=== PATIENT | male | born 1955 | race Caucasian/White ===

== ENCOUNTER 2020-09-04 09:49 | Inpatient (IN) | payer OTHER ==
[~2020-09-04] VITALS: Ht 180.3 cm; Wt 127.2 kg
[2020-09-04] MEDS ORDERED: ASPirin 81 mg TAB PO ONE (10:15)
[2020-09-04] MEDS: NITROGLYCERIN 0.4 MG SL TAB SL ONE ×2 (10:22→11:21)
[2020-09-04 10:31] LABS: Basophils # (auto) 0 10 ^3/uL (0-0.2); Basophils % (auto) 0.5 % (0.0-2.0); Eosinophils # (auto) 0.1 10 ^3/uL (0-0.8); Eosinophils % (auto) 1.9 % (0.0-7.0); Hematocrit 46.6 % (41.0-53.0); Hemoglobin 15.8 g/dL (13.5-17.5); Lymphocytes % (auto) 16.6 % (10.0-50.0); Mean Corpuscular Hemoglobin 31.8 pg (28.0-32.0); Mean Corpuscular Hgb Conc. 33.9 g/dL (32.0-36.0); Mean Corpuscular Volume 93.9 fL (80.0-100.0); Monocytes # (auto) 0.4 10 ^3/uL (0-1.3); Monocytes % (auto) 6.5 % (0.0-12.0); Neutrophils # (auto) 4.6 10 ^3/uL (1.6-8.6); Neutrophils % (auto) 74.5 % (37.0-80.0); Nucleated Red Blood Cells % 0.4 %; Platelet Count (auto) 141 10^3/uL (140-450); Red Blood Cells 4.97 10^6/uL (4.5-5.90); Red Cell Distribution Width 13.6 % (11.8-14.3); White Blood Cell 6.2 10^3/uL (4.4-10.8)
[2020-09-04 10:49] LABS: Alanine Aminotransferase 21 U/L (16-61); Albumin 3.3 g/dL (3.4-5.0); Anion Gap 7 (5-15); Aspartate Aminotransferase 8 U/L (15-37); Blood Urea Nitrogen 15 mg/dL (7-18); Carbon Dioxide 25 mmol/L (21-32); Chloride 104 mmol/L (98-107); Glucose 294 mg/dL (74-106); Magnesium 2.1 mg/dL (1.6-2.6); Potassium 4.1 mmol/L (3.5-5.1); Sodium 136 mmol/L (136-145)
[2020-09-04 10:54] LABS: Alkaline Phosphatase 113 U/L (45-117); BUN/Creatinine Ratio 15.5; Bilirubin, Total 0.7 mg/dL (0.2-1.0); GFR African American 100 mL/min; GFR Non-African American 83 mL/min; Total Protein 6.6 g/dL (6.4-8.2)
[2020-09-04] MEDS ORDERED: NITROGLYCERIN 0.4 MG SL TAB SL PRN ×3 (13:45→20:30)
[2020-09-04] MEDS ORDERED: ROSU40TA PO (15:17)
[2020-09-04] MEDS ORDERED: ASPI-231 PO (15:17)
[2020-09-04] MEDS ORDERED: NORT10CA PO (15:17)
[2020-09-04] MEDS ORDERED: LISI-648 PO (15:17)
[2020-09-04] MEDS ORDERED: INSU100I49 SC (15:17)
[2020-09-04] MEDS ORDERED: PREG100C PO (15:17)
[2020-09-04] MEDS ORDERED: HYDR-531 PO (15:18)
[2020-09-04] MEDS ORDERED: MORP1TAB12 PO (15:18)
[2020-09-04 15:32] LABS: Cholesterol 194 mg/dL (< 200)
[2020-09-04 15:35] LABS: HDL Cholesterol 36 mg/dL (40-59); LDL Cholesterol 139 mg/dL (< 100); Triglycerides 221 mg/dL (< 150)
[2020-09-04] MEDS ORDERED: DEXTROSE (50%) 50ML SYRG IV PRN (18:00)
[2020-09-04] MEDS ORDERED: HYDROcodone-ACET 10/325MG TAB PO PRN (18:00)
[2020-09-04] MEDS: PREGABALIN 25 MG CAP PO SCH (18:19)
[2020-09-04] MEDS: MORPHINE SULF INJ 2 MG/ML SYRINGE 1ML IV PRN ×2 (19:40→22:17)
[2020-09-04] MEDS ORDERED: LORazepam 0.5 MG TAB PO PRN (20:30)
[2020-09-04] MEDS ORDERED: MORPHINE SULFATE 4 MG/ML SYR/VIAL IV PRN (20:30)
[2020-09-04] MEDS ORDERED: ALUM & MAG HYDROX-SIMETH LIQ(MAALOX) 30 ML PO PRN (20:30)
[2020-09-04] MEDS ORDERED: ONDANSETRON HCL 4 MG/2 ML VIAL IV PRN (20:30)
[2020-09-04] MEDS ORDERED: METOPROLOL TARTRATE 25 MG TAB PO ONE (20:30)
[2020-09-04] MEDS ORDERED: DOCUSATE SOD 100 MG CAP PO PRN (20:30)
[2020-09-04] MEDS ORDERED: MORPHINE SULF INJ 2 MG/ML SYRINGE 1ML IV PRN ×2 (20:30)
[2020-09-04] MEDS ORDERED: ACETAMINOPHEN 325 MG TAB PO PRN (20:30)
[2020-09-04 22:25] VITALS: BP 129/76
--- NOTE | 2020-09-04 23:00 | NUR ---
Telemetry admit from [facility] admitted to Telemetry unit after SBAR received. Patient oriented to Joann Davis RN primary RN, unit, room, bed, and unit policies regarding patient care and visiting hours. Patient now on continuous telemetry monitoring, tele box # 80 and telemetry reading on arrival to unit is SR. Patient weighed by bedscale and encouraged to call if they need something. Instructed to be NPO after MN, for possible stress test tomorrow, patient verbalized understanding. All questions and concerns addressed, patient verbalized understanding, will continue to monitor Note: []
[2020-09-04] MEDS: NORTRIPTYLINE HCL 10 MG CAP PO SCH (23:24)
[2020-09-04] MEDS: ATORVASTATIN 20 MG TAB PO SCH (23:24)
[2020-09-04] MEDS: ACCU-CHEK COMFORT CURVE STRIP VI SCH (23:24)
[2020-09-04] MEDS: InsuLIN REG 1unit/0.01ml Soln (100units/ml) SC SCH (23:25)
--- NOTE | 2020-09-04 23:30 | NUR ---
Noted redness and swelling on left leg present upon admission. Pictures taken for reference
[2020-09-05 02:05] VITALS: BP 129/76
[2020-09-05 05:00] VITALS: BP 130/80
[2020-09-05 06:49] LABS: Alcohol, Urine < 3.0 mg/dL (0-10); Amphetamine Screen, Urine NEGATIVE (NEGATIVE); Barbiturate Scree,Urine NEGATIVE (NEGATIVE); Benzodiazephine Screen, Urine NEGATIVE (NEGATIVE); Cannabinoid Screen, Urine NEGATIVE (NEGATIVE); Cocaine Screen, Urine NEGATIVE (NEGATIVE); Opiate Scree,Urine POSITIVE (NEGATIVE); Phencyclidine Screen, Urine NEGATIVE (NEGATIVE)
[2020-09-05] MEDS: ACCU-CHEK COMFORT CURVE STRIP VI SCH ×4 (06:59→21:35)
[2020-09-05] MEDS: InsuLIN REG 1unit/0.01ml Soln (100units/ml) SC SCH ×7 (07:00→22:00)
[2020-09-05 07:21] LABS: Urine Bacteria FEW /hpf (None Seen); Urine Blood Negative /uL (Negative); Urine Hyaline Cast FEW /lpf (0 - 2); Urine Specific Gravity 1.033 (1.001-1.035); Urine WBC 1 /hpf (0 - 3)
[2020-09-05] MEDS: LISINOPRIL 10 MG TAB PO SCH (10:00)
[2020-09-05] MEDS: CLOPIDOGREL BISULFATE 75 MG TAB PO SCH (10:00)
[2020-09-05] MEDS: ENOXAPARIN SOD 40 MG/0.4 ML SYRINGE SC SCH (10:00)
[2020-09-05] MEDS: PREGABALIN 25 MG CAP PO SCH ×2 (10:00→21:35)
[2020-09-05] MEDS: ASPirin 81 mg TAB PO SCH (10:00)
[2020-09-05] MEDS: METOPROLOL TARTRATE 25 MG TAB PO SCH ×2 (10:00→13:10)
[2020-09-05] MEDS ORDERED: ADENOSINE 108 MG in GIVE UN-DILUTED 0 ML IV STA (11:24)
[2020-09-05 11:56] VITALS: BP 135/82
[2020-09-05] MEDS: HYDROcodone-ACET 5/325MG TAB PO PRN ×4 (13:09→21:36)
[2020-09-05 17:00] VITALS: BP 119/74
--- NOTE | 2020-09-05 18:00 | NUR ---
pain appears to be controlled, with narco. no cp during shift. eating et drinking well. offers no other needs. results from stress test pendng pt aware. denies any other needs.
--- NOTE | 2020-09-05 19:00 | NUR ---
Opening Shift Note Assumed care of patient, awake and alert. No S/S of distress/SOB or pain at this time. Instructed on POC and to call for assist PRN, will continue to monitor for changes Q1hr and PRN. Patient in the lowest possible position with call light within reach.
[2020-09-05 20:00] VITALS: BP 94/51
--- NOTE | 2020-09-05 21:00 | NUR ---
Patient C/O of pain, patients states that norco helps, will administer per protocol when available.
[2020-09-05] MEDS: ATORVASTATIN 20 MG TAB PO SCH (21:35)
[2020-09-05] MEDS: NORTRIPTYLINE HCL 10 MG CAP PO SCH (21:35)
[2020-09-05 22:00] VITALS: BP 97/51
[2020-09-06 05:00] VITALS: BP 106/73
[2020-09-06] MEDS: ACCU-CHEK COMFORT CURVE STRIP VI SCH ×4 (06:06→21:20)
[2020-09-06] MEDS: HYDROcodone-ACET 5/325MG TAB PO PRN ×4 (06:06→21:12)
[2020-09-06] MEDS: InsuLIN REG 1unit/0.01ml Soln (100units/ml) SC SCH ×4 (06:09→21:26)
--- NOTE | 2020-09-06 07:50 | NUR ---
Opening Shift Note Assumed care of patient, awake and alert. No S/S of distress/SOB or pain. Instructed on POC and to call for assist PRN, will continue to monitor for changes Q1hr and PRN. Fall precautions in place per safety protocol.
[2020-09-06 08:00] VITALS: BP 102/62
[2020-09-06] MEDS: LISINOPRIL 10 MG TAB PO SCH (10:00)
[2020-09-06] MEDS: PREGABALIN 25 MG CAP PO SCH ×2 (10:26→21:19)
[2020-09-06] MEDS: ASPirin 81 mg TAB PO SCH (10:26)
[2020-09-06] MEDS: METOPROLOL TARTRATE 25 MG TAB PO SCH ×2 (10:26→21:19)
[2020-09-06] MEDS: CLOPIDOGREL BISULFATE 75 MG TAB PO SCH (10:27)
[2020-09-06] MEDS: ENOXAPARIN SOD 40 MG/0.4 ML SYRINGE SC SCH (10:27)
[2020-09-06 12:00] VITALS: BP 96/64
--- NOTE | 2020-09-06 14:30 | NUR ---
Physician MD Dawkins at bedside, aware of patient status. Per MD Dawkins, he contacted MD Lee to have stress test read. Will cont to monitor patient.
--- NOTE | 2020-09-06 15:00 | NUR ---
Cardiology Received call from MD Dawkins stating MD Lee is stating he will not be reading stress test as MD Peoples should be the one to read it. Will contact MD Peoples and cont to monitor patient.
--- NOTE | 2020-09-06 15:15 | NUR ---
MD Peoples Received call back from MD Peoples, Per MD Peoples, stress test needs to be read by MD Lee. Will Contact MD Lee and notify MD Dawkins. Will cont to monitor patient.
--- NOTE | 2020-09-06 15:30 | NUR ---
MD Lee Sent page to MD Lee, awaiting call back at this time.
[2020-09-06 16:41] VITALS: BP 129/60
--- NOTE | 2020-09-06 19:00 | NUR ---
Opening Shift Note Assumed care of patient, awake and alert. No S/S of distress/SOB or pain. Instructed on POC and to call for assist PRN, will continue to monitor for changes Q1hr and PRN. Patient in the lowest possible position with the call light within reach.
[2020-09-06 20:00] VITALS: BP 102/64
--- NOTE | 2020-09-06 20:21 | NUR ---
Patient pulled out IV on left hand by accident, patient stated that he forgot it was on his hand and hit his hand when he realized it was bleeding. Patient got paper towels to stop the bleeding and notified HISTOLOGIC AIDE. Patient was sitting in the chair holding dressing. IV intact. Will continue to monitor.
[2020-09-06] MEDS: ATORVASTATIN 20 MG TAB PO SCH (21:19)
[2020-09-06] MEDS: NORTRIPTYLINE HCL 10 MG CAP PO SCH (21:20)
[2020-09-06 22:00] VITALS: BP 102/64
[2020-09-07] MEDS: HYDROcodone-ACET 5/325MG TAB PO PRN ×3 (01:14→10:36)
[2020-09-07 05:00] VITALS: BP 110/71
[2020-09-07] MEDS: ACCU-CHEK COMFORT CURVE STRIP VI SCH (06:34)
[2020-09-07] MEDS: InsuLIN REG 1unit/0.01ml Soln (100units/ml) SC SCH (06:38)
--- NOTE | 2020-09-07 08:00 | NUR ---
Opening Shift Note Assumed care of patient, awake and alert. No S/S of distress/SOB or pain. Instructed on POC and to call for assist PRN, will continue to monitor for changes Q1hr and PRN. Fall precaution sin place per safety protocol.
[2020-09-07 09:00] VITALS: BP 111/75
[2020-09-07] MEDS: CLOPIDOGREL BISULFATE 75 MG TAB PO SCH (09:26)
[2020-09-07] MEDS: METOPROLOL TARTRATE 25 MG TAB PO SCH (09:26)
[2020-09-07] MEDS: ASPirin 81 mg TAB PO SCH (09:26)
[2020-09-07] MEDS: PREGABALIN 25 MG CAP PO SCH (09:27)
[2020-09-07] MEDS: ENOXAPARIN SOD 40 MG/0.4 ML SYRINGE SC SCH (09:27)
[2020-09-07] MEDS: LISINOPRIL 10 MG TAB PO SCH (09:29)
[2020-09-07 11:01] VITALS: BP 114/74
--- NOTE | 2020-09-07 11:51 | NUR ---
Discharge instructions given as ordered. Encourage to follow up with PMD as instructed. All questions and concerns addressed. Patient verbalized understanding. Medication reconciliation form completed and copy given to patient. IV removed with catheter intact, pressure dressing applied. Telemetry unit returned to ICU. Patient ambulated to vehicle via wheelchair with all personal belongings, accompanied by staff.No distress noted at time of departure.
== END 2020-09-07 12:00 | disposition home or self-care (01) | DRG 313 ==
LOC: ER 09:49 → TELE 13:41 → TELE-WESTW 22:25
PROVIDERS: ADMIT Hospitalist; ATTEND Internal Medicine Geriatric Medicine
DX: R07.89 Other chest pain (principal); E44.1 Mild protein-calorie malnutrition; I50.32 Chronic diastolic (congestive) heart failure; E66.01 Morbid (severe) obesity due to excess calories; K21.9 Gastro-esophageal reflux disease without esophagitis; K29.70 Gastritis, unspecified, without bleeding; E78.5 Hyperlipidemia, unspecified; I11.0 Hypertensive heart disease with heart failure; E11.9 Type 2 diabetes mellitus without complications; I45.10 Unspecified right bundle-branch block; Z79.4 Long term (current) use of insulin; Z79.82 Long term (current) use of aspirin; Z91.81 History of falling; Z68.39 Body mass index [BMI] 39.0-39.9, adult
CPT/HCPCS: 36415; 71045; 78452; 80053; 80061; 80307; 81001; 82962; 83036; 83735; 83880; 84484; 85025; 87040; 87086; 93005; 93017; 93306; 93926; 96374; G0378; J0153; J1815

== ENCOUNTER 2022-09-14 20:51 | Inpatient (IN) | payer OTHER, MEDICAID ==
[~2022-09-14] VITALS: Ht 180.3 cm; Wt 134.9 kg
[~2022-09-14 20:51] MED LIST: ASPI1TAB20 PO; HYDR-531 PO; INSU100I49 SC; LISI-716 PO; MORP1TAB12 PO; NORT10CA PO; PREG100C PO; ROSU40TA PO
[2022-09-14 23:57] LABS: Basophils # (auto) 0 10 ^3/uL (0-0.2); Basophils % (auto) 0.2 % (0.0-2.0); Eosinophils # (auto) 0 10 ^3/uL (0-0.8); Eosinophils % (auto) 0.1 % (0.0-7.0); Hematocrit 51.6 % (41.0-53.0); Hemoglobin 16.6 g/dL (13.5-17.5); Lymphocytes # (auto) 1.3 10 ^3/uL (0.4-5.4); Lymphocytes % (auto) 6.3 % (10.0-50.0); Mean Corpuscular Hemoglobin 28.3 pg (28.0-32.0); Mean Corpuscular Hgb Conc. 32.1 g/dL (32.0-36.0); Monocytes # (auto) 1.2 10 ^3/uL (0-1.3); Monocytes % (auto) 5.6 % (0.0-12.0); Neutrophils # (auto) 18.6 10 ^3/uL (1.6-8.6); Neutrophils % (auto) 87.8 % (37.0-80.0); Red Blood Cells 5.87 10^6/uL (4.5-5.90); White Blood Cell 21.2 10^3/uL (4.4-10.8)
[2022-09-15 00:08] LABS: Urine Bacteria FEW /hpf (None Seen); Urine Blood Negative /uL (Negative); Urine Hyaline Cast MANY /lpf (0 - 2); Urine Mucus FEW (None Seen); Urine Specific Gravity 1.036 (1.001-1.035); Urine WBC 3 /hpf (0 - 3)
[2022-09-15 00:11] LABS: Potassium 3.8 mmol/L (3.5-5.1)
[2022-09-15 00:15] LABS: BUN/Creatinine Ratio 9.2
[2022-09-15 00:18] LABS: Bilirubin, Total 0.7 mg/dL (0.2-1.0); Total Protein 6.3 g/dL (6.4-8.2)
[2022-09-15] MEDS ORDERED: InsuLIN REG 1unit/0.01ml Soln (100units/ml) IV ONE (03:30)
[2022-09-15] MEDS ORDERED: SODIUM CHLORIDE 0.9% 1,000 ML IV ONE ×2 (03:30→12:45)
[2022-09-15] MEDS ORDERED: DEXTROSE (50%) 50ML SYRG IV PRN (05:30)
[2022-09-15] MEDS ORDERED: SODIUM CHLORIDE 0.9% 1,000 ML IV SCH (05:30)
[2022-09-15] MEDS ORDERED: ONDANSETRON HCL 4 MG/2 ML VIAL IV PRN (05:30)
[2022-09-15] MEDS ORDERED: ACETAMINOPHEN 325 MG TAB PO PRN (05:30)
[2022-09-15] MEDS ORDERED: ALBUMIN 25% 100 ML IV ONE (05:30)
[2022-09-15] MEDS ORDERED: MORPHINE SULFATE INJ 2 MG/ml SYRG IV PRN (05:30)
[2022-09-15] MEDS: cefTRIAXone 1GM/50ML D5W 50 ML IV ONE ×2 (05:30→12:44)
[2022-09-15] MEDS ORDERED: NITROGLYCERIN 0.4 MG SL TAB SL PRN (05:30)
[2022-09-15] MEDS ORDERED: DOCUSATE SOD 100 MG CAP PO PRN (05:30)
[2022-09-15] MEDS: metroNIDAZOLE 500MG/100ML 100 ML IV SCH ×3 (06:00→23:25)
[2022-09-15] MEDS: ACCU-CHEK COMFORT CURVE STRIP VI SCH ×4 (07:00→22:26)
[2022-09-15] MEDS: InsuLIN REG 1unit/0.01ml Soln (100units/ml) SC SCH ×4 (07:00→22:29)
[2022-09-15] MEDS ORDERED: ASPirin 81 mg TAB PO SCH (10:00)
[2022-09-15 10:21] LABS: Basophils # (auto) 0.1 10 ^3/uL (0-0.2); Basophils % (auto) 0.4 % (0.0-2.0); Eosinophils # (auto) 0 10 ^3/uL (0-0.8); Eosinophils % (auto) 0.1 % (0.0-7.0); Hematocrit 52.3 % (41.0-53.0); Hemoglobin 16.9 g/dL (13.5-17.5); Lymphocytes # (auto) 1.2 10 ^3/uL (0.4-5.4); Lymphocytes % (auto) 4.8 % (10.0-50.0); Mean Corpuscular Hemoglobin 28.4 pg (28.0-32.0); Mean Corpuscular Hgb Conc. 32.3 g/dL (32.0-36.0); Mean Corpuscular Volume 87.9 fL (80.0-100.0); Monocytes # (auto) 1.4 10 ^3/uL (0-1.3); Monocytes % (auto) 5.6 % (0.0-12.0); Neutrophils # (auto) 21.6 10 ^3/uL (1.6-8.6); Neutrophils % (auto) 89.1 % (37.0-80.0); Red Blood Cells 5.94 10^6/uL (4.5-5.90); Red Cell Distribution Width 15.1 % (11.8-14.3); White Blood Cell 24.2 10^3/uL (4.4-10.8)
[2022-09-15 11:09] LABS: Potassium 4.2 mmol/L (3.5-5.1)
[2022-09-15 11:16] LABS: BUN/Creatinine Ratio 10.2; Calcium 8.8 mg/dL (8.5-10.1); Magnesium 2.3 mg/dL (1.6-2.6)
[2022-09-15] MEDS: SODIUM CHLORIDE 0.9% 1,000 ML IV SCH ×2 (12:40→18:30)
[2022-09-15] MEDS: ALBUMIN 25% 50 ML IV SCH ×2 (12:45→21:54)
[2022-09-15] MEDS: HYDROcodone-ACET 5/325MG TAB PO PRN ×2 (16:10→21:55)
[2022-09-15 18:04] VITALS: BP 135/61
[2022-09-15 20:00] VITALS: BP 94/59
[2022-09-15 22:00] VITALS: BP 94/59
[2022-09-15] MEDS ORDERED: ATORVASTATIN 20 MG TAB PO SCH (22:00)
[2022-09-16] VITALS (7 sets, daily range): BP systolic 104–118; BP diastolic 62–77
[2022-09-16] MEDS: SODIUM CHLORIDE 0.9% 1,000 ML IV SCH (00:51)
[2022-09-16] MEDS: ALBUMIN 25% 50 ML IV SCH (04:38)
[2022-09-16] MEDS: MORPHINE SULFATE INJ 2 MG/ml SYRG IV PRN ×2 (04:38→20:32)
[2022-09-16] MEDS: metroNIDAZOLE 500MG/100ML 100 ML IV SCH ×3 (05:32→22:03)
[2022-09-16 06:05] LABS: Basophils # (auto) 0 10 ^3/uL (0-0.2); Basophils % (auto) 0.2 % (0.0-2.0); Eosinophils # (auto) 0.1 10 ^3/uL (0-0.8); Eosinophils % (auto) 0.3 % (0.0-7.0); Hematocrit 47.1 % (41.0-53.0); Hemoglobin 15.5 g/dL (13.5-17.5); Lymphocytes # (auto) 1.5 10 ^3/uL (0.4-5.4); Lymphocytes % (auto) 5.7 % (10.0-50.0); Mean Corpuscular Hemoglobin 28.6 pg (28.0-32.0); Mean Corpuscular Hgb Conc. 32.9 g/dL (32.0-36.0); Mean Corpuscular Volume 86.9 fL (80.0-100.0); Monocytes # (auto) 1.5 10 ^3/uL (0-1.3); Monocytes % (auto) 5.6 % (0.0-12.0); Neutrophils # (auto) 23.7 10 ^3/uL (1.6-8.6); Neutrophils % (auto) 88.2 % (37.0-80.0); Red Blood Cells 5.42 10^6/uL (4.5-5.90); White Blood Cell 26.9 10^3/uL (4.4-10.8)
[2022-09-16] MEDS: ACCU-CHEK COMFORT CURVE STRIP VI SCH ×3 (06:53→22:03)
[2022-09-16] MEDS: InsuLIN REG 1unit/0.01ml Soln (100units/ml) SC SCH ×4 (06:54→22:05)
[2022-09-16] MEDS: cefTRIAXone 1GM/50ML D5W 50 ML IV SCH (08:47)
[2022-09-16] MEDS: HYDROcodone-ACET 5/325MG TAB PO PRN ×2 (09:01→14:33)
[2022-09-16 09:29] LABS: Anion Gap 14 (5-15); Blood Urea Nitrogen 19 mg/dL (7-18); Calcium 8.4 mg/dL (8.5-10.1); Carbon Dioxide 17 mmol/L (21-32); Chloride 109 mmol/L (98-107); Glucose 184 mg/dL (74-106); Potassium 3.8 mmol/L (3.5-5.1); Sodium 140 mmol/L (136-145)
[2022-09-16 09:30] LABS: BUN/Creatinine Ratio 14.6; GFR African American 71 mL/min; GFR Non-African American 59 mL/min
[2022-09-16 09:34] LABS: Alanine Aminotransferase 13 U/L (16-61); Alkaline Phosphatase 100 U/L (45-117); Aspartate Aminotransferase 9 U/L (15-37); Bilirubin, Total 0.6 mg/dL (0.2-1.0); Total Protein 5.8 g/dL (6.4-8.2)
[2022-09-16] MEDS: SODIUM BICARBONATE 50ML VIAL 50 ML in SOD CHL 0.45% 1,000 ML IV SCH ×2 (14:32→18:39)
[2022-09-17] VITALS (7 sets, daily range): BP systolic 103–128; BP diastolic 64–75
[2022-09-17] MEDS: HYDROcodone-ACET 5/325MG TAB PO PRN ×3 (00:57→18:49)
[2022-09-17] MEDS: SODIUM BICARBONATE 50ML VIAL 50 ML in SOD CHL 0.45% 1,000 ML IV SCH (03:03)
[2022-09-17 05:03] LABS: Basophils # (auto) 0 10 ^3/uL (0-0.2); Basophils % (auto) 0.3 % (0.0-2.0); Eosinophils # (auto) 0.1 10 ^3/uL (0-0.8); Eosinophils % (auto) 0.6 % (0.0-7.0); Hematocrit 39.2 % (41.0-53.0); Lymphocytes # (auto) 1.5 10 ^3/uL (0.4-5.4); Mean Corpuscular Hemoglobin 28.8 pg (28.0-32.0); Mean Corpuscular Hgb Conc. 33.2 g/dL (32.0-36.0); Mean Corpuscular Volume 86.8 fL (80.0-100.0); Monocytes # (auto) 0.9 10 ^3/uL (0-1.3); Monocytes % (auto) 6.2 % (0.0-12.0); Neutrophils # (auto) 12.4 10 ^3/uL (1.6-8.6); Neutrophils % (auto) 82.9 % (37.0-80.0); Nucleated Red Blood Cells % 0.1 %; Red Blood Cells 4.52 10^6/uL (4.5-5.90); Red Cell Distribution Width 15.1 % (11.8-14.3)
[2022-09-17 05:30] LABS: BUN/Creatinine Ratio 19.8; Magnesium 2.2 mg/dL (1.6-2.6); Potassium 3.4 mmol/L (3.5-5.1)
[2022-09-17] MEDS: metroNIDAZOLE 500MG/100ML 100 ML IV SCH ×3 (05:42→21:30)
[2022-09-17] MEDS: ACCU-CHEK COMFORT CURVE STRIP VI SCH ×4 (06:39→21:30)
[2022-09-17] MEDS: InsuLIN REG 1unit/0.01ml Soln (100units/ml) SC SCH ×4 (06:44→21:30)
[2022-09-17] MEDS: cefTRIAXone 1GM/50ML D5W 50 ML IV SCH (08:00)
[2022-09-17] MEDS: MORPHINE SULFATE INJ 2 MG/ml SYRG IV PRN ×3 (08:05→22:23)
[2022-09-17] MEDS: SODIUM BICARBONATE 50ML VIAL 50 ML, POTASSIUM CHLORIDE 20 MEQ in SOD CHL 0.45% 1,000 ML IV SCH ×2 (12:15→19:59)
[2022-09-17] MEDS: VANCOMYCIN HCL 125MG/5ML ORAL SOL GT SCH ×2 (18:35→21:29)
[2022-09-17] MEDS ORDERED: methylPREDNISolone SOD SUCC 40 MG/ML VL IV SCH (22:00)
[2022-09-18] MEDS: HYDROcodone-ACET 5/325MG TAB PO PRN ×3 (02:37→15:45)
[2022-09-18] MEDS: SODIUM BICARBONATE 50ML VIAL 50 ML, POTASSIUM CHLORIDE 20 MEQ in SOD CHL 0.45% 1,000 ML IV SCH (04:28)
[2022-09-18 05:22] VITALS: BP 112/66
[2022-09-18 05:22] LABS: Protein, Urine 88.8 mg/dL (0.0-11.9); Sodium Urine 33 mmol/L (40-220)
[2022-09-18 05:37] LABS: Creatinine, Urine 294 mg/dL (30.0-125.0)
[2022-09-18] MEDS: ACCU-CHEK COMFORT CURVE STRIP VI SCH ×4 (06:23→21:56)
[2022-09-18] MEDS: VANCOMYCIN HCL 125MG/5ML ORAL SOL GT SCH ×2 (06:23→11:33)
[2022-09-18] MEDS: metroNIDAZOLE 500MG/100ML 100 ML IV SCH ×3 (06:23→21:56)
[2022-09-18] MEDS: InsuLIN REG 1unit/0.01ml Soln (100units/ml) SC SCH ×4 (06:28→22:11)
[2022-09-18 06:43] LABS: Basophils # (auto) 0.1 10 ^3/uL (0-0.2); Basophils % (auto) 0.5 % (0.0-2.0); Eosinophils # (auto) 0.1 10 ^3/uL (0-0.8); Eosinophils % (auto) 0.9 % (0.0-7.0); Hematocrit 41.9 % (41.0-53.0); Hemoglobin 13.5 g/dL (13.5-17.5); Lymphocytes # (auto) 1.2 10 ^3/uL (0.4-5.4); Lymphocytes % (auto) 9.6 % (10.0-50.0); Mean Corpuscular Hemoglobin 28.2 pg (28.0-32.0); Mean Corpuscular Hgb Conc. 32.2 g/dL (32.0-36.0); Mean Corpuscular Volume 87.6 fL (80.0-100.0); Monocytes # (auto) 0.8 10 ^3/uL (0-1.3); Monocytes % (auto) 6.3 % (0.0-12.0); Neutrophils % (auto) 82.7 % (37.0-80.0); Nucleated Red Blood Cells % 0.1 %; Red Blood Cells 4.79 10^6/uL (4.5-5.90); Red Cell Distribution Width 14.9 % (11.8-14.3)
[2022-09-18 07:37] LABS: BUN/Creatinine Ratio 20.3; Calcium 7.8 mg/dL (8.5-10.1); Magnesium 2.3 mg/dL (1.6-2.6); Potassium 3.6 mmol/L (3.5-5.1)
[2022-09-18 07:55] VITALS: BP 118/73
[2022-09-18 08:30] VITALS: BP 118/73
[2022-09-18] MEDS: cefTRIAXone 1GM/50ML D5W 50 ML IV SCH (08:39)
[2022-09-18] MEDS: FLORASTOR (S. BOULARDII) 250 MG CAP PO SCH (09:55)
[2022-09-18] MEDS: VANCOMYCIN HCL 125MG/5ML ORAL SOL PO SCH ×2 (11:52→17:58)
[2022-09-18 14:21] VITALS: BP 111/59
[2022-09-18 16:00] VITALS: BP 108/70
[2022-09-18 20:10] VITALS: BP 101/59
[2022-09-19] MEDS: VANCOMYCIN HCL 125MG/5ML ORAL SOL PO SCH ×5 (00:49→23:53)
[2022-09-19 05:00] VITALS: BP 108/58
[2022-09-19] MEDS: metroNIDAZOLE 500MG/100ML 100 ML IV SCH ×3 (05:23→21:51)
[2022-09-19] MEDS: HYDROcodone-ACET 5/325MG TAB PO PRN ×4 (05:23→18:55)
[2022-09-19 05:54] LABS: Basophils # (auto) 0.1 10 ^3/uL (0-0.2); Basophils % (auto) 0.7 % (0.0-2.0); Eosinophils # (auto) 0.2 10 ^3/uL (0-0.8); Eosinophils % (auto) 1.5 % (0.0-7.0); Hematocrit 43.1 % (41.0-53.0); Hemoglobin 13.9 g/dL (13.5-17.5); Lymphocytes # (auto) 1.6 10 ^3/uL (0.4-5.4); Lymphocytes % (auto) 15.7 % (10.0-50.0); Mean Corpuscular Hemoglobin 28.6 pg (28.0-32.0); Mean Corpuscular Hgb Conc. 32.3 g/dL (32.0-36.0); Mean Corpuscular Volume 88.5 fL (80.0-100.0); Monocytes # (auto) 0.7 10 ^3/uL (0-1.3); Monocytes % (auto) 7.2 % (0.0-12.0); Neutrophils # (auto) 7.7 10 ^3/uL (1.6-8.6); Neutrophils % (auto) 74.9 % (37.0-80.0); Nucleated Red Blood Cells % 0.1 %; Red Blood Cells 4.87 10^6/uL (4.5-5.90); White Blood Cell 10.2 10^3/uL (4.4-10.8)
[2022-09-19] MEDS: ACCU-CHEK COMFORT CURVE STRIP VI SCH ×4 (06:23→21:51)
[2022-09-19] MEDS: InsuLIN REG 1unit/0.01ml Soln (100units/ml) SC SCH ×4 (06:25→21:52)
[2022-09-19 06:28] LABS: BUN/Creatinine Ratio 9.9; Calcium 8.3 mg/dL (8.5-10.1); Potassium 3.4 mmol/L (3.5-5.1)
[2022-09-19] MEDS ORDERED: POTASSIUM CHL 20 Meq TABLET PO ONE (09:00)
[2022-09-19 09:13] VITALS: BP 112/47
[2022-09-19] MEDS: FLORASTOR (S. BOULARDII) 250 MG CAP PO SCH (10:00)
[2022-09-19 13:51] VITALS: BP 135/71
[2022-09-19 16:23] VITALS: BP 128/51
[2022-09-19 22:00] VITALS: BP 120/66
[2022-09-20] MEDS: HYDROcodone-ACET 5/325MG TAB PO PRN ×5 (00:04→20:31)
[2022-09-20 05:46] LABS: BUN/Creatinine Ratio 14.9; Calcium 7.9 mg/dL (8.5-10.1); Potassium 3.8 mmol/L (3.5-5.1)
[2022-09-20] MEDS: metroNIDAZOLE 500MG/100ML 100 ML IV SCH ×3 (06:11→22:16)
[2022-09-20] MEDS: ACCU-CHEK COMFORT CURVE STRIP VI SCH ×4 (06:11→22:22)
[2022-09-20] MEDS: VANCOMYCIN HCL 125MG/5ML ORAL SOL PO SCH ×3 (06:11→17:43)
[2022-09-20] MEDS: InsuLIN REG 1unit/0.01ml Soln (100units/ml) SC SCH ×4 (07:04→22:23)
[2022-09-20 08:51] VITALS: BP 115/65
[2022-09-20] MEDS: FLORASTOR (S. BOULARDII) 250 MG CAP PO SCH (10:29)
[2022-09-20 12:48] VITALS: BP 106/62
[2022-09-20 16:41] VITALS: BP 137/73
[2022-09-20 22:00] VITALS: BP 129/77
[2022-09-21] MEDS: VANCOMYCIN HCL 125MG/5ML ORAL SOL PO SCH ×3 (00:08→11:54)
[2022-09-21] MEDS: HYDROcodone-ACET 5/325MG TAB PO PRN ×3 (00:12→09:04)
[2022-09-21 05:00] VITALS: BP 120/71
[2022-09-21] MEDS: metroNIDAZOLE 500MG/100ML 100 ML IV SCH (06:23)
[2022-09-21] MEDS: ACCU-CHEK COMFORT CURVE STRIP VI SCH ×2 (06:23→11:48)
[2022-09-21] MEDS: InsuLIN REG 1unit/0.01ml Soln (100units/ml) SC SCH ×2 (06:32→11:52)
[2022-09-21 09:00] VITALS: BP 129/66
[2022-09-21] MEDS: FLORASTOR (S. BOULARDII) 250 MG CAP PO SCH (09:04)
[2022-09-21] MEDS ORDERED: VANC125C3 PO (10:42)
[2022-09-21 12:03] VITALS: BP 115/65
[2022-09-21 13:00] VITALS: BP 119/72
[2022-09-21] MEDS ORDERED: METR500T PO (15:32)
== END 2022-09-21 12:34 | disposition home or self-care (01) | DRG 871 ==
LOC: ER 20:51 → OVERFLOW 09-15 05:30 → CENTRAL 09-15 18:09
PROVIDERS: ADMIT Nurse Practitioner Family; ATTEND Internal Medicine Geriatric Medicine
DX: A41.89 Other specified sepsis (principal); N17.0 Acute kidney failure with tubular necrosis; A04.72 Enterocolitis due to Clostridium difficile, not specified as recurrent; I50.30 Unspecified diastolic (congestive) heart failure; E87.20 Acidosis, unspecified; I13.0 Hypertensive heart and chronic kidney disease with heart failure and stage 1 through stage 4 chronic kidney disease, or unspecified chronic kidney disease; Z68.41 Body mass index [BMI] 40.0-44.9, adult; E86.0 Dehydration; E11.65 Type 2 diabetes mellitus with hyperglycemia; E66.01 Morbid (severe) obesity due to excess calories; E78.5 Hyperlipidemia, unspecified; N20.0 Calculus of kidney; E87.6 Hypokalemia; K21.9 Gastro-esophageal reflux disease without esophagitis; N18.9 Chronic kidney disease, unspecified; E11.22 Type 2 diabetes mellitus with diabetic chronic kidney disease; Z20.822 Contact with and (suspected) exposure to COVID-19
CPT/HCPCS: 36415; 71045; 74176; 80048; 80053; 81001; 82270; 82306; 82378; 82570; 82962; 83036; 83690; 83735; 83970; 84100; 84156; 84300; 84550; 85025; 85048; 87040; 87045; 87426; 87427; 87493; 93005; 93306; 96361; 96365; 96372; G0378; J0696; J1815; J2405; J3490; P9047

== ENCOUNTER 2022-09-27 15:03 | Inpatient (IN) | payer OTHER, MEDICAID ==
[~2022-09-27] VITALS: Ht 180.3 cm; Wt 137.2 kg
[~2022-09-27 15:03] MED LIST changes: +METR500T PO
[2022-09-27 16:04] LABS: Basophils # (auto) 0 10 ^3/uL (0-0.2); Basophils % (auto) 0.3 % (0.0-2.0); Eosinophils # (auto) 0.1 10 ^3/uL (0-0.8); Hematocrit 44.6 % (41.0-53.0); Hemoglobin 14.3 g/dL (13.5-17.5); Lymphocytes # (auto) 1.5 10 ^3/uL (0.4-5.4); Lymphocytes % (auto) 13.8 % (10.0-50.0); Mean Corpuscular Hemoglobin 28.2 pg (28.0-32.0); Mean Corpuscular Hgb Conc. 32.2 g/dL (32.0-36.0); Mean Corpuscular Volume 87.8 fL (80.0-100.0); Monocytes # (auto) 0.5 10 ^3/uL (0-1.3); Monocytes % (auto) 4.5 % (0.0-12.0); Neutrophils # (auto) 8.8 10 ^3/uL (1.6-8.6); Neutrophils % (auto) 80.4 % (37.0-80.0); Red Blood Cells 5.08 10^6/uL (4.5-5.90); Red Cell Distribution Width 15.3 % (11.8-14.3); White Blood Cell 10.9 10^3/uL (4.4-10.8)
[2022-09-27 16:23] LABS: Calcium 8.7 mg/dL (8.5-10.1); Potassium 4.3 mmol/L (3.5-5.1)
[2022-09-27 16:30] LABS: Albumin 2.9 g/dL (3.4-5.0); BUN/Creatinine Ratio 14.1; Bilirubin, Total 0.4 mg/dL (0.2-1.0); Magnesium 1.9 mg/dL (1.6-2.6); Total Protein 5.2 g/dL (6.4-8.2)
[2022-09-27 16:49] LABS: INR 1.03 (0.9-1.15)
[2022-09-27 18:49] LABS: Urine Bacteria NONE SEEN /hpf (None Seen); Urine Blood Negative /uL (Negative); Urine Specific Gravity 1.031 (1.001-1.035); Urine WBC 1 /hpf (0 - 3)
[2022-09-27] MEDS: SODIUM CHLORIDE 0.9% 1,000 ML IV SCH (19:30)
[2022-09-27] MEDS ORDERED: DEXTROSE (50%) 50ML SYRG IV PRN (19:30)
[2022-09-27] MEDS ORDERED: ONDANSETRON HCL 4 MG/2 ML VIAL IV PRN (19:30)
[2022-09-27] MEDS ORDERED: DICYCLOMINE HCL (10MG/ML) 2 ML AMPULE IM PRN (19:45)
[2022-09-27] MEDS: MORPHINE SULFATE INJ 2 MG/ml SYRG IV PRN (21:21)
[2022-09-27] MEDS: ACCU-CHEK COMFORT CURVE STRIP VI SCH (22:00)
[2022-09-27] MEDS: PATIENTS OWN MEDICATION (Pregabalin (Lyrica) 1 CAP) PO SCH (22:00)
[2022-09-27] MEDS: metroNIDAZOLE 500MG/100ML 100 ML IV SCH (22:13)
[2022-09-27] MEDS: InsuLIN REG 1unit/0.01ml Soln (100units/ml) SC SCH (22:15)
[2022-09-27] MEDS: NORTRIPTYLINE HCL 10 MG CAP PO SCH (22:22)
[2022-09-28] VITALS (7 sets, daily range): BP systolic 107–143; BP diastolic 59–83
[2022-09-28] MEDS: MORPHINE SULFATE INJ 2 MG/ml SYRG IV PRN ×2 (03:20→16:19)
[2022-09-28] MEDS: SODIUM CHLORIDE 0.9% 1,000 ML IV SCH ×3 (03:50→23:35)
[2022-09-28 06:10] LABS: Basophils # (auto) 0.1 10 ^3/uL (0-0.2); Basophils % (auto) 1.2 % (0.0-2.0); Eosinophils # (auto) 0.2 10 ^3/uL (0-0.8); Eosinophils % (auto) 2.4 % (0.0-7.0); Hematocrit 43.7 % (41.0-53.0); Hemoglobin 14.6 g/dL (13.5-17.5); Lymphocytes # (auto) 1.5 10 ^3/uL (0.4-5.4); Lymphocytes % (auto) 20.6 % (10.0-50.0); Mean Corpuscular Hemoglobin 29.4 pg (28.0-32.0); Mean Corpuscular Hgb Conc. 33.5 g/dL (32.0-36.0); Mean Corpuscular Volume 87.9 fL (80.0-100.0); Monocytes # (auto) 0.5 10 ^3/uL (0-1.3); Monocytes % (auto) 6.1 % (0.0-12.0); Neutrophils # (auto) 5.2 10 ^3/uL (1.6-8.6); Neutrophils % (auto) 69.7 % (37.0-80.0); Nucleated Red Blood Cells % 0.1 %; Red Blood Cells 4.97 10^6/uL (4.5-5.90); Red Cell Distribution Width 15.2 % (11.8-14.3); White Blood Cell 7.4 10^3/uL (4.4-10.8)
[2022-09-28 06:32] LABS: Calcium 8.7 mg/dL (8.5-10.1); Potassium 4.1 mmol/L (3.5-5.1)
[2022-09-28 06:39] LABS: Albumin 2.8 g/dL (3.4-5.0); BUN/Creatinine Ratio 19.4
[2022-09-28] MEDS: metroNIDAZOLE 500MG/100ML 100 ML IV SCH ×3 (06:53→22:08)
[2022-09-28] MEDS: LISINOPRIL 10 MG TAB PO SCH (06:53)
[2022-09-28] MEDS: ACCU-CHEK COMFORT CURVE STRIP VI SCH ×4 (06:53→22:09)
[2022-09-28] MEDS: InsuLIN REG 1unit/0.01ml Soln (100units/ml) SC SCH ×4 (07:17→22:00)
[2022-09-28] MEDS: PATIENTS OWN MEDICATION (Pregabalin (Lyrica) 1 CAP) PO SCH ×2 (09:01→22:00)
[2022-09-28] MEDS: PANTOPRAZOLE 40 MG/10 ML VIAL INJ IV SCH (09:01)
[2022-09-28] MEDS: ASPirin-EC 81 mg tab PO SCH (09:02)
[2022-09-28] MEDS: ATORVASTATIN 20 MG TAB PO SCH (09:02)
[2022-09-28] MEDS ORDERED: HYDROcodone-ACET 10/325MG TAB PO PRN (09:45)
[2022-09-28] MEDS ORDERED: VANCOMYCIN HCL 125MG/5ML ORAL SOL PO ONE (10:00)
[2022-09-28] MEDS: VANCOMYCIN HCL 125MG/5ML ORAL SOL PO SCH ×3 (10:32→22:08)
[2022-09-28] MEDS ORDERED: VANCOMYCIN HCL 125MG/5ML ORAL SOL GT SCH (12:00)
[2022-09-28] MEDS: HYDROcodone-ACET 10/325MG TAB PO PRN (21:28)
[2022-09-28] MEDS: NORTRIPTYLINE HCL 10 MG CAP PO SCH (22:09)
[2022-09-29] MEDS: VANCOMYCIN HCL 125MG/5ML ORAL SOL PO SCH ×4 (05:15→22:19)
[2022-09-29] MEDS: metroNIDAZOLE 500MG/100ML 100 ML IV SCH ×3 (05:15→22:22)
[2022-09-29] MEDS: LISINOPRIL 10 MG TAB PO SCH (05:56)
[2022-09-29] MEDS: InsuLIN REG 1unit/0.01ml Soln (100units/ml) SC SCH ×4 (05:56→22:25)
[2022-09-29] MEDS: ACCU-CHEK COMFORT CURVE STRIP VI SCH ×4 (05:58→22:25)
[2022-09-29 08:20] LABS: Basophils # (auto) 0.1 10 ^3/uL (0-0.2); Eosinophils # (auto) 0.1 10 ^3/uL (0-0.8); Eosinophils % (auto) 1.7 % (0.0-7.0); Hematocrit 43.9 % (41.0-53.0); Hemoglobin 14.1 g/dL (13.5-17.5); Lymphocytes # (auto) 1.6 10 ^3/uL (0.4-5.4); Lymphocytes % (auto) 21.5 % (10.0-50.0); Mean Corpuscular Hemoglobin 28.6 pg (28.0-32.0); Mean Corpuscular Hgb Conc. 32.1 g/dL (32.0-36.0); Monocytes # (auto) 0.5 10 ^3/uL (0-1.3); Monocytes % (auto) 6.8 % (0.0-12.0); Nucleated Red Blood Cells % 0.1 %; Red Blood Cells 4.93 10^6/uL (4.5-5.90); Red Cell Distribution Width 15.5 % (11.8-14.3); White Blood Cell 7.3 10^3/uL (4.4-10.8)
[2022-09-29] MEDS: ASPirin-EC 81 mg tab PO SCH (08:34)
[2022-09-29] MEDS: PATIENTS OWN MEDICATION (Pregabalin (Lyrica) 1 CAP) PO SCH ×2 (08:34→22:00)
[2022-09-29] MEDS: PANTOPRAZOLE 40 MG/10 ML VIAL INJ IV SCH (08:34)
[2022-09-29 08:35] VITALS: BP 97/67
[2022-09-29] MEDS: ATORVASTATIN 20 MG TAB PO SCH (08:35)
[2022-09-29 09:01] LABS: Calcium 8.7 mg/dL (8.5-10.1)
[2022-09-29 09:04] LABS: Potassium 4.4 mmol/L (3.5-5.1)
[2022-09-29] MEDS: HYDROcodone-ACET 10/325MG TAB PO PRN ×3 (11:36→22:18)
[2022-09-29 12:18] VITALS: BP 110/80
[2022-09-29] MEDS: SODIUM CHLORIDE 0.9% 1,000 ML IV SCH (12:55)
[2022-09-29 16:18] VITALS: BP 109/61
[2022-09-29 22:00] VITALS: BP 133/64
[2022-09-29] MEDS: NORTRIPTYLINE HCL 10 MG CAP PO SCH (22:18)
[2022-09-30] MEDS: SODIUM CHLORIDE 0.9% 1,000 ML IV SCH (02:09)
[2022-09-30] MEDS: VANCOMYCIN HCL 125MG/5ML ORAL SOL PO SCH ×2 (03:47→10:02)
[2022-09-30 05:00] VITALS: BP 103/57
[2022-09-30] MEDS: metroNIDAZOLE 500MG/100ML 100 ML IV SCH ×2 (05:29→15:02)
[2022-09-30] MEDS: LISINOPRIL 10 MG TAB PO SCH (06:20)
[2022-09-30] MEDS: ACCU-CHEK COMFORT CURVE STRIP VI SCH ×2 (06:20→11:39)
[2022-09-30] MEDS: HYDROcodone-ACET 10/325MG TAB PO PRN ×2 (06:20→11:19)
[2022-09-30] MEDS: InsuLIN REG 1unit/0.01ml Soln (100units/ml) SC SCH ×2 (06:23→12:34)
[2022-09-30 09:00] VITALS: BP 122/71
[2022-09-30] MEDS: PATIENTS OWN MEDICATION (Pregabalin (Lyrica) 1 CAP) PO SCH (10:00)
[2022-09-30] MEDS: ATORVASTATIN 20 MG TAB PO SCH (10:02)
[2022-09-30] MEDS: ASPirin-EC 81 mg tab PO SCH (10:02)
[2022-09-30] MEDS: PANTOPRAZOLE 40 MG/10 ML VIAL INJ IV SCH (10:02)
[2022-09-30] MEDS ORDERED: METR500T PO (11:25)
[2022-09-30 13:22] VITALS: BP 112/66
== END 2022-09-30 14:50 | disposition home or self-care (01) | DRG 372 ==
LOC: ER 15:07 → OVERFLOW 19:26 → WEST WING 09-28 01:15
PROVIDERS: ADMIT Nurse Practitioner Family; ATTEND Internal Medicine Geriatric Medicine
DX: A04.72 Enterocolitis due to Clostridium difficile, not specified as recurrent (principal); N17.9 Acute kidney failure, unspecified; Z68.41 Body mass index [BMI] 40.0-44.9, adult; E78.5 Hyperlipidemia, unspecified; E86.0 Dehydration; I10 Essential (primary) hypertension; Z96.659 Presence of unspecified artificial knee joint; E11.9 Type 2 diabetes mellitus without complications; E66.01 Morbid (severe) obesity due to excess calories; Z20.822 Contact with and (suspected) exposure to COVID-19; Z79.84 Long term (current) use of oral hypoglycemic drugs
CPT/HCPCS: 36415; 80048; 80053; 81001; 82962; 83735; 83880; 84484; 85025; 85610; 87045; 87081; 87426; 87427; 87493; 96374; 96375; C9113; G0378; J1815; J3490

== ENCOUNTER 2022-11-04 05:51 | Inpatient (IN) | payer OTHER, MEDICAID ==
[~2022-11-04] VITALS: Ht 180.3 cm; Wt 126.4 kg
[2022-11-04 07:43] LABS: Basophils # (auto) 0 10 ^3/uL (0-0.2); Basophils % (auto) 0.2 % (0.0-2.0); Eosinophils # (auto) 0 10 ^3/uL (0-0.8); Eosinophils % (auto) 0.1 % (0.0-7.0); Hematocrit 47.4 % (41.0-53.0); Hemoglobin 15.5 g/dL (13.5-17.5); Lymphocytes # (auto) 0.6 10 ^3/uL (0.4-5.4); Lymphocytes % (auto) 3.3 % (10.0-50.0); Mean Corpuscular Hemoglobin 29.2 pg (28.0-32.0); Mean Corpuscular Hgb Conc. 32.6 g/dL (32.0-36.0); Mean Corpuscular Volume 89.6 fL (80.0-100.0); Monocytes # (auto) 0.7 10 ^3/uL (0-1.3); Monocytes % (auto) 3.8 % (0.0-12.0); Neutrophils # (auto) 17.8 10 ^3/uL (1.6-8.6); Neutrophils % (auto) 92.6 % (37.0-80.0); Red Blood Cells 5.29 10^6/uL (4.5-5.90); Red Cell Distribution Width 14.7 % (11.8-14.3); White Blood Cell 19.3 10^3/uL (4.4-10.8)
[2022-11-04 08:12] LABS: Albumin 3.6 g/dL (3.4-5.0); Calcium 9.2 mg/dL (8.5-10.1); Potassium 4.4 mmol/L (3.5-5.1)
[2022-11-04 08:16] LABS: Total Protein 6.3 g/dL (6.4-8.2)
[2022-11-04 08:51] LABS: Urine Bacteria NONE SEEN /hpf (None Seen); Urine Blood Negative /uL (Negative); Urine Hyaline Cast FEW /lpf (0 - 2); Urine Mucus FEW (None Seen); Urine Specific Gravity 1.039 (1.001-1.035); Urine WBC 2 /hpf (0 - 3)
[2022-11-04] MEDS ORDERED: FUROSEMIDE 20 MG/2 ML VIAL IV ONE (12:30)
[2022-11-04] MEDS ORDERED: SODIUM CHLORIDE 0.9% 1,000 ML IV ONE (12:30)
[2022-11-04] MEDS ORDERED: DEXTROSE (50%) 50ML SYRG IV PRN (12:30)
[2022-11-04] MEDS ORDERED: VANCOMYCIN HCL 125MG/5ML ORAL SOL PO ONE (12:30)
[2022-11-04] MEDS ORDERED: hydrALAZINE HCL 20 MG/ML VL IV PRN (13:00)
[2022-11-04 13:41] LABS: Cholesterol 189 mg/dL (< 200); HDL Cholesterol 38 mg/dL (40-59); LDL Cholesterol 144 mg/dL (< 100); Triglycerides 103 mg/dL (< 150)
[2022-11-04] MEDS: ACCU-CHEK COMFORT CURVE STRIP VI SCH (19:59)
[2022-11-04] MEDS: VANCOMYCIN HCL 125MG/5ML ORAL SOL PO SCH (20:18)
[2022-11-04] MEDS: InsuLIN REG 1unit/0.01ml Soln (100units/ml) SC SCH (20:22)
[2022-11-04] MEDS: HYDROcodone-ACET 10/325MG TAB PO SCH ×2 (20:24→22:00)
[2022-11-04] MEDS: metroNIDAZOLE 500MG/100ML 100 ML IV SCH ×2 (20:32→20:42)
[2022-11-05] VITALS (8 sets, daily range): BP systolic 95–130; BP diastolic 51–68
[2022-11-05] MEDS: ACCU-CHEK COMFORT CURVE STRIP VI SCH ×5 (00:38→21:51)
[2022-11-05] MEDS: VANCOMYCIN HCL 125MG/5ML ORAL SOL PO SCH ×5 (00:42→23:32)
[2022-11-05] MEDS: NORTRIPTYLINE HCL 10 MG CAP PO SCH ×2 (00:42→21:51)
[2022-11-05] MEDS: PREGABALIN 25 MG CAP PO SCH ×3 (00:43→21:50)
[2022-11-05] MEDS: InsuLIN REG 1unit/0.01ml Soln (100units/ml) SC SCH ×5 (01:03→22:28)
[2022-11-05] MEDS ORDERED: HYDROcodone-ACET 5/325MG TAB PO ONE (01:30)
[2022-11-05] MEDS: HYDROcodone-ACET 10/325MG TAB PO SCH (05:46)
[2022-11-05] MEDS: metroNIDAZOLE 500MG/100ML 100 ML IV SCH ×3 (05:46→21:50)
[2022-11-05] MEDS: LISINOPRIL 10 MG TAB PO SCH (05:47)
[2022-11-05 08:46] LABS: Basophils # (auto) 0.1 10 ^3/uL (0-0.2); Basophils % (auto) 0.5 % (0.0-2.0); Eosinophils # (auto) 0.2 10 ^3/uL (0-0.8); Eosinophils % (auto) 1.7 % (0.0-7.0); Hemoglobin 13.8 g/dL (13.5-17.5); Lymphocytes % (auto) 9.9 % (10.0-50.0); Mean Corpuscular Hemoglobin 30.1 pg (28.0-32.0); Mean Corpuscular Hgb Conc. 33.7 g/dL (32.0-36.0); Mean Corpuscular Volume 89.4 fL (80.0-100.0); Monocytes # (auto) 0.6 10 ^3/uL (0-1.3); Monocytes % (auto) 5.9 % (0.0-12.0); Neutrophils # (auto) 8.2 10 ^3/uL (1.6-8.6); Nucleated Red Blood Cells % 0.1 %; Red Blood Cells 4.59 10^6/uL (4.5-5.90); Red Cell Distribution Width 14.7 % (11.8-14.3); White Blood Cell 10.1 10^3/uL (4.4-10.8)
[2022-11-05 09:15] LABS: BUN/Creatinine Ratio 26.7; Calcium 8.3 mg/dL (8.5-10.1); Potassium 3.6 mmol/L (3.5-5.1)
[2022-11-05] MEDS: ASPirin-EC 81 mg tab PO SCH (09:52)
[2022-11-05] MEDS: ENOXAPARIN SOD 40 MG/0.4 ML SYRINGE SC SCH (09:53)
[2022-11-05] MEDS: ATORVASTATIN 20 MG TAB PO SCH (09:53)
[2022-11-05] MEDS: POTASSIUM CHL 10 Meq TABLET PO SCH (09:53)
[2022-11-05] MEDS ORDERED: FUROSEMIDE 20 MG/2 ML VIAL IV SCH (10:00)
[2022-11-05] MEDS ORDERED: FUROSEMIDE 20 MG/2 ML VIAL IV ONE (11:45)
[2022-11-05] MEDS: HYDROcodone-ACET 10/325MG TAB PO PRN ×2 (12:51→18:42)
[2022-11-06] MEDS: HYDROcodone-ACET 10/325MG TAB PO PRN ×4 (04:51→21:48)
[2022-11-06 05:00] VITALS: BP 116/66
[2022-11-06] MEDS: metroNIDAZOLE 500MG/100ML 100 ML IV SCH ×3 (05:13→21:48)
[2022-11-06] MEDS: VANCOMYCIN HCL 125MG/5ML ORAL SOL PO SCH ×4 (05:13→23:52)
[2022-11-06] MEDS: ACCU-CHEK COMFORT CURVE STRIP VI SCH ×4 (06:07→21:47)
[2022-11-06] MEDS: LISINOPRIL 10 MG TAB PO SCH (06:08)
[2022-11-06] MEDS: InsuLIN REG 1unit/0.01ml Soln (100units/ml) SC SCH ×4 (06:14→21:45)
[2022-11-06 08:54] VITALS: BP 105/56
[2022-11-06 09:29] LABS: Calcium 8.3 mg/dL (8.5-10.1); Potassium 3.6 mmol/L (3.5-5.1)
[2022-11-06 09:32] LABS: BUN/Creatinine Ratio 25.6
[2022-11-06] MEDS: ATORVASTATIN 20 MG TAB PO SCH (10:25)
[2022-11-06] MEDS: PREGABALIN 25 MG CAP PO SCH ×2 (10:25→21:48)
[2022-11-06] MEDS: ENOXAPARIN SOD 40 MG/0.4 ML SYRINGE SC SCH (10:26)
[2022-11-06] MEDS: FUROSEMIDE 40 MG/4 ML VIAL IV SCH (10:26)
[2022-11-06] MEDS: POTASSIUM CHL 10 Meq TABLET PO SCH (10:26)
[2022-11-06] MEDS: ASPirin-EC 81 mg tab PO SCH (10:26)
[2022-11-06] MEDS ORDERED: VANC125C3 PO (10:43)
[2022-11-06 13:00] VITALS: BP 110/57
[2022-11-06 15:23] LABS: INR 1.04 (0.9-1.15)
[2022-11-06 16:56] VITALS: BP 111/64
[2022-11-06] MEDS: NORTRIPTYLINE HCL 10 MG CAP PO SCH (21:47)
[2022-11-06 22:00] VITALS: BP 102/56
[2022-11-07] MEDS: HYDROcodone-ACET 10/325MG TAB PO PRN ×4 (03:21→20:14)
[2022-11-07 05:00] VITALS: BP 107/67
[2022-11-07] MEDS: metroNIDAZOLE 500MG/100ML 100 ML IV SCH ×3 (06:16→22:39)
[2022-11-07] MEDS: VANCOMYCIN HCL 125MG/5ML ORAL SOL PO SCH ×3 (06:16→20:21)
[2022-11-07] MEDS: LISINOPRIL 10 MG TAB PO SCH (06:17)
[2022-11-07] MEDS: ACCU-CHEK COMFORT CURVE STRIP VI SCH ×4 (06:17→22:40)
[2022-11-07] MEDS: InsuLIN REG 1unit/0.01ml Soln (100units/ml) SC SCH ×4 (06:18→22:41)
[2022-11-07 08:00] VITALS: BP_SYST 62
[2022-11-07 08:10] VITALS: BP 110/62
[2022-11-07] MEDS: PREGABALIN 25 MG CAP PO SCH ×2 (09:32→22:40)
[2022-11-07] MEDS: POTASSIUM CHL 10 Meq TABLET PO SCH (09:33)
[2022-11-07] MEDS: ASPirin-EC 81 mg tab PO SCH (09:33)
[2022-11-07] MEDS: FUROSEMIDE 40 MG/4 ML VIAL IV SCH (09:38)
[2022-11-07] MEDS: ATORVASTATIN 20 MG TAB PO SCH (09:38)
[2022-11-07] MEDS: ENOXAPARIN SOD 40 MG/0.4 ML SYRINGE SC SCH (09:40)
[2022-11-07 13:00] VITALS: BP 102/68
[2022-11-07 16:30] VITALS: BP 110/66
[2022-11-07 22:00] VITALS: BP 111/67
[2022-11-07] MEDS: NORTRIPTYLINE HCL 10 MG CAP PO SCH (22:40)
[2022-11-08] MEDS: VANCOMYCIN HCL 125MG/5ML ORAL SOL PO SCH ×2 (00:21→06:35)
[2022-11-08] MEDS: HYDROcodone-ACET 10/325MG TAB PO PRN ×3 (00:22→12:03)
[2022-11-08 04:30] VITALS: BP 109/65
[2022-11-08] MEDS: InsuLIN REG 1unit/0.01ml Soln (100units/ml) SC SCH (06:17)
[2022-11-08] MEDS: metroNIDAZOLE 500MG/100ML 100 ML IV SCH (06:35)
[2022-11-08] MEDS: ACCU-CHEK COMFORT CURVE STRIP VI SCH (06:35)
[2022-11-08] MEDS: LISINOPRIL 10 MG TAB PO SCH (06:51)
[2022-11-08 09:00] VITALS: BP 127/67
[2022-11-08] MEDS: POTASSIUM CHL 10 Meq TABLET PO SCH (09:54)
[2022-11-08] MEDS: ASPirin-EC 81 mg tab PO SCH (09:54)
[2022-11-08] MEDS: FUROSEMIDE 40 MG/4 ML VIAL IV SCH (09:54)
[2022-11-08] MEDS: PREGABALIN 25 MG CAP PO SCH (09:54)
[2022-11-08] MEDS: ATORVASTATIN 20 MG TAB PO SCH (09:54)
[2022-11-08] MEDS: ENOXAPARIN SOD 40 MG/0.4 ML SYRINGE SC SCH (09:55)
[2022-11-08 10:43] LABS: Calcium 8.3 mg/dL (8.5-10.1); Potassium 4.2 mmol/L (3.5-5.1)
[2022-11-08 10:45] LABS: BUN/Creatinine Ratio 17.8
[2022-11-08 12:05] VITALS: BP 127/67
== END 2022-11-08 12:40 | disposition home or self-care (01) | DRG 373 ==
LOC: ER 05:55 → OVERFLOW 12:24 → WEST WING 11-05 02:22
PROVIDERS: ADMIT Registered Nurse; ATTEND Internal Medicine Geriatric Medicine
DX: A04.71 Enterocolitis due to Clostridium difficile, recurrent (principal); E78.5 Hyperlipidemia, unspecified; E11.9 Type 2 diabetes mellitus without complications; E66.01 Morbid (severe) obesity due to excess calories; Z96.659 Presence of unspecified artificial knee joint; I25.10 Atherosclerotic heart disease of native coronary artery without angina pectoris; I10 Essential (primary) hypertension; I45.10 Unspecified right bundle-branch block; R07.9 Chest pain, unspecified; Z20.822 Contact with and (suspected) exposure to COVID-19; Z86.19 Personal history of other infectious and parasitic diseases; Z68.38 Body mass index [BMI] 38.0-38.9, adult; Z80.42 Family history of malignant neoplasm of prostate
CPT/HCPCS: 36415; 71045; 74176; 80048; 80053; 80061; 81001; 82962; 83036; 83880; 84484; 85025; 85610; 87040; 87045; 87081; 87086; 87426; 87427; 87493; 93005; 93970; G0378; J1815; J3490

== ENCOUNTER 2023-08-21 17:04 | Inpatient (IN) | payer OTHER, MEDICAID ==
[~2023-08-21] VITALS: Ht 180.3 cm; Wt 123.3 kg
[~2023-08-21 17:04] MED LIST changes: -LISI-716 PO; +LISI10TA34 PO; -ROSU40TA PO; +ROSU40TA81 PO; +VANC125C3 PO; +VANCOMYCIN 1GM/250ML 250 ML IV ONE
[2023-08-21 18:46] LABS: Alanine Aminotransferase 12 U/L (7-40); Albumin 4.5 g/dL (3.2-4.8); Alkaline Phosphatase 92 U/L (46-116); Anion Gap 12 (5-15); Aspartate Aminotransferase 9 U/L (13-40); BUN/Creatinine Ratio 7.9 (10.0-20.0); Bilirubin, Total 0.9 mg/dL (0.2-1.0); Blood Urea Nitrogen 10 mg/dL (9-23); Calcium 9.5 mg/dL (8.5-10.1); Carbon Dioxide 22 mmol/L (20-30); Chloride 104 mmol/L (98-107); Glucose 271 mg/dL (74-106); Lactic Acid w/Reflex 4.1 mmol/L (0.4-2.0); Potassium 3.8 mmol/L (3.5-5.1); Sodium 138 mmol/L (136-145); Total Protein 7.1 g/dL (5.7-8.2)
[2023-08-21 18:55] LABS: CRP High Sensitivity 8.81 mg/dL (<1.0)
[2023-08-21 19:08] LABS: Basophils # (auto) 0.1 10 ^3/uL (0-0.2); Basophils % (auto) 0.2 % (0.0-2.0); Eosinophils # (auto) 0 10 ^3/uL (0-0.8); Hematocrit 46.5 % (41.0-53.0); Hemoglobin 15.1 g/dL (13.5-17.5); Lymphocytes # (auto) 0.9 10 ^3/uL (0.4-5.4); Mean Corpuscular Hemoglobin 29.7 pg (28.0-32.0); Mean Corpuscular Hgb Conc. 32.5 g/dL (32.0-36.0); Mean Corpuscular Volume 91.5 fL (80.0-100.0); Monocytes # (auto) 1.3 10 ^3/uL (0-1.3); Monocytes % (auto) 5.8 % (0.0-12.0); Neutrophils # (auto) 20.5 10 ^3/uL (1.6-8.6); Nucleated Red Blood Cells % 0.1 %; Red Blood Cells 5.09 10^6/uL (4.5-5.90); Red Cell Distribution Width 14.4 % (11.8-14.3); White Blood Cell 22.8 10^3/uL (4.4-10.8)
[2023-08-21] MEDS ORDERED: cefTRIAXone 1GM/50ML D5W 50 ML IV ONE (20:00)
[2023-08-21] MEDS ORDERED: SODIUM CHLORIDE 0.9% 1,000 ML IV ONE (20:00)
[2023-08-21 20:15] VITALS: PULSE 103; RESP 20; O2SAT 94
[2023-08-21 20:23] LABS: Erythrocyte Sedimentation Rate 16 mm/hr (0-20)
[2023-08-21] MEDS ORDERED: VANCOMYCIN 1GM/250ML 250 ML IV ONE (20:30)
[2023-08-21] MEDS ORDERED: IOHEXOL 300 MG/ML 100ML BOTTLE IJ ONE (20:41)
[2023-08-21] MEDS ORDERED: DEXTROSE (50%) 50ML SYRG IV PRN (21:00)
[2023-08-21] MEDS ORDERED: ONDANSETRON HCL 4 MG/2 ML VIAL IV PRN (21:00)
[2023-08-21] MEDS ORDERED: VANCOMYCIN PER PHARMACY 0 MG IV SCH (21:00)
[2023-08-21] MEDS ORDERED: SODIUM CHLORIDE 0.9% 1,000 ML IV SCH (21:00)
[2023-08-21] MEDS ORDERED: DOCUSATE SOD 100 MG CAP PO PRN (21:00)
[2023-08-21] MEDS ORDERED: ACETAMINOPHEN 325 MG TAB PO PRN (21:00)
[2023-08-21] MEDS ORDERED: NITROGLYCERIN 0.4 MG SL TAB SL PRN (22:15)
[2023-08-22] VITALS (8 sets, daily range): BP systolic 103–124; BP diastolic 51–94; PULSE 85–108; RESP 16–20; TEMP 97.6–100.4; O2SAT 93–100
[2023-08-22] MEDS: ACCU-CHEK COMFORT CURVE STRIP VI SCH ×5 (00:08→22:20)
[2023-08-22] MEDS: MORPHINE SULFATE INJ 2 MG/ml SYRG IV PRN ×4 (00:17→22:29)
[2023-08-22] MEDS: InsuLIN REG 1unit/0.01ml Soln (100units/ml) SC SCH ×5 (00:24→22:21)
[2023-08-22 00:45] LABS: Urine Bacteria NONE SEEN /hpf (None Seen); Urine Blood Negative /uL (Negative); Urine Clarity Clear (Clear); Urine Color Yellow (Yellow); Urine Mucus FEW (None Seen); Urine Protein, UAD 1+ (Negative); Urine Specific Gravity 1.036 (1.001-1.035); Urine Urobilinogen Normal (Negative); Urine WBC <1 /hpf (0 - 3)
[2023-08-22] MEDS: HYDROcodone-ACET 5/325MG TAB PO PRN ×3 (02:45→21:05)
[2023-08-22 06:09] LABS: Basophils # (auto) 0 10 ^3/uL (0-0.2); Basophils % (auto) 0.1 % (0.0-2.0); Eosinophils # (auto) 0 10 ^3/uL (0-0.8); Hematocrit 39.9 % (41.0-53.0); Hemoglobin 13.2 g/dL (13.5-17.5); Lymphocytes # (auto) 0.8 10 ^3/uL (0.4-5.4); Lymphocytes % (auto) 5.6 % (10.0-50.0); Mean Corpuscular Hemoglobin 30.2 pg (28.0-32.0); Mean Corpuscular Hgb Conc. 33.1 g/dL (32.0-36.0); Mean Corpuscular Volume 91.2 fL (80.0-100.0); Monocytes % (auto) 7.2 % (0.0-12.0); Neutrophils # (auto) 12.6 10 ^3/uL (1.6-8.6); Neutrophils % (auto) 87.1 % (37.0-80.0); Red Blood Cells 4.38 10^6/uL (4.5-5.90); Red Cell Distribution Width 14.5 % (11.8-14.3); White Blood Cell 14.4 10^3/uL (4.4-10.8)
[2023-08-22 06:33] LABS: Alanine Aminotransferase 10 U/L (7-40); Albumin 3.7 g/dL (3.2-4.8); Alkaline Phosphatase 84 U/L (46-116); Anion Gap 8 (5-15); Aspartate Aminotransferase < 8 U/L (13-40); Bilirubin, Total 0.7 mg/dL (0.2-1.0); Blood Urea Nitrogen 8 mg/dL (9-23); Calcium 8.5 mg/dL (8.7-10.4); Carbon Dioxide 23 mmol/L (20-30); Chloride 106 mmol/L (98-107); Potassium 3.5 mmol/L (3.5-5.1); Sodium 137 mmol/L (136-145); Total Protein 5.8 g/dL (5.7-8.2)
[2023-08-22 06:36] LABS: Glucose 161 mg/dL (74-106)
[2023-08-22] MEDS ORDERED: cefTRIAXone 1GM/50ML D5W 50 ML IV SCH (09:00)
[2023-08-22] MEDS: ENOXAPARIN SOD 40 MG/0.4 ML SYRINGE SC SCH (10:14)
[2023-08-22] MEDS ORDERED: INSULIN LANTUS (GLARGINE) 1 /0.01ml (100units/ml) SC ONE (10:30)
[2023-08-22] MEDS: MEROPENEM 1GM IVPB 100 ML IV SCH ×2 (12:00→21:00)
[2023-08-22] MEDS: VANCOMYCIN 1GM/250ML 250 ML IV SCH ×2 (14:31→22:19)
[2023-08-22] MEDS: metFORMIN HYDROCHLORIDE 500 MG TAB PO SCH (18:00)
[2023-08-22 19:09] LABS: Body Fluid Polymorphonuclear 83 % (0-25); Body Fluid Red Blood Cells 4350 CUMM (0-2000); Body Fluid White Blood Cells 46400 CUMM (0-200)
[2023-08-22] MEDS: INSULIN LANTUS (GLARGINE) 1 /0.01ml (100units/ml) SC SCH (22:22)
[2023-08-23] VITALS (9 sets, daily range): BP systolic 111–124; BP diastolic 58–77; PULSE 68–107; RESP 14–20; TEMP 98.5–99.2; O2SAT 92–98
[2023-08-23] MEDS: MEROPENEM 1GM IVPB 100 ML IV SCH ×3 (02:49→18:47)
[2023-08-23] MEDS: HYDROcodone-ACET 5/325MG TAB PO PRN ×3 (02:49→17:33)
[2023-08-23 05:47] LABS: Basophils # (auto) 0 10 ^3/uL (0-0.2); Basophils % (auto) 0.3 % (0.0-2.0); Eosinophils # (auto) 0 10 ^3/uL (0-0.8); Eosinophils % (auto) 0.2 % (0.0-7.0); Hematocrit 38.2 % (41.0-53.0); Hemoglobin 12.5 g/dL (13.5-17.5); Lymphocytes # (auto) 0.9 10 ^3/uL (0.4-5.4); Lymphocytes % (auto) 6.8 % (10.0-50.0); Mean Corpuscular Hemoglobin 29.9 pg (28.0-32.0); Mean Corpuscular Hgb Conc. 32.8 g/dL (32.0-36.0); Mean Corpuscular Volume 91.2 fL (80.0-100.0); Monocytes # (auto) 0.9 10 ^3/uL (0-1.3); Monocytes % (auto) 6.9 % (0.0-12.0); Neutrophils # (auto) 11.8 10 ^3/uL (1.6-8.6); Neutrophils % (auto) 85.8 % (37.0-80.0); Red Blood Cells 4.19 10^6/uL (4.5-5.90); Red Cell Distribution Width 14.4 % (11.8-14.3); White Blood Cell 13.7 10^3/uL (4.4-10.8)
[2023-08-23 05:58] LABS: Albumin 3.4 g/dL (3.2-4.8); Alkaline Phosphatase 85 U/L (46-116); Anion Gap 6 (5-15); Aspartate Aminotransferase < 8 U/L (13-40); BUN/Creatinine Ratio 8.1 (10.0-20.0); Blood Urea Nitrogen 8 mg/dL (9-23); Calcium 8.5 mg/dL (8.7-10.4); Carbon Dioxide 24 mmol/L (20-30); Chloride 105 mmol/L (98-107); Glucose 148 mg/dL (74-106); Magnesium 1.7 mg/dL (1.6-2.6); Potassium 3.5 mmol/L (3.5-5.1); Sodium 135 mmol/L (136-145)
[2023-08-23 05:59] LABS: Bilirubin, Total 0.6 mg/dL (0.2-1.0); Total Protein 5.9 g/dL (5.7-8.2)
[2023-08-23] MEDS: VANCOMYCIN 1GM/250ML 250 ML IV SCH ×3 (06:16→21:56)
[2023-08-23] MEDS: ACCU-CHEK COMFORT CURVE STRIP VI SCH ×4 (06:16→22:02)
[2023-08-23 06:23] LABS: Alanine Aminotransferase < 9 U/L (7-40)
[2023-08-23] MEDS: MORPHINE SULFATE INJ 2 MG/ml SYRG IV PRN ×5 (06:32→20:50)
[2023-08-23] MEDS: InsuLIN REG 1unit/0.01ml Soln (100units/ml) SC SCH ×4 (06:33→22:02)
[2023-08-23] MEDS: metFORMIN HYDROCHLORIDE 500 MG TAB PO SCH ×3 (08:00→17:28)
[2023-08-23] MEDS: PANTOPRAZOLE 40 MG TAB PO SCH (08:28)
[2023-08-23] MEDS ORDERED: SILVER SULFADIAZINE 1 % TOPICAL CREAM 50GM TOP SCH (10:00)
[2023-08-23] MEDS: ENOXAPARIN SOD 40 MG/0.4 ML SYRINGE SC SCH (10:03)
[2023-08-23] MEDS: DAKINS HALF STR 0.25% (NaHypochlorite) 473 ML TOPICAL SOL TOP SCH (22:00)
[2023-08-23] MEDS: INSULIN LANTUS (GLARGINE) 1 /0.01ml (100units/ml) SC SCH (22:02)
[2023-08-24] VITALS (8 sets, daily range): BP systolic 102–137; BP diastolic 55–77; PULSE 67–101; RESP 18–22; TEMP 97.6–98.6; O2SAT 94–96
[2023-08-24] MEDS: MORPHINE SULFATE INJ 2 MG/ml SYRG IV PRN ×5 (01:41→20:31)
[2023-08-24] MEDS: MEROPENEM 1GM IVPB 100 ML IV SCH ×3 (02:58→18:33)
[2023-08-24] MEDS: HYDROcodone-ACET 5/325MG TAB PO PRN ×5 (04:31→22:56)
[2023-08-24] MEDS: InsuLIN REG 1unit/0.01ml Soln (100units/ml) SC SCH ×4 (06:15→21:59)
[2023-08-24] MEDS: VANCOMYCIN 1GM/250ML 250 ML IV SCH ×3 (07:00→21:54)
[2023-08-24] MEDS: ACCU-CHEK COMFORT CURVE STRIP VI SCH ×4 (07:03→21:54)
[2023-08-24] MEDS: metFORMIN HYDROCHLORIDE 500 MG TAB PO SCH ×2 (08:00→17:38)
[2023-08-24] MEDS: PANTOPRAZOLE 40 MG TAB PO SCH (09:08)
[2023-08-24] MEDS: ENOXAPARIN SOD 40 MG/0.4 ML SYRINGE SC SCH (10:27)
[2023-08-24] MEDS: DAKINS HALF STR 0.25% (NaHypochlorite) 473 ML TOPICAL SOL TOP SCH ×2 (11:39→21:54)
[2023-08-24] MEDS: INSULIN LANTUS (GLARGINE) 1 /0.01ml (100units/ml) SC SCH (21:59)
[2023-08-25] VITALS (7 sets, daily range): BP systolic 115–139; BP diastolic 47–73; PULSE 77–101; RESP 18–20; TEMP 97.8–98.9; O2SAT 94–95
[2023-08-25] MEDS: MEROPENEM 1GM IVPB 100 ML IV SCH ×3 (02:20→18:04)
[2023-08-25] MEDS: MORPHINE SULFATE INJ 2 MG/ml SYRG IV PRN ×5 (02:20→21:19)
[2023-08-25] MEDS: HYDROcodone-ACET 5/325MG TAB PO PRN ×3 (03:47→14:29)
[2023-08-25] MEDS: VANCOMYCIN 1GM/250ML 250 ML IV SCH ×3 (05:55→21:49)
[2023-08-25] MEDS: ACCU-CHEK COMFORT CURVE STRIP VI SCH ×4 (06:04→21:49)
[2023-08-25] MEDS: InsuLIN REG 1unit/0.01ml Soln (100units/ml) SC SCH ×4 (06:11→21:50)
[2023-08-25 09:07] LABS: Basophils # (auto) 0 10 ^3/uL (0-0.2); Basophils % (auto) 0.3 % (0.0-2.0); Eosinophils # (auto) 0.1 10 ^3/uL (0-0.8); Eosinophils % (auto) 0.6 % (0.0-7.0); Hematocrit 41.1 % (41.0-53.0); Hemoglobin 13.7 g/dL (13.5-17.5); Lymphocytes # (auto) 0.9 10 ^3/uL (0.4-5.4); Lymphocytes % (auto) 6.7 % (10.0-50.0); Mean Corpuscular Hgb Conc. 33.3 g/dL (32.0-36.0); Mean Corpuscular Volume 89.9 fL (80.0-100.0); Monocytes # (auto) 0.9 10 ^3/uL (0-1.3); Monocytes % (auto) 6.2 % (0.0-12.0); Neutrophils # (auto) 11.9 10 ^3/uL (1.6-8.6); Neutrophils % (auto) 86.2 % (37.0-80.0); Red Blood Cells 4.57 10^6/uL (4.5-5.90); Red Cell Distribution Width 14.3 % (11.8-14.3); White Blood Cell 13.8 10^3/uL (4.4-10.8)
[2023-08-25] MEDS: ENOXAPARIN SOD 40 MG/0.4 ML SYRINGE SC SCH (09:12)
[2023-08-25] MEDS: PANTOPRAZOLE 40 MG TAB PO SCH (09:13)
[2023-08-25] MEDS: DAKINS HALF STR 0.25% (NaHypochlorite) 473 ML TOPICAL SOL TOP SCH ×2 (09:14→21:56)
[2023-08-25 09:15] LABS: Chloride 104 mmol/L (98-107); Potassium 4.2 mmol/L (3.5-5.1); Sodium 134 mmol/L (136-145)
[2023-08-25 09:16] LABS: Anion Gap 4 (5-15); Carbon Dioxide 26 mmol/L (20-30)
[2023-08-25 09:17] LABS: Calcium 8.8 mg/dL (8.5-10.1)
[2023-08-25 09:21] LABS: Glucose 211 mg/dL (74-106)
[2023-08-25 09:22] LABS: BUN/Creatinine Ratio 16.4 (10.0-20.0); Blood Urea Nitrogen 12 mg/dL (9-23)
[2023-08-25] MEDS: metFORMIN HYDROCHLORIDE 500 MG TAB PO SCH ×2 (09:29→17:15)
[2023-08-25] MEDS: INSULIN LANTUS (GLARGINE) 1 /0.01ml (100units/ml) SC SCH (21:51)
[2023-08-26] VITALS (7 sets, daily range): BP systolic 111–150; BP diastolic 49–79; PULSE 79–105; RESP 18–20; TEMP 98.2–98.5; O2SAT 95–96
[2023-08-26] MEDS: HYDROcodone-ACET 5/325MG TAB PO PRN ×5 (00:07→20:08)
[2023-08-26] MEDS: MEROPENEM 1GM IVPB 100 ML IV SCH (02:18)
[2023-08-26] MEDS: MORPHINE SULFATE INJ 2 MG/ml SYRG IV PRN ×5 (02:18→21:51)
[2023-08-26] MEDS: VANCOMYCIN 1GM/250ML 250 ML IV SCH (05:56)
[2023-08-26] MEDS: ACCU-CHEK COMFORT CURVE STRIP VI SCH ×4 (05:56→21:56)
[2023-08-26] MEDS: InsuLIN REG 1unit/0.01ml Soln (100units/ml) SC SCH ×4 (05:59→21:50)
[2023-08-26] MEDS: PANTOPRAZOLE 40 MG TAB PO SCH (08:23)
[2023-08-26] MEDS: metFORMIN HYDROCHLORIDE 500 MG TAB PO SCH ×2 (08:23→17:46)
[2023-08-26] MEDS: ENOXAPARIN SOD 40 MG/0.4 ML SYRINGE SC SCH (08:24)
[2023-08-26] MEDS ORDERED: cefTRIAXone 1GM/50ML D5W 50 ML IV ONE (10:15)
[2023-08-26] MEDS: DAKINS HALF STR 0.25% (NaHypochlorite) 473 ML TOPICAL SOL TOP SCH ×2 (10:43→21:57)
[2023-08-26] MEDS: INSULIN LANTUS (GLARGINE) 1 /0.01ml (100units/ml) SC SCH (21:49)
[2023-08-27] VITALS (7 sets, daily range): BP systolic 110–138; BP diastolic 40–80; PULSE 71–93; RESP 17–19; TEMP 97.8–98.1; O2SAT 93–96
[2023-08-27] MEDS: MORPHINE SULFATE INJ 2 MG/ml SYRG IV PRN ×5 (04:11→21:17)
[2023-08-27 05:57] LABS: Basophils # (auto) 0 10 ^3/uL (0-0.2); Basophils % (auto) 0.3 % (0.0-2.0); Eosinophils # (auto) 0.1 10 ^3/uL (0-0.8); Eosinophils % (auto) 1.3 % (0.0-7.0); Hematocrit 39.4 % (41.0-53.0); Lymphocytes # (auto) 0.9 10 ^3/uL (0.4-5.4); Lymphocytes % (auto) 9.3 % (10.0-50.0); Mean Corpuscular Hemoglobin 30.1 pg (28.0-32.0); Monocytes # (auto) 0.9 10 ^3/uL (0-1.3); Monocytes % (auto) 8.9 % (0.0-12.0); Neutrophils # (auto) 8.1 10 ^3/uL (1.6-8.6); Neutrophils % (auto) 80.2 % (37.0-80.0); Red Blood Cells 4.33 10^6/uL (4.5-5.90); Red Cell Distribution Width 14.2 % (11.8-14.3); White Blood Cell 10.1 10^3/uL (4.4-10.8)
[2023-08-27] MEDS: ACCU-CHEK COMFORT CURVE STRIP VI SCH ×4 (06:06→21:23)
[2023-08-27] MEDS: InsuLIN REG 1unit/0.01ml Soln (100units/ml) SC SCH ×4 (06:07→21:17)
[2023-08-27] MEDS: CEFTRIAXONE SODIUM 2 GM in D5W 5% 100 ML IV SCH (09:02)
[2023-08-27] MEDS: ENOXAPARIN SOD 40 MG/0.4 ML SYRINGE SC SCH (09:02)
[2023-08-27] MEDS: metFORMIN HYDROCHLORIDE 500 MG TAB PO SCH ×2 (09:02→18:00)
[2023-08-27] MEDS: PANTOPRAZOLE 40 MG TAB PO SCH (09:02)
[2023-08-27] MEDS: HYDROcodone-ACET 5/325MG TAB PO PRN ×3 (12:14→23:36)
[2023-08-27] MEDS: DAKINS HALF STR 0.25% (NaHypochlorite) 473 ML TOPICAL SOL TOP SCH ×2 (17:04→21:23)
[2023-08-27 19:17] LABS: INR 1.09 (0.9-1.15); Prothrombin Time 11.4 sec (9.3-11.8)
[2023-08-27] MEDS: INSULIN LANTUS (GLARGINE) 1 /0.01ml (100units/ml) SC SCH (21:17)
[2023-08-28] MEDS: MORPHINE SULFATE INJ 2 MG/ml SYRG IV PRN ×4 (04:19→21:02)
[2023-08-28 05:00] VITALS: BP 122/54; PULSE 80; RESP 19; TEMP 97.9; O2SAT 93
[2023-08-28 06:31] LABS: Basophils # (auto) 0 10 ^3/uL (0-0.2); Basophils % (auto) 0.3 % (0.0-2.0); Eosinophils # (auto) 0.2 10 ^3/uL (0-0.8); Eosinophils % (auto) 1.4 % (0.0-7.0); Hematocrit 40.2 % (41.0-53.0); Hemoglobin 13.5 g/dL (13.5-17.5); Lymphocytes # (auto) 1.2 10 ^3/uL (0.4-5.4); Lymphocytes % (auto) 9.3 % (10.0-50.0); Mean Corpuscular Hemoglobin 30.2 pg (28.0-32.0); Mean Corpuscular Hgb Conc. 33.7 g/dL (32.0-36.0); Mean Corpuscular Volume 89.7 fL (80.0-100.0); Monocytes % (auto) 7.7 % (0.0-12.0); Neutrophils # (auto) 10.6 10 ^3/uL (1.6-8.6); Neutrophils % (auto) 81.3 % (37.0-80.0); Red Blood Cells 4.48 10^6/uL (4.5-5.90); Red Cell Distribution Width 13.8 % (11.8-14.3)
[2023-08-28] MEDS: InsuLIN REG 1unit/0.01ml Soln (100units/ml) SC SCH ×4 (06:36→21:18)
[2023-08-28] MEDS: ACCU-CHEK COMFORT CURVE STRIP VI SCH ×4 (06:36→21:20)
[2023-08-28] MEDS: HYDROcodone-ACET 5/325MG TAB PO PRN (06:37)
[2023-08-28 06:51] LABS: INR 1.09 (0.9-1.15); Partial Thromboplastin Time 34.6 SEC (24.5-34.5); Prothrombin Time 11.4 sec (9.3-11.8)
[2023-08-28 06:55] LABS: Alanine Aminotransferase 17 U/L (7-40); Albumin 3.5 g/dL (3.2-4.8); Alkaline Phosphatase 84 U/L (46-116); Anion Gap 7 (5-15); Aspartate Aminotransferase 17 U/L (13-40); BUN/Creatinine Ratio 21.3 (10.0-20.0); Bilirubin, Total 0.3 mg/dL (0.2-1.0); Blood Urea Nitrogen 16 mg/dL (9-23); Calcium 9.2 mg/dL (8.7-10.4); Carbon Dioxide 25 mmol/L (20-30); Chloride 102 mmol/L (98-107); Glucose 148 mg/dL (74-106); Potassium 4.4 mmol/L (3.5-5.1); Sodium 134 mmol/L (136-145); Total Protein 5.8 g/dL (5.7-8.2)
[2023-08-28] MEDS: metFORMIN HYDROCHLORIDE 500 MG TAB PO SCH ×2 (08:00→17:08)
[2023-08-28 09:00] VITALS: BP 103/64; PULSE 83; RESP 17; TEMP 98.1; O2SAT 95
[2023-08-28] MEDS: CEFTRIAXONE SODIUM 2 GM in D5W 5% 100 ML IV SCH (09:55)
[2023-08-28] MEDS: PANTOPRAZOLE 40 MG TAB PO SCH (09:57)
[2023-08-28] MEDS: ENOXAPARIN SOD 40 MG/0.4 ML SYRINGE SC SCH (09:57)
[2023-08-28] MEDS: DAKINS HALF STR 0.25% (NaHypochlorite) 473 ML TOPICAL SOL TOP SCH ×2 (10:00→21:26)
[2023-08-28 13:00] VITALS: BP 98/69; PULSE 78; RESP 19; TEMP 98.1; O2SAT 93
[2023-08-28] MEDS ORDERED: VANCOMYCIN HCL 1000 MG VL ONE ×2 (14:42→17:39)
[2023-08-28] MEDS ORDERED: TOBRAMYCIN SULF 0.3% OPTH(EYE) SOLN 5ML EACHEYE SCH (14:45)
[2023-08-28] MEDS ORDERED: TOBRAMYCIN PER PHARMACY 0 ML IV SCH (15:00)
[2023-08-28] MEDS ORDERED: TOBRAMYCIN SULFATE 40 MG/ML 2ML VIAL IV ONE ×2 (15:30)
[2023-08-28] MEDS ORDERED: TOBRAMYCIN SULFATE 40 MG/ML 2ML VIAL XX ONE (15:45)
[2023-08-28] MEDS ORDERED: BUPIVACAINE 0.5% P/F INJ 10 ML VIAL ONE (16:22)
[2023-08-28] MEDS ORDERED: DexAMETHasone SOD PHOS 4 MG/1ML SDV INJ ONE (16:23)
[2023-08-28] MEDS ORDERED: DexAMETHasone SOD PHOS 10MG/1ML VIAL INJ ONE (16:31)
[2023-08-28] MEDS ORDERED: ONDANSETRON HCL 4 MG/2 ML VIAL ONE (16:31)
[2023-08-28] MEDS ORDERED: GLYCOPYRROLATE 0.2 MG/ML 1ML VIAL ONE (16:31)
[2023-08-28] MEDS ORDERED: PROPOFOL 10 MG/ML 20 ML IV ONE (16:31)
[2023-08-28] MEDS ORDERED: KETOROLAC TROMETH 30 MG/ML 1ML VIAL ONE (16:31)
[2023-08-28] MEDS ORDERED: ceFAZolin 1GM VL ONE ×3 (17:02→17:47)
[2023-08-28] MEDS ORDERED: SODIUM CHLORIDE LOCK 10 ML ONE (17:22)
[2023-08-28 18:16] VITALS: PULSE 94; RESP 10; O2SAT 98
[2023-08-28] MEDS ORDERED: hydrALAZINE HCL 20 MG/ML VL IV PRN (18:30)
[2023-08-28] MEDS ORDERED: FLUMAZENIL 0.1 MG/ML INJ 10ML MDV IV PRN (18:30)
[2023-08-28] MEDS ORDERED: LABETALOL HCL 5 MG/ML 4ML SYRINGE IV PRN (18:30)
[2023-08-28] MEDS ORDERED: fentaNYL CITRATE 100 MCG/2 ML VL IV PRN (18:30)
[2023-08-28] MEDS ORDERED: HYDROmorphone HCL 2 MG/ML VL/or syr IV PRN (18:30)
[2023-08-28] MEDS ORDERED: ePHEDrine SULFATE 50 MG/ML AMP IV PRN (18:30)
[2023-08-28] MEDS ORDERED: ONDANSETRON HCL 4 MG/2 ML VIAL IV PRN (18:30)
[2023-08-28] MEDS ORDERED: NALOXONE HCL 0.4 MG/ML VIAL IV PRN (18:30)
[2023-08-28] MEDS: INSULIN LANTUS (GLARGINE) 1 /0.01ml (100units/ml) SC SCH (21:14)
[2023-08-28 22:00] VITALS: BP 124/74; PULSE 75; RESP 18; TEMP 97.5; O2SAT 96
[2023-08-29] MEDS: HYDROcodone-ACET 5/325MG TAB PO PRN ×5 (00:39→23:00)
[2023-08-29 05:15] VITALS: BP 104/72; PULSE 74; RESP 19; TEMP 97.3; O2SAT 94
[2023-08-29] MEDS: MORPHINE SULFATE INJ 2 MG/ml SYRG IV PRN ×4 (06:05→20:56)
[2023-08-29] MEDS: ACCU-CHEK COMFORT CURVE STRIP VI SCH ×5 (06:05→21:04)
[2023-08-29] MEDS: InsuLIN REG 1unit/0.01ml Soln (100units/ml) SC SCH ×4 (06:10→21:49)
[2023-08-29 08:00] VITALS: PULSE 83; RESP 18; O2SAT 93
[2023-08-29] MEDS: CEFTRIAXONE SODIUM 2 GM in D5W 5% 100 ML IV SCH (08:30)
[2023-08-29] MEDS: PANTOPRAZOLE 40 MG TAB PO SCH (08:31)
[2023-08-29] MEDS: ENOXAPARIN SOD 40 MG/0.4 ML SYRINGE SC SCH (08:31)
[2023-08-29] MEDS: metFORMIN HYDROCHLORIDE 500 MG TAB PO SCH ×2 (08:31→18:15)
[2023-08-29] MEDS: DAKINS HALF STR 0.25% (NaHypochlorite) 473 ML TOPICAL SOL TOP SCH ×2 (08:32→22:00)
[2023-08-29 09:33] VITALS: BP 111/71; PULSE 83; RESP 17; TEMP 98.9; O2SAT 93
[2023-08-29] MEDS ORDERED: HYDROcodone-ACET 10/325MG TAB PO PRN (11:00)
[2023-08-29 12:58] VITALS: BP 124/59; PULSE 91; RESP 17; TEMP 97.7; O2SAT 92
[2023-08-29] MEDS ORDERED: LIDOCAINE 1% (LOCAL ANESTH.) PF 5ml SDV ID ONE (13:00)
[2023-08-29 16:44] VITALS: BP 111/76; PULSE 74; RESP 21; TEMP 98.1; O2SAT 94
[2023-08-29] MEDS: SODIUM CHLOR 0.9% PF (SALINE LOCK) 10ML VIAL/SYR IV SCH (21:00)
[2023-08-29] MEDS: INSULIN LANTUS (GLARGINE) 1 /0.01ml (100units/ml) SC SCH (21:50)
[2023-08-29 22:00] VITALS: BP 105/73; PULSE 76; RESP 18; TEMP 97.6; O2SAT 95
[2023-08-30] VITALS (7 sets, daily range): BP systolic 105–132; BP diastolic 51–71; PULSE 52–87; RESP 16–22; TEMP 97.5–98.7; O2SAT 93–95
[2023-08-30] MEDS: MORPHINE SULFATE INJ 2 MG/ml SYRG IV PRN ×4 (01:35→23:30)
[2023-08-30] MEDS: HYDROcodone-ACET 5/325MG TAB PO PRN ×2 (04:54→15:00)
[2023-08-30 06:04] LABS: Hematocrit 42.8 % (41.0-53.0); Hemoglobin 13.6 g/dL (13.5-17.5); Mean Corpuscular Hemoglobin 29.5 pg (28.0-32.0); Mean Corpuscular Hgb Conc. 31.9 g/dL (32.0-36.0); Mean Corpuscular Volume 92.7 fL (80.0-100.0); Red Blood Cells 4.62 10^6/uL (4.5-5.90); Red Cell Distribution Width 14.4 % (11.8-14.3); White Blood Cell 27.2 10^3/uL (4.4-10.8)
[2023-08-30 06:10] LABS: Basophils % (manual) 0 (0.0-2.0); Blast Cells 0; Eosinophils % (manual) 0 (0-7); Metamyelocytes % 0; Myelocytes % 0; Promyelocytes % 0; Reactive Lymphocytes 0
[2023-08-30 06:24] LABS: Alanine Aminotransferase 14 U/L (7-40); Albumin 3.2 g/dL (3.2-4.8); Alkaline Phosphatase 88 U/L (46-116); Anion Gap 6 (5-15); BUN/Creatinine Ratio 17.8 (10.0-20.0); Blood Urea Nitrogen 16 mg/dL (9-23); Calcium 8.9 mg/dL (8.7-10.4); Carbon Dioxide 22 mmol/L (20-30); Chloride 106 mmol/L (98-107); Glucose 242 mg/dL (74-106); Magnesium 2.4 mg/dL (1.6-2.6); Potassium 4.9 mmol/L (3.5-5.1); Sodium 134 mmol/L (136-145)
[2023-08-30 06:25] LABS: Aspartate Aminotransferase 21 U/L (13-40); Bilirubin, Total 0.2 mg/dL (0.2-1.0); Total Protein 5.6 g/dL (5.7-8.2)
[2023-08-30] MEDS: ACCU-CHEK COMFORT CURVE STRIP VI SCH ×4 (06:31→23:10)
[2023-08-30] MEDS: InsuLIN REG 1unit/0.01ml Soln (100units/ml) SC SCH ×4 (06:32→23:30)
[2023-08-30 06:38] LABS: Band Neutrophils % (manual) 1; Lymphocytes % (manual) 5 (10.0-50.0); Monocytes % (manual) 4 (0-12); Platelet Estimate Adequate
[2023-08-30] MEDS: metFORMIN HYDROCHLORIDE 500 MG TAB PO SCH ×2 (08:34→18:00)
[2023-08-30] MEDS: ENOXAPARIN SOD 40 MG/0.4 ML SYRINGE SC SCH (10:24)
[2023-08-30] MEDS: CEFTRIAXONE SODIUM 2 GM in D5W 5% 100 ML IV SCH (10:24)
[2023-08-30] MEDS: SODIUM CHLOR 0.9% PF (SALINE LOCK) 10ML VIAL/SYR IV SCH ×2 (10:24→23:10)
[2023-08-30] MEDS: PANTOPRAZOLE 40 MG TAB PO SCH (10:24)
[2023-08-30] MEDS: DAKINS HALF STR 0.25% (NaHypochlorite) 473 ML TOPICAL SOL TOP SCH ×2 (10:37→23:11)
[2023-08-30] MEDS: INSULIN LANTUS (GLARGINE) 1 /0.01ml (100units/ml) SC SCH (23:29)
[2023-08-31] VITALS (7 sets, daily range): BP systolic 102–126; BP diastolic 37–70; PULSE 74–90; RESP 16–20; TEMP 97.8–98.6; O2SAT 94–100
[2023-08-31] MEDS: ACCU-CHEK COMFORT CURVE STRIP VI SCH ×4 (05:59→22:04)
[2023-08-31] MEDS: HYDROcodone-ACET 5/325MG TAB PO PRN ×3 (05:59→17:53)
[2023-08-31] MEDS: InsuLIN REG 1unit/0.01ml Soln (100units/ml) SC SCH ×4 (06:02→22:14)
[2023-08-31] MEDS: metFORMIN HYDROCHLORIDE 500 MG TAB PO SCH (08:00)
[2023-08-31] MEDS ORDERED: rifAMPin IV 600 MG in SODIUM CHL 0.9% 100 ML IV SCH (10:00)
[2023-08-31] MEDS: PANTOPRAZOLE 40 MG TAB PO SCH (10:31)
[2023-08-31] MEDS: ENOXAPARIN SOD 40 MG/0.4 ML SYRINGE SC SCH (10:32)
[2023-08-31] MEDS: DAKINS HALF STR 0.25% (NaHypochlorite) 473 ML TOPICAL SOL TOP SCH ×2 (10:32→22:14)
[2023-08-31] MEDS: SODIUM CHLOR 0.9% PF (SALINE LOCK) 10ML VIAL/SYR IV SCH ×2 (10:32→22:04)
[2023-08-31] MEDS: CEFTRIAXONE SODIUM 2 GM in D5W 5% 100 ML IV SCH (10:36)
[2023-08-31] MEDS: MORPHINE SULFATE INJ 2 MG/ml SYRG IV PRN ×2 (13:02→22:09)
[2023-08-31] MEDS: INSULIN LANTUS (GLARGINE) 1 /0.01ml (100units/ml) SC SCH (22:09)
[2023-09-01] VITALS (7 sets, daily range): BP systolic 100–108; BP diastolic 49–65; PULSE 64–99; RESP 17–20; TEMP 97.6–98.5; O2SAT 93–96
[2023-09-01] MEDS: HYDROcodone-ACET 5/325MG TAB PO PRN ×3 (04:13→18:31)
[2023-09-01] MEDS: InsuLIN REG 1unit/0.01ml Soln (100units/ml) SC SCH ×4 (07:05→22:20)
[2023-09-01] MEDS: ACCU-CHEK COMFORT CURVE STRIP VI SCH ×4 (07:05→22:04)
[2023-09-01] MEDS ORDERED: rifAMPin IV 600 MG in SODIUM CHL 0.9% 100 ML IV SCH (08:45)
[2023-09-01] MEDS: ENOXAPARIN SOD 40 MG/0.4 ML SYRINGE SC SCH (09:49)
[2023-09-01] MEDS: PANTOPRAZOLE 40 MG TAB PO SCH (09:49)
[2023-09-01] MEDS: SODIUM CHLOR 0.9% PF (SALINE LOCK) 10ML VIAL/SYR IV SCH ×2 (09:50→22:04)
[2023-09-01] MEDS: MORPHINE SULFATE INJ 2 MG/ml SYRG IV PRN ×3 (09:53→21:11)
[2023-09-01] MEDS: CEFTRIAXONE SODIUM 2 GM in D5W 5% 100 ML IV SCH (10:02)
[2023-09-01 10:37] LABS: Basophils # (auto) 0.1 10 ^3/uL (0-0.2); Basophils % (auto) 0.3 % (0.0-2.0); Eosinophils # (auto) 0.1 10 ^3/uL (0-0.8); Eosinophils % (auto) 0.5 % (0.0-7.0); Hematocrit 41.1 % (41.0-53.0); Hemoglobin 13.5 g/dL (13.5-17.5); Lymphocytes # (auto) 1.6 10 ^3/uL (0.4-5.4); Lymphocytes % (auto) 8.3 % (10.0-50.0); Mean Corpuscular Hemoglobin 29.6 pg (28.0-32.0); Mean Corpuscular Volume 89.7 fL (80.0-100.0); Monocytes # (auto) 0.8 10 ^3/uL (0-1.3); Monocytes % (auto) 4.1 % (0.0-12.0); Neutrophils # (auto) 17.1 10 ^3/uL (1.6-8.6); Neutrophils % (auto) 86.8 % (37.0-80.0); Red Blood Cells 4.58 10^6/uL (4.5-5.90); Red Cell Distribution Width 14.3 % (11.8-14.3); White Blood Cell 19.7 10^3/uL (4.4-10.8)
[2023-09-01 10:53] LABS: Anion Gap 5 (5-15); Carbon Dioxide 23 mmol/L (20-30); Chloride 107 mmol/L (98-107); Sodium 135 mmol/L (136-145)
[2023-09-01 10:54] LABS: Calcium 8.9 mg/dL (8.7-10.4)
[2023-09-01 10:59] LABS: BUN/Creatinine Ratio 19.3 (10.0-20.0); Blood Urea Nitrogen 16 mg/dL (9-23); Glucose 191 mg/dL (74-106); Magnesium 1.9 mg/dL (1.6-2.6)
[2023-09-01] MEDS: DAKINS HALF STR 0.25% (NaHypochlorite) 473 ML TOPICAL SOL TOP SCH ×2 (15:01→22:22)
[2023-09-01] MEDS: VANCOMYCIN HCL 125MG/5ML ORAL SOL PO SCH ×2 (18:15→22:04)
[2023-09-01] MEDS ORDERED: rifAMPin IV 600 MG in SODIUM CHL 0.9% 100 ML IV ONE (20:00)
[2023-09-01] MEDS: INSULIN LANTUS (GLARGINE) 1 /0.01ml (100units/ml) SC SCH (22:21)
[2023-09-02] VITALS (7 sets, daily range): BP systolic 94–111; BP diastolic 35–76; PULSE 77–102; RESP 18–20; TEMP 97.8–98.4; O2SAT 92–100
[2023-09-02] MEDS: HYDROcodone-ACET 5/325MG TAB PO PRN ×3 (03:19→21:35)
[2023-09-02 05:50] LABS: Basophils # (auto) 0.1 10 ^3/uL (0-0.2); Basophils % (auto) 0.4 % (0.0-2.0); Eosinophils # (auto) 0.2 10 ^3/uL (0-0.8); Eosinophils % (auto) 1.4 % (0.0-7.0); Hematocrit 39.9 % (41.0-53.0); Hemoglobin 13.2 g/dL (13.5-17.5); Lymphocytes # (auto) 1.9 10 ^3/uL (0.4-5.4); Lymphocytes % (auto) 12.1 % (10.0-50.0); Mean Corpuscular Hemoglobin 29.5 pg (28.0-32.0); Mean Corpuscular Volume 89.4 fL (80.0-100.0); Monocytes # (auto) 0.8 10 ^3/uL (0-1.3); Neutrophils # (auto) 12.9 10 ^3/uL (1.6-8.6); Neutrophils % (auto) 81.1 % (37.0-80.0); Nucleated Red Blood Cells % 0.1 %; Red Blood Cells 4.47 10^6/uL (4.5-5.90); Red Cell Distribution Width 14.2 % (11.8-14.3)
[2023-09-02 05:59] LABS: Chloride 108 mmol/L (98-107); Potassium 3.9 mmol/L (3.5-5.1); Sodium 138 mmol/L (136-145)
[2023-09-02 06:00] LABS: Anion Gap 6 (5-15); Calcium 8.9 mg/dL (8.7-10.4); Carbon Dioxide 24 mmol/L (20-30)
[2023-09-02 06:05] LABS: BUN/Creatinine Ratio 19.5 (10.0-20.0); Blood Urea Nitrogen 15 mg/dL (9-23); Glucose 148 mg/dL (74-106)
[2023-09-02] MEDS: VANCOMYCIN HCL 125MG/5ML ORAL SOL PO SCH ×4 (06:08→21:36)
[2023-09-02] MEDS: ACCU-CHEK COMFORT CURVE STRIP VI SCH ×4 (06:15→21:35)
[2023-09-02] MEDS: InsuLIN REG 1unit/0.01ml Soln (100units/ml) SC SCH ×4 (06:18→21:47)
[2023-09-02] MEDS: MORPHINE SULFATE INJ 2 MG/ml SYRG IV PRN ×4 (07:05→18:21)
[2023-09-02] MEDS ORDERED: VANC125C3 PO ×3 (08:46→08:48)
[2023-09-02] MEDS ORDERED: RIFA300C58 PO ×3 (08:46→08:48)
[2023-09-02] MEDS: CEFTRIAXONE SODIUM 2 GM in D5W 5% 100 ML IV SCH (11:09)
[2023-09-02] MEDS: ENOXAPARIN SOD 40 MG/0.4 ML SYRINGE SC SCH (11:10)
[2023-09-02] MEDS: SODIUM CHLOR 0.9% PF (SALINE LOCK) 10ML VIAL/SYR IV SCH ×2 (11:10→22:05)
[2023-09-02] MEDS: DAKINS HALF STR 0.25% (NaHypochlorite) 473 ML TOPICAL SOL TOP SCH ×2 (11:10→22:06)
[2023-09-02] MEDS: PANTOPRAZOLE 40 MG TAB PO SCH (11:10)
[2023-09-02] MEDS: INSULIN LANTUS (GLARGINE) 1 /0.01ml (100units/ml) SC SCH (21:47)
[2023-09-03] MEDS: HYDROcodone-ACET 5/325MG TAB PO PRN ×4 (01:48→17:29)
[2023-09-03 05:00] VITALS: BP 101/6; PULSE 82; RESP 18; TEMP 97.4; O2SAT 94
[2023-09-03] MEDS: VANCOMYCIN HCL 125MG/5ML ORAL SOL PO SCH ×3 (05:36→18:00)
[2023-09-03] MEDS: ACCU-CHEK COMFORT CURVE STRIP VI SCH ×3 (06:02→17:00)
[2023-09-03] MEDS: InsuLIN REG 1unit/0.01ml Soln (100units/ml) SC SCH ×3 (06:02→17:00)
[2023-09-03 08:00] VITALS: PULSE 96; RESP 19; O2SAT 92
[2023-09-03 08:30] VITALS: BP 104/61; PULSE 95; RESP 20; TEMP 98.2; O2SAT 95
[2023-09-03] MEDS: SODIUM CHLOR 0.9% PF (SALINE LOCK) 10ML VIAL/SYR IV SCH (09:52)
[2023-09-03] MEDS: CEFTRIAXONE SODIUM 2 GM in D5W 5% 100 ML IV SCH (09:52)
[2023-09-03] MEDS: ENOXAPARIN SOD 40 MG/0.4 ML SYRINGE SC SCH (09:52)
[2023-09-03] MEDS: MORPHINE SULFATE INJ 2 MG/ml SYRG IV PRN (09:53)
[2023-09-03] MEDS: DAKINS HALF STR 0.25% (NaHypochlorite) 473 ML TOPICAL SOL TOP SCH (11:43)
[2023-09-03 12:30] VITALS: BP 114/70; PULSE 90; RESP 18; TEMP 98.3; O2SAT 96
[2023-09-03 15:05] VITALS: BP 122/65; PULSE 92; RESP 18; TEMP 36.8; O2SAT 95
[2023-09-03 16:35] VITALS: BP 123/66; PULSE 83; RESP 20; TEMP 98.4; O2SAT 95
== END 2023-09-03 18:10 | disposition home health service (06) | DRG 854 ==
LOC: ER 17:04 → OVERFLOW 21:12 → UNDOADMIN 21:12 → TELE 23:59 → TELE-EAST 08-22 02:17 → EAST 08-27 10:59
PROVIDERS: ADMIT Nurse Practitioner Family; ATTEND Internal Medicine Geriatric Medicine
PROC: 0JBQ3ZZ Excision of Right Foot Subcutaneous Tissue and Fascia, Percutaneous Approach (ICD-10-PCS; principal; 2023-08-22)
PROC: 0S9C3ZZ Drainage of Right Knee Joint, Percutaneous Approach (ICD-10-PCS; 2023-08-22)
PROC: 0SWC0JC Revision of Synthetic Substitute in Right Knee Joint, Patellar Surface, Open Approach (ICD-10-PCS; 2023-08-29)
PROC: 02HV33Z Insertion of Infusion Device into Superior Vena Cava, Percutaneous Approach (ICD-10-PCS; 2023-08-29)
DX: A40.9 Streptococcal sepsis, unspecified (principal); A04.72 Enterocolitis due to Clostridium difficile, not specified as recurrent; M00.9 Pyogenic arthritis, unspecified; E11.621 Type 2 diabetes mellitus with foot ulcer; E11.65 Type 2 diabetes mellitus with hyperglycemia; Z96.653 Presence of artificial knee joint, bilateral; M25.461 Effusion, right knee; E66.01 Morbid (severe) obesity due to excess calories; I10 Essential (primary) hypertension; E78.00 Pure hypercholesterolemia, unspecified; L97.519 Non-pressure chronic ulcer of other part of right foot with unspecified severity; R79.89 Other specified abnormal findings of blood chemistry; M77.30 Calcaneal spur, unspecified foot; E11.40 Type 2 diabetes mellitus with diabetic neuropathy, unspecified; Z79.82 Long term (current) use of aspirin; Z79.4 Long term (current) use of insulin; Z79.899 Other long term (current) drug therapy; Z68.37 Body mass index [BMI] 37.0-37.9, adult
CPT/HCPCS: 36415; 36569; 71045; 73560; 73562; 73630; 73701; 76881; 76942; 80048; 80053; 80202; 81001; 82565; 82962; 83036; 83605; 83735; 85007; 85025; 85027; 85610; 85652; 85730; 86141; 86850; 86900; 86901; 87040; 87070; 87075; 87077; 87186; 87205; 87493; 89051; 89060; 93971; 97110; 97116; 97163; 97530; G0378; J0690; J0696; J1100; J1815; J1885; J2185; J2405; J2704; J3490; J7060

== ENCOUNTER 2023-10-18 21:15 | Inpatient (IN) | payer OTHER, MEDICAID ==
[~2023-10-18] VITALS: Ht 180.3 cm; Wt 126.7 kg
[~2023-10-18 21:15] MED LIST changes: -LISI10TA34 PO; -METR500T PO; -MORP1TAB12 PO; -NORT10CA PO; -PREG100C PO; +RIFA300C58 PO; -ROSU40TA81 PO; -VANCOMYCIN 1GM/250ML 250 ML IV ONE
[2023-10-18] MEDS ORDERED: SODIUM CHLORIDE 0.9% 1,000 ML IV ONE ×2 (21:45→23:30)
[2023-10-18 22:15] VITALS: PULSE 119; RESP 15; O2SAT 93
[2023-10-18 22:20] LABS: Basophils # (auto) 0.1 10 ^3/uL (0-0.2); Basophils % (auto) 0.3 % (0.0-2.0); Eosinophils # (auto) 0 10 ^3/uL (0-0.8); Eosinophils % (auto) 0.1 % (0.0-7.0); Hemoglobin 12.5 g/dL (13.5-17.5); Lymphocytes # (auto) 0.7 10 ^3/uL (0.4-5.4); Lymphocytes % (auto) 3.3 % (10.0-50.0); Mean Corpuscular Hemoglobin 29.1 pg (28.0-32.0); Mean Corpuscular Hgb Conc. 32.1 g/dL (32.0-36.0); Mean Corpuscular Volume 90.5 fL (80.0-100.0); Monocytes # (auto) 1.1 10 ^3/uL (0-1.3); Monocytes % (auto) 5.8 % (0.0-12.0); Neutrophils # (auto) 17.9 10 ^3/uL (1.6-8.6); Neutrophils % (auto) 90.5 % (37.0-80.0); Red Blood Cells 4.32 10^6/uL (4.5-5.90); Red Cell Distribution Width 16.7 % (11.8-14.3); White Blood Cell 19.8 10^3/uL (4.4-10.8)
[2023-10-18 22:35] LABS: Alanine Aminotransferase 10 U/L (7-40); Albumin 3.7 g/dL (3.2-4.8); Alkaline Phosphatase 104 U/L (46-116); Anion Gap 9 (5-15); Aspartate Aminotransferase 10 U/L (13-40); BUN/Creatinine Ratio 9.7 (10.0-20.0); Bilirubin, Total 0.7 mg/dL (0.2-1.0); Blood Urea Nitrogen 10 mg/dL (9-23); Calcium 8.5 mg/dL (8.7-10.4); Carbon Dioxide 19 mmol/L (20-30); Chloride 107 mmol/L (98-107); Glucose 259 mg/dL (74-106); Sodium 135 mmol/L (136-145); Total Protein 6.2 g/dL (5.7-8.2)
[2023-10-18 22:40] LABS: Lactic Acid w/Reflex 2.6 mmol/L (0.4-2.0)
[2023-10-18] MEDS ORDERED: VANCOMYCIN HCL 125 MG CAP PO ONE (22:45)
[2023-10-18] MEDS ORDERED: HYDROcodone-ACET 5/325MG TAB PO ONE (23:00)
[2023-10-18] MEDS ORDERED: dilTIAZem 25 MG/5 ML VIAL IV ONE (23:30)
[2023-10-18] MEDS ORDERED: LACTATED RINGER'S 1,000 ML IV ONE (23:30)
[2023-10-18] MEDS ORDERED: LIDOCAINE 50MG/5ML INJ 5ML SYRINGE IV ONE (23:30)
[2023-10-18] MEDS: LIDOCAINE 4MG/ML IV SOLN 500 ML IV SCH (23:30)
[2023-10-19] MEDS: dilTIAZem 25 MG/5 ML VIAL IV ONE ×2 (00:09)
[2023-10-19] MEDS ORDERED: DOCUSATE SOD 100 MG CAP PO PRN (00:45)
[2023-10-19] MEDS ORDERED: ACETAMINOPHEN 325 MG TAB PO PRN (00:45)
[2023-10-19] MEDS ORDERED: IOHEXOL 300 MG/ML 100ML BOTTLE IJ ONE (00:48)
[2023-10-19] MEDS ORDERED: DEXTROSE (50%) 50ML SYRG IV PRN (01:00)
[2023-10-19] MEDS: cefTRIAXone 1GM/50ML D5W 50 ML IV SCH ×2 (01:07→10:26)
[2023-10-19] MEDS: metroNIDAZOLE 500MG/100ML 100 ML IV SCH ×3 (01:07→16:57)
[2023-10-19] MEDS: HYDROcodone-ACET 5/325MG TAB PO PRN ×3 (02:35→17:06)
[2023-10-19] MEDS: VANCOMYCIN HCL 125 MG CAP PO SCH ×4 (06:20→22:36)
[2023-10-19] MEDS: SODIUM CHLOR 0.9% PF (SALINE LOCK) 10ML VIAL/SYR IV SCH ×3 (06:20→22:34)
[2023-10-19] MEDS: ACCU-CHEK COMFORT CURVE STRIP VI SCH ×4 (06:43→22:35)
[2023-10-19] MEDS: InsuLIN REG 1unit/0.01ml Soln (100units/ml) SC SCH ×4 (06:44→22:00)
[2023-10-19 07:00] LABS: Urine Bacteria NONE SEEN /hpf (None Seen); Urine Blood Negative /uL (Negative); Urine Clarity Clear (Clear); Urine Color Yellow (Yellow); Urine Hyaline Cast FEW /lpf (0 - 2); Urine Mucus FEW (None Seen); Urine Protein, UAD 1+ (Negative); Urine Specific Gravity 1.027 (1.001-1.035); Urine Urobilinogen Normal (Negative); Urine WBC 15 /hpf (0 - 3)
[2023-10-19 07:30] VITALS: PULSE 101; RESP 20; O2SAT 97
[2023-10-19] MEDS: ENOXAPARIN SOD 40 MG/0.4 ML SYRINGE SC SCH (10:25)
[2023-10-19] MEDS: ASPirin-EC 81 mg tab PO SCH (10:26)
[2023-10-19] MEDS: HYDROmorphone HCL 2 MG/ML VL/or syr IV PRN ×2 (16:21→22:49)
[2023-10-19 20:00] VITALS: PULSE 86; RESP 17; O2SAT 98
[2023-10-19] MEDS: LIDOCAINE 4MG/ML IV SOLN 500 ML IV SCH (23:30)
[2023-10-20] MEDS: metroNIDAZOLE 500MG/100ML 100 ML IV SCH ×3 (01:43→17:00)
[2023-10-20] MEDS: HYDROmorphone HCL 2 MG/ML VL/or syr IV PRN ×2 (04:14→11:09)
[2023-10-20] MEDS: SODIUM CHLOR 0.9% PF (SALINE LOCK) 10ML VIAL/SYR IV SCH ×3 (05:51→22:18)
[2023-10-20] MEDS: VANCOMYCIN HCL 125 MG CAP PO SCH ×4 (05:52→22:16)
[2023-10-20] MEDS: ACCU-CHEK COMFORT CURVE STRIP VI SCH ×4 (06:30→22:15)
[2023-10-20] MEDS: InsuLIN REG 1unit/0.01ml Soln (100units/ml) SC SCH ×4 (06:32→22:00)
[2023-10-20 07:28] VITALS: PULSE 84; RESP 15; O2SAT 98
[2023-10-20] MEDS: HYDROcodone-ACET 5/325MG TAB PO PRN (07:28)
[2023-10-20] MEDS: LIDOCAINE 4MG/ML IV SOLN 500 ML IV SCH (09:14)
[2023-10-20] MEDS: ENOXAPARIN SOD 40 MG/0.4 ML SYRINGE SC SCH (09:41)
[2023-10-20] MEDS: ASPirin-EC 81 mg tab PO SCH (09:41)
[2023-10-20] MEDS: cefTRIAXone 1GM/50ML D5W 50 ML IV SCH (09:58)
[2023-10-20] MEDS: SODIUM CHLORIDE 0.9% 1,000 ML IV SCH ×2 (12:39→22:21)
[2023-10-20] MEDS: FLORASTOR (S. BOULARDII) 250 MG CAP PO SCH ×2 (13:10→22:16)
[2023-10-20] MEDS: OXYCODONE W/ ACETAMINOPHEN 5/325MG TABLET PO PRN ×3 (13:11→20:26)
[2023-10-20] MEDS: MAGNESIUM OXIDE 400 MG TAB PO SCH (13:11)
[2023-10-20 17:26] LABS: Basophils # (auto) 0.1 10 ^3/uL (0-0.2); Basophils % (auto) 1.2 % (0.0-2.0); Eosinophils # (auto) 0.2 10 ^3/uL (0-0.8); Eosinophils % (auto) 2.3 % (0.0-7.0); Hematocrit 34.4 % (41.0-53.0); Hemoglobin 11.2 g/dL (13.5-17.5); Lymphocytes # (auto) 0.7 10 ^3/uL (0.4-5.4); Lymphocytes % (auto) 8.9 % (10.0-50.0); Mean Corpuscular Hemoglobin 29.3 pg (28.0-32.0); Mean Corpuscular Hgb Conc. 32.7 g/dL (32.0-36.0); Mean Corpuscular Volume 89.8 fL (80.0-100.0); Monocytes # (auto) 0.4 10 ^3/uL (0-1.3); Monocytes % (auto) 4.9 % (0.0-12.0); Neutrophils # (auto) 6.3 10 ^3/uL (1.6-8.6); Neutrophils % (auto) 82.7 % (37.0-80.0); Nucleated Red Blood Cells % 0.1 %; Red Blood Cells 3.83 10^6/uL (4.5-5.90); Red Cell Distribution Width 16.2 % (11.8-14.3); White Blood Cell 7.6 10^3/uL (4.4-10.8)
[2023-10-20 17:37] LABS: Chloride 109 mmol/L (98-107); Potassium 3.6 mmol/L (3.5-5.1); Sodium 140 mmol/L (136-145)
[2023-10-20 17:38] LABS: Anion Gap 9 (5-15); Carbon Dioxide 22 mmol/L (20-30)
[2023-10-20 17:39] LABS: Calcium 7.9 mg/dL (8.7-10.4)
[2023-10-20 17:44] LABS: BUN/Creatinine Ratio 9.7 (10.0-20.0); Blood Urea Nitrogen 6 mg/dL (9-23); Magnesium 1.9 mg/dL (1.6-2.6)
[2023-10-20 17:46] LABS: Glucose 113 mg/dL (74-106)
[2023-10-20 20:10] VITALS: PULSE 87; RESP 13; O2SAT 96
[2023-10-20] MEDS: ONDANSETRON HCL 4 MG/2 ML VIAL IV PRN (20:26)
[2023-10-20] MEDS: METOPROLOL TARTRATE 25 MG TAB PO SCH (22:00)
[2023-10-20 23:25] VITALS: BP 109/60; PULSE 78; PULSE 89; RESP 19; TEMP 97.8; O2SAT 94
[2023-10-20] MEDS ORDERED: SEMA2INJ3 SC (23:38)
[2023-10-21] VITALS (7 sets, daily range): BP systolic 105–135; BP diastolic 50–62; PULSE 71–86; RESP 17–18; TEMP 97.5–97.9; O2SAT 95–96
[2023-10-21] MEDS: metroNIDAZOLE 500MG/100ML 100 ML IV SCH ×3 (00:54→16:54)
[2023-10-21] MEDS: OXYCODONE W/ ACETAMINOPHEN 5/325MG TABLET PO PRN ×4 (01:22→21:45)
[2023-10-21 05:51] LABS: Basophils # (auto) 0.1 10 ^3/uL (0-0.2); Basophils % (auto) 0.9 % (0.0-2.0); Eosinophils # (auto) 0.3 10 ^3/uL (0-0.8); Eosinophils % (auto) 4.4 % (0.0-7.0); Hematocrit 33.8 % (41.0-53.0); Hemoglobin 11.1 g/dL (13.5-17.5); Lymphocytes # (auto) 0.8 10 ^3/uL (0.4-5.4); Lymphocytes % (auto) 13.7 % (10.0-50.0); Mean Corpuscular Hemoglobin 29.3 pg (28.0-32.0); Mean Corpuscular Hgb Conc. 32.7 g/dL (32.0-36.0); Mean Corpuscular Volume 89.5 fL (80.0-100.0); Monocytes # (auto) 0.4 10 ^3/uL (0-1.3); Monocytes % (auto) 6.4 % (0.0-12.0); Neutrophils # (auto) 4.3 10 ^3/uL (1.6-8.6); Neutrophils % (auto) 74.6 % (37.0-80.0); Nucleated Red Blood Cells % 0.3 %; Red Blood Cells 3.78 10^6/uL (4.5-5.90); Red Cell Distribution Width 15.8 % (11.8-14.3); White Blood Cell 5.7 10^3/uL (4.4-10.8)
[2023-10-21 06:00] LABS: Calcium 7.8 mg/dL (8.7-10.4); Chloride 111 mmol/L (98-107); Potassium 3.4 mmol/L (3.5-5.1); Sodium 141 mmol/L (136-145)
[2023-10-21 06:01] LABS: Anion Gap 11 (5-15); Carbon Dioxide 19 mmol/L (20-30)
[2023-10-21] MEDS: ACCU-CHEK COMFORT CURVE STRIP VI SCH ×4 (06:04→21:21)
[2023-10-21] MEDS: SODIUM CHLOR 0.9% PF (SALINE LOCK) 10ML VIAL/SYR IV SCH ×3 (06:04→21:21)
[2023-10-21] MEDS: VANCOMYCIN HCL 125 MG CAP PO SCH ×4 (06:05→21:45)
[2023-10-21 06:06] LABS: BUN/Creatinine Ratio 10.5 (10.0-20.0); Blood Urea Nitrogen 6 mg/dL (9-23); Glucose 87 mg/dL (74-106)
[2023-10-21] MEDS: InsuLIN REG 1unit/0.01ml Soln (100units/ml) SC SCH ×4 (06:08→21:21)
[2023-10-21] MEDS ORDERED: POTASSIUM EFFERVESENT TAB 25 MEQ PO ONE (08:45)
[2023-10-21] MEDS: ENOXAPARIN SOD 40 MG/0.4 ML SYRINGE SC SCH (10:48)
[2023-10-21] MEDS: ASPirin-EC 81 mg tab PO SCH (10:48)
[2023-10-21] MEDS: MAGNESIUM OXIDE 400 MG TAB PO SCH (10:48)
[2023-10-21] MEDS: METOPROLOL TARTRATE 25 MG TAB PO SCH ×2 (10:49→21:45)
[2023-10-21] MEDS: FLORASTOR (S. BOULARDII) 250 MG CAP PO SCH ×2 (10:49→21:45)
[2023-10-21 10:59] LABS: Free T4 (Free Thyroxine) 0.98 ng/dL (0.89-1.76)
[2023-10-21 11:00] LABS: Free T3 2.76 pg/mL (2.3-4.2)
[2023-10-21 11:25] LABS: Magnesium 1.9 mg/dL (1.6-2.6)
[2023-10-21] MEDS ORDERED: MAGNESIUM SULFATE 1GM/100ML 100 ML IV ONE (13:45)
[2023-10-21] MEDS: ENOXAPARIN SOD 100 MG/1 ML SYRINGE SC SCH (21:46)
[2023-10-22] VITALS (7 sets, daily range): BP systolic 120–131; BP diastolic 65–76; PULSE 82–83; RESP 18–20; TEMP 97.4–98.1; O2SAT 96–98
[2023-10-22] MEDS: metroNIDAZOLE 500MG/100ML 100 ML IV SCH ×2 (00:54→09:10)
[2023-10-22] MEDS: SODIUM CHLOR 0.9% PF (SALINE LOCK) 10ML VIAL/SYR IV SCH ×2 (06:26→11:45)
[2023-10-22] MEDS: ACCU-CHEK COMFORT CURVE STRIP VI SCH ×2 (06:27→11:45)
[2023-10-22] MEDS: InsuLIN REG 1unit/0.01ml Soln (100units/ml) SC SCH ×2 (06:27→11:30)
[2023-10-22] MEDS: OXYCODONE W/ ACETAMINOPHEN 5/325MG TABLET PO PRN (06:29)
[2023-10-22] MEDS: VANCOMYCIN HCL 125 MG CAP PO SCH ×2 (06:29→11:39)
[2023-10-22 06:46] LABS: Chloride 110 mmol/L (98-107); Potassium 3.8 mmol/L (3.5-5.1); Sodium 140 mmol/L (136-145)
[2023-10-22 06:47] LABS: Anion Gap 9 (5-15); Calcium 7.9 mg/dL (8.7-10.4); Carbon Dioxide 21 mmol/L (20-30)
[2023-10-22 06:52] LABS: Glucose 86 mg/dL (74-106); Magnesium 2.1 mg/dL (1.6-2.6)
[2023-10-22 07:03] LABS: BUN/Creatinine Ratio 8.8 (10.0-20.0); Blood Urea Nitrogen < 5 mg/dL (9-23)
[2023-10-22] MEDS: ONDANSETRON HCL 4 MG/2 ML VIAL IV PRN (07:14)
[2023-10-22] MEDS ORDERED: POTASSIUM EFFERVESENT TAB 25 MEQ PO ONE (07:45)
[2023-10-22] MEDS: ASPirin-EC 81 mg tab PO SCH (09:08)
[2023-10-22] MEDS: METOPROLOL TARTRATE 25 MG TAB PO SCH (09:09)
[2023-10-22] MEDS: FLORASTOR (S. BOULARDII) 250 MG CAP PO SCH (09:10)
[2023-10-22] MEDS: MAGNESIUM OXIDE 400 MG TAB PO SCH (09:10)
[2023-10-22] MEDS: ENOXAPARIN SOD 100 MG/1 ML SYRINGE SC SCH (09:11)
[2023-10-22] MEDS ORDERED: FIDAXOMICIN 200 MG PO SCH (10:00)
[2023-10-22] MEDS ORDERED: ATO40T PO (11:28)
[2023-10-22] MEDS ORDERED: VANC125C3 PO (11:28)
[2023-10-22] MEDS ORDERED: APIX5TAB PO (11:28)
[2023-10-22] MEDS ORDERED: METO25TA36 PO (11:28)
[2023-10-22] MEDS ORDERED: FIDA200T PO (12:56)
[2023-10-22] MEDS ORDERED: ATORVASTATIN 20 MG TAB PO SCH (22:00)
== END 2023-10-22 14:23 | disposition home or self-care (01) | DRG 872 ==
LOC: ER 21:15 → TELE 10-19 00:41 → TELE-EAST 10-20 23:18
PROVIDERS: ADMIT Nurse Practitioner Acute Care; ATTEND Internal Medicine Geriatric Medicine
DX: A41.4 Sepsis due to anaerobes (principal); A04.72 Enterocolitis due to Clostridium difficile, not specified as recurrent; I47.21 Torsades de pointes; E86.0 Dehydration; I10 Essential (primary) hypertension; E78.5 Hyperlipidemia, unspecified; Z96.653 Presence of artificial knee joint, bilateral; E11.65 Type 2 diabetes mellitus with hyperglycemia; E66.9 Obesity, unspecified; E87.6 Hypokalemia; Z68.39 Body mass index [BMI] 39.0-39.9, adult; Z80.42 Family history of malignant neoplasm of prostate; Z79.01 Long term (current) use of anticoagulants; Z79.899 Other long term (current) drug therapy; I48.0 Paroxysmal atrial fibrillation
CPT/HCPCS: 36415; 74177; 80048; 80053; 80061; 81001; 82962; 83036; 83605; 83735; 84439; 84443; 84481; 84484; 85025; 87040; 87045; 87427; 87493; 93005; 93306; 99291; G0378; J1815; J2405; J3490; J7042

== ENCOUNTER 2023-11-29 22:02 | Inpatient (IN) | payer OTHER, MEDICAID ==
[~2023-11-29] VITALS: Ht 180.3 cm; Wt 129.7 kg
[~2023-11-29 22:02] MED LIST changes: +APIX5TAB PO; +ATO40T PO; +FIDA200T PO; +METO25TA36 PO; -RIFA300C58 PO; +SEMA2INJ3 SC
[2023-11-29 22:30] VITALS: PULSE 97; RESP 18; O2SAT 97
[2023-11-30] MEDS: SODIUM CHLORIDE 0.9% 1,000 ML IV ONE (00:22)
[2023-11-30] MEDS: VANCOMYCIN HCL 125 MG CAP PO ONE (00:37)
[2023-11-30] MEDS: MORPHINE SULFATE 4 MG/ML SYR/VIAL IV ONE (00:38)
[2023-11-30 00:52] LABS: Basophils # (auto) 0 10 ^3/uL (0-0.2); Basophils % (auto) 0.3 % (0.0-2.0); Eosinophils # (auto) 0 10 ^3/uL (0-0.8); Eosinophils % (auto) 0.3 % (0.0-7.0); Hematocrit 41.3 % (41.0-53.0); Hemoglobin 13.4 g/dL (13.5-17.5); Lymphocytes % (auto) 7.6 % (10.0-50.0); Mean Corpuscular Hemoglobin 28.8 pg (28.0-32.0); Mean Corpuscular Hgb Conc. 32.6 g/dL (32.0-36.0); Mean Corpuscular Volume 88.4 fL (80.0-100.0); Monocytes # (auto) 0.7 10 ^3/uL (0-1.3); Monocytes % (auto) 5.5 % (0.0-12.0); Neutrophils # (auto) 10.8 10 ^3/uL (1.6-8.6); Neutrophils % (auto) 86.3 % (37.0-80.0); Red Blood Cells 4.67 10^6/uL (4.5-5.90); Red Cell Distribution Width 14.9 % (11.8-14.3); White Blood Cell 12.5 10^3/uL (4.4-10.8)
[2023-11-30 00:58] LABS: Chloride 107 mmol/L (98-107); Potassium 3.3 mmol/L (3.5-5.1); Sodium 140 mmol/L (136-145)
[2023-11-30 00:59] LABS: Anion Gap 8 (5-15); Carbon Dioxide 25 mmol/L (20-30)
[2023-11-30 01:00] LABS: Calcium 8.5 mg/dL (8.7-10.4)
[2023-11-30 01:05] LABS: BUN/Creatinine Ratio 9.6 (10.0-20.0); Blood Urea Nitrogen 12 mg/dL (9-23); Glucose 205 mg/dL (74-106)
[2023-11-30] MEDS ORDERED: ACETAMINOPHEN 325 MG TAB PO PRN (03:00)
[2023-11-30] MEDS ORDERED: DOCUSATE SOD 100 MG CAP PO PRN (03:00)
[2023-11-30] MEDS ORDERED: MORPHINE SULFATE INJ 2 MG/ml SYRG IV PRN ×3 (03:00→03:15)
[2023-11-30] MEDS ORDERED: NITROGLYCERIN 0.4 MG SL TAB SL PRN ×2 (03:00→03:15)
[2023-11-30] MEDS ORDERED: ONDANSETRON HCL 4 MG/2 ML VIAL IV PRN (03:00)
[2023-11-30] MEDS ORDERED: DEXTROSE (50%) 50ML SYRG IV PRN (03:00)
[2023-11-30] MEDS: POTASSIUM CHL 20 Meq TABLET PO ONE (05:25)
[2023-11-30] MEDS ORDERED: POTASSIUM CHL 20 Meq TABLET PO SCH (05:30)
[2023-11-30] MEDS: ONDANSETRON HCL 4 MG/2 ML VIAL IV PRN (05:32)
[2023-11-30] MEDS: POTASSIUM CHL 20 Meq TABLET PO SCH (05:32)
[2023-11-30] MEDS: VANCOMYCIN HCL 125 MG CAP PO SCH (05:33)
[2023-11-30] MEDS: SODIUM CHLOR 0.9% PF (SALINE LOCK) 10ML VIAL/SYR IV SCH (05:34)
[2023-11-30] MEDS: MORPHINE SULFATE INJ 2 MG/ml SYRG IV PRN (05:34)
[2023-11-30] MEDS ORDERED: VANCOMYCIN HCL 125 MG CAP PO SCH (06:00)
[2023-11-30] MEDS: ACCU-CHEK COMFORT CURVE STRIP VI SCH (07:09)
[2023-11-30 07:30] VITALS: PULSE 109; RESP 14; O2SAT 95
[2023-11-30] MEDS: InsuLIN REG 1unit/0.01ml Soln (100units/ml) SC SCH ×2 (08:50→22:00)
[2023-11-30] MEDS: ENOXAPARIN SOD 40 MG/0.4 ML SYRINGE SC SCH (09:43)
[2023-11-30 18:49] VITALS: PULSE 60; RESP 20; O2SAT 96
[2023-11-30 19:45] VITALS: PULSE 102; RESP 18; O2SAT 95
[2023-11-30 20:18] LABS: Urine Bacteria NONE SEEN /hpf (None Seen); Urine Blood Negative /uL (Negative); Urine Clarity Clear (Clear); Urine Color Yellow (Yellow); Urine Hyaline Cast MANY /lpf (0 - 2); Urine Mucus FEW (None Seen); Urine Protein, UAD 1+ (Negative); Urine Specific Gravity 1.036 (1.001-1.035); Urine WBC 4 /hpf (0 - 3)
[2023-12-01 15:56] LABS: Basophils # (auto) 0 10 ^3/uL (0-0.2); Basophils % (auto) 0.5 % (0.0-2.0); Eosinophils # (auto) 0.1 10 ^3/uL (0-0.8); Eosinophils % (auto) 2.4 % (0.0-7.0); Hematocrit 40.7 % (41.0-53.0); Hemoglobin 13.3 g/dL (13.5-17.5); Lymphocytes # (auto) 1.4 10 ^3/uL (0.4-5.4); Lymphocytes % (auto) 24.1 % (10.0-50.0); Mean Corpuscular Hemoglobin 28.6 pg (28.0-32.0); Mean Corpuscular Hgb Conc. 32.6 g/dL (32.0-36.0); Mean Corpuscular Volume 87.9 fL (80.0-100.0); Monocytes # (auto) 0.4 10 ^3/uL (0-1.3); Monocytes % (auto) 6.7 % (0.0-12.0); Neutrophils % (auto) 66.3 % (37.0-80.0); Nucleated Red Blood Cells % 0.2 %; Red Blood Cells 4.63 10^6/uL (4.5-5.90); Red Cell Distribution Width 15.1 % (11.8-14.3)
[2023-12-01 16:10] LABS: Chloride 111 mmol/L (98-107); Potassium 3.6 mmol/L (3.5-5.1); Sodium 144 mmol/L (136-145)
[2023-12-01 16:11] LABS: Anion Gap 6 (5-15); Calcium 8.7 mg/dL (8.7-10.4); Carbon Dioxide 27 mmol/L (20-30)
[2023-12-01 16:16] LABS: BUN/Creatinine Ratio 15.2 (10.0-20.0); Blood Urea Nitrogen 12 mg/dL (9-23); Glucose 127 mg/dL (74-106); Magnesium 2.1 mg/dL (1.6-2.6)
[2023-12-01] MEDS: SODIUM CHLORIDE 0.9% 1,000 ML IV SCH (17:43)
[2023-12-01 19:48] VITALS: PULSE 84; RESP 11; O2SAT 94
[2023-12-01] MEDS: APIXABAN 5 MG TAB PO SCH (22:09)
[2023-12-01] MEDS: HYDROcodone-ACET 5/325MG TAB ONE (22:21)
[2023-12-01] MEDS: HYDROcodone-ACET 5/325MG TAB PO PRN (22:21)
[2023-12-02 06:19] LABS: Basophils # (auto) 0 10 ^3/uL (0-0.2); Basophils % (auto) 0.3 % (0.0-2.0); Eosinophils # (auto) 0.1 10 ^3/uL (0-0.8); Eosinophils % (auto) 1.8 % (0.0-7.0); Hematocrit 38.7 % (41.0-53.0); Hemoglobin 12.6 g/dL (13.5-17.5); Lymphocytes # (auto) 1.3 10 ^3/uL (0.4-5.4); Lymphocytes % (auto) 18.7 % (10.0-50.0); Mean Corpuscular Hemoglobin 28.8 pg (28.0-32.0); Mean Corpuscular Hgb Conc. 32.5 g/dL (32.0-36.0); Mean Corpuscular Volume 88.7 fL (80.0-100.0); Monocytes # (auto) 0.5 10 ^3/uL (0-1.3); Monocytes % (auto) 6.5 % (0.0-12.0); Neutrophils % (auto) 72.7 % (37.0-80.0); Red Blood Cells 4.37 10^6/uL (4.5-5.90); Red Cell Distribution Width 14.7 % (11.8-14.3); White Blood Cell 6.9 10^3/uL (4.4-10.8)
[2023-12-02 06:28] LABS: Chloride 111 mmol/L (98-107); Potassium 3.3 mmol/L (3.5-5.1); Sodium 143 mmol/L (136-145)
[2023-12-02 06:29] LABS: Anion Gap 9 (5-15); Calcium 8.5 mg/dL (8.7-10.4); Carbon Dioxide 23 mmol/L (20-30)
[2023-12-02 06:34] LABS: BUN/Creatinine Ratio 13.3 (10.0-20.0); Blood Urea Nitrogen 10 mg/dL (9-23); Glucose 112 mg/dL (74-106)
[2023-12-02 08:15] VITALS: RESP 16; O2SAT 96
[2023-12-02] MEDS: POTASSIUM CHL 20 Meq TABLET PO ONE (08:16)
[2023-12-02] MEDS ORDERED: FIDA200T PO (09:34)
[2023-12-02] MEDS ORDERED: METO-289 PO (12:28)
[2023-12-02] MEDS ORDERED: POTA1TAB61 PO (13:28)
[2023-12-02] MEDS ORDERED: FURO40TA4 PO (13:28)
[2023-12-02] MEDS ORDERED: EMPA1TAB3 PO (13:28)
[2023-12-02 17:00] VITALS: BP 141/55; PULSE 80; RESP 17; TEMP 97.9; O2SAT 95
[2023-12-02] MEDS ORDERED: SEMA4INJ SC (18:53)
[2023-12-02 22:00] VITALS: BP 123/62; PULSE 64; RESP 18; TEMP 98.6; O2SAT 94
[2023-12-03 05:00] VITALS: BP 128/61; PULSE 61; RESP 20; TEMP 98.1; O2SAT 92
[2023-12-03 08:18] VITALS: BP 138/62; PULSE 75; RESP 20; TEMP 98; O2SAT 98
[2023-12-03 12:31] VITALS: BP 142/87; PULSE 81; RESP 16; TEMP 97.8; O2SAT 99
[2023-12-03] MEDS: POTASSIUM CHL 20 Meq TABLET PO ONE (12:50)
[2023-12-03 17:00] VITALS: BP 138/71; PULSE 70; RESP 18; TEMP 98.2; O2SAT 96
[2023-12-03] MEDS: DIFICID 200 MG PO SCH (21:27)
[2023-12-03 22:00] VITALS: BP 147/79; PULSE 64; RESP 18; TEMP 98.1; O2SAT 92
[2023-12-04 05:00] VITALS: BP 146/73; PULSE 80; RESP 18; TEMP 97.6; O2SAT 93
[2023-12-04 06:51] LABS: Anion Gap 8 (5-15); Carbon Dioxide 25 mmol/L (20-30); Chloride 109 mmol/L (98-107); Potassium 3.8 mmol/L (3.5-5.1); Sodium 142 mmol/L (136-145)
[2023-12-04 06:52] LABS: Calcium 9.2 mg/dL (8.5-10.1)
[2023-12-04 06:57] LABS: BUN/Creatinine Ratio 9.7 (10.0-20.0); Blood Urea Nitrogen 7 mg/dL (9-23); Glucose 131 mg/dL (74-106)
[2023-12-04 08:47] VITALS: BP 124/56; PULSE 67; RESP 18; TEMP 98; O2SAT 96
== END 2023-12-04 12:00 | disposition home or self-care (01) | DRG 372 ==
LOC: EDBD 22:02 → ER 22:02 → OVERFLOW 11-30 02:53 → ER 11-30 03:13 → OVERFLOW 11-30 03:13 → WEST WING 12-02 15:14
PROVIDERS: ADMIT Nurse Practitioner Family; ATTEND Internal Medicine Geriatric Medicine
DX: A04.71 Enterocolitis due to Clostridium difficile, recurrent (principal); Z68.41 Body mass index [BMI] 40.0-44.9, adult; E86.0 Dehydration; E87.6 Hypokalemia; E66.01 Morbid (severe) obesity due to excess calories; I48.91 Unspecified atrial fibrillation; E11.65 Type 2 diabetes mellitus with hyperglycemia; R26.81 Unsteadiness on feet; D72.829 Elevated white blood cell count, unspecified; E78.5 Hyperlipidemia, unspecified; I11.0 Hypertensive heart disease with heart failure; Z96.653 Presence of artificial knee joint, bilateral; I50.9 Heart failure, unspecified; Z80.42 Family history of malignant neoplasm of prostate; Z79.01 Long term (current) use of anticoagulants
CPT/HCPCS: 36415; 80048; 81001; 82962; 83735; 85025; 87086; 87493; 93005; 96361; 96374; G0378; J1815; J2405

== ENCOUNTER 2024-03-12 08:59 | Inpatient (IN) | payer OTHER, MEDICAID ==
[~2024-03-12] VITALS: Ht 180.3 cm; Wt 292.1 kg
[~2024-03-12 08:59] MED LIST changes: -ASPI1TAB20 PO; -ATO40T PO; +ATOR-507 PO; +EMPA1TAB3 PO; +FURO40TA4 PO; +POTA-215 PO; -SEMA2INJ3 SC; +SEMA4INJ SC
[2024-03-12 09:45] VITALS: PULSE 79
[2024-03-12 10:12] LABS: Basophils # (auto) 0 10 ^3/uL (0-0.2); Basophils % (auto) 0.3 % (0.0-2.0); Eosinophils # (auto) 0.1 10 ^3/uL (0-0.8); Eosinophils % (auto) 0.8 % (0.0-7.0); Hematocrit 36.4 % (41.0-53.0); Hemoglobin 11.9 g/dL (13.5-17.5); Lymphocytes # (auto) 0.9 10 ^3/uL (0.4-5.4); Lymphocytes % (auto) 7.9 % (10.0-50.0); Mean Corpuscular Hemoglobin 29.3 pg (28.0-32.0); Mean Corpuscular Hgb Conc. 32.8 g/dL (32.0-36.0); Mean Corpuscular Volume 89.2 fL (80.0-100.0); Monocytes # (auto) 0.9 10 ^3/uL (0-1.3); Monocytes % (auto) 7.5 % (0.0-12.0); Neutrophils # (auto) 9.7 10 ^3/uL (1.6-8.6); Neutrophils % (auto) 83.5 % (37.0-80.0); Red Blood Cells 4.08 10^6/uL (4.5-5.90); White Blood Cell 11.6 10^3/uL (4.4-10.8)
[2024-03-12 10:33] LABS: Albumin 3.4 g/dL (3.2-4.8); Alkaline Phosphatase 117 U/L (46-116); Anion Gap 4 (5-15); Aspartate Aminotransferase 10 U/L (13-40); BUN/Creatinine Ratio 12.2 (10.0-20.0); Blood Urea Nitrogen 11 mg/dL (9-23); Calcium 8.9 mg/dL (8.5-10.1); Carbon Dioxide 25 mmol/L (20-30); Chloride 110 mmol/L (98-107); Glucose 249 mg/dL (74-106); Potassium 3.7 mmol/L (3.5-5.1); Sodium 139 mmol/L (136-145)
[2024-03-12 10:34] LABS: Bilirubin, Total 0.3 mg/dL (0.2-1.0); Total Protein 5.4 g/dL (5.7-8.2)
[2024-03-12 10:44] LABS: Alanine Aminotransferase < 9 U/L (7-40)
[2024-03-12] MEDS: MORPHINE SULFATE 4 MG/ML SYR/VIAL IV ONE ×2 (10:44→15:29)
[2024-03-12] MEDS: ONDANSETRON HCL 4 MG/2 ML VIAL IV ONE ×2 (10:45→15:30)
[2024-03-12 14:44] LABS: Urine Bacteria None Seen /hpf (None Seen)
[2024-03-12 15:15] LABS: Urine Blood Negative /uL (Negative); Urine Clarity Clear (Clear); Urine Color Yellow (Yellow); Urine Mucus FEW (None Seen); Urine Protein, UAD 1+ (Negative); Urine Specific Gravity 1.029 (1.001-1.035); Urine Urobilinogen Normal (Negative); Urine WBC 1 /hpf (0 - 3); Urine pH 5.5 (5.0-9.0)
[2024-03-12] MEDS ORDERED: ACETAMINOPHEN 325 MG TAB PO PRN ×2 (15:30)
[2024-03-12] MEDS ORDERED: DEXTROSE (50%) 50ML SYRG IV PRN (15:30)
[2024-03-12] MEDS: FUROSEMIDE 40 MG/4 ML VIAL IV ONE (16:33)
[2024-03-12] MEDS: cefTRIAXone 1GM/50ML D5W 50 ML IV ONE (16:33)
[2024-03-12] MEDS: SODIUM CHLORIDE 0.9% 1,000 ML IV SCH (16:34)
[2024-03-12 16:56] LABS: Triglycerides 85 mg/dL (< 150)
[2024-03-12 16:57] LABS: LDL Cholesterol 90 mg/dL (< 100)
[2024-03-12 16:58] LABS: Cholesterol 131 mg/dL (< 200); HDL Cholesterol 30 mg/dL (40-59)
[2024-03-12] MEDS: metroNIDAZOLE 500MG/100ML 100 ML IV ONE (17:49)
[2024-03-12] MEDS: ACCU-CHEK COMFORT CURVE STRIP VI SCH (17:52)
[2024-03-12] MEDS: InsuLIN REG 1unit/0.01ml Soln (100units/ml) SC SCH (17:54)
[2024-03-12 19:30] VITALS: PULSE 82; O2SAT 97
[2024-03-12] MEDS: metroNIDAZOLE 500MG/100ML 100 ML IV SCH (23:11)
[2024-03-12] MEDS: APIXABAN 5 MG TAB PO SCH (23:11)
[2024-03-12] MEDS: POTASSIUM CHL 10 Meq TABLET PO SCH (23:12)
[2024-03-12] MEDS: MORPHINE SULFATE INJ 2 MG/ml SYRG IV PRN (23:39)
[2024-03-12] MEDS ORDERED: HYDR-4798 PO (23:49)
[2024-03-13] VITALS (7 sets, daily range): BP systolic 88–131; BP diastolic 37–66; PULSE 63–88; RESP 18; TEMP 97.5–98; O2SAT 94–99
[2024-03-13] MEDS: HYDROcodone-ACET 5/325MG TAB PO PRN (02:52)
[2024-03-13] MEDS: ATORVASTATIN 20 MG TAB PO SCH (08:47)
[2024-03-13] MEDS: cefTRIAXone 1GM/50ML D5W 50 ML IV SCH (08:47)
[2024-03-13] MEDS: EMPAGLIFLOZIN 10 MG TAB PO SCH (08:47)
[2024-03-13] MEDS: FUROSEMIDE 40 MG/4 ML VIAL IV SCH (10:00)
[2024-03-13] MEDS: METOPROLOL SUCCINATE XL 50 MG TAB PO SCH (10:00)
[2024-03-14] VITALS (7 sets, daily range): BP systolic 104–123; BP diastolic 7–68; PULSE 57–86; RESP 14–20; TEMP 97.5–98.8; O2SAT 94–98
[2024-03-14 06:49] LABS: Basophils # (auto) 0.1 10 ^3/uL (0-0.2); Basophils % (auto) 0.6 % (0.0-2.0); Eosinophils # (auto) 0.1 10 ^3/uL (0-0.8); Eosinophils % (auto) 1.6 % (0.0-7.0); Hematocrit 36.9 % (41.0-53.0); Hemoglobin 12.1 g/dL (13.5-17.5); Lymphocytes # (auto) 0.7 10 ^3/uL (0.4-5.4); Lymphocytes % (auto) 9.3 % (10.0-50.0); Mean Corpuscular Hemoglobin 29.1 pg (28.0-32.0); Mean Corpuscular Hgb Conc. 32.7 g/dL (32.0-36.0); Mean Corpuscular Volume 88.9 fL (80.0-100.0); Monocytes # (auto) 0.5 10 ^3/uL (0-1.3); Monocytes % (auto) 6.4 % (0.0-12.0); Neutrophils # (auto) 6.4 10 ^3/uL (1.6-8.6); Neutrophils % (auto) 82.1 % (37.0-80.0); Red Blood Cells 4.16 10^6/uL (4.5-5.90); Red Cell Distribution Width 16.6 % (11.8-14.3); White Blood Cell 7.8 10^3/uL (4.4-10.8)
[2024-03-14 07:01] LABS: Anion Gap 7 (5-15); Carbon Dioxide 25 mmol/L (20-30); Chloride 111 mmol/L (98-107); Potassium 3.6 mmol/L (3.5-5.1); Sodium 143 mmol/L (136-145)
[2024-03-14 07:03] LABS: Calcium 8.7 mg/dL (8.7-10.4)
[2024-03-14 07:07] LABS: BUN/Creatinine Ratio 11.3 (10.0-20.0); Blood Urea Nitrogen 9 mg/dL (9-23)
[2024-03-14 07:12] LABS: Glucose 107 mg/dL (74-106)
[2024-03-14] MEDS: metroNIDAZOLE 500 MG TAB PO SCH (14:59)
[2024-03-14] MEDS: FLORASTOR (S. BOULARDII) 250 MG CAP PO SCH (20:09)
[2024-03-15] VITALS (7 sets, daily range): BP systolic 105–123; BP diastolic 45–59; PULSE 72–88; RESP 17; TEMP 97.7–98.3; O2SAT 92–96
[2024-03-15 05:58] LABS: Basophils # (auto) 0.1 10 ^3/uL (0-0.2); Basophils % (auto) 0.8 % (0.0-2.0); Eosinophils # (auto) 0.2 10 ^3/uL (0-0.8); Eosinophils % (auto) 1.6 % (0.0-7.0); Hematocrit 36.9 % (41.0-53.0); Hemoglobin 12.2 g/dL (13.5-17.5); Lymphocytes # (auto) 0.9 10 ^3/uL (0.4-5.4); Lymphocytes % (auto) 10.2 % (10.0-50.0); Mean Corpuscular Hemoglobin 29.3 pg (28.0-32.0); Mean Corpuscular Volume 88.8 fL (80.0-100.0); Monocytes # (auto) 0.7 10 ^3/uL (0-1.3); Monocytes % (auto) 7.2 % (0.0-12.0); Neutrophils # (auto) 7.4 10 ^3/uL (1.6-8.6); Neutrophils % (auto) 80.2 % (37.0-80.0); Red Blood Cells 4.15 10^6/uL (4.5-5.90); Red Cell Distribution Width 16.6 % (11.8-14.3); White Blood Cell 9.2 10^3/uL (4.4-10.8)
[2024-03-15 06:04] LABS: Chloride 110 mmol/L (98-107); Potassium 3.7 mmol/L (3.5-5.1); Sodium 143 mmol/L (136-145)
[2024-03-15 06:05] LABS: Anion Gap 7 (5-15); Calcium 8.6 mg/dL (8.5-10.1); Carbon Dioxide 26 mmol/L (20-30)
[2024-03-15 06:10] LABS: BUN/Creatinine Ratio 11.6 (10.0-20.0); Blood Urea Nitrogen 10 mg/dL (9-23); Glucose 106 mg/dL (74-106)
[2024-03-15] MEDS: GADOTERATE MEG 10 MMOL/20ml INJ (0.5MMOL/ml) IV ONE (14:24)
[2024-03-15] MEDS: DOCUSATE SOD 100 MG CAP PO SCH (21:56)
[2024-03-16 05:00] VITALS: BP 146/78; PULSE 60; RESP 18; TEMP 97.9; O2SAT 95
[2024-03-16 06:00] LABS: Basophils # (auto) 0.1 10 ^3/uL (0-0.2); Basophils % (auto) 0.6 % (0.0-2.0); Eosinophils # (auto) 0.1 10 ^3/uL (0-0.8); Hematocrit 39.1 % (41.0-53.0); Hemoglobin 12.9 g/dL (13.5-17.5); Lymphocytes # (auto) 0.9 10 ^3/uL (0.4-5.4); Lymphocytes % (auto) 7.2 % (10.0-50.0); Mean Corpuscular Hemoglobin 29.4 pg (28.0-32.0); Mean Corpuscular Volume 89.3 fL (80.0-100.0); Monocytes # (auto) 0.6 10 ^3/uL (0-1.3); Monocytes % (auto) 4.8 % (0.0-12.0); Neutrophils # (auto) 11.1 10 ^3/uL (1.6-8.6); Neutrophils % (auto) 86.4 % (37.0-80.0); Nucleated Red Blood Cells % 0.1 %; Red Blood Cells 4.38 10^6/uL (4.5-5.90); Red Cell Distribution Width 16.5 % (11.8-14.3); White Blood Cell 12.9 10^3/uL (4.4-10.8)
[2024-03-16 06:17] LABS: Chloride 109 mmol/L (98-107); Sodium 143 mmol/L (136-145)
[2024-03-16 06:18] LABS: Anion Gap 11 (5-15); Carbon Dioxide 23 mmol/L (20-30)
[2024-03-16 06:19] LABS: Calcium 8.9 mg/dL (8.5-10.1)
[2024-03-16 06:23] LABS: BUN/Creatinine Ratio 13.6 (10.0-20.0); Blood Urea Nitrogen 11 mg/dL (9-23); Glucose 94 mg/dL (74-106)
[2024-03-16] MEDS: metroNIDAZOLE 500 MG TAB PO SCH (06:25)
[2024-03-16 09:00] VITALS: BP 132/68; PULSE 85; RESP 18; TEMP 97.4; O2SAT 97
[2024-03-16] MEDS: ONDANSETRON HCL 4 MG/2 ML VIAL IV PRN (09:22)
[2024-03-16] MEDS ORDERED: VANC125C3 PO (09:26)
[2024-03-16 10:50] VITALS: BP 146/78; PULSE 60; RESP 20; TEMP 36.3
[2024-03-16 13:00] VITALS: BP 110/55; PULSE 71; RESP 18; TEMP 97.8; O2SAT 97
[2024-03-18 13:06] LABS: Saccharomyces cerevisiae IgA 68.6 Units (0.0-24.9)
== END 2024-03-16 15:00 | disposition home health service (06) | DRG 372 ==
LOC: ER 08:59 → OVERFLOW 15:35 → EAST 22:40
PROVIDERS: ADMIT Registered Nurse; ATTEND Internal Medicine Geriatric Medicine
DX: A04.71 Enterocolitis due to Clostridium difficile, recurrent (principal); C18.9 Malignant neoplasm of colon, unspecified; I48.20 Chronic atrial fibrillation, unspecified; C64.1 Malignant neoplasm of right kidney, except renal pelvis; I87.8 Other specified disorders of veins; E11.9 Type 2 diabetes mellitus without complications; I10 Essential (primary) hypertension; E78.5 Hyperlipidemia, unspecified; E66.01 Morbid (severe) obesity due to excess calories; F40.240 Claustrophobia; N28.1 Cyst of kidney, acquired; K42.9 Umbilical hernia without obstruction or gangrene; Z68.39 Body mass index [BMI] 39.0-39.9, adult; Z79.01 Long term (current) use of anticoagulants; Z80.42 Family history of malignant neoplasm of prostate
CPT/HCPCS: 36415; 71045; 74176; 80048; 80053; 80061; 81001; 82378; 82962; 83036; 83735; 85025; 86256; 86671; 93970; 96365; 96367; 96375; 96376; G0378; J1815; J2405; J3490

== ENCOUNTER 2024-04-23 12:29 | Inpatient (IN) | payer OTHER, MEDICAID ==
[~2024-04-23] VITALS: Ht 180.3 cm; Wt 134.0 kg
[~2024-04-23 12:29] MED LIST changes: -FIDA200T PO; +HYDR-4798 PO
[2024-04-23] MEDS: SODIUM CHLORIDE 0.9% 500 ML IVB ONE (13:45)
[2024-04-23 14:13] LABS: Hematocrit 42.5 % (41.0-53.0)
[2024-04-23 14:15] LABS: Mean Corpuscular Hemoglobin 29.9 pg (28.0-32.0); Mean Corpuscular Hgb Conc. 32.9 g/dL (32.0-36.0); Mean Corpuscular Volume 90.8 fL (80.0-100.0); Red Blood Cells 4.68 10^6/uL (4.5-5.90)
[2024-04-23 14:19] LABS: Band Neutrophils % (manual) 0; Basophils % (manual) 0 (0.0-2.0); Blast Cells 0; Eosinophils % (manual) 0 (0-7); Metamyelocytes % 0; Myelocytes % 0; Promyelocytes % 0; Reactive Lymphocytes 0; White Blood Cell 37.1 10^3/uL (4.4-10.8)
[2024-04-23 14:24] LABS: Alanine Aminotransferase 19 U/L (7-40); Albumin 3.8 g/dL (3.2-4.8); Alkaline Phosphatase 124 U/L (46-116); Anion Gap 12 (5-15); Aspartate Aminotransferase 15 U/L (13-40); BUN/Creatinine Ratio 17.9 (10.0-20.0); Bilirubin, Total 0.8 mg/dL (0.2-1.0); Blood Urea Nitrogen 24 mg/dL (9-23); Carbon Dioxide 22 mmol/L (20-30); Chloride 101 mmol/L (98-107); Glucose 228 mg/dL (74-106); Potassium 3.6 mmol/L (3.5-5.1); Sodium 135 mmol/L (136-145); Total Protein 6.2 g/dL (5.7-8.2)
[2024-04-23 14:46] LABS: Large Platelets FEW; Lymphocytes % (manual) 2 (10.0-50.0); Monocytes % (manual) 5 (0-12); Platelet Estimate Adequa
[2024-04-23 15:00] VITALS: PULSE 106; RESP 19; O2SAT 94
[2024-04-23] MEDS ORDERED: DEXTROSE (50%) 50ML SYRG IV PRN (16:45)
[2024-04-23] MEDS ORDERED: NITROGLYCERIN 0.4 MG SL TAB SL PRN (16:45)
[2024-04-23] MEDS ORDERED: ONDANSETRON HCL 4 MG/2 ML VIAL IV PRN (16:45)
[2024-04-23 17:02] LABS: Urine Bacteria None Seen /hpf (None Seen)
[2024-04-23] MEDS: metroNIDAZOLE 500MG/100ML 100 ML IV ONE (17:13)
[2024-04-23] MEDS: SODIUM CHLORIDE 0.9% 1,000 ML IV ONE (17:14)
[2024-04-23] MEDS: PANTOPRAZOLE 40 MG/10 ML VIAL INJ IV ONE (17:14)
[2024-04-23 17:21] LABS: Urine Blood Negative /uL (Negative); Urine Clarity Clear (Clear); Urine Color Light-Yellow (Yellow); Urine Protein, UAD TRACE (Negative); Urine Specific Gravity 1.021 (1.001-1.035); Urine Urobilinogen Normal (Negative); Urine WBC 1 /hpf (0 - 3); Urine pH 5.5 (5.0-9.0)
[2024-04-23] MEDS: ACCU-CHEK COMFORT CURVE STRIP VI SCH (17:30)
[2024-04-23] MEDS: InsuLIN REG 1unit/0.01ml Soln (100units/ml) SC SCH ×2 (17:52→23:10)
[2024-04-23] MEDS: VANCOMYCIN HCL 125 MG CAP PO SCH (19:11)
[2024-04-23 22:12] VITALS: BP 120/54; PULSE 104; RESP 19; TEMP 98.2; O2SAT 97
[2024-04-23] MEDS: metroNIDAZOLE 500MG/100ML 100 ML IV SCH (22:50)
[2024-04-23] MEDS: FLORASTOR (S. BOULARDII) 250 MG CAP PO SCH (22:52)
[2024-04-23] MEDS: MORPHINE SULFATE INJ 2 MG/ml SYRG IV PRN (23:12)
[2024-04-23 23:15] VITALS: BP 120/54; PULSE 104; RESP 19; TEMP 98.2; O2SAT 97
[2024-04-24] VITALS (10 sets, daily range): BP systolic 103–125; BP diastolic 33–64; PULSE 85–106; RESP 18–19; TEMP 97.9–98.3; O2SAT 94–99
[2024-04-24 06:59] LABS: Hematocrit 43.1 % (41.0-53.0); Hemoglobin 13.7 g/dL (13.5-17.5); Mean Corpuscular Hemoglobin 29.9 pg (28.0-32.0); Mean Corpuscular Hgb Conc. 31.9 g/dL (32.0-36.0); Mean Corpuscular Volume 93.9 fL (80.0-100.0); Red Cell Distribution Width 15.3 % (11.8-14.3); White Blood Cell 26.6 10^3/uL (4.4-10.8)
[2024-04-24 07:08] LABS: Basophils % (manual) 0 (0.0-2.0); Blast Cells 0; Eosinophils % (manual) 0 (0-7); Metamyelocytes % 0; Myelocytes % 0; Promyelocytes % 0; Reactive Lymphocytes 0
[2024-04-24 07:23] LABS: Alanine Aminotransferase 15 U/L (7-40); Alkaline Phosphatase 106 U/L (46-116); Anion Gap 9 (5-15); BUN/Creatinine Ratio 15.5 (10.0-20.0); Blood Urea Nitrogen 16 mg/dL (9-23); Calcium 8.7 mg/dL (8.7-10.4); Carbon Dioxide 23 mmol/L (20-30); Chloride 106 mmol/L (98-107); Glucose 149 mg/dL (74-106); Sodium 138 mmol/L (136-145)
[2024-04-24 07:25] LABS: Albumin 3.2 g/dL (3.2-4.8); Aspartate Aminotransferase 14 U/L (13-40); Bilirubin, Total 0.7 mg/dL (0.2-1.0); Total Protein 5.7 g/dL (5.7-8.2)
[2024-04-24 08:35] LABS: Band Neutrophils % (manual) 4; Lymphocytes % (manual) 8 (10.0-50.0); Monocytes % (manual) 2 (0-12)
[2024-04-24 08:36] LABS: Platelet Estimate Adequate
[2024-04-24] MEDS: PANTOPRAZOLE 40 MG/10 ML VIAL INJ IV SCH (09:38)
[2024-04-24] MEDS: POTASSIUM CHL 20 Meq TABLET PO ONE (11:49)
[2024-04-24] MEDS: MORPHINE SULFATE INJ 2 MG/ml SYRG IV PRN (15:05)
[2024-04-24] MEDS ORDERED: HYDR1TAB97 (20:32)
[2024-04-24] MEDS ORDERED: HYDR-4072 (20:32)
[2024-04-24] MEDS ORDERED: ATOR40TA52 PO (20:32)
[2024-04-25] VITALS (8 sets, daily range): BP systolic 96–135; BP diastolic 48–75; PULSE 76–101; RESP 17–18; TEMP 97.6–98.3; O2SAT 93–98
[2024-04-25] MEDS: HYDROcodone-ACET 5/325MG TAB PO PRN (03:59)
[2024-04-25 06:00] LABS: Basophils # (auto) 0 10 ^3/uL (0-0.2); Basophils % (auto) 0.3 % (0.0-2.0); Eosinophils # (auto) 0.2 10 ^3/uL (0-0.8); Eosinophils % (auto) 1.3 % (0.0-7.0); Hematocrit 38.8 % (41.0-53.0); Hemoglobin 12.9 g/dL (13.5-17.5); Lymphocytes % (auto) 6.7 % (10.0-50.0); Mean Corpuscular Hemoglobin 30.1 pg (28.0-32.0); Mean Corpuscular Hgb Conc. 33.2 g/dL (32.0-36.0); Mean Corpuscular Volume 90.6 fL (80.0-100.0); Monocytes # (auto) 0.7 10 ^3/uL (0-1.3); Monocytes % (auto) 4.8 % (0.0-12.0); Neutrophils # (auto) 13.2 10 ^3/uL (1.6-8.6); Neutrophils % (auto) 86.9 % (37.0-80.0); Red Blood Cells 4.28 10^6/uL (4.5-5.90); Red Cell Distribution Width 14.9 % (11.8-14.3); White Blood Cell 15.2 10^3/uL (4.4-10.8)
[2024-04-25 06:14] LABS: Alanine Aminotransferase 10 U/L (7-40); Alkaline Phosphatase 100 U/L (46-116); Anion Gap 7 (5-15); Calcium 8.6 mg/dL (8.5-10.1); Carbon Dioxide 25 mmol/L (20-30); Chloride 110 mmol/L (98-107); Glucose 122 mg/dL (74-106); Potassium 2.8 mmol/L (3.5-5.1); Sodium 142 mmol/L (136-145)
[2024-04-25 06:15] LABS: BUN/Creatinine Ratio 19.4 (10.0-20.0); Blood Urea Nitrogen 14 mg/dL (9-23); Magnesium 2.1 mg/dL (1.6-2.6)
[2024-04-25 06:16] LABS: Aspartate Aminotransferase 10 U/L (13-40)
[2024-04-25 06:17] LABS: Bilirubin, Total 0.4 mg/dL (0.2-1.0)
[2024-04-25] MEDS: POTASSIUM CHL 20MEQ/100ML 100 ML IV ONE (10:35)
[2024-04-25] MEDS: POTASSIUM CHL 20 Meq TABLET PO ONE ×2 (10:36→16:56)
[2024-04-25] MEDS: HYDROcodone-ACET 10/325MG TAB PO PRN (16:55)
[2024-04-26] VITALS (7 sets, daily range): BP systolic 99–137; BP diastolic 51–78; PULSE 58–89; RESP 14–20; TEMP 97.5–98.3; O2SAT 95–96
[2024-04-26 06:18] LABS: Anion Gap 6 (5-15); Calcium 8.4 mg/dL (8.7-10.4); Carbon Dioxide 25 mmol/L (20-30); Chloride 112 mmol/L (98-107); Potassium 3.6 mmol/L (3.5-5.1); Sodium 143 mmol/L (136-145)
[2024-04-26 06:23] LABS: Basophils # (auto) 0 10 ^3/uL (0-0.2); Basophils % (auto) 0.5 % (0.0-2.0); Eosinophils # (auto) 0.3 10 ^3/uL (0-0.8); Eosinophils % (auto) 2.7 % (0.0-7.0); Hematocrit 38.8 % (41.0-53.0); Hemoglobin 13.1 g/dL (13.5-17.5); Lymphocytes % (auto) 9.3 % (10.0-50.0); Mean Corpuscular Hemoglobin 30.2 pg (28.0-32.0); Mean Corpuscular Hgb Conc. 33.8 g/dL (32.0-36.0); Mean Corpuscular Volume 89.4 fL (80.0-100.0); Monocytes # (auto) 0.6 10 ^3/uL (0-1.3); Monocytes % (auto) 5.4 % (0.0-12.0); Neutrophils # (auto) 8.6 10 ^3/uL (1.6-8.6); Neutrophils % (auto) 82.1 % (37.0-80.0); Nucleated Red Blood Cells % 0.1 %; Red Blood Cells 4.34 10^6/uL (4.5-5.90); Red Cell Distribution Width 14.8 % (11.8-14.3); White Blood Cell 10.5 10^3/uL (4.4-10.8)
[2024-04-26 06:24] LABS: BUN/Creatinine Ratio 16.4 (10.0-20.0); Blood Urea Nitrogen 11 mg/dL (9-23); Glucose 164 mg/dL (74-106)
[2024-04-26 06:25] LABS: Magnesium 1.9 mg/dL (1.6-2.6)
[2024-04-26] MEDS: POTASSIUM CHL 20 Meq TABLET PO ONE (09:16)
[2024-04-27] VITALS (8 sets, daily range): BP systolic 100–123; BP diastolic 55–75; PULSE 57–103; RESP 16–18; TEMP 97.7–98.2; O2SAT 92–96
[2024-04-27 07:14] LABS: Chloride 112 mmol/L (98-107); Sodium 144 mmol/L (136-145)
[2024-04-27 07:15] LABS: Anion Gap 9 (5-15); Calcium 8.7 mg/dL (8.7-10.4); Carbon Dioxide 23 mmol/L (20-30)
[2024-04-27 07:20] LABS: BUN/Creatinine Ratio 10.8 (10.0-20.0); Blood Urea Nitrogen 8 mg/dL (9-23); Glucose 140 mg/dL (74-106)
[2024-04-28] VITALS (8 sets, daily range): BP systolic 99–124; BP diastolic 26–83; PULSE 58–84; RESP 16–17; TEMP 97.7–98.3; O2SAT 94–97
[2024-04-29] VITALS (8 sets, daily range): BP systolic 104–117; BP diastolic 50–86; PULSE 56–95; RESP 16–20; TEMP 97.4–98.3; O2SAT 95–98
[2024-04-29] MEDS: [UNRECOGNIZED DRUG - OTHER] NG ONE ×2 (16:09→16:21)
[2024-04-29] MEDS: LORazepam 2MG/ML-1ML VIAL IV PRN (21:07)
[2024-04-30 01:00] VITALS: BP 115/60; PULSE 63; RESP 18; TEMP 97.8; O2SAT 95
[2024-04-30 05:00] VITALS: BP 144/75; PULSE 58; RESP 16; TEMP 97.9; O2SAT 96
[2024-04-30 09:00] VITALS: BP 141/80; PULSE 79; RESP 18; TEMP 97; O2SAT 96
[2024-04-30 12:56] VITALS: BP 144/65; PULSE 66; RESP 16; TEMP 97.8; O2SAT 95
== END 2024-04-30 16:30 | disposition home or self-care (01) | DRG 871 ==
LOC: ER 12:29 → TELE 16:37 → TELE-EAST 22:12
PROVIDERS: ADMIT Internal Medicine Geriatric Medicine; ATTEND Internal Medicine Geriatric Medicine
PROC: XW0H7X8 Introduction of Broad Consortium Microbiota-based Live Biotherapeutic Suspension into Lower GI, Via Natural or Artificial Opening, New Technology Group 8 (ICD-10-PCS; principal; 2024-04-29)
DX: A41.89 Other specified sepsis (principal); N17.0 Acute kidney failure with tubular necrosis; A04.71 Enterocolitis due to Clostridium difficile, recurrent; E78.5 Hyperlipidemia, unspecified; E66.01 Morbid (severe) obesity due to excess calories; E86.0 Dehydration; I10 Essential (primary) hypertension; E11.9 Type 2 diabetes mellitus without complications; I48.91 Unspecified atrial fibrillation; K42.9 Umbilical hernia without obstruction or gangrene; Z79.899 Other long term (current) drug therapy; Z79.891 Long term (current) use of opiate analgesic; Z79.01 Long term (current) use of anticoagulants; Z80.42 Family history of malignant neoplasm of prostate; Z68.39 Body mass index [BMI] 39.0-39.9, adult
CPT/HCPCS: 36415; 71045; 74176; 76705; 80048; 80053; 81001; 82962; 83735; 85007; 85025; 85027; 87493; G0378; J1815; J2470; J3480; J3490

== ENCOUNTER 2024-05-12 15:28 | Inpatient (IN) | payer OTHER, MEDICAID ==
[~2024-05-12] VITALS: Ht 180.3 cm; Wt 137.0 kg
[~2024-05-12 15:28] MED LIST changes: +ATOR40TA52 PO; +HYDR-4072; +HYDR1TAB97; -VANC125C3 PO
[2024-05-12] MEDS: SODIUM CHLORIDE 0.9% 1,000 ML IV ONE (16:11)
[2024-05-12] MEDS: metroNIDAZOLE 500MG/100ML 100 ML IV ONE (16:25)
[2024-05-12 16:29] VITALS: O2SAT 97
[2024-05-12 16:51] LABS: Basophils # (auto) 0.1 10 ^3/uL (0-0.2); Basophils % (auto) 0.5 % (0.0-2.0); Eosinophils # (auto) 0 10 ^3/uL (0-0.8); Eosinophils % (auto) 0.1 % (0.0-7.0); Hematocrit 40.3 % (41.0-53.0); Hemoglobin 13.4 g/dL (13.5-17.5); Lymphocytes # (auto) 0.5 10 ^3/uL (0.4-5.4); Lymphocytes % (auto) 2.8 % (10.0-50.0); Mean Corpuscular Hemoglobin 29.8 pg (28.0-32.0); Mean Corpuscular Hgb Conc. 33.3 g/dL (32.0-36.0); Mean Corpuscular Volume 89.5 fL (80.0-100.0); Monocytes # (auto) 1.1 10 ^3/uL (0-1.3); Monocytes % (auto) 6.1 % (0.0-12.0); Neutrophils # (auto) 16.3 10 ^3/uL (1.6-8.6); Neutrophils % (auto) 90.5 % (37.0-80.0); Nucleated Red Blood Cells % 0.1 %; Red Cell Distribution Width 15.2 % (11.8-14.3); White Blood Cell 17.9 10^3/uL (4.4-10.8)
[2024-05-12 17:20] LABS: Alanine Aminotransferase 11 U/L (7-40); Albumin 3.6 g/dL (3.2-4.8); Alkaline Phosphatase 97 U/L (46-116); Anion Gap 14 (5-15); Aspartate Aminotransferase < 8 U/L (13-40); Bilirubin, Total 1.4 mg/dL (0.2-1.0); Blood Urea Nitrogen 16 mg/dL (9-23); Calcium 9.1 mg/dL (8.7-10.4); Carbon Dioxide 20 mmol/L (20-30); Chloride 104 mmol/L (98-107); Glucose 185 mg/dL (74-106); Potassium 3.6 mmol/L (3.5-5.1); Sodium 138 mmol/L (136-145); Total Protein 5.7 g/dL (5.7-8.2)
[2024-05-12 17:22] LABS: Lactic Acid w/Reflex 2.5 mmol/L (0.4-2.0)
[2024-05-12 17:36] LABS: Erythrocyte Sedimentation Rate 28 mm/hr (0-20)
[2024-05-12 20:00] VITALS: RESP 13; O2SAT 94
[2024-05-12] MEDS ORDERED: ONDANSETRON HCL 4 MG/2 ML VIAL IV PRN (20:00)
[2024-05-12] MEDS ORDERED: VANCOMYCIN PER PHARMACY 0 MG IV SCH (20:00)
[2024-05-12] MEDS ORDERED: ACETAMINOPHEN 325 MG TAB PO PRN (20:00)
[2024-05-12] MEDS ORDERED: DOCUSATE SOD 100 MG CAP PO PRN (20:00)
[2024-05-12] MEDS: PIPERACILLIN-TAZOB 3.375GM 100 ML IV ONE (20:52)
[2024-05-12] MEDS: LACTATED RINGER'S 1,000 ML IV ONE ×2 (20:53)
[2024-05-12] MEDS: HYDROcodone-ACET 5/325MG TAB PO PRN (21:15)
[2024-05-12] MEDS ORDERED: VANCOMYCIN 1GM/200ML 200 ML IV ONE (22:00)
[2024-05-12] MEDS: SODIUM CHLOR 0.9% PF (SALINE LOCK) 10ML VIAL/SYR IV SCH (22:26)
[2024-05-12] MEDS: VANCOMYCIN 1GM/200ML 200 ML IV SCH (22:33)
[2024-05-12 22:51] LABS: Urine Bacteria None Seen /hpf (None Seen)
[2024-05-12] MEDS: VANCOMYCIN HCL 125 MG CAP PO SCH (22:52)
[2024-05-12 23:07] LABS: Urine Blood Negative /uL (Negative); Urine Clarity Clear (Clear); Urine Color Yellow (Yellow); Urine Mucus FEW (None Seen); Urine Protein, UAD 1+ (Negative); Urine Specific Gravity 1.024 (1.001-1.035); Urine Urobilinogen Normal (Negative); Urine WBC 1 /hpf (0 - 3)
[2024-05-13] VITALS (8 sets, daily range): BP systolic 99–119; BP diastolic 48–63; PULSE 68–102; RESP 16–20; TEMP 97.9–98.7; O2SAT 94–98
[2024-05-13] MEDS: PIPERACILLIN-TAZOB 3.375GM 100 ML IV SCH (04:30)
[2024-05-13 05:41] LABS: Amphetamine Screen, Urine Neg (NEGATIVE); Barbiturate Scree,Urine Neg (NEGATIVE); Benzodiazephine Screen, Urine Neg (NEGATIVE); Cocaine Screen, Urine Neg (NEGATIVE)
[2024-05-13 05:42] LABS: Cannabinoid Screen, Urine Neg (NEGATIVE); Opiate Scree,Urine Pos (NEGATIVE); Phencyclidine Screen, Urine Neg (NEGATIVE)
[2024-05-13] MEDS: ENOXAPARIN SOD 40 MG/0.4 ML SYRINGE SC SCH (09:33)
[2024-05-13] MEDS: SODIUM CHLORIDE 0.9% 1,000 ML IV SCH (12:00)
[2024-05-13] MEDS ORDERED: DEXTROSE (50%) 50ML SYRG IV PRN (12:00)
[2024-05-13] MEDS: HYDROmorphone HCL 2 MG/ML VL/or syr IV PRN (12:51)
[2024-05-13] MEDS: FLORASTOR (S. BOULARDII) 250 MG CAP PO SCH (12:51)
[2024-05-13] MEDS: metroNIDAZOLE 500MG/100ML 100 ML IV SCH (14:45)
[2024-05-13] MEDS: ACCU-CHEK COMFORT CURVE STRIP VI SCH (17:11)
[2024-05-13] MEDS: InsuLIN REG 1unit/0.01ml Soln (100units/ml) SC SCH ×2 (17:11→22:00)
[2024-05-14 09:00] VITALS: BP 100/55; PULSE 75; RESP 16; TEMP 98.2; O2SAT 96
[2024-05-14 10:07] LABS: Basophils # (auto) 0 10 ^3/uL (0-0.2); Basophils % (auto) 0.3 % (0.0-2.0); Eosinophils # (auto) 0.2 10 ^3/uL (0-0.8); Eosinophils % (auto) 1.8 % (0.0-7.0); Hemoglobin 11.8 g/dL (13.5-17.5); Lymphocytes # (auto) 0.8 10 ^3/uL (0.4-5.4); Lymphocytes % (auto) 6.5 % (10.0-50.0); Mean Corpuscular Hemoglobin 30.1 pg (28.0-32.0); Mean Corpuscular Hgb Conc. 33.7 g/dL (32.0-36.0); Mean Corpuscular Volume 89.5 fL (80.0-100.0); Monocytes # (auto) 0.7 10 ^3/uL (0-1.3); Monocytes % (auto) 5.5 % (0.0-12.0); Neutrophils # (auto) 10.3 10 ^3/uL (1.6-8.6); Neutrophils % (auto) 85.9 % (37.0-80.0); Red Blood Cells 3.92 10^6/uL (4.5-5.90)
[2024-05-14 10:29] LABS: Alkaline Phosphatase 73 U/L (46-116); Anion Gap 9 (5-15); Aspartate Aminotransferase < 8 U/L (13-40); Carbon Dioxide 24 mmol/L (20-30); Chloride 109 mmol/L (98-107); Potassium 2.7 mmol/L (3.5-5.1); Sodium 142 mmol/L (136-145)
[2024-05-14 10:30] LABS: BUN/Creatinine Ratio 9.4 (10.0-20.0); Glucose 165 mg/dL (74-106); Magnesium 1.5 mg/dL (1.6-2.6)
[2024-05-14 10:32] LABS: Albumin 2.7 g/dL (3.2-4.8); Bilirubin, Total 0.4 mg/dL (0.2-1.0); Total Protein 4.6 g/dL (5.7-8.2)
[2024-05-14 10:33] LABS: Alanine Aminotransferase < 9 U/L (7-40); Blood Urea Nitrogen 6 mg/dL (9-23)
[2024-05-14 13:00] VITALS: BP 111/70; PULSE 75; RESP 16; TEMP 97.9; O2SAT 96
[2024-05-14] MEDS: MAGNESIUM SULFATE 1GM/100ML 100 ML IV SCH (15:10)
[2024-05-14] MEDS: POTASSIUM CHL 20 Meq TABLET PO ONE (15:10)
[2024-05-14 17:00] VITALS: BP 136/67; PULSE 60; RESP 16; TEMP 98; O2SAT 96
[2024-05-14] MEDS: SOD CHL 0.9%/ KCL 20MEQ 1,000 ML IV SCH (17:25)
[2024-05-14 21:00] VITALS: BP 107/66; PULSE 65; RESP 18; TEMP 97.9; O2SAT 95
[2024-05-15] VITALS (7 sets, daily range): BP systolic 99–127; BP diastolic 49–85; PULSE 61–69; RESP 17–20; TEMP 97.7–98.8; O2SAT 92–100
[2024-05-15 07:39] LABS: Anion Gap 11 (5-15); Carbon Dioxide 23 mmol/L (20-30); Chloride 110 mmol/L (98-107); Potassium 2.8 mmol/L (3.5-5.1); Sodium 144 mmol/L (136-145)
[2024-05-15 07:41] LABS: Calcium 7.8 mg/dL (8.7-10.4)
[2024-05-15 07:45] LABS: Glucose 111 mg/dL (74-106)
[2024-05-15 07:46] LABS: Magnesium 2.1 mg/dL (1.6-2.6)
[2024-05-15 07:50] LABS: BUN/Creatinine Ratio 9.3 (10.0-20.0); Blood Urea Nitrogen < 5 mg/dL (9-23)
[2024-05-15] MEDS: POTASSIUM CHL 20 Meq TABLET PO ONE ×2 (10:00→17:16)
[2024-05-15] MEDS: HYDROmorphone HCL 2 MG/ML VL/or syr IV PRN (15:06)
[2024-05-16] VITALS (8 sets, daily range): BP systolic 112–129; BP diastolic 70–80; PULSE 59–80; RESP 16–19; TEMP 97.6–98.6; O2SAT 94–98
[2024-05-16 06:10] LABS: Basophils # (auto) 0.1 10 ^3/uL (0-0.2); Basophils % (auto) 0.8 % (0.0-2.0); Eosinophils # (auto) 0.2 10 ^3/uL (0-0.8); Hematocrit 35.7 % (41.0-53.0); Hemoglobin 12.2 g/dL (13.5-17.5); Lymphocytes # (auto) 1.1 10 ^3/uL (0.4-5.4); Lymphocytes % (auto) 14.6 % (10.0-50.0); Mean Corpuscular Hemoglobin 30.4 pg (28.0-32.0); Mean Corpuscular Hgb Conc. 34.1 g/dL (32.0-36.0); Monocytes # (auto) 0.4 10 ^3/uL (0-1.3); Monocytes % (auto) 5.7 % (0.0-12.0); Neutrophils # (auto) 5.8 10 ^3/uL (1.6-8.6); Neutrophils % (auto) 75.9 % (37.0-80.0); Nucleated Red Blood Cells % 0.1 %; Red Blood Cells 4.01 10^6/uL (4.5-5.90); Red Cell Distribution Width 14.6 % (11.8-14.3); White Blood Cell 7.7 10^3/uL (4.4-10.8)
[2024-05-16 06:20] LABS: Alkaline Phosphatase 64 U/L (46-116); Anion Gap 10 (5-15); Calcium 7.7 mg/dL (8.7-10.4); Carbon Dioxide 22 mmol/L (20-30); Chloride 112 mmol/L (98-107); Glucose 129 mg/dL (74-106); Magnesium 1.7 mg/dL (1.6-2.6); Potassium 3.5 mmol/L (3.5-5.1); Sodium 144 mmol/L (136-145)
[2024-05-16 06:21] LABS: Albumin 2.5 g/dL (3.2-4.8); Aspartate Aminotransferase < 8 U/L (13-40); Bilirubin, Total 0.3 mg/dL (0.2-1.0); Total Protein 4.3 g/dL (5.7-8.2)
[2024-05-16 06:37] LABS: Alanine Aminotransferase < 9 U/L (7-40); BUN/Creatinine Ratio 8.9 (10.0-20.0); Blood Urea Nitrogen < 5 mg/dL (9-23)
[2024-05-16] MEDS: POTASSIUM CHL 20 Meq TABLET PO ONE (14:57)
[2024-05-16] MEDS: MAGNESIUM OXIDE 400 MG TAB PO SCH (21:10)
[2024-05-17] VITALS (8 sets, daily range): BP systolic 114–136; BP diastolic 49–74; PULSE 58–78; RESP 17–20; TEMP 97.3–98.1; O2SAT 95–98
[2024-05-17 06:06] LABS: Anion Gap 7 (5-15); Carbon Dioxide 23 mmol/L (20-30); Chloride 113 mmol/L (98-107); Potassium 3.8 mmol/L (3.5-5.1); Sodium 143 mmol/L (136-145)
[2024-05-17 06:08] LABS: Calcium 8.1 mg/dL (8.7-10.4)
[2024-05-17 06:12] LABS: Glucose 113 mg/dL (74-106)
[2024-05-17 06:13] LABS: Magnesium 1.6 mg/dL (1.6-2.6)
[2024-05-17 08:12] LABS: BUN/Creatinine Ratio 9.3 (10.0-20.0); Blood Urea Nitrogen < 5 mg/dL (9-23)
[2024-05-17] MEDS: ALPRAZolam 0.5 MG TAB PO PRN (12:31)
[2024-05-17] MEDS: VANCOMYCIN HCL 125 MG CAP PO SCH (22:30)
[2024-05-18 01:00] VITALS: BP 119/73; PULSE 63; RESP 17; TEMP 98.1; O2SAT 96
[2024-05-18 05:00] VITALS: BP 110/49; PULSE 63; RESP 18; TEMP 97.9; O2SAT 96
[2024-05-18 06:24] LABS: Alanine Aminotransferase 10 U/L (7-40); Albumin 2.6 g/dL (3.2-4.8); Alkaline Phosphatase 61 U/L (46-116); Anion Gap 9 (5-15); Aspartate Aminotransferase 15 U/L (13-40); Bilirubin, Total 0.3 mg/dL (0.2-1.0); Calcium 8.1 mg/dL (8.7-10.4); Carbon Dioxide 22 mmol/L (20-30); Chloride 110 mmol/L (98-107); Glucose 109 mg/dL (74-106); Magnesium 1.9 mg/dL (1.6-2.6); Potassium 3.7 mmol/L (3.5-5.1); Sodium 141 mmol/L (136-145); Total Protein 4.5 g/dL (5.7-8.2)
[2024-05-18 06:27] LABS: BUN/Creatinine Ratio 9.3 (10.0-20.0); Blood Urea Nitrogen < 5 mg/dL (9-23)
[2024-05-18 06:39] LABS: Basophils # (auto) 0.1 10 ^3/uL (0-0.2); Basophils % (auto) 0.9 % (0.0-2.0); Eosinophils # (auto) 0.2 10 ^3/uL (0-0.8); Eosinophils % (auto) 2.1 % (0.0-7.0); Hematocrit 43.4 % (41.0-53.0); Hemoglobin 14.1 g/dL (13.5-17.5); Lymphocytes # (auto) 1.7 10 ^3/uL (0.4-5.4); Lymphocytes % (auto) 18.2 % (10.0-50.0); Mean Corpuscular Hemoglobin 29.6 pg (28.0-32.0); Mean Corpuscular Hgb Conc. 32.5 g/dL (32.0-36.0); Mean Corpuscular Volume 91.2 fL (80.0-100.0); Monocytes # (auto) 0.6 10 ^3/uL (0-1.3); Monocytes % (auto) 6.4 % (0.0-12.0); Neutrophils # (auto) 6.8 10 ^3/uL (1.6-8.6); Neutrophils % (auto) 72.4 % (37.0-80.0); Nucleated Red Blood Cells % 0.1 %; Red Blood Cells 4.75 10^6/uL (4.5-5.90); Red Cell Distribution Width 15.5 % (11.8-14.3); White Blood Cell 9.5 10^3/uL (4.4-10.8)
[2024-05-18 08:00] VITALS: RESP 18
[2024-05-18 09:00] VITALS: BP_SYST 120; BP_SYST 135; BP_DIAS 59; BP_DIAS 61; PULSE 70; PULSE 76; RESP 20; RESP 21; TEMP 97.7; TEMP 97.9; O2SAT 96; O2SAT 98
[2024-05-18 17:00] VITALS: BP 127/76; PULSE 64; RESP 20; TEMP 98.1; O2SAT 91
[2024-05-18 21:00] VITALS: BP 111/63; PULSE 92; RESP 18; TEMP 97.6; O2SAT 96
[2024-05-19] VITALS (7 sets, daily range): BP systolic 96–134; BP diastolic 47–77; PULSE 63–88; RESP 16–18; TEMP 97.5–98.2; O2SAT 93–97
[2024-05-19 11:19] LABS: Chloride 111 mmol/L (98-107); Potassium 3.9 mmol/L (3.5-5.1); Sodium 141 mmol/L (136-145)
[2024-05-19 11:20] LABS: Anion Gap 7 (5-15); Calcium 8.3 mg/dL (8.7-10.4); Carbon Dioxide 23 mmol/L (20-30)
[2024-05-19 11:25] LABS: Glucose 144 mg/dL (74-106)
[2024-05-19 11:26] LABS: BUN/Creatinine Ratio 8.8 (10.0-20.0); Blood Urea Nitrogen < 5 mg/dL (9-23); Magnesium 1.7 mg/dL (1.6-2.6)
[2024-05-20 01:00] VITALS: BP 118/67; PULSE 62; RESP 18; TEMP 98.1; O2SAT 9; O2SAT 94
[2024-05-20 04:01] LABS: Chloride 113 mmol/L (98-107); Potassium 3.8 mmol/L (3.5-5.1); Sodium 141 mmol/L (136-145)
[2024-05-20 04:02] LABS: Anion Gap 4 (5-15); Calcium 8.1 mg/dL (8.7-10.4); Carbon Dioxide 24 mmol/L (20-30)
[2024-05-20 04:07] LABS: Glucose 117 mg/dL (74-106)
[2024-05-20 04:14] LABS: BUN/Creatinine Ratio 8.8 (10.0-20.0); Blood Urea Nitrogen < 5 mg/dL (9-23)
[2024-05-20 05:00] VITALS: BP_SYST 104; BP_SYST 98; BP_DIAS 55; BP_DIAS 58; PULSE 68; PULSE 76; RESP 18; TEMP 98.3; O2SAT 94
[2024-05-20 08:00] VITALS: PULSE 76; RESP 20; O2SAT 97
[2024-05-20 09:00] VITALS: BP 93/62; PULSE 72; RESP 18; TEMP 97.6; O2SAT 97
[2024-05-20] MEDS ORDERED: VANC125C3 PO (09:21)
== END 2024-05-20 13:20 | disposition home or self-care (01) | DRG 872 ==
LOC: ER 15:28 → OVERFLOW 19:56 → CENTRAL 23:59
PROVIDERS: ADMIT Internal Medicine; ATTEND Internal Medicine Geriatric Medicine
DX: A41.9 Sepsis, unspecified organism (principal); A04.71 Enterocolitis due to Clostridium difficile, recurrent; E87.20 Acidosis, unspecified; Z68.41 Body mass index [BMI] 40.0-44.9, adult; E11.9 Type 2 diabetes mellitus without complications; E78.5 Hyperlipidemia, unspecified; I48.91 Unspecified atrial fibrillation; I10 Essential (primary) hypertension; E66.01 Morbid (severe) obesity due to excess calories; F41.9 Anxiety disorder, unspecified; E87.6 Hypokalemia; Z79.01 Long term (current) use of anticoagulants; Z79.4 Long term (current) use of insulin; Z80.42 Family history of malignant neoplasm of prostate
CPT/HCPCS: 36415; 74176; 80048; 80053; 80307; 81001; 82270; 82962; 83605; 83735; 83880; 84484; 85025; 85048; 85652; 86141; 87040; 87045; 87081; 87177; 87427; 87493; 93005; G0378; J1815; J2405; J2543; J3490

== ENCOUNTER 2024-07-18 04:16 | Inpatient (IN) | payer OTHER, MEDICAID ==
[~2024-07-18] VITALS: Ht 180.3 cm; Wt 130.7 kg
[~2024-07-18 04:16] MED LIST changes: +METO5TAB5 PO; +SEMA2INJ3 SC; +VANC125C3 PO
[2024-07-18 04:45] VITALS: PULSE 112; RESP 16; O2SAT 95
[2024-07-18] MEDS: ONDANSETRON HCL 4 MG/2 ML VIAL IV ONE (06:11)
[2024-07-18] MEDS: SODIUM CHLORIDE 0.9% 1,000 ML IV ONE ×3 (06:11→14:18)
[2024-07-18 08:32] LABS: Basophils # (auto) 0 10 ^3/uL (0-0.2); Basophils % (auto) 0.1 % (0.0-2.0); Eosinophils # (auto) 0 10 ^3/uL (0-0.8); Hematocrit 39.9 % (41.0-53.0); Hemoglobin 13.1 g/dL (13.5-17.5); Lymphocytes # (auto) 0.6 10 ^3/uL (0.4-5.4); Lymphocytes % (auto) 3.7 % (10.0-50.0); Mean Corpuscular Hemoglobin 29.9 pg (28.0-32.0); Mean Corpuscular Hgb Conc. 32.9 g/dL (32.0-36.0); Monocytes # (auto) 1.1 10 ^3/uL (0-1.3); Monocytes % (auto) 6.1 % (0.0-12.0); Neutrophils # (auto) 15.9 10 ^3/uL (1.6-8.6); Neutrophils % (auto) 90.1 % (37.0-80.0); Platelet Count (auto) 177 10^3/uL (140-450); Red Blood Cells 4.39 10^6/uL (4.5-5.90); White Blood Cell 17.7 10^3/uL (4.4-10.8)
[2024-07-18 08:48] LABS: Albumin 3.5 g/dL (3.2-4.8); Alkaline Phosphatase 103 U/L (46-116); Anion Gap 8 (5-15); Aspartate Aminotransferase < 8 U/L (13-40); BUN/Creatinine Ratio 8.6 (10.0-20.0); Bilirubin, Total 0.9 mg/dL (0.2-1.0); Blood Urea Nitrogen 8 mg/dL (9-23); Calcium 8.8 mg/dL (8.7-10.4); Carbon Dioxide 25 mmol/L (20-31); Chloride 105 mmol/L (98-107); Glucose 222 mg/dL (74-106); Potassium 3.8 mmol/L (3.5-5.1); Sodium 138 mmol/L (136-145); Total Protein 5.8 g/dL (5.7-8.2)
[2024-07-18 09:09] LABS: Alanine Aminotransferase < 9 U/L (7-40)
[2024-07-18 09:10] LABS: Lactic Acid w/Reflex 2.7 mmol/L (0.4-2.0)
[2024-07-18] MEDS: PIPERACILLIN-TAZOB 3.375GM 100 ML IV ONE (09:45)
[2024-07-18] MEDS: IOHEXOL 300 MG/ML 100ML BOTTLE IJ ONE (09:50)
[2024-07-18 10:00] VITALS: PULSE 113; RESP 18; O2SAT 94
[2024-07-18] MEDS: LORazepam 2MG/ML-1ML VIAL IV ONE (11:00)
[2024-07-18] MEDS: metroNIDAZOLE 500MG/100ML 100 ML IV ONE (11:45)
[2024-07-18] MEDS ORDERED: DAPA1TAB4 PO (12:07)
[2024-07-18] MEDS ORDERED: ESCI1TAB36 PO (12:07)
[2024-07-18] MEDS ORDERED: ROSU10TA64 PO (12:07)
[2024-07-18] MEDS ORDERED: METO-289 PO (12:07)
[2024-07-18] MEDS ORDERED: MORPHINE SULFATE INJ 2 MG/ml SYRG IV PRN (12:15)
[2024-07-18] MEDS ORDERED: ACETAMINOPHEN 325 MG TAB PO PRN (12:15)
[2024-07-18] MEDS ORDERED: DEXTROSE (50%) 50ML SYRG IV PRN (12:15)
[2024-07-18] MEDS: SODIUM CHLORIDE 0.9% 1,000 ML IV SCH (12:15)
[2024-07-18] MEDS ORDERED: hydrALAZINE HCL 20 MG/ML VL IV PRN (12:30)
[2024-07-18] MEDS: metroNIDAZOLE 500MG/100ML 100 ML IV SCH (14:00)
[2024-07-18 14:21] LABS: Triglycerides 68 mg/dL (< 150)
[2024-07-18 14:22] LABS: LDL Cholesterol 63 mg/dL (< 100)
[2024-07-18 14:23] LABS: Cholesterol 104 mg/dL (< 200); HDL Cholesterol 33 mg/dL (40-59)
[2024-07-18] MEDS: PANTOPRAZOLE 40 MG/10 ML VIAL INJ IV ONE (14:26)
[2024-07-18] MEDS: FUROSEMIDE 40 MG/4 ML VIAL IV ONE (14:32)
[2024-07-18 15:31] LABS: Urine Bacteria None Seen /hpf (None Seen)
[2024-07-18 15:41] LABS: Urine Blood TRACE /uL (Negative); Urine Clarity Clear (Clear); Urine Color Light-Yellow (Yellow); Urine Protein, UAD 1+ (Negative); Urine Specific Gravity 1.023 (1.001-1.035); Urine Urobilinogen Normal (Negative); Urine WBC <1 /hpf (0 - 3)
[2024-07-18] MEDS ORDERED: VANCOMYCIN HCL 125 MG CAP PO SCH (18:00)
[2024-07-18] MEDS: MORPHINE SULFATE INJ 2 MG/ml SYRG IV PRN (18:00)
[2024-07-18] MEDS: InsuLIN REG 1unit/0.01ml Soln (100units/ml) SC SCH (18:44)
[2024-07-18] MEDS: ACCU-CHEK COMFORT CURVE STRIP VI SCH (18:44)
[2024-07-18] MEDS: FUROSEMIDE 40 MG/4 ML VIAL IV SCH (18:44)
[2024-07-18] MEDS: VANCOMYCIN HCL 125 MG CAP PO SCH (18:44)
[2024-07-18] MEDS: ATORVASTATIN 20 MG TAB PO SCH (21:42)
[2024-07-18] MEDS: POTASSIUM CHL 10 Meq TABLET PO SCH (21:42)
[2024-07-18] MEDS: APIXABAN 5 MG TAB PO SCH (21:50)
[2024-07-18] MEDS ORDERED: APIXABAN 5 MG TAB PO SCH (22:00)
[2024-07-18] MEDS ORDERED: PATIENTS OWN MEDICATION (Potassium Chloride (Klor-Con M10) 1 TAB) PO SCH (22:00)
[2024-07-19 06:57] LABS: Basophils # (auto) 0.1 10 ^3/uL (0-0.2); Basophils % (auto) 0.4 % (0.0-2.0); Eosinophils # (auto) 0 10 ^3/uL (0-0.8); Eosinophils % (auto) 0.2 % (0.0-7.0); Hematocrit 41.5 % (41.0-53.0); Hemoglobin 13.4 g/dL (13.5-17.5); Lymphocytes # (auto) 0.9 10 ^3/uL (0.4-5.4); Lymphocytes % (auto) 5.2 % (10.0-50.0); Mean Corpuscular Hemoglobin 29.2 pg (28.0-32.0); Mean Corpuscular Hgb Conc. 32.2 g/dL (32.0-36.0); Mean Corpuscular Volume 90.8 fL (80.0-100.0); Monocytes # (auto) 1.4 10 ^3/uL (0-1.3); Neutrophils # (auto) 14.9 10 ^3/uL (1.6-8.6); Neutrophils % (auto) 86.2 % (37.0-80.0); Nucleated Red Blood Cells % 0.1 %; Platelet Count (auto) 184 10^3/uL (140-450); Red Blood Cells 4.57 10^6/uL (4.5-5.90); White Blood Cell 17.4 10^3/uL (4.4-10.8)
[2024-07-19 06:59] LABS: Albumin 3.1 g/dL (3.2-4.8); Alkaline Phosphatase 95 U/L (46-116); Anion Gap 7 (5-15); Aspartate Aminotransferase < 8 U/L (13-40); BUN/Creatinine Ratio 8.1 (10.0-20.0); Blood Urea Nitrogen 7 mg/dL (9-23); Calcium 8.3 mg/dL (8.7-10.4); Carbon Dioxide 26 mmol/L (20-31); Chloride 108 mmol/L (98-107); Glucose 148 mg/dL (74-106); Potassium 2.9 mmol/L (3.5-5.1); Sodium 141 mmol/L (136-145)
[2024-07-19 07:00] LABS: Bilirubin, Total 0.5 mg/dL (0.2-1.0); Total Protein 5.1 g/dL (5.7-8.2)
[2024-07-19 07:03] LABS: Alanine Aminotransferase < 9 U/L (7-40)
[2024-07-19 07:48] VITALS: PULSE 97; RESP 17; O2SAT 100
[2024-07-19] MEDS: PANTOPRAZOLE 40 MG/10 ML VIAL INJ IV SCH (09:38)
[2024-07-19] MEDS: EMPAGLIFLOZIN 10 MG TAB PO SCH (09:39)
[2024-07-19] MEDS: METOPROLOL SUCCINATE XL 50 MG TAB PO SCH (09:40)
[2024-07-19] MEDS ORDERED: PATIENTS OWN MEDICATION (Empagliflozin (Jardiance) 1 TAB) PO SCH (10:00)
[2024-07-19] MEDS ORDERED: PATIENTS OWN MEDICATION (Atorvastatin Calcium 1 TAB) PO SCH (10:00)
[2024-07-19] MEDS ORDERED: METOPROLOL SUCCINATE XL 50 MG TAB PO SCH (10:00)
[2024-07-19] MEDS: HYDROcodone-ACET 5/325MG TAB PO PRN (13:22)
[2024-07-19] MEDS: SOD CHL 0.9%/ KCL 40MEQ 1,000 ML IV SCH (18:19)
[2024-07-19] MEDS: FLORASTOR (S. BOULARDII) 250 MG CAP PO SCH (21:38)
[2024-07-20] VITALS (12 sets, daily range): BP systolic 110–131; BP diastolic 46–71; PULSE 55–74; RESP 18–20; TEMP 97.5–98.1; O2SAT 95–97
[2024-07-20 07:42] LABS: Basophils # (auto) 0.1 10 ^3/uL (0-0.2); Basophils % (auto) 0.6 % (0.0-2.0); Eosinophils # (auto) 0.2 10 ^3/uL (0-0.8); Eosinophils % (auto) 1.5 % (0.0-7.0); Hematocrit 40.2 % (41.0-53.0); Hemoglobin 13.5 g/dL (13.5-17.5); Lymphocytes # (auto) 0.8 10 ^3/uL (0.4-5.4); Lymphocytes % (auto) 7.3 % (10.0-50.0); Mean Corpuscular Hgb Conc. 33.5 g/dL (32.0-36.0); Mean Corpuscular Volume 89.6 fL (80.0-100.0); Monocytes # (auto) 0.4 10 ^3/uL (0-1.3); Monocytes % (auto) 3.7 % (0.0-12.0); Neutrophils # (auto) 9.6 10 ^3/uL (1.6-8.6); Neutrophils % (auto) 86.9 % (37.0-80.0); Platelet Count (auto) 211 10^3/uL (140-450); Red Blood Cells 4.49 10^6/uL (4.5-5.90); Red Cell Distribution Width 14.6 % (11.8-14.3)
[2024-07-20 08:02] LABS: Chloride 111 mmol/L (98-107); Potassium 3.1 mmol/L (3.5-5.1); Sodium 144 mmol/L (136-145)
[2024-07-20 08:03] LABS: Anion Gap 10 (5-15); Calcium 8.6 mg/dL (8.7-10.4); Carbon Dioxide 23 mmol/L (20-31)
[2024-07-20 08:08] LABS: BUN/Creatinine Ratio 13.1 (10.0-20.0); Blood Urea Nitrogen 11 mg/dL (9-23); Glucose 152 mg/dL (74-106)
[2024-07-20] MEDS: CHOLESTYRAMINE 4 GM POWDER PO SCH (18:41)
[2024-07-20] MEDS: ALPRAZolam 0.25 MG TAB PO PRN (20:01)
[2024-07-20] MEDS: POTASSIUM EFFERVESENT TAB 25 MEQ PO ONE (22:20)
[2024-07-21] VITALS (9 sets, daily range): BP systolic 105–126; BP diastolic 53–74; PULSE 54–73; RESP 18–20; TEMP 97.5–98; O2SAT 94–100
[2024-07-21] MEDS: FUROSEMIDE 40 MG/4 ML VIAL IV SCH (10:02)
[2024-07-21 11:20] LABS: Basophils # (auto) 0.1 10 ^3/uL (0-0.2); Basophils % (auto) 0.6 % (0.0-2.0); Eosinophils # (auto) 0.1 10 ^3/uL (0-0.8); Eosinophils % (auto) 1.5 % (0.0-7.0); Hematocrit 40.6 % (41.0-53.0); Hemoglobin 13.4 g/dL (13.5-17.5); Lymphocytes # (auto) 1.1 10 ^3/uL (0.4-5.4); Lymphocytes % (auto) 11.7 % (10.0-50.0); Mean Corpuscular Hemoglobin 29.7 pg (28.0-32.0); Mean Corpuscular Hgb Conc. 33.1 g/dL (32.0-36.0); Mean Corpuscular Volume 89.7 fL (80.0-100.0); Monocytes # (auto) 0.4 10 ^3/uL (0-1.3); Monocytes % (auto) 4.2 % (0.0-12.0); Neutrophils # (auto) 7.5 10 ^3/uL (1.6-8.6); Nucleated Red Blood Cells % 0.1 %; Platelet Count (auto) 202 10^3/uL (140-450); Red Blood Cells 4.53 10^6/uL (4.5-5.90); Red Cell Distribution Width 14.8 % (11.8-14.3); White Blood Cell 9.2 10^3/uL (4.4-10.8)
[2024-07-21 11:35] LABS: Anion Gap 10 (5-15); Carbon Dioxide 23 mmol/L (20-31); Chloride 110 mmol/L (98-107); Potassium 3.4 mmol/L (3.5-5.1); Sodium 143 mmol/L (136-145)
[2024-07-21 11:36] LABS: Calcium 8.3 mg/dL (8.7-10.4)
[2024-07-21 11:41] LABS: Blood Urea Nitrogen 8 mg/dL (9-23); Glucose 122 mg/dL (74-106); Magnesium 1.7 mg/dL (1.6-2.6)
[2024-07-21] MEDS: VANCOMYCIN HCL 125 MG CAP PO SCH (17:35)
[2024-07-21] MEDS: MORPHINE SULFATE INJ 2 MG/ml SYRG IV PRN (17:49)
[2024-07-21] MEDS: CHOLESTYRAMINE 4 GM POWDER PO ONE (18:38)
[2024-07-21] MEDS: CHOLESTYRAMINE 4 GM POWDER PO SCH (23:45)
[2024-07-22] VITALS (9 sets, daily range): BP systolic 118–140; BP diastolic 62–74; PULSE 53–80; RESP 18–22; TEMP 97–98.4; O2SAT 92–99
[2024-07-23 01:14] VITALS: BP 129/58; PULSE 58; RESP 19; TEMP 98.7; O2SAT 95
[2024-07-23 05:00] VITALS: BP 120/64; PULSE 89; RESP 19; TEMP 97.9; O2SAT 97
[2024-07-23 08:00] VITALS: PULSE 56
[2024-07-23 08:52] LABS: Basophils # (auto) 0.1 10 ^3/uL (0-0.2); Basophils % (auto) 0.6 % (0.0-2.0); Chloride 111 mmol/L (98-107); Eosinophils # (auto) 0.1 10 ^3/uL (0-0.8); Hemoglobin 13.7 g/dL (13.5-17.5); Lymphocytes # (auto) 1.4 10 ^3/uL (0.4-5.4); Lymphocytes % (auto) 11.8 % (10.0-50.0); Mean Corpuscular Hgb Conc. 33.4 g/dL (32.0-36.0); Mean Corpuscular Volume 89.7 fL (80.0-100.0); Monocytes # (auto) 0.6 10 ^3/uL (0-1.3); Monocytes % (auto) 5.2 % (0.0-12.0); Neutrophils # (auto) 9.8 10 ^3/uL (1.6-8.6); Neutrophils % (auto) 81.4 % (37.0-80.0); Nucleated Red Blood Cells % 0.1 %; Platelet Count (auto) 205 10^3/uL (140-450); Potassium 4.1 mmol/L (3.5-5.1); Red Blood Cells 4.57 10^6/uL (4.5-5.90); Red Cell Distribution Width 14.7 % (11.8-14.3); Sodium 142 mmol/L (136-145); White Blood Cell 12.1 10^3/uL (4.4-10.8)
[2024-07-23 08:53] LABS: Anion Gap 10 (5-15); Carbon Dioxide 21 mmol/L (20-31)
[2024-07-23 08:54] LABS: Calcium 8.6 mg/dL (8.7-10.4)
[2024-07-23 08:58] LABS: BUN/Creatinine Ratio 11.7 (10.0-20.0); Blood Urea Nitrogen 9 mg/dL (9-23); Glucose 86 mg/dL (74-106)
[2024-07-23 09:00] VITALS: BP 133/66; PULSE 60; RESP 19; TEMP 98.5; O2SAT 94
[2024-07-23] MEDS ORDERED: VANC125PO PO (10:42)
[2024-07-23 13:20] VITALS: BP 136/72; PULSE 62; RESP 19; TEMP 98.1; O2SAT 96
== END 2024-07-23 13:16 | disposition home or self-care (01) | DRG 872 ==
LOC: ER 04:16 → EDBD 04:16 → ER 12:11 → TELE 12:11 → TELE-CENTR 07-19 23:55
PROVIDERS: ADMIT Registered Nurse; ATTEND Nurse Practitioner Acute Care
DX: A41.4 Sepsis due to anaerobes (principal); A04.71 Enterocolitis due to Clostridium difficile, recurrent; D68.59 Other primary thrombophilia; I48.21 Permanent atrial fibrillation; Z68.41 Body mass index [BMI] 40.0-44.9, adult; E78.5 Hyperlipidemia, unspecified; I10 Essential (primary) hypertension; E11.9 Type 2 diabetes mellitus without complications; E66.9 Obesity, unspecified; K42.9 Umbilical hernia without obstruction or gangrene; Z79.899 Other long term (current) drug therapy; Z79.4 Long term (current) use of insulin
CPT/HCPCS: 36415; 74177; 80048; 80053; 80061; 81001; 82962; 83036; 83605; 83735; 84443; 85025; 87040; 87045; 87081; 87086; 87427; 87493; 93970; 99291; G0378; J1815; J2405; J2470; J2543; J3490

== ENCOUNTER 2024-12-24 16:10 | Inpatient (IN) | payer OTHER, MEDICAID ==
[~2024-12-24] VITALS: Ht 180.3 cm; Wt 123.8 kg
[~2024-12-24 16:10] MED LIST changes: -ATOR-507 PO; +DAPA1TAB4 PO; +ESCI1TAB36 PO; -HYDR-4072; -HYDR-531 PO; -HYDR1TAB97; +METO-289 PO; -METO25TA36 PO; +ROSU10TA64 PO; -SEMA4INJ SC; +VANC125PO PO
[2024-12-24] MEDS ORDERED: VANCOMYCIN PER PHARMACY 0 MG IV SCH (17:15)
--- NOTE | 2024-12-24 17:26 | ED.PDOC ---
History of Present Illness HPI Comments 69-year-old male with history of C diff and chronic lower extremity cellulitis brought in by EMS from home after he was advised by his home health nurse to come to the hospital. Patient reports increased redness, pain and swelling in his right lower extremity for the past week, and left hand localized redness, pain and swelling since this morning. Patient states he has been unable to ambulate for the past 5 days due to the lower extremity pain and swelling. He denies any recent trauma, fever, chest pain or shortness of breath. Chief Complaint: Extremity Swelling Time Seen by MD: 17:05 Primary Care Provider: DEQUAN CHICAS Reviewed Notes: Nurses Notes, Field Sales Representative Notes, Medications, Allergies Allergies: Coded Allergies: No Known Drug Allergy (Verified Allergy, Unknown, 09/04/20) Home Meds Active Scripts Vancomycin Hcl (Vancomycin Po) 125 Mg So, 125 MG PO DAILY for 42 Days, #1 ML vancomycin for six weeks (1st two weeks 4 times a day, 2nd two weeks 2 times a day, 3rd two weeks one time a day) Prov:VENICE MILLER NP 07/23/24 Vancomycin HCl (Vancomycin HCl) 125 Mg Cap, 125 MG PO QID for 42 Days, #98 CAP take 1 cap qid x 2 weeks then bid x 2 weeks then once qd x 2 weeks Prov:PEGGY OZUNA MD 05/20/24 Apixaban Base (ELIQUIS) 5 Mg Tab, 5 MG PO BID for 30 Days, #60 TAB 3 Refills Prov:PEGGY OZUNA MD 10/22/23 Reported Medications Metolazone (Metolazone) 5 Mg Tab, 1 TAB PO 3XWEEKLY for 84 Days, #36 07/21/24 Semaglutide (Ozempic) 2 Mg/3 Ml Inj, 0.5 MG SC QWEEKLY for 28 Days, #3 07/21/24 Metoprolol Succinate (Metoprolol Succinate Er) 50 Mg Tab, 1 TAB PO DAILY 07/18/24 Rosuvastatin Calcium (Rosuvastatin Calcium) 10 Mg Tab, 1 TAB PO DAILY 07/18/24 Escitalopram Oxalate (ESCITALOPRAM OXALATE) 10 Mg Tab, 1 TAB PO DAILY 07/18/24 Dapagliflozin Propanediol (Farxiga) 10 Mg Tab, 1 TAB PO DAILY 07/18/24 Atorvastatin Calcium (ATORVASTATIN CALCIUM) 40 Mg Tab, 1 TAB PO DAILY 04/24/24 Hydrocodone-Acetaminophen (Hydrocodone Bitartrate/AC 10-325 mg) 1 Tab Tab, 1 TAB PO Q8HR PRN for PAIN for 30 Days, #90 03/12/24 Potassium Chloride (Klor-Con M10) 10 Meq Tab, 1 TAB PO BID 12/02/23 Furosemide (Furosemide) 40 Mg Tab, 1 TAB PO BID for 90 Days, #180 12/02/23 Empagliflozin (Jardiance) 25 Mg Tab, 1 TAB PO DAILY 12/02/23 Insulin Aspart (Insulin Aspart) 100 Unit/Ml Inj, 0 SC BID, INJ 40 UNITS SC QAM & 30 UNITS SC QPM 09/04/20 Information Source: Patient Mode of Arrival: EMS Severity: Moderate Timing: Days Duration: Since onset, Days Prehospital treatment: None Past Medical History PAST MEDICAL HISTORY: AFIB, DM, High Lipids, HTN Past Medical History (Other): C diff Surgical History (Other): Fecal transplant x2 Family History Family History: Reviewed,noncontributory to illness Social History Smoker: Non-Smoker Alcohol: Denies ETOH Use Drugs: Denies Drug Use Lives In: Home All Other Systems: Reviewed and Negative (Comprehensive systems review obtained and negative except for what is stated in the HPI.) Physical Exam General Appearance: Mild Distress, Obese HEENT: PERRL/EOMI Neck: Full Range of Motion, Normal Inspection Respiratory: Decreased Breath Sounds, No Accessory Muscle Use, No Respiratory Distress Cardiovascular: No JVD, Tachycardia Breast Exam: Deferred Gastrointestinal: Non Tender, Soft Genitalia: Deferred Pelvic: Deferred Rectal: Deferred Extremities: Other (Localized tender warmth and erythema on the dorsum of the left hand overlying the index finger MCP joint area without fluctuance or discharge. Right lower extremity erythematous, edematous/indurated, diffusely tender and weeping. Left lower extremity edema with mild erythema and soft tiss ue tenderness.) Neurologic: Alert (Oriented x4), Normal Affect, Normal Mood, Other (Moves all extremities. No gross focal deficit.) Cerebellar Function: NOT DONE Reflexes: NOT DONE Skin: Dry, Warm Lymphatic: NOT DONE Was a procedure done? Was a procedure done?: No Differential Dx Considerations may include: Cellulitis, abscess, sepsis, DVT, CHF, among others X-Ray, Labs, Meds, VS Vital Signs Date Time Temp Pulse Resp B/P (MAP) Pulse Ox O2 Delivery O2 Flow Rate FiO2 12/24/24 20:02 93/69 12/24/24 19:00 135 103/66 (78) 93 12/24/24 18:43 141 14 106/72 12/24/24 17:42 129 14 95 Room Air* 0 21 12/24/24 16:55 97.5 117 12 107/56 (73) 94 97.5 12/24/24 16:19 97.6 134 16 118/82 (94) 96 Lab Test 12/24/24 20:10 12/24/24 19:11 12/24/24 18:26 Range/Units Lactic Acid Level 2.4 *H 2.8 *H 0.4-2.0 mmol/L Troponin I High Sensitivity 3 L 3 L </=54 ng/L White Blood Count 14.4 H 4.4-10.8 10^3/uL Red Blood Count 4.25 L 4.5-5.90 10^6/uL Hemoglobin 13.0 L 13.5-17.5 g/dL Hematocrit 38.8 L 41.0-53.0 % Mean Corpuscular Volume 91.4 80.0-100.0 fL Mean Corpuscular Hemoglobin 30.7 28.0-32.0 pg Mean Corpuscular Hemoglobin Concent 33.6 32.0-36.0 g/dL Red Cell Distribution Width 14.5 H 11.8-14.3 % Platelet Count 108 L 140-450 10^3/uL Mean Platelet Volume 10.4 6.9-10.8 fL Neutrophils (%) (Auto) 37.0-80.0 % Lymphocytes (%) (Auto) 10.0-50.0 % Monocytes (%) (Auto) 0.0-12.0 % Basophils (%) (Auto) 0.0-2.0 % Neutrophils # (Auto) 1.6-8.6 10 ^3/uL Lymphocytes # (Auto) 0.4-5.4 10 ^3/uL Monocytes # (Auto) 0-1.3 10 ^3/uL Differential Total Cells Counted 100.0 100 Neutrophils % (Manual) 85 H 37.0-80.0 Band Neutrophils % (Manual) 8 Lymphocytes % (Manual) 5 L 10.0-50.0 Monocytes % (Manual) 1 0-12 Eosinophils % (Manual) 1 0-7 Basophils % (Manual) 0 0.0-2.0 Metamyelocytes % (manual) 0 Myelocytes % (Manual) 0 Promyelocytes % (Manual) 0 Blast Cells % (Manual) 0 Reactive Lymphocytes 0 Platelet Estimate Decreased Prothrombin Time 11.4 9.3-11.8 sec Prothrombin Time INR 1.08 0.9-1.15 Activated Partial Thromboplast Time 36.7 H 24.5-34.5 SEC Sodium Level 135 L 136-145 mmol/L Potassium Level 3.6 3.5-5.1 mmol/L Chloride Level 102 98-107 mmol/L Carbon Dioxide Level 22 20-31 mmol/L Anion Gap 11 5-15 Blood Urea Nitrogen 29 H 9-23 mg/dL Creatinine 1.28 0.700-1.30 mg/dL Glomerular Filtration Rate Calc 60 >90 mL/min BUN/Creatinine Ratio 22.7 H 10.0-20.0 Serum Glucose 487 *H 74-106 mg/dL Calcium Level 8.5 L 8.7-10.4 mg/dL B-Type Natriuretic Peptide 124.31 0-100 pg/mL Current Medications Medications (Trade) Dose Ordered Sig/Florinda Route Start Time Stop Time Status Last Admin Morphine Sulfate 4 mg ONCE ONCE IV 12/24/24 17:15 12/24/24 17:16 DC 12/24/24 18:43 Ondansetron HCl (Zofran) 4 mg ONCE ONCE IV 12/24/24 17:15 12/24/24 17:16 DC 12/24/24 18:43 Piperacillin Sod/ Tazobactam Sod 100 ml @ 100 mls/hr ONCE ONCE IV 12/24/24 17:15 12/24/24 18:14 DC 12/24/24 18:53 Vancomycin HCl 250 ml @ 250 mls/hr Q1H IV 12/24/24 18:30 12/24/24 20:29 DC 12/24/24 22:26 Insulin Human Regular (InsuLIN R) 10 units ONCE ONCE IV 12/24/24 21:15 12/24/24 21:21 DC 12/24/24 21:39 Albumin Human 100 ml @ 100 mls/hr ONCE ONCE IV 12/24/24 21:15 12/24/24 22:14 DC 12/24/24 22:00 PROCEDURE(s): CXRP - CHEST PORTABLE REASON: edema ORDER NUMBER(s): [id number], ACCESSION NUMBER(s): [id number] EXAM: XR Chest, 1 View CLINICAL INDICATION: edema TECHNIQUE: Frontal view of the chest. COMPARISON: XY CHEST XRAY 1 VIEW on DOS: 04/30/24, XY CHEST XRAY 1 VIEW on DOS: 04/29/24, XY CHEST PORTABLE on DOS: 03/12/24, XY CHEST PORTABLE on DOS: 08/29/23, XY CHEST XRAY 1 VIEW on DOS: 08/27/23 FINDINGS: LUNGS AND PLEURAL SPACES: See below. HEART: Cardiomegaly with mild congestion. MEDIASTINUM: Unremarkable. Normal mediastinal contour. BONES/JOINTS: Unremarkable. No acute fracture. OTHER FINDINGS: . IMPRESSION: Cardiomegaly with mild congestion. EDURE(s): BLDVT - BiLat Lower DVT REASON: pain, edema ORDER NUMBER(s): [id number], ACCESSION NUMBER(s): [id number] Bilateral lower extremity venous duplex Clinical History: pain, edema Comparison: US BILAT LOWER DVT on DOS: 07/18/24, US BILAT LOWER DVT on DOS: 03/12/24, US RT LOWER DVT on DOS: 08/21/23, BLDVT on DOS: 11/04/22, BI LOWER DVT on DOS: 11/04/22 Technique: Duplex Doppler evaluation of the deep venous systems of both lower extremities from the common femoral veins to the popliteal veins including color Doppler and spectral/pulsed waveform analysis was performed. Findings: RIGHT SIDE: The common femoral vein demonstrates appropriate compressibility and waveform variability. There is compressibility/patency of the great saphenous vein at the proximal thigh. The femoral vein demonstrates appropriate compressibility and waveform variability. The deep femoral vein demonstrates appropriate compressibility and waveform variability. The popliteal vein demonstrates appropriate compressibility and waveform variability. There is normal compressibility at the tibioperoneal trunk. LEFT SIDE: The common femoral vein demonstrates appropriate compressibility and waveform variability. There is compressibility/patency of the great saphenous vein at the proximal thigh. The femoral vein demonstrates appropriate compressibility and waveform variability. The deep femoral vein demonstrates appropriate compressibility and waveform variability. The popliteal vein demonstrates appropriate compressibility and waveform variability. There is normal compressibility at the tibioperoneal trunk. Impression: 1. No right or left femoropopliteal venous thrombosis. 2. Prominent Right groin lymph node measuring 5.2 cm Bilateral edema of the lower extremities. X-Ray, Labs, Meds, VS Comment 69-year-old male with a history of AFib, C diff and chronic lower extremity cellulitis brought in by EMS from home for evaluation of right lower extremity worsening pain, redness and swelling for 1 week, inability to ambulate, and left hand redness and pain today. Vitals remarkable for heart rate 134 Exam remarkable for localized left hand erythema and tenderness, right lower extremity erythema, edema, weeping and tenderness Rhythm strip independently interpreted by me: Sinus tach, rate 134, no ectopy. Chest x-ray IMPRESSION: Cardiomegaly with mild congestion. Bilateral lower extremity ultrasound: Impression: 1. No right or left femoropopliteal venous thrombosis. 2. Prominent Right groin lymph node measuring 5.2 cm Bilateral edema of the lower extremities. CBC remarkable for WBC 14.4, metabolic panel remarkable for sodium 135, BUN 29, glucose 487, normal anion gap, lactate 2.8, repeat 2.4, BNP 124.31, 2 serial troponins negative Patient treated with the following in the ED: Morphine 4 mg IV, Zofran 4 mg IV, Zosyn 4.5 g IV, vancomycin IV per pharmacy, albumin IV bolus Lasix 60 mg IV was ordered, however patient's blood pressure was 93/69, so this was held pending the albumin bolus and improvement of the patient's blood pressure. 30 cc/kilogram IV fluid bolus was not administered due to the patient's edema and finding cardiomegaly with mild congestion on chest x-ray. Aggressive fluid hydration may cause harm. On re-evaluation, patient stated pain had improved. Heart rate was 127. Other vitals were stable. Plan is to admit the patient for IV antibiotics and diuresis. Time of 1ST Reevaluation: 17:35 Reevaluation 1ST: Unchanged Patient Education/Counseling: Diagnosis, Treatment, Prognosis Family Education/Counseling: No Family Present Sepsis Sepsis Reasesment Focused Exam Sepsis focused exam: focus exam completed (2230 capillary refill less than 2 seconds. HR 123. 30 cc/kg fluid bolus not administered due to severe lower extremity edema and cardiomegaly with vascular congestion on x-ray. Aggressive fluid hydration could cause harm.) Departure 1 Departure Time of Disposition: 21:12 Impression: Primary Impression: Cellulitis of right lower extremity Additional Impressions: Sepsis Qualified Codes: A41.9 - Sepsis, unspecified organism Hyperglycemia Disposition: ADMITTED INPATIENT Admit to: Tele Condition: Guarded Critical Care Note Critical Care Time?: Yes (35 min-critical care time only) Critical care comment: Critical care time including multiple bedside re-evaluations, review of lab and imaging studies, and discussion of the case with the admitting provider. Patient is high risk for metabolic and/or hemodynamic decompensation. Stability Stability form required: No Heart Score Heart Score: Heart Score Response (Comments) Value History N/A 0 EKG N/A 0 Age N/A 0 Risk Factors N/A 0 Troponin N/A 0 Total 0 I personally scribed for JOI ZENDEJAS MD ([email or web address]) on 12/24/24 at 17:26. Electronically submitted by Alexis Sawyer ([email or web address]). JOI ZENDEJAS MD Dec 24, 2024 17:26
--- NOTE | 2024-12-24 17:38 | DVH ---
EXAM: XR Chest, 1 View CLINICAL INDICATION: edema TECHNIQUE: Frontal view of the chest. COMPARISON: XY CHEST XRAY 1 VIEW on DOS: 04/30/24, XY CHEST XRAY 1 VIEW on DOS: 04/29/24, XY CHEST PO RTABLE on DOS: 03/12/24, XY CHEST PORTABLE on DOS: 08/29/23, XY CHEST XRAY 1 VIEW on DOS: 08/27/23 FINDINGS: LUNGS AND PLEURAL SPACES: See below. HEART: Cardiomegaly with mild congestion. MEDIASTINUM: Unremarkable. Normal mediastinal contour. BONES/JOINTS: Unremarkable. No acute fracture. OTHER FINDINGS: . IMPRESSION: Cardiomegaly with mild congestion.
[2024-12-24 17:42] VITALS: PULSE 129; RESP 14; O2SAT 95
--- NOTE | 2024-12-24 17:56 | DVH ---
Bilateral lower extremity venous duplex Clinical History: pain, edema Comparison: US BILAT LOWER DVT on DOS: 07/18/24, US BILAT LOWER DVT on DOS: 03/12/24, US RT LOWER DVT o n DOS: 08/21/23, BLDVT on DOS: 11/04/22, BI LOWER DVT on DOS: 11/04/22 Technique: Duplex Doppler evaluation of the deep venous systems of both lower extremities from the common femora l veins to the popliteal veins including color Doppler and spectral/pulsed waveform analysis was perf ormed. Findings: RIGHT SIDE: The common femoral vein demonstrates appropriate compressibility and waveform variability. There is compressibility/patency of the great saphenous vein at the proximal thigh. The femoral vein demonstrates appropriate compressibility and waveform variability. The deep femoral vein demonstrates appropriate compressibility and waveform variability. The popliteal vein demonstrates appropriate compressibility and waveform variability. There is normal compressibility at the tibioperoneal trunk. LEFT SIDE: The common femoral vein demonstrates appropriate compressibility and waveform variability. There is compressibility/patency of the great saphenous vein at the proximal thigh. The femoral vein demonstrates appropriate compressibility and waveform variability. The deep femoral vein demonstrates appropriate compressibility and waveform variability. The popliteal vein demonstrates appropriate compressibility and waveform variability. There is normal compressibility at the tibioperoneal trunk. Impression: 1. No right or left femoropopliteal venous thrombosis. 2. Prominent Right groin lymph node measuring 5.2 cm Bilateral edema of the lower extremities.
[2024-12-24] MEDS: MORPHINE SULFATE 4 MG/ML SYR/VIAL IV ONE (18:43)
[2024-12-24] MEDS: ONDANSETRON HCL 4 MG/2 ML VIAL IV ONE (18:43)
[2024-12-24 18:44] LABS: Hematocrit 38.8 % (41.0-53.0); Mean Corpuscular Hemoglobin 30.7 pg (28.0-32.0); Mean Corpuscular Hgb Conc. 33.6 g/dL (32.0-36.0); Mean Corpuscular Volume 91.4 fL (80.0-100.0); Platelet Count (auto) 108 10^3/uL (140-450); Red Blood Cells 4.25 10^6/uL (4.5-5.90); Red Cell Distribution Width 14.5 % (11.8-14.3); White Blood Cell 14.4 10^3/uL (4.4-10.8)
[2024-12-24 18:50] LABS: Basophils % (manual) 0 (0.0-2.0); Blast Cells 0; Metamyelocytes % 0; Myelocytes % 0; Promyelocytes % 0; Reactive Lymphocytes 0
[2024-12-24] MEDS: PIPERACILLIN-TAZO 4.5GM 100 ML IV ONE (18:53)
[2024-12-24 18:59] LABS: Chloride 102 mmol/L (98-107); Potassium 3.6 mmol/L (3.5-5.1)
[2024-12-24 19:00] LABS: Anion Gap 11 (5-15); Carbon Dioxide 22 mmol/L (20-31)
[2024-12-24 19:05] LABS: BUN/Creatinine Ratio 22.7 (10.0-20.0); INR 1.08 (0.9-1.15); Partial Thromboplastin Time 36.7 SEC (24.5-34.5); Prothrombin Time 11.4 sec (9.3-11.8)
[2024-12-24 19:16] LABS: Blood Urea Nitrogen 29 mg/dL (9-23); Calcium 8.5 mg/dL (8.7-10.4); Sodium 135 mmol/L (136-145)
[2024-12-24 19:18] LABS: Glucose 487 mg/dL (74-106); Lactic Acid w/Reflex 2.8 mmol/L (0.4-2.0)
[2024-12-24 19:33] LABS: Band Neutrophils % (manual) 8; Eosinophils % (manual) 1 (0-7); Lymphocytes % (manual) 5 (10.0-50.0); Monocytes % (manual) 1 (0-12); Platelet Estimate Decreased
[2024-12-24] MEDS: FUROSEMIDE 100 MG/10ML VIAL IV ONE (20:02)
[2024-12-24 20:30] VITALS: PULSE 133; RESP 16; O2SAT 95
[2024-12-24] MEDS: VANCOMYCIN 1GM/250ML KIT 250 ML IV SCH (21:00)
[2024-12-24] MEDS: InsuLIN REG 1unit/0.01ml Soln (100units/ml) IV ONE (21:39)
[2024-12-24] MEDS: ALBUMIN 25% 100 ML IV ONE (22:00)
[2024-12-24] MEDS: HYDROcodone-ACET 5/325MG TAB PO ONE (23:58)
[2024-12-25] VITALS (13 sets, daily range): BP systolic 88–122; BP diastolic 46–69; PULSE 68–130; RESP 18–20; TEMP 97.5–98.7; O2SAT 0–99
[2024-12-25] MEDS ORDERED: DEXTROSE (50%) 50ML SYRG IV PRN ×2 (00:15→13:15)
[2024-12-25] MEDS ORDERED: dilTIAZem 25 MG/5 ML VIAL IV ONE (00:15)
[2024-12-25] MEDS: SODIUM CHLORIDE 0.9% 500 ML IV ONE ×2 (01:20→04:06)
[2024-12-25] MEDS ORDERED: NITROGLYCERIN 0.4 MG SL TAB SL PRN (01:45)
[2024-12-25] MEDS ORDERED: MORPHINE SULFATE INJ 2 MG/ml SYRG IV PRN (01:45)
--- NOTE | 2024-12-25 02:04 | DVHHP2 ---
History of Present Illness Reason for Visit: Sepsis, unspecified organism History of Present Illness The patient is 69-year-old male with past medical history of AFib, DM, hyperlipidemia, and hypertension who presented to [facility] ED with complaint of bilateral lower extremity swelling. Patient reports she had chronic lower extremity cellulitis with increased redness, pain, swelling of right lower extremity for the past week, unable to ambulate for the past 5 days, getting worse today that prompted this visit. Patient was seen and evaluated in the ED, laboratory data shows WBC 14.4, hemoglobin 13.0, hematocrit 38.8, platelets 108, sodium 135, potassium 3.6, BUN 29, creatinine 1.28, GFR 60, glucose 487, calcium 8.5, lactic acid 2.4, troponin 3, BNP 124.31, blood pressure 103/66, heart rate 141 trending down to 133, temperature 97.6 F, O2 saturation 95% on room air. Chest x-ray revealing cardiomegaly with mild congestion. Lower extremity ultr asound revealing prominent right groin lymph node measuring 5.2 cm, bilateral edema of the lower extremities, no right or left femoropopliteal venous thrombosis. Patient was started on IV antibiotic regimen Zosyn, please see medication orders section in the computer. On my assessment, patient denies chest pain, no headache, no diaphoresis, no shortness of breaths, no diarrhea, no nausea, no vomiting, no fever, no chills. Patient was admitted for further evaluation and medical management. Past Medical History AFIB, DM, High Lipids, HTN, C diff Past Surgical History Fecal transplant x2 Family History Reviewed, noncontributory to the management of this case. Past Social History The patient lives at home, denies smoking, alcohol or illicit drugs abuse. Review of Systems Constitutional: Yes: Weakness; No: Fever, Chills, Sweats, Malaise, Other Eyes: No: Pain, Vision change, Conjunctivae inflammation, Eyelid inflammation, Other, Redness ENT: No: Ear pain, Ear discharge, Nose pain, Nose discharge, Nose congestion, Mouth pain, Mouth swelling, Throat pain, Throat swelling, Other Respiratory: No: Cough, Dry, Shortness of breath, SOB with excertion, Wheezing, Hemoptysis, Pleuritic Pain, Sputum, Wheezing, Other Cardiovascular: No: Chest Pain, Palpitations, Orthopnea, Paroxysmal Noc. Dyspnea, Edema, Lt Headedness, Other Gastrointestinal: No: Nausea, Vomiting, Abdominal Pain, Diarrhea, Constipation, Melena, Hematochezia, Other Genitourinary: No Dysuria, No Frequency, No Incontinence, No Hematuria, No Retention, No Other Musculoskeletal: other (Lower extremity swelling), leg pain; No: neck pain, shoulder pain, arm pain, back pain, hand pain, foot pain Skin: Other (Lower extremity redness); No: Rash, Lesions, Jaundice, Bruising Neurological: No: Weakness, Numbness, Incoordination, Change in speech, Confusion, Seizures, Other Allergies: Coded Allergies: No Known Drug Allergy (Verified Allergy, Unknown, 09/04/20) Medications Current Medications Medications Dose Ordered Sig/Florinda Route Start Time Stop Time Status Last Admin Dose Admin Vancomycin HCl 0 ml @ 0 mls/hr UD IV 12/24/24 17:15 Apixaban 5 mg BID PO 12/25/24 10:00 Diagnostic Test (Pha) 1 strip IQ4HR 12/25/24 04:00 Insulin Human Regular IQ4HR SC 12/25/24 04:00 Dextrose 50 ml UD PRN IV 12/25/24 00:15 Acetaminophen/ Hydrocodone Bitart 1 tab Q4HP PRN PO 12/25/24 00:15 Ondansetron HCl 4 mg Q4HP PRN IV 12/25/24 00:15 UNV Docusate Sodium 100 mg BIDPRN PRN PO 12/25/24 00:15 Acetaminophen 650 mg Q6HP PRN PO 12/25/24 00:15 Atorvastatin Calcium 20 mg HS PO 12/25/24 22:00 Furosemide 40 mg DAILY IV 12/25/24 10:00 Metoprolol Tartrate 25 mg BID PO 12/25/24 01:15 Exam Vital Signs Vital Signs Date Time Temp Pulse Resp B/P (MAP) Pulse Ox O2 Delivery O2 Flow Rate FiO2 12/25/24 00:19 133 14 96/64 12/25/24 00:00 94 12/24/24 17:42 Room Air* 0 21 12/24/24 16:55 97.5 97.5 General Appearance: Alert, Oriented X3, Cooperative, No acute distress HEENT: Atraumatic, EOMI, Mucous membr. moist/pink Respiratory: Clear to auscultation, Normal air movement Cardiovascular: Regular rate, Normal S1, Normal S2, No murmurs Abdominal: Normal bowel sounds, Soft, No tenderness, No hepatospenomegaly, No masses Extremities: No clubbing, No cyanosis, No edema, Normal pulses, Other (Lower extremity tenderness/swelling) Skin: No rashes, No breakdown, No significant lesion Neuro: Normal speech, Normal tone, Sensation intact, Cranial nerves 3-12 NL, Reflexes 2+, Other (Generalized weakness) Psych/Mental Status: Mental status NL, Mood NL Labs/Xrays Labs Test 12/25/24 00:59 12/24/24 20:10 12/24/24 19:11 12/24/24 18:26 Range/Units Lactic Acid Level 2.4 *H 0.4-2.0 mmol/L Troponin I High Sensitivity 3 L </=54 ng/L White Blood Count 14.4 H 4.4-10.8 10^3/uL Red Blood Count 4.25 L 4.5-5.90 10^6/uL Hemoglobin 13.0 L 13.5-17.5 g/dL Hematocrit 38.8 L 41.0-53.0 % Mean Corpuscular Volume 91.4 80.0-100.0 fL Mean Corpuscular Hemoglobin 30.7 28.0-32.0 pg Mean Corpuscular Hemoglobin Concent 33.6 32.0-36.0 g/dL Red Cell Distribution Width 14.5 H 11.8-14.3 % Platelet Count 108 L 140-450 10^3/uL Mean Platelet Volume 10.4 6.9-10.8 fL Neutrophils (%) (Auto) 37.0-80.0 % Lymphocytes (%) (Auto) 10.0-50.0 % Monocytes (%) (Auto) 0.0-12.0 % Basophils (%) (Auto) 0.0-2.0 % Neutrophils # (Auto) 1.6-8.6 10 ^3/uL Lymphocytes # (Auto) 0.4-5.4 10 ^3/uL Monocytes # (Auto) 0-1.3 10 ^3/uL Differential Total Cells Counted 100.0 100 Neutrophils % (Manual) 85 H 37.0-80.0 Band Neutrophils % (Manual) 8 Lymphocytes % (Manual) 5 L 10.0-50.0 Monocytes % (Manual) 1 0-12 Eosinophils % (Manual) 1 0-7 Basophils % (Manual) 0 0.0-2.0 Metamyelocytes % (manual) 0 Myelocytes % (Manual) 0 Promyelocytes % (Manual) 0 Blast Cells % (Manual) 0 Reactive Lymphocytes 0 Platelet Estimate Decreased Prothrombin Time 11.4 9.3-11.8 sec Prothrombin Time INR 1.08 0.9-1.15 Activated Partial Thromboplast Time 36.7 H 24.5-34.5 SEC Sodium Level 135 L 136-145 mmol/L Potassium Level 3.6 3.5-5.1 mmol/L Chloride Level 102 98-107 mmol/L Carbon Dioxide Level 22 20-31 mmol/L Anion Gap 11 5-15 Blood Urea Nitrogen 29 H 9-23 mg/dL Creatinine 1.28 0.700-1.30 mg/dL Glomerular Filtration Rate Calc 60 >90 mL/min BUN/Creatinine Ratio 22.7 H 10.0-20.0 Serum Glucose 487 *H 74-106 mg/dL Calcium Level 8.5 L 8.7-10.4 mg/dL PATIENT: LOREN DHALIWAL ACCT: [id number] UNIT: [id number] : 1955 LOC: ER ROOM / BED: / AGE / SEX: 69 / M ADM STATUS: REG ER SERVICE 1710 ORDERING PHYSICIAN: JOI ZENDEJAS MD PROCEDURE(s): BLDVT - BiLat Lower DVT REASON: pain, edema ORDER NUMBER(s): [id number], ACCESSION NUMBER(s): [id number] Bilateral lower extremity venous duplex Clinical History: pain, edema Comparison: US BILAT LOWER DVT on DOS: 07/18/24, US BILAT LOWER DVT on DOS: , US RT LOWER DVT on DOS: 08/21/23, BLDVT on DOS: 11/04/22, BI LOWER DVT on DOS: 11/04/22 Technique: Duplex Doppler evaluation of the deep venous systems of both lower extremities from the common femoral veins to the popliteal veins including color Doppler and spectral/pulsed waveform analysis was performed. Findings: RIGHT SIDE: The common femoral vein demonstrates appropriate compressibility and waveform variability. There is compressibility/patency of the great saphenous vein at the proximal thigh. The femoral vein demonstrates appropriate compressibility and waveform variability. The deep femoral vein demonstrates appropriate compressibility and waveform variability. The popliteal vein demonstrates appropriate compressibility and waveform variability. There is normal compressibility at the tibioperoneal trunk. LEFT SIDE: The common femoral vein demonstrates appropriate compressibility and waveform variability. There is compressibility/patency of the great saphenous vein at the proximal thigh. The femoral vein demonstrates appropriate compressibility and waveform variability. The deep femoral vein demonstrates appropriate compressibility and waveform variability. The popliteal vein demonstrates appropriate compressibility and waveform variability. There is normal compressibility at the tibioperoneal trunk. Impression: No right or left femoropopliteal venous thrombosis. Prominent Right groin lymph node measuring 5.2 cm Bilateral edema of the lower extremities. ORDERING PHYSICIAN: JOI ZENDEJAS MD PROCEDURE(s): CXRP - CHEST PORTABLE REASON: edema ORDER NUMBER(s): [id number], ACCESSION NUMBER(s): [id number] EXAM: XR Chest, 1 View CLINICAL INDICATION: edema TECHNIQUE: Frontal view of the chest. COMPARISON: XY CHEST XRAY 1 VIEW on DOS: 04/30/24, XY CHEST XRAY 1 VIEW on DOS: 04/29/24, XY CHEST PORTABLE on DOS: 03/12/24, XY CHEST PORTABLE on DOS: 08/29/23, XY CHEST XRAY 1 VIEW on DOS: 08/27/23 FINDINGS: LUNGS AND PLEURAL SPACES: See below. HEART: Cardiomegaly with mild congestion. MEDIASTINUM: Unremarkable. Normal mediastinal contour. BONES/JOINTS: Unremarkable. No acute fracture. OTHER FINDINGS: IMPRESSION: Cardiomegaly with mild congestion. Assessment/Plan Assessment/Plan Sepsis, unspecified organism Tachycardia Cellulitis of right lower extremity Generalized weakness Uncontrolled diabetes mellitus Diabetes mellitus with hyperglycemia Plan 1. Admit to telemetry unit 2. Breathing treatment 3. Pain control management 4. IV antibiotic management 5. Management of fluids and electrolytes 6. Consultation for cardiology/hospitalist 7. Diagnostic test chest x-ray 8. DVT prophylaxis-on Eliquis 9. Repeat labs CBC, CMP in a.m. 10. Home medication reviewed and reconciled 11. Continue with current medical management 12. Treatment plan discussed with patient and RN. Patient verbalized understanding. Plan discussed with: Patient, Other (RN) My Orders Orders - OKPAN,MARIANELA O DNP Procedure Category Date Status Time Consistent DIET 3/8/25 Transmitted Carb(Ccho)Diabetes Breakfast B-Type Natriuretic LAB 12/25/24 In Process Peptide 00:05 Apixaban (Eliquis) PHA 12/25/24 In Process 10:00 Glucose Blood PHA 12/25/24 In Process (Accu-Chek Comfort 04:00 Insulin R (Human) PHA 12/25/24 In Process (Insulin R) 04:00 Dextrose 50% Syringe PHA 12/25/24 In Process 00:15 Allergies PRACHI 12/25/24 In Process 00:05 Code Status CODE 12/25/24 Transmitted 00:05 Oxygen Per Hour RT 12/25/24 Transmitted 00:05 Hydrocodone-Acet PHA 12/25/24 In Process 5/325mg Tab ([place] 00:15 Ondansetron Hcl PHA 12/25/24 Pending (Zofran) 00:15 Docusate Sodium PHA 12/25/24 In Process Capsule (Colace 00:15 Complete Blood Count LAB 12/26/24 Verified 04:00 Comprehensive LAB 12/26/24 Verified Metabolic Panel 04:00 Condition: Serious PRACHI 12/25/24 In Process 00:05 Acetaminophen Tablet PHA 12/25/24 In Process (Tylenol Tablet) 00:15 Bedrest With Bathroom PRACHI 12/25/24 In Process Privileg 00:05 Atorvastatin (Lipitor) PHA 12/25/24 In Process 22:00 Furosemide Injection PHA 12/25/24 In Process (Lasix Injection) 10:00 Metoprolol Tartrate PHA 12/25/24 In Process Tablet (Lopressor Ta 01:15 Echo 2d Mode Cardiac US 12/25/24 Logged DOP 01:12 * Cardiology Consult CONS 12/25/24 Transmitted 01:12 Problem List: (1) Sepsis, unspecified organism (2) Tachycardia (3) Cellulitis of right lower extremity (4) Generalized weakness (5) Uncontrolled diabetes mellitus (6) Diabetes mellitus with hyperglycemia Date of Service: Dec 25, 2024 Billing Provider: MARIANELA JOSE DNP Common Visit Codes: [id number] INP/OBS CARE (HIGH) MARIANELA JOSE DNP Dec 25, 2024 02:04
[2024-12-25] MEDS: HYDROcodone-ACET 5/325MG TAB PO PRN (04:05)
[2024-12-25] MEDS: ACCU-CHEK COMFORT CURVE STRIP VI SCH ×2 (04:11→17:10)
[2024-12-25] MEDS: InsuLIN REG 1unit/0.01ml Soln (100units/ml) SC SCH ×3 (04:12→21:06)
[2024-12-25] MEDS: PIPERACILLIN-TAZOB 3.375GM 100 ML IV SCH (05:26)
[2024-12-25 07:08] LABS: Anion Gap 8 (5-15); Carbon Dioxide 22 mmol/L (20-31); Sodium 137 mmol/L (136-145)
[2024-12-25 07:14] LABS: BUN/Creatinine Ratio 21.9 (10.0-20.0)
[2024-12-25 07:15] LABS: Blood Urea Nitrogen 25 mg/dL (9-23); Calcium 8.3 mg/dL (8.7-10.4); Chloride 107 mmol/L (98-107); Glucose 275 mg/dL (74-106); Potassium 3.3 mmol/L (3.5-5.1)
[2024-12-25] MEDS: APIXABAN 5 MG TAB PO SCH (08:16)
[2024-12-25] MEDS ORDERED: METOPROLOL TARTRATE 50 MG TAB PO SCH (10:00)
--- NOTE | 2024-12-25 10:04 | DVHINCON2 ---
CHRISTINA SCHAFFER [facility] 12/25/24 1004: Date Seen: Dec 25, 2024 Referring Physician DAISY Hart Reason for Consultation Tachycardia History of Present Illness This is a 69-year-old male patient who presents to the emergency room with chief complaint of bilateral lower extremity pain and left arm pain. The patient reports symptoms began approximately one week ago but have been worsening over the last two days so he came to the emergency room for further evaluation. Cardiology has been consulted at this time for tachycardia. Initial twelve lead electrocardiogram reveals an atrial tachycardia with right bundle branch block. Initial troponin level was negative. The patient denies any cardiac symptoms. Significant past medical history includes atrial fibrillation (on Eliquis), hypertension, dyslipidemia, type 2 diabetes mellitus, and morbid obesity. The patient reports following up with a superintendent gas distribution in the outpatient setting but does not remember the name of a superintendent gas distribution at this time. Past Medical History Past medical history reviewed. No other significant than mentioned above. Past Surgical History Right and left knee replacement Right and left rotator cuff repair Family History: Diabetes mellitus G8 FATHER FH: pancreatic cancer Prostate carcinoma Family History Family history reviewed. Social History Denies the use of tobacco, alcohol or illicit drugs. Allergies: Coded Allergies: No Known Drug Allergy (Verified Allergy, Unknown, 09/04/20) Home Meds Active Scripts Vancomycin Hcl (Vancomycin Po) 125 Mg So, 125 MG PO DAILY for 42 Days, #1 ML vancomycin for six weeks (1st two weeks 4 times a day, 2nd two weeks 2 times a day, 3rd two weeks one time a day) Prov:VENICE MILLER NP 07/23/24 Vancomycin HCl (Vancomycin HCl) 125 Mg Cap, 125 MG PO QID for 42 Days, #98 CAP take 1 cap qid x 2 weeks then bid x 2 weeks then once qd x 2 weeks Prov:PEGGY OZUNA MD 05/20/24 Apixaban Base (ELIQUIS) 5 Mg Tab, 5 MG PO BID for 30 Days, #60 TAB 3 Refills Prov:PEGGY OZUNA MD 10/22/23 Reported Medications Metolazone (Metolazone) 5 Mg Tab, 1 TAB PO 3XWEEKLY for 84 Days, #36 07/21/24 Semaglutide (Ozempic) 2 Mg/3 Ml Inj, 0.5 MG SC QWEEKLY for 28 Days, #3 07/21/24 Metoprolol Succinate (Metoprolol Succinate Er) 50 Mg Tab, 1 TAB PO DAILY 07/18/24 Rosuvastatin Calcium (Rosuvastatin Calcium) 10 Mg Tab, 1 TAB PO DAILY 07/18/24 Escitalopram Oxalate (ESCITALOPRAM OXALATE) 10 Mg Tab, 1 TAB PO DAILY 07/18/24 Dapagliflozin Propanediol (Farxiga) 10 Mg Tab, 1 TAB PO DAILY 07/18/24 Atorvastatin Calcium (ATORVASTATIN CALCIUM) 40 Mg Tab, 1 TAB PO DAILY 04/24/24 Hydrocodone-Acetaminophen (Hydrocodone Bitartrate/AC 10-325 mg) 1 Tab Tab, 1 TAB PO Q8HR PRN for PAIN for 30 Days, #90 03/12/24 Potassium Chloride (Klor-Con M10) 10 Meq Tab, 1 TAB PO BID 12/02/23 Furosemide (Furosemide) 40 Mg Tab, 1 TAB PO BID for 90 Days, #180 12/02/23 Empagliflozin (Jardiance) 25 Mg Tab, 1 TAB PO DAILY 12/02/23 Insulin Aspart (Insulin Aspart) 100 Unit/Ml Inj, 0 SC BID, INJ 40 UNITS SC QAM & 30 UNITS SC QPM 09/04/20 Home Meds Home medications reviewed. Current Medications Current Medications Medications (Trade) Dose Ordered Sig/Florinda Route PRN Reason Start Time Stop Time Status Last Admin Vancomycin HCl 0 ml @ 0 mls/hr UD IV 12/24/24 17:15 Vancomycin HCl 250 ml @ 250 mls/hr Q1H IV 12/24/24 18:30 12/24/24 20:29 DC 12/24/24 22:26 Metoprolol Tartrate (Lopressor Tablet) 50 mg BID PO 12/25/24 10:00 12/25/24 01:12 DC Apixaban (Eliquis) 5 mg BID PO 12/25/24 10:00 12/25/24 08:16 Diagnostic Test (Pha) (Accu-Chek Comfort Curve T) 1 strip IQ4HR 12/25/24 04:00 12/25/24 08:18 Insulin Human Regular (InsuLIN R) IQ4HR SC 12/25/24 04:00 12/25/24 08:18 Dextrose 50 ml UD PRN IV Blood Sugar LESS THAN 60 12/25/24 00:15 Acetaminophen/ Hydrocodone Bitart ([place] 5/325MG Tab) 1 tab Q4HP PRN PO MODERATE PAIN (4-6 PAIN SCALE) 12/25/24 00:15 12/25/24 04:05 Ondansetron HCl (Zofran) 4 mg Q4HP PRN IV NAUSEA / VOMITING 12/25/24 00:15 Docusate Sodium (Colace Capsule) 100 mg BIDPRN PRN PO FOR CONSTIPATION 12/25/24 00:15 Acetaminophen (Tylenol Tablet) 650 mg Q6HP PRN PO PAIN SCALE 1-3 OR TEMP>100.4 12/25/24 00:15 Atorvastatin Calcium (Lipitor) 20 mg HS PO 12/25/24 22:00 Furosemide (Lasix Injection) 40 mg DAILY IV 12/25/24 10:00 Metoprolol Tartrate (Lopressor Tablet) 25 mg BID PO 12/25/24 01:15 Piperacillin Sod/ Tazobactam Sod 100 ml @ 25 mls/hr Q8H IV 12/25/24 03:00 12/25/24 05:26 Nitroglycerin (Ntrostat Sublingual) 0.4 mg Q5MINP PRN SL FOR CHEST PAIN 12/25/24 01:45 Morphine Sulfate 2 mg Q30M PRN IV FOR CHEST PAIN 12/25/24 01:45 Review of Systems Constitutional: No symptom reported Ears, Nose, & Throat: No symptom reported Eyes: No symptom reported Neurological: No symptoms reported Pulmonary/Respiratory: No symptoms reported Cardiovascular: No symptom reported Gastrointestinal: No symptom reported Genitourinary: No symptom reported Musculoskeletal: Bilateral lower extremity pain, left arm pain Skin: No symptom reported Psychiatric: No symptom reported Endocrine: No symptom reported Hematologic/Lymphatic: No symptom reported Vital Signs Vital Signs Date Time Temp Pulse Resp B/P (MAP) Pulse Ox O2 Delivery O2 Flow Rate FiO2 12/25/24 09:45 110 88/52 (64) 12/25/24 08:05 18 96 12/25/24 05:00 98.7 98.7 12/25/24 03:14 Room Air* 0 21 Physical Exam General Appearance: Cooperative. Morbidly obese Pulmonary/Respiratory: Clear, bilateral breaths sounds. Cardiovascular/Chest: Regular rate and rhythm. Peripheral Pulses: 2+ Radial (R). 2+ Radial (L). 2+ Pedal (R). 2+ Pedal (L) Abdominal Exam: Normal bowel sounds. Ankle Exam: Bilateral pitting edema Upper extremities: Left arm nonpitting edema Lower extremities: 4+ pitting edema to right lower extremity, 3+ pitting edema to left lower extremity Neuro/Mental Status: A/OX4, coherent. Thoughts/Psych: Normal thought pattern. Appropriate mood and affect. Good judgment and insight. Appearance: No acute distress. Skin Exam: Redness to bilateral lower extremities. Labs/Diagnostic Data Labs Test 12/25/24 06:11 12/25/24 04:09 12/25/24 00:59 12/24/24 20:10 Range/Units Sodium Level 137 136-145 mmol/L Potassium Level 3.3 L 3.5-5.1 mmol/L Chloride Level 107 98-107 mmol/L Carbon Dioxide Level 22 20-31 mmol/L Anion Gap 8 5-15 Blood Urea Nitrogen 25 H 9-23 mg/dL Creatinine 1.14 0.700-1.30 mg/dL Glomerular Filtration Rate Calc 69 >90 mL/min BUN/Creatinine Ratio 21.9 H 10.0-20.0 Serum Glucose 275 #H 74-106 mg/dL Calcium Level 8.3 L 8.7-10.4 mg/dL POC Glucose 313 H 70-106 mg/dl B-Type Natriuretic Peptide 172.63 0-100 pg/mL Lactic Acid Level 2.4 *H 0.4-2.0 mmol/L Test 12/24/24 19:11 12/24/24 18:26 Range/Units Troponin I High Sensitivity 3 L </=54 ng/L White Blood Count 14.4 H 4.4-10.8 10^3/uL Red Blood Count 4.25 L 4.5-5.90 10^6/uL Hemoglobin 13.0 L 13.5-17.5 g/dL Hematocrit 38.8 L 41.0-53.0 % Mean Corpuscular Volume 91.4 80.0-100.0 fL Mean Corpuscular Hemoglobin 30.7 28.0-32.0 pg Mean Corpuscular Hemoglobin Concent 33.6 32.0-36.0 g/dL Red Cell Distribution Width 14.5 H 11.8-14.3 % Platelet Count 108 L 140-450 10^3/uL Mean Platelet Volume 10.4 6.9-10.8 fL Neutrophils (%) (Auto) 37.0-80.0 % Lymphocytes (%) (Auto) 10.0-50.0 % Monocytes (%) (Auto) 0.0-12.0 % Basophils (%) (Auto) 0.0-2.0 % Neutrophils # (Auto) 1.6-8.6 10 ^3/uL Lymphocytes # (Auto) 0.4-5.4 10 ^3/uL Monocytes # (Auto) 0-1.3 10 ^3/uL Differential Total Cells Counted 100.0 100 Neutrophils % (Manual) 85 H 37.0-80.0 Band Neutrophils % (Manual) 8 Lymphocytes % (Manual) 5 L 10.0-50.0 Monocytes % (Manual) 1 0-12 Eosinophils % (Manual) 1 0-7 Basophils % (Manual) 0 0.0-2.0 Metamyelocytes % (manual) 0 Myelocytes % (Manual) 0 Promyelocytes % (Manual) 0 Blast Cells % (Manual) 0 Reactive Lymphocytes 0 Platelet Estimate Decreased Prothrombin Time 11.4 9.3-11.8 sec Prothrombin Time INR 1.08 0.9-1.15 Activated Partial Thromboplast Time 36.7 H 24.5-34.5 SEC Assessment Atrial tachycardia, likely atrial flutter Unspecified atrial fibrillation (on Eliquis) Sepsis Hypertension Dyslipidemia Bilateral lower extremity cellulitis Type 2 diabetes mellitus Hx of C-diff colitis Morbid obesity Plan/Recommendation We will continue with the following plan/recommendations (Dr. John): * Transthoracic echocardiogram reveals EF 55% * [id number] VASc score: 3 points * Initiate antiarrhythmic agent amiodarone * Continue NOAC, Eliquis * Consider beta-salud for rate control with stable BP * Monitor and replete electrolytes as needed, keep potassium greater than four and magnesium greater than two * Close Cardiac surveillance * Repeat EKG in AM * Antibiotics per primary care team Patient seen and examined at bedside with . Thank you for allowing us to care for this patient. Please call with any questions or concerns. Critical care time spent: 42 minutes This medical document was created using an electronic medical record system with voice recognition software and computerized dictation system. Although this document has been carefully reviewed, there might still be some phonetic and typographical errors. Occasional wrong-word or ``sound-alike substitutions may have occurred due to the inherent limitations of voice recognition software. These areas are purely typographical due to imperfections of the software programs and do not reflect any compromise in the patient's medical care. Please read the chart carefully and recognize, using context, where these substitutions have occurred. Plan discussed with: Patient NYHA Physical activity limitations: NA Date of Service: Dec 25, 2024 Billing Provider: CHRISTINA SCHAFFER Cardiology Common Codes: [id number] INP/OBS CARE (High) Cardiology Consultation Codes: [id number] CONSULT <45MIN JESSE JOHN MD 12/27/24 0826: Family History: Diabetes mellitus G8 FATHER FH: pancreatic cancer Prostate carcinoma Allergies: Coded Allergies: No Known Drug Allergy (Verified Allergy, Unknown, 09/04/20) Home Meds Active Scripts Vancomycin Hcl (Vancomycin Po) 125 Mg So, 125 MG PO DAILY for 42 Days, #1 ML vancomycin for six weeks (1st two weeks 4 times a day, 2nd two weeks 2 times a day, 3rd two weeks one time a day) Prov:VENICE MILLER NP 07/23/24 Vancomycin HCl (Vancomycin HCl) 125 Mg Cap, 125 MG PO QID for 42 Days, #98 CAP take 1 cap qid x 2 weeks then bid x 2 weeks then once qd x 2 weeks Prov:PEGGY OZUNA MD 05/20/24 Apixaban Base (ELIQUIS) 5 Mg Tab, 5 MG PO BID for 30 Days, #60 TAB 3 Refills Prov:PEGGY OZUNA MD 10/22/23 Reported Medications Metolazone (Metolazone) 5 Mg Tab, 1 TAB PO 3XWEEKLY for 84 Days, #36 07/21/24 Semaglutide (Ozempic) 2 Mg/3 Ml Inj, 0.5 MG SC QWEEKLY for 28 Days, #3 07/21/24 Metoprolol Succinate (Metoprolol Succinate Er) 50 Mg Tab, 1 TAB PO DAILY 07/18/24 Rosuvastatin Calcium (Rosuvastatin Calcium) 10 Mg Tab, 1 TAB PO DAILY 07/18/24 Escitalopram Oxalate (ESCITALOPRAM OXALATE) 10 Mg Tab, 1 TAB PO DAILY 07/18/24 Dapagliflozin Propanediol (Farxiga) 10 Mg Tab, 1 TAB PO DAILY 07/18/24 Atorvastatin Calcium (ATORVASTATIN CALCIUM) 40 Mg Tab, 1 TAB PO DAILY 04/24/24 Hydrocodone-Acetaminophen (Hydrocodone Bitartrate/AC 10-325 mg) 1 Tab Tab, 1 TAB PO Q8HR PRN for PAIN for 30 Days, #90 03/12/24 Potassium Chloride (Klor-Con M10) 10 Meq Tab, 1 TAB PO BID 12/02/23 Furosemide (Furosemide) 40 Mg Tab, 1 TAB PO BID for 90 Days, #180 12/02/23 Empagliflozin (Jardiance) 25 Mg Tab, 1 TAB PO DAILY 12/02/23 Insulin Aspart (Insulin Aspart) 100 Unit/Ml Inj, 0 SC BID, INJ 40 UNITS SC QAM & 30 UNITS SC QPM 09/04/20 Plan/Recommendation PT SEEN WITH RESOURCE TEACHER CONT AMIO FOR AFLUTTER HX OF AFIB ON DOAC CELLULITIS ONGOING [place] CHRISTINA SCHAFFER Dec 25, 2024 10:04 JESSE JOHN MD Dec 27, 2024 08:26
[2024-12-25] MEDS: DIGOXIN (250MCG/ML) 2 ML AMPULE IV ONE (10:50)
[2024-12-25] MEDS: FUROSEMIDE 40 MG/4 ML VIAL IV SCH (10:51)
[2024-12-25] MEDS: METOPROLOL TARTRATE 50 MG TAB PO SCH (10:51)
[2024-12-25 11:58] LABS: Basophils # (auto) 0 10 ^3/uL (0-0.2); Basophils % (auto) 0.1 % (0.0-2.0); Eosinophils # (auto) 0.1 10 ^3/uL (0-0.8); Eosinophils % (auto) 0.4 % (0.0-7.0); Hematocrit 39.9 % (41.0-53.0); Hemoglobin 13.1 g/dL (13.5-17.5); Lymphocytes # (auto) 0.5 10 ^3/uL (0.4-5.4); Lymphocytes % (auto) 3.5 % (10.0-50.0); Mean Corpuscular Hemoglobin 29.3 pg (28.0-32.0); Mean Corpuscular Hgb Conc. 32.8 g/dL (32.0-36.0); Mean Corpuscular Volume 89.4 fL (80.0-100.0); Monocytes # (auto) 0.5 10 ^3/uL (0-1.3); Monocytes % (auto) 3.4 % (0.0-12.0); Neutrophils # (auto) 12.8 10 ^3/uL (1.6-8.6); Neutrophils % (auto) 92.6 % (37.0-80.0); Nucleated Red Blood Cells % 0.1 %; Platelet Count (auto) 111 10^3/uL (140-450); Red Blood Cells 4.47 10^6/uL (4.5-5.90); Red Cell Distribution Width 14.6 % (11.8-14.3); White Blood Cell 13.8 10^3/uL (4.4-10.8)
--- NOTE | 2024-12-25 12:05 | DVH ---
US BI LAT UPPER DVT 12/25/2024 10:07 AM Clinical History: Swelling Comparison: US BILAT LOWER DVT on DOS: 12/24/24, US BILAT LOWER DVT on DOS: 07/18/24, US BILAT LOWER DVT on DOS: 03/12/24 TECHNIQUE: Duplex Doppler evaluation of the venous systems of the upper extremities including color D oppler and spectral/pulsed waveform analysis was performed. FINDINGS: RIGHT UPPER EXTREMITY: The internal jugular vein demonstrates appropriate compressibility and waveform variability. The subclavian vein is patent on color Doppler evaluation without intraluminal thrombus and demonstra charmaine waveform variability. The visualized portion of the brachiocephalic vein is patent on color Doppler evaluation without intr aluminal thrombus and demonstrates waveform variability. The axillary vein demonstrates appropriate compressibility and waveform variability. The brachial veins demonstrate appropriate compressibility and patency on Doppler evaluation. The basilic vein demonstrates appropriate compressibility and patency on Doppler evaluation. The cephalic vein demonstrates appropriate compressibility and patency on Doppler evaluation. LEFT UPPER EXTREMITY: The internal jugular vein demonstrates appropriate compressibility and waveform variability. The subclavian vein is patent on color Doppler evaluation without intraluminal thrombus and demonstra charmaien waveform variability. The visualized portion of the brachiocephalic vein is patent on color Doppler evaluation without intr aluminal thrombus and demonstrates waveform variability. The axillary vein demonstrates appropriate compressibility and waveform variability. The brachial veins demonstrate appropriate compressibility and patency on Doppler evaluation. The basilic vein demonstrates appropriate compressibility and patency on Doppler evaluation. The cephalic vein demonstrates appropriate compressibility and patency on Doppler evaluation. IMPRESSION: 1. No venous thrombus identified in the right or left upper extremity vessels evaluated above. If cli nical concern/symptoms persist or worsen, short-interval follow-up study is suggested.
[2024-12-25 12:31] LABS: Lactic Acid w/Reflex 2.4 mmol/L (0.4-2.0)
--- NOTE | 2024-12-25 12:40 | DVHSR ---
APPROVED REPORT EXAM: Two-dimensional and M-mode echocardiogram with Doppler and color Doppler. Blood Pressure: 103/63 mmHg INDICATION Tachycardia RISK FACTORS Obesity: Height: 5'11", Weight: 279 DIMENSIONS LVDd4.1 (3.8-5.7cm)LA (2D)4.1 (1.9-4.0cm)Aortic Root3.7 (2.0-3.7cm) LVDs3.1 (2.5-4.0cm)LA (MM) (1.9-4.0cm)Aortic Cusp Exc1.5 (1.5-2.0cm) EF (%) 50.0 (55-70%)Rt. Atrium4.8 (1.9-4.0cm)Asc. Aorta cm IVSd1.2 (0.7-1.1cm)RV (D) (1.8-2.4cm) PWd1.2 (0.7-1.1cm) Mitral Valve MitralMitral Stenosis E wave1.23m/sMV Mean GR.mmHg E/A ratio0.02D MVAcm2 Aortic Valve Aortic ValveAortic Stenosis V11.12m/Nhi Mean GR.9mmHg V22.01m/Nhi Peak GR.16mmHg LVOT Diameter1.8 (1.8-2.4cm)Doppler AVA1.42cm2 Pulmonic Valve V21.18m/s Tricuspid Valve TR Velocity2.88m/s [id number] Other Information Technically limited study due to body habitus, patient lying flat. Conclusion lvef 55% by visual estimate normal rv function normal atria mild aortic stenosis no severe valve abnormalities noted normal pericardium
[2024-12-25] MEDS: AMIODARONE BOLUS KIT 100 ML IV ONE (14:31)
[2024-12-25] MEDS: AMIODARONE 360mg/200mL PREMIX 200 ML IV ONE (14:44)
[2024-12-25] MEDS: VANCOMYCIN 1.25GM/250ML 250 ML IV SCH (17:26)
[2024-12-25] MEDS: HYDROcodone-ACET 10/325MG TAB PO PRN (17:27)
[2024-12-25] MEDS: AMIODARONE 360mg/200mL PREMIX 200 ML IV SCH (20:25)
[2024-12-25] MEDS: ATORVASTATIN 20 MG TAB PO SCH (20:52)
[2024-12-25] MEDS: ACETAMINOPHEN 325 MG TAB PO PRN (20:54)
[2024-12-25] MEDS: DOCUSATE SOD 100 MG CAP PO PRN (22:17)
[2024-12-26] VITALS (8 sets, daily range): BP systolic 102–135; BP diastolic 57–81; PULSE 90–122; RESP 16–19; TEMP 98–98.9; O2SAT 90–96
[2024-12-26] MEDS: ONDANSETRON HCL 4 MG/2 ML VIAL IV PRN (00:43)
[2024-12-26] MEDS: PROCHLORPERAZINE EDISYLATE 5 MG/ML 2ML VIAL IV PRN (01:56)
[2024-12-26 06:05] LABS: Basophils # (auto) 0 10 ^3/uL (0-0.2); Basophils % (auto) 0.2 % (0.0-2.0); Eosinophils # (auto) 0 10 ^3/uL (0-0.8); Eosinophils % (auto) 0.1 % (0.0-7.0); Hematocrit 38.2 % (41.0-53.0); Hemoglobin 12.9 g/dL (13.5-17.5); Lymphocytes # (auto) 0.6 10 ^3/uL (0.4-5.4); Lymphocytes % (auto) 3.9 % (10.0-50.0); Mean Corpuscular Hemoglobin 30.4 pg (28.0-32.0); Mean Corpuscular Hgb Conc. 33.7 g/dL (32.0-36.0); Mean Corpuscular Volume 90.1 fL (80.0-100.0); Monocytes # (auto) 0.6 10 ^3/uL (0-1.3); Monocytes % (auto) 3.9 % (0.0-12.0); Neutrophils # (auto) 14.5 10 ^3/uL (1.6-8.6); Neutrophils % (auto) 91.9 % (37.0-80.0); Platelet Count (auto) 140 10^3/uL (140-450); Red Blood Cells 4.24 10^6/uL (4.5-5.90); Red Cell Distribution Width 14.9 % (11.8-14.3); White Blood Cell 15.8 10^3/uL (4.4-10.8)
[2024-12-26 06:23] LABS: Alanine Aminotransferase 30 U/L (7-40); Albumin 3.4 g/dL (3.2-4.8); Anion Gap 12 (5-15); Aspartate Aminotransferase 39 U/L (13-40); BUN/Creatinine Ratio 21.4 (10.0-20.0); Bilirubin, Total 0.7 mg/dL (0.2-1.0); Blood Urea Nitrogen 22 mg/dL (9-23); Calcium 8.7 mg/dL (8.7-10.4); Cholesterol 80 mg/dL (< 200); LDL Cholesterol 51 mg/dL (< 100); Magnesium 2.1 mg/dL (1.6-2.6); Sodium 138 mmol/L (136-145); Total Protein 5.7 g/dL (5.7-8.2); Triglycerides 80 mg/dL (< 150)
[2024-12-26 06:31] LABS: Alkaline Phosphatase 388 U/L (46-116); Carbon Dioxide 18 mmol/L (20-31); Chloride 108 mmol/L (98-107); Glucose 217 mg/dL (74-106); HDL Cholesterol 17 mg/dL (40-59); Potassium 3.5 mmol/L (3.5-5.1)
--- NOTE | 2024-12-26 10:36 | DVHPN2 ---
Progress Note Date Seen: Dec 26, 2024 Medical Necessity Reason Pt with a Central, PICC or Fol: No Objective vital signs Vital Sign Date Time Temp Pulse Resp B/P (MAP) Pulse Ox O2 Delivery O2 Flow Rate FiO2 12/26/24 08:57 98.6 106 18 117/66 (83) 94 98.6 12/26/24 08:00 Room Air* 0 21 Total Intake and Output 12/25/24 12/25/24 12/26/24 15:00 23:00 07:00 Intake Total 583 ml 950 ml Output Total 290 ml 800 ml Balance 293 ml 150 ml medications Current Medications Medications Dose Ordered Sig/Florinda Route Start Time Stop Time Status Last Admin Dose Admin Vancomycin HCl 0 ml @ 0 mls/hr UD IV 12/24/24 17:15 Apixaban 5 mg BID PO 12/25/24 10:00 12/26/24 08:00 5 MG Ondansetron HCl 4 mg Q4HP PRN IV 12/25/24 00:15 12/26/24 00:43 4 MG Docusate Sodium 100 mg BIDPRN PRN PO 12/25/24 00:15 12/25/24 22:17 100 MG Acetaminophen 650 mg Q6HP PRN PO 12/25/24 00:15 12/25/24 20:54 650 MG Atorvastatin Calcium 20 mg HS PO 12/25/24 22:00 12/25/24 20:52 20 MG Furosemide 40 mg DAILY IV 12/25/24 10:00 Piperacillin Sod/ Tazobactam Sod 100 ml @ 25 mls/hr Q8H IV 12/25/24 03:00 12/26/24 03:04 25 MLS/HR Nitroglycerin 0.4 mg Q5MINP PRN SL 12/25/24 01:45 Morphine Sulfate 2 mg Q30M PRN IV 12/25/24 01:45 Vancomycin HCl 250 ml @ 200 mls/hr Q12H IV 12/25/24 17:00 12/26/24 05:09 200 MLS/HR Acetaminophen/ Hydrocodone Bitart 1 tab Q6HP PRN PO 12/25/24 13:15 12/26/24 09:35 1 TAB Diagnostic Test (Pha) 1 strip ACHS 12/25/24 17:00 12/26/24 05:32 1 STRIP Insulin Human Regular HS SC 12/25/24 22:00 12/25/24 21:06 2 UNITS Insulin Human Regular AC SC 12/25/24 17:00 12/26/24 05:31 6 UNITS Dextrose 50 ml UD PRN IV 12/25/24 13:15 Prochlorperazine Edisylate 10 mg Q4HPRN PRN IV 12/26/24 01:30 12/26/24 01:56 10 MG Examination: GENERAL:Abnormal, HEENT:Abnormal, LUNGS:Abnormal, CVS:Abnormal, ABDOMEN:Abnormal laboratory and microbiology Laboratory Tests 12/26/24 05:12 Test 12/26/24 05:12 Range/Units Serum Glucose 217 H 74-106 mg/dL Microbiology Date/Time Source Procedure Growth Status 12/24/24 18:26 Blood Blood Culture - Preliminary NO GROWTH AFTER 24 HOURS OF INCUBATION. Resulted Problem List/Assessment/Plan Problem List/Assessment/Plan cellulitis afib/flutter morbi obesity foul smelling legs cont abx cont amio , can transition to po amio cont doac for cva prevention beta salud signing off Plan discussed with: Patient My Orders My Orders Orders - JESSE JOHN MD Procedure Category Date Status Time Amiodarone PHA 12/25/24 In Process 360mg/200ml Premix 19:15 Date of Service: Dec 26, 2024 Billing Provider: JESSE JOHN MD Common Visit Codes: NOT BILLABLE JESSE JOHN MD Dec 26, 2024 10:36
[2024-12-26] MEDS: MORPHINE SULFATE 4 MG/ML SYR/VIAL IV PRN (11:17)
--- NOTE | 2024-12-26 11:29 | DVHPN2 ---
Subjective c/o pain in legs Changes from previous H/P or p: Changes Eyes: No Pain, No Vision change, No Conjunctivae inflammation, No Eyelid inflammation, No Other, No Redness ENT: No Ear pain, No Ear discharge, No Nose pain, No Nose discharge, No Nose congestion, No Mouth pain, No Mouth swelling, No Throat pain, No Throat swelling, No Other Cardiovascular: No Chest Pain, No Palpitations, No Orthopnea, No Paroxysmal Noc. Dyspnea, No Edema, No Lt Headedness, No Other Respiratory: No Cough, No Dry, No Shortness of breath, No SOB with excertion, No Wheezing, No Hemoptysis, No Pleuritic Pain, No Sputum, No Other Gastrointestinal: No Nausea, No Vomiting, No Abdominal Pain, No Diarrhea, No Constipation, No Melena, No Hematochezia, No Other Genitourinary: No Dysuria, No Frequency, No Incontinence, No Hematuria, No Retention, No Other Musculoskeletal: other (Lower extremity swelling); No neck pain, No shoulder pain, No arm pain, No back pain, No hand pain; leg pain; No foot pain Skin: No Rash, No Lesions, No Jaundice, No Bruising; Other (Lower extremity redness) Objective Vitals Vital Signs Date Time Temp Pulse Resp B/P (MAP) Pulse Ox O2 Delivery O2 Flow Rate FiO2 12/26/24 08:57 98.6 106 18 117/66 (83) 94 98.6 12/26/24 08:00 Room Air* 0 21 Intake/Output Intake and Output 12/26/24 07:00 Intake Total 1533 ml Output Total 1090 ml Balance 443 ml Intake Oral 700 ml IV Total 833 ml Output Urine Total 1090 ml # Voids 3 General Appearance: Alert, Oriented X3, Cooperative Lungs: Clear to auscultation Cardiovascular: Normal S1, Other (Irregularly irregular) Abdomen: Normal bowel sounds, Soft, No tenderness Extremities: Other (2+ edema BLE R>L) Medications Current Medications Medications Dose Ordered Sig/Florinda Route Start Time Stop Time Status Last Admin Dose Admin Vancomycin HCl 0 ml @ 0 mls/hr UD IV 12/24/24 17:15 Apixaban 5 mg BID PO 12/25/24 10:00 12/26/24 08:00 5 MG Ondansetron HCl 4 mg Q4HP PRN IV 12/25/24 00:15 Hold 12/26/24 00:43 4 MG Docusate Sodium 100 mg BIDPRN PRN PO 12/25/24 00:15 12/25/24 22:17 100 MG Acetaminophen 650 mg Q6HP PRN PO 12/25/24 00:15 12/25/24 20:54 650 MG Atorvastatin Calcium 20 mg HS PO 12/25/24 22:00 12/25/24 20:52 20 MG Furosemide 40 mg DAILY IV 12/25/24 10:00 Piperacillin Sod/ Tazobactam Sod 100 ml @ 25 mls/hr Q8H IV 12/25/24 03:00 12/26/24 03:04 25 MLS/HR Nitroglycerin 0.4 mg Q5MINP PRN SL 12/25/24 01:45 Morphine Sulfate 2 mg Q30M PRN IV 12/25/24 01:45 Vancomycin HCl 250 ml @ 200 mls/hr Q12H IV 12/25/24 17:00 12/26/24 05:09 200 MLS/HR Diagnostic Test (Pha) 1 strip ACHS 12/25/24 17:00 12/26/24 05:32 1 STRIP Insulin Human Regular HS SC 12/25/24 22:00 12/25/24 21:06 2 UNITS Insulin Human Regular AC SC 12/25/24 17:00 12/26/24 05:31 6 UNITS Dextrose 50 ml UD PRN IV 12/25/24 13:15 Prochlorperazine Edisylate 10 mg Q4HPRN PRN IV 12/26/24 01:30 12/26/24 01:56 10 MG Metoprolol Succinate 25 mg DAILY PO 12/26/24 10:45 Amiodarone HCl 200 mg Q12HR PO 12/26/24 22:00 Acetaminophen/ Hydrocodone Bitart 1 tab Q6HP PRN PO 12/26/24 10:45 Morphine Sulfate 4 mg Q4HPRN PRN IV 12/26/24 10:45 Laboratory Results Laboratory Tests 12/26/24 05:12 Chemistry Test 12/26/24 05:12 Albumin 3.4 g/dL (3.2-4.8) Calcium Level 8.7 mg/dL (8.7-10.4) Magnesium Level 2.1 mg/dL (1.6-2.6) Total Protein 5.7 g/dL (5.7-8.2) Lipid panel Test 12/26/24 05:12 Cholesterol Level 80 mg/dL (< 200) HDL Cholesterol 17 mg/dL (40-59) L Triglycerides Level 80 mg/dL (< 150) LFT Test 12/26/24 05:12 Alanine Aminotransferase (ALT) 30 U/L (7-40) Alkaline Phosphatase 388 U/L (46-116) H Aspartate Amino Transferase (AST) 39 U/L (13-40) Total Bilirubin 0.7 mg/dL (0.2-1.0) HgA1c, TSH Test 12/26/24 05:12 Thyroid Stimulating Hormone (TSH) 0.67 uIU/mL (0.55-4.78) Microbiology Microbiology Date/Time Source Procedure Growth Status 12/24/24 18:26 Blood Blood Culture - Preliminary NO GROWTH AFTER 24 HOURS OF INCUBATION. Resulted Assessment/Plan Assessment/Plan Cellulitis RLE Cellulitis Left hand Sepsis Afib RVR Morbid obesity Recurrent C. 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 Thrombocytopenia due to sepsis HTN DM2 Mixed hyperlipidemia PLAN: Continue IV antibiotics: Zosyn &Vanco Resume po Vanco Lasix Pain management Eliquis Metoprolol po amiodarone Junior Plan discussed with: Patient My Orders Orders - PEGGY OZUNA MD Procedure Category Date Status Time Glucose Blood PHA 12/25/24 In Process (Accu-Chek Comfort 17:00 Insulin R (Human) PHA 12/25/24 In Process (Insulin R) 22:00 Insulin R (Human) PHA 12/25/24 In Process (Insulin R) 17:00 Dextrose 50% Syringe PHA 12/25/24 In Process 13:15 Hydrocodone-Acet PHA 12/26/24 In Process 10/325mg Tab ([place] 10:45 Morphine Sulfate PHA 12/26/24 In Process Injection 10:45 Insert/Manage Urinary PRACHI 12/26/24 In Process Catheter 10:45 Date of Service: Dec 26, 2024 Billing Provider: PEGGY OZUNA MD Common Visit Codes: NOT BILLABLE PEGGY OZUNA MD Dec 26, 2024 11:29
[2024-12-26 12:34] LABS: Urine Bacteria FEW /hpf (None Seen); Urine Blood 1+ /uL (Negative); Urine Color Yellow (Yellow); Urine Protein, UAD 1+ (Negative); Urine Specific Gravity 1.033 (1.001-1.035); Urine Squamous Epithelial Cell FEW /hpf (<5); Urine Urobilinogen Normal (Negative); Urine WBC 5 /HPF (0-3); Urine pH 5.5 (5.0-9.0)
[2024-12-26 12:35] LABS: Urine Clarity Hazy (Clear)
[2024-12-26] MEDS: VANCOMYCIN HCL 125 MG CAP PO SCH (13:59)
[2024-12-26] MEDS: METOPROLOL SUCCINATE XL 50 MG TAB PO SCH (14:00)
[2024-12-26] MEDS: HYDROcodone-ACET 10/325MG TAB PO PRN (21:42)
[2024-12-26] MEDS: AMIODARONE HCL 200 MG TAB PO SCH (21:42)
[2024-12-27] VITALS (8 sets, daily range): BP systolic 92–129; BP diastolic 64–78; PULSE 104–129; RESP 16–20; TEMP 97.6–98.1; O2SAT 93–96
[2024-12-27 06:00] LABS: Basophils # (auto) 0 10 ^3/uL (0-0.2); Basophils % (auto) 0.2 % (0.0-2.0); Eosinophils # (auto) 0 10 ^3/uL (0-0.8); Eosinophils % (auto) 0.2 % (0.0-7.0); Hematocrit 38.2 % (41.0-53.0); Hemoglobin 12.9 g/dL (13.5-17.5); Mean Corpuscular Hgb Conc. 33.7 g/dL (32.0-36.0); Monocytes # (auto) 0.7 10 ^3/uL (0-1.3); Monocytes % (auto) 4.3 % (0.0-12.0); Neutrophils # (auto) 14.1 10 ^3/uL (1.6-8.6); Neutrophils % (auto) 89.3 % (37.0-80.0); Platelet Count (auto) 183 10^3/uL (140-450); Red Blood Cells 4.29 10^6/uL (4.5-5.90); Red Cell Distribution Width 14.8 % (11.8-14.3); White Blood Cell 15.8 10^3/uL (4.4-10.8)
[2024-12-27 06:14] LABS: Alanine Aminotransferase 25 U/L (7-40); Albumin 3.3 g/dL (3.2-4.8); Anion Gap 10 (5-15); Aspartate Aminotransferase 22 U/L (13-40); BUN/Creatinine Ratio 23.3 (10.0-20.0); Bilirubin, Total 0.5 mg/dL (0.2-1.0); Calcium 9.1 mg/dL (8.7-10.4); Carbon Dioxide 22 mmol/L (20-31); Chloride 106 mmol/L (98-107); Magnesium 2.2 mg/dL (1.6-2.6); Sodium 138 mmol/L (136-145); Total Protein 5.8 g/dL (5.7-8.2)
[2024-12-27 06:33] LABS: Alkaline Phosphatase 411 U/L (46-116); Blood Urea Nitrogen 24 mg/dL (9-23); Glucose 184 mg/dL (74-106); Potassium 3.2 mmol/L (3.5-5.1)
--- NOTE | 2024-12-27 09:22 | DVHPN2 ---
Subjective Still has these pain and swelling in his left hand Now there is some fluctuation on dorsum of the hand The right leg is looking better with less erythema and edema Changes from previous H/P or p: Changes Eyes: No Pain, No Vision change, No Conjunctivae inflammation, No Eyelid inflammation, No Other, No Redness ENT: No Ear pain, No Ear discharge, No Nose pain, No Nose discharge, No Nose congestion, No Mouth pain, No Mouth swelling, No Throat pain, No Throat swelling, No Other Cardiovascular: No Chest Pain, No Palpitations, No Orthopnea, No Paroxysmal Noc. Dyspnea, No Edema, No Lt Headedness, No Other Respiratory: No Cough, No Dry, No Shortness of breath, No SOB with excertion, No Wheezing, No Hemoptysis, No Pleuritic Pain, No Sputum, No Other Gastrointestinal: No Nausea, No Vomiting, No Abdominal Pain, No Diarrhea, No Constipation, No Melena, No Hematochezia, No Other Genitourinary: No Dysuria, No Frequency, No Incontinence, No Hematuria, No Retention, No Other Musculoskeletal: other (Lower extremity swelling); No neck pain, No shoulder pain, No arm pain, No back pain, No hand pain; leg pain; No foot pain Skin: No Rash, No Lesions, No Jaundice, No Bruising; Other (Lower extremity redness) Objective Vitals Vital Signs Date Time Temp Pulse Resp B/P (MAP) Pulse Ox O2 Delivery O2 Flow Rate FiO2 12/27/24 08:10 115 106/64 12/27/24 06:10 18 12/27/24 05:00 97.9 95 97.9 12/26/24 20:00 Room Air* 0 21 Intake/Output Intake and Output 12/27/24 07:00 Intake Total 1441.65 ml Output Total 850 ml Balance 591.65 ml Intake Oral 1100 ml IV Total 341.65 ml Output Urine Total 850 ml General Appearance: Alert, Oriented X3, Cooperative Lungs: Clear to auscultation Cardiovascular: Normal S1, Other (Irregularly irregular) Abdomen: Normal bowel sounds, Soft, No tenderness Extremities: Other (2+ edema BLE R>L) Medications Current Medications Medications Dose Ordered Sig/Florinda Route Start Time Stop Time Status Last Admin Dose Admin Vancomycin HCl 0 ml @ 0 mls/hr UD IV 12/24/24 17:15 Apixaban 5 mg BID PO 12/25/24 10:00 12/27/24 08:08 5 MG Ondansetron HCl 4 mg Q4HP PRN IV 12/25/24 00:15 Hold 12/26/24 00:43 4 MG Docusate Sodium 100 mg BIDPRN PRN PO 12/25/24 00:15 12/25/24 22:17 100 MG Acetaminophen 650 mg Q6HP PRN PO 12/25/24 00:15 12/25/24 20:54 650 MG Atorvastatin Calcium 20 mg HS PO 12/25/24 22:00 12/26/24 21:42 20 MG Furosemide 40 mg DAILY IV 12/25/24 10:00 12/27/24 08:10 40 MG Piperacillin Sod/ Tazobactam Sod 100 ml @ 25 mls/hr Q8H IV 12/25/24 03:00 12/27/24 03:29 25 MLS/HR Nitroglycerin 0.4 mg Q5MINP PRN SL 12/25/24 01:45 Morphine Sulfate 2 mg Q30M PRN IV 12/25/24 01:45 Vancomycin HCl 250 ml @ 200 mls/hr Q12H IV 12/25/24 17:00 12/27/24 06:47 200 MLS/HR Diagnostic Test (Pha) 1 strip ACHS 12/25/24 17:00 12/27/24 06:31 1 STRIP Insulin Human Regular HS SC 12/25/24 22:00 12/26/24 21:45 3 UNITS Insulin Human Regular AC SC 12/25/24 17:00 12/27/24 06:31 3 UNITS Dextrose 50 ml UD PRN IV 12/25/24 13:15 Prochlorperazine Edisylate 10 mg Q4HPRN PRN IV 12/26/24 01:30 12/26/24 01:56 10 MG Metoprolol Succinate 25 mg DAILY PO 12/26/24 10:45 12/27/24 08:10 25 MG Amiodarone HCl 200 mg Q12HR PO 12/26/24 22:00 12/27/24 08:08 200 MG Acetaminophen/ Hydrocodone Bitart 1 tab Q6HP PRN PO 12/26/24 10:45 12/26/24 21:42 1 TAB Morphine Sulfate 4 mg Q4HPRN PRN IV 12/26/24 10:45 12/27/24 05:40 4 MG Vancomycin HCl 125 mg QID PO 12/26/24 12:00 12/27/24 05:40 125 MG Laboratory Results Laboratory Tests 12/27/24 04:28 Chemistry Test 12/27/24 04:28 Albumin 3.3 g/dL (3.2-4.8) Calcium Level 9.1 mg/dL (8.7-10.4) Magnesium Level 2.2 mg/dL (1.6-2.6) Total Protein 5.8 g/dL (5.7-8.2) LFT Test 12/27/24 04:28 Alanine Aminotransferase (ALT) 25 U/L (7-40) Alkaline Phosphatase 411 U/L (46-116) H Aspartate Amino Transferase (AST) 22 U/L (13-40) Total Bilirubin 0.5 mg/dL (0.2-1.0) Urinalysis Test 12/26/24 12:13 Urine Color Yellow (Yellow) Urine Clarity Hazy (Clear) H Urine pH 5.5 (5.0-9.0) Urine Specific [place] 1.033 (1.001-1.035) Urine Protein 1+ (Negative) H Urine Ketones 1+ (Negative) H Urine Blood 1+ /uL (Negative) H Urine Nitrite Negative (Negative) Urine Bilirubin Negative (Negative) Urine Urobilinogen Normal mg/dL (Negative) Urine Leukocyte Esterase Negative /uL (Negative) Urine RBC 1 /hpf (0 - 3) Urine Microscopic WBC 5 /HPF (0-3) H Urine Squamous Epithelial Cells Few /hpf (<5) Urine Bacteria Few /hpf (None Seen) H Urine Glucose 4+ mg/dL (Normal) H Microbiology Microbiology Date/Time Source Procedure Growth Status 12/25/24 14:02 Blood Blood Culture - Preliminary NO GROWTH AFTER 24 HOURS OF INCUBATION. Resulted Assessment/Plan Assessment/Plan Cellulitis RLE Cellulitis Left hand Sepsis Afib RVR Morbid obesity Recurrent C. 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 Thrombocytopenia due to sepsis HTN DM2 Mixed hyperlipidemia Bacteremia PLAN: Continue IV antibiotics: Zosyn &Vanco Resume po Vanco Lasix Pain management Eliquis Metoprolol po amiodarone Junior 12/27/2024: Left hand cellulitis rule out abscess: Get CT scan of the left hand no contrast Bilateral lower extremity edema: Increase Lasix to twice a day Right lower extremity cellulitis: Continue IV antibiotics with Zosyn and vancomycin Atrial fibrillation: Continue Eliquis and metoprolol and amiodarone Bacteremia with Gram-negative rods and Gram-positive cocci: Continue IV antibiotics Recent C diff colitis: Continue vancomycin p.o. Hypokalemia: Replace p.o. Pain control with morphine and Mobile p.r.n. Junior catheter Monitor closely Plan discussed with: Patient My Orders Orders - PEGGY OZUNA MD Procedure Category Date Status Time Hydrocodone-Acet PHA 12/26/24 In Process 10/325mg Tab (Mobile 10:45 Morphine Sulfate PHA 12/26/24 In Process Injection 10:45 Insert/Manage Urinary PRACHI 12/26/24 In Process Catheter 10:45 Vancomycin Po PHA 12/26/24 In Process 12:00 Insert Junior Catheter PRACHI 12/26/24 In Process 11:22 * Infectious Sarah Ramirez CONS 12/27/24 Transmitted Mallad 07:52 Date of Service: Dec 27, 2024 Billing Provider: PEGGY OZUNA MD Common Visit Codes: NOT BILLABLE PEGGY OZUNA MD Dec 27, 2024 09:22
--- NOTE | 2024-12-27 10:04 | DVHINCON2 ---
Date of service: Dec 27, [address] Dawkins Reason for Consultation Sepsis History of Present Illness Patient is a 69-year-old male presents to the hospital with complaint of bilateral lower extremity swelling and left arm pain. Patient reports he had chronic lower extremity changes with wounds. He complains of increased redness, pain, swelling of right lower extremity for the past week, unable to ambulate for the past 5 days, getting worse today. Patient was started on IV antibiotic regimen Vancomycin and Zosyn. As soon as I entered patient's room, patient had multiple soda cans on his table. Patient is a poor historian. Initial twelve lead electrocardiogram revealed an atrial tachycardia with right bundle branch block. Chest x-ray showed cardiomegaly with mild congestion. Lower extremity ultrasound showed prominent right groin lymph node measuring 5.2 cm, bilateral edema of the lower extremities, no right or left femoropopliteal venous thrombosis. Past Medical History Patient's past Medical History is significant for AFIB, DM, High Lipids, HTN and C diff. Past Surgical History Fecal transplant x2 Family History: Diabetes mellitus G8 FATHER FH: pancreatic cancer Prostate carcinoma Social History The patient lives at home, denies smoking, alcohol or illicit drugs abuse. Allergies: Coded Allergies: No Known Drug Allergy (Verified Allergy, Unknown, 09/04/20) Home Meds Active Scripts Vancomycin Hcl (Vancomycin Po) 125 Mg So, 125 MG PO DAILY for 42 Days, #1 ML vancomycin for six weeks (1st two weeks 4 times a day, 2nd two weeks 2 times a day, 3rd two weeks one time a day) Prov:VENICE MILLER NP 07/23/24 Vancomycin HCl (Vancomycin HCl) 125 Mg Cap, 125 MG PO QID for 42 Days, #98 CAP take 1 cap qid x 2 weeks then bid x 2 weeks then once qd x 2 weeks Prov:PEGGY DAWKINS MD 05/20/24 Apixaban Base (ELIQUIS) 5 Mg Tab, 5 MG PO BID for 30 Days, #60 TAB 3 Refills Prov:PEGGY DAWKINS MD 10/22/23 Reported Medications Metolazone (Metolazone) 5 Mg Tab, 1 TAB PO 3XWEEKLY for 84 Days, #36 07/21/24 Semaglutide (Ozempic) 2 Mg/3 Ml Inj, 0.5 MG SC QWEEKLY for 28 Days, #3 10/2/24 Metoprolol Succinate (Metoprolol Succinate Er) 50 Mg Tab, 1 TAB PO DAILY 07/18/24 Rosuvastatin Calcium (Rosuvastatin Calcium) 10 Mg Tab, 1 TAB PO DAILY 07/18/24 Escitalopram Oxalate (ESCITALOPRAM OXALATE) 10 Mg Tab, 1 TAB PO DAILY 07/18/24 Dapagliflozin Propanediol (Farxiga) 10 Mg Tab, 1 TAB PO DAILY 07/18/24 Atorvastatin Calcium (ATORVASTATIN CALCIUM) 40 Mg Tab, 1 TAB PO DAILY 04/24/24 Hydrocodone-Acetaminophen (Hydrocodone Bitartrate/AC 10-325 mg) 1 Tab Tab, 1 TAB PO Q8HR PRN for PAIN for 30 Days, #90 03/12/24 Potassium Chloride (Klor-Con M10) 10 Meq Tab, 1 TAB PO BID 12/02/23 Furosemide (Furosemide) 40 Mg Tab, 1 TAB PO BID for 90 Days, #180 12/02/23 Empagliflozin (Jardiance) 25 Mg Tab, 1 TAB PO DAILY 12/02/23 Insulin Aspart (Insulin Aspart) 100 Unit/Ml Inj, 0 SC BID, INJ 40 UNITS SC QAM & 30 UNITS SC QPM 09/04/20 Current Medications Current Medications Medications (Trade) Dose Ordered Sig/Florinda Route PRN Reason Start Time Stop Time Status Last Admin Metoprolol Succinate (Toprol Xl) 25 mg DAILY PO 12/26/24 10:45 12/27/24 08:10 Amiodarone HCl (Cordarone Tablet) 200 mg Q12HR PO 12/26/24 22:00 12/27/24 08:08 Acetaminophen/ Hydrocodone Bitart ([place] 10/325MG Tab) 1 tab Q6HP PRN PO MODERATE PAIN (4-6 PAIN SCALE) 12/26/24 10:45 12/26/24 21:42 Morphine Sulfate 4 mg Q4HPRN PRN IV SEVERE PAIN (7-10 PAIN SCALE) 12/26/24 10:45 12/27/24 09:56 Vancomycin HCl 125 mg QID PO 12/26/24 12:00 12/27/24 05:40 Furosemide (Lasix Injection) 40 mg BID IV 12/27/24 10:00 UNV Review of Systems Constitutional: Yes: Weakness; No: Fever, Chills, Sweats, Malaise, Other Eyes: No: Pain, Vision change, Conjunctivae inflammation, Eyelid inflammation, Other, Redness ENT: No: Ear pain, Ear discharge, Nose pain, Nose discharge, Nose congestion, Mouth pain, Mouth swelling, Throat pain, Throat swelling, Other Respiratory: No: Cough, Dry, Shortness of breath, SOB with excertion, Wheezing, Hemoptysis, Pleuritic Pain, Sputum, Wheezing, Other Cardiovascular: No: Chest Pain, Palpitations, Orthopnea, Paroxysmal Noc. Dyspnea, Edema, Lt Headedness, Other Gastrointestinal: No: Nausea, Vomiting, Abdominal Pain, Diarrhea, Constipation, Melena, Hematochezia, Other Genitourinary: No Dysuria, No Frequency, No Incontinence, No Hematuria, No Retention, No Other Musculoskeletal: other (Lower extremity swelling), leg pain; No: neck pain, shoulder pain, arm pain, back pain, hand pain, foot pain Skin: Other (Lower extremity redness); No: Rash, Lesions, Jaundice, Bruising Neurological: No: Weakness, Numbness, Incoordination, Change in speech, Confusion, Seizures, Other Vital Signs Vital Signs Date Time Temp Pulse Resp B/P (MAP) Pulse Ox O2 Delivery O2 Flow Rate FiO2 12/27/24 09:56 126 18 103/65 12/27/24 09:00 98.1 95 98.1 12/26/24 20:00 Room Air* 0 21 Physical Exam General Appearance: Alert, Oriented X3, Cooperative, No acute distress HEENT: Atraumatic, EOMI, Mucous membrane. moist/pink Respiratory: Crackles. Clear to auscultation, Normal air movement Cardiovascular: Regular rate, Normal S1, Normal S2, No murmurs Abdominal: Normal bowel sounds, Soft, No tenderness, No hepatospenomegaly, No masses Extremities: Other (Lower extremity tenderness/swelling). Right leg extremely swollen with redness and oozing intermittently from groin area to right foot. Left leg edema. Neuro: Normal speech, Normal tone, Sensation intact, Cranial nerves 3-12 NL, Other (Generalized weakness) Psych/Mental Status: Mental status NL, Mood NL Labs/Diagnostic Data Labs Test 12/27/24 06:04 12/27/24 04:28 12/26/24 12:13 12/26/24 05:12 Range/Units POC Glucose 191 H 70-106 mg/dl White Blood Count 15.8 H 4.4-10.8 10^3/uL Red Blood Count 4.29 L 4.5-5.90 10^6/uL Hemoglobin 12.9 L 13.5-17.5 g/dL Hematocrit 38.2 L 41.0-53.0 % Mean Corpuscular Volume 89.0 80.0-100.0 fL Mean Corpuscular Hemoglobin 30.0 28.0-32.0 pg Mean Corpuscular Hemoglobin Concent 33.7 32.0-36.0 g/dL Red Cell Distribution Width 14.8 H 11.8-14.3 % Platelet Count 183 140-450 10^3/uL Mean Platelet Volume 9.4 6.9-10.8 fL Neutrophils (%) (Auto) 89.3 H 37.0-80.0 % Lymphocytes (%) (Auto) 6.0 L 10.0-50.0 % Monocytes (%) (Auto) 4.3 0.0-12.0 % Eosinophils (%) (Auto) 0.2 0.0-7.0 % Basophils (%) (Auto) 0.2 0.0-2.0 % Neutrophils # (Auto) 14.1 H 1.6-8.6 10 ^3/uL Lymphocytes # (Auto) 1.0 0.4-5.4 10 ^3/uL Monocytes # (Auto) 0.7 0-1.3 10 ^3/uL Eosinophils # (Auto) 0 0-0.8 10 ^3/uL Basophils # (Auto) 0 0-0.2 10 ^3/uL Nucleated Red Blood Cells 0.0 % Sodium Level 138 136-145 mmol/L Potassium Level 3.2 L 3.5-5.1 mmol/L Chloride Level 106 98-107 mmol/L Carbon Dioxide Level 22 20-31 mmol/L Anion Gap 10 5-15 Blood Urea Nitrogen 24 H 9-23 mg/dL Creatinine 1.03 0.700-1.30 mg/dL Glomerular Filtration Rate Calc 78 >90 mL/min BUN/Creatinine Ratio 23.3 H 10.0-20.0 Serum Glucose 184 H 74-106 mg/dL Calcium Level 9.1 8.7-10.4 mg/dL Magnesium Level 2.2 1.6-2.6 mg/dL Total Bilirubin 0.5 0.2-1.0 mg/dL Aspartate Amino Transferase (AST) 22 13-40 U/L Alanine Aminotransferase (ALT) 25 7-40 U/L Alkaline Phosphatase 411 H 46-116 U/L Total Protein 5.8 5.7-8.2 g/dL Albumin 3.3 3.2-4.8 g/dL Vancomycin Level Trough 9.8 5-10 ug/mL Urine Color Yellow Yellow Urine Clarity Hazy H Clear Urine pH 5.5 5.0-9.0 Urine Specific [place] 1.033 1.001-1.035 Urine Protein 1+ H Negative Urine Ketones 1+ H Negative Urine Blood 1+ H Negative /uL Urine Nitrite Negative Negative Urine Bilirubin Negative Negative Urine Urobilinogen Normal Negative mg/dL Urine Leukocyte Esterase Negative Negative /uL Urine RBC 1 0 - 3 /hpf Urine Microscopic WBC 5 H 0-3 /HPF Urine Squamous Epithelial Cells Few <5 /hpf Urine Bacteria Few H None Seen /hpf Urine Glucose 4+ H Normal mg/dL Triglycerides Level 80 < 150 mg/dL Cholesterol Level 80 < 200 mg/dL LDL Cholesterol 51 < 100 mg/dL HDL Cholesterol 17 L 40-59 mg/dL Thyroid Stimulating Hormone (TSH) 0.67 0.55-4.78 uIU/mL Test 12/25/24 11:43 12/25/24 00:59 12/24/24 19:11 12/24/24 18:26 Range/Units Lactic Acid Level 2.4 *H 0.4-2.0 mmol/L B-Type Natriuretic Peptide 172.63 0-100 pg/mL Troponin I High Sensitivity 3 L </=54 ng/L Differential Total Cells Counted 100.0 100 Neutrophils % (Manual) 85 H 37.0-80.0 Band Neutrophils % (Manual) 8 Lymphocytes % (Manual) 5 L 10.0-50.0 Monocytes % (Manual) 1 0-12 Eosinophils % (Manual) 1 0-7 Basophils % (Manual) 0 0.0-2.0 Metamyelocytes % (manual) 0 Myelocytes % (Manual) 0 Promyelocytes % (Manual) 0 Blast Cells % (Manual) 0 Reactive Lymphocytes 0 Platelet Estimate Decreased Prothrombin Time 11.4 9.3-11.8 sec Prothrombin Time INR 1.08 0.9-1.15 Activated Partial Thromboplast Time 36.7 H 24.5-34.5 SEC Microbiology Date/Time Source Procedure Growth Status 12/25/24 14:02 Blood Blood Culture - Preliminary NO GROWTH AFTER 24 HOURS OF INCUBATION. Resulted Assessment Patient is a 69-year-old male presents to the hospital with: Bacteremia due to Staphylococcus epidermidis Sepsis Tachycardia Cellulitis of right lower extremity Fluid overload Rule out congestive heart failure Generalized weakness Uncontrolled diabetes mellitus Diabetes mellitus with hyperglycemia Recommendations: Blood culture is likely a contaminant, 1/2 bottles positive Patient needs to be on strict I&O's with fluid restriction Consider echocardiogram Continue Lasix Elevate legs Continue current IV antibiotics Antibiotic status: Vancomycin IV [Started on 12/24 - Ongoing] Zosyn IV [Started on 12/25 - Ongoing] 12/27, Vancomycin Trough is 9.8. Patient is afebrile 12/24, Blood culture showed Staphylococcus epidermidis 12/25, Blood culture showed no growth 12/26, Urine culture showed no growth 12/27, Hand CT showed Dorsal soft tissue swelling which may reflect cellulitis. No fluid collection. No CT evidence of acute osseous abnormality. Prognosis guarded Thank you for consult. Plan discussed with: Patient SILVANO FRYE MD Dec 27, 2024 10:04
[2024-12-27] MEDS: FUROSEMIDE 40 MG/4 ML VIAL IV SCH (10:53)
[2024-12-27] MEDS: POTASSIUM CHL 20 Meq TABLET PO ONE (11:11)
--- NOTE | 2024-12-27 11:23 | DVH ---
CLINICAL INDICATION: 69 years old, Male; Swelling rule out abscess. TECHNIQUE: Noncontrast CT of the left hand was performed. Sagittal and coronal reformatted images are provided. COMPARISON: None CT Dose: CTDI volume is 7.75 mGy. Dose-length product is 202.22 mGy*cm FINDINGS: No fracture or dislocation. No periosteal reaction. No cortical destruction. Radiocarpal an d carpometacarpal joint space narrowing. There is dorsal soft tissue swelling. No fluid collection. IMPRESSION: 1. Dorsal soft tissue swelling which may reflect cellulitis. No fluid collection. 2. No CT evidence of acute osseous abnormality. All CT scans at this medical facility are performed using dose modulation techniques as appropriate t o a performed exam including the following: Automated exposure control was utilized; adjustment of th e MA and/or KV according to patient size; and use of iterative reconstruction technique.
--- NOTE | 2024-12-27 14:07 | ECG ---
[facility] Test Date: 2024-12-25 Test Time: 01:39:57 Pat Name: LOREN DHALIWAL Department: ER Room: 0221T A Gender: M [employer]: JEET : 1955 Requested By: JOI ALVAREZ Order Number: [id number] Reading MD: Az Peoples Measurements Intervals Hext Rate: 133 P: 0 AL: 0 QRS: 89 QRSD: 151 T: -56 QT: 343 QTc: 511 Interpretive Statements Sinus tachycardia Right bundle branch block Electronically Signed On 12-29-2024 16:38:56 PDT by Az Peoples Please click the below link to view image of tracing.
[2024-12-27] MEDS: VANCOMYCIN 1GM/250ML KIT 250 ML IV SCH (16:40)
[2024-12-28] VITALS (7 sets, daily range): BP systolic 115–140; BP diastolic 69–79; PULSE 111–134; RESP 16–20; TEMP 97.6–98; O2SAT 92–95
[2024-12-28 06:39] LABS: Basophils # (auto) 0 10 ^3/uL (0-0.2); Basophils % (auto) 0.2 % (0.0-2.0); Eosinophils # (auto) 0 10 ^3/uL (0-0.8); Eosinophils % (auto) 0.3 % (0.0-7.0); Hemoglobin 12.6 g/dL (13.5-17.5); Lymphocytes % (auto) 7.5 % (10.0-50.0); Mean Corpuscular Hemoglobin 30.2 pg (28.0-32.0); Mean Corpuscular Hgb Conc. 34.1 g/dL (32.0-36.0); Mean Corpuscular Volume 88.7 fL (80.0-100.0); Monocytes # (auto) 0.8 10 ^3/uL (0-1.3); Neutrophils # (auto) 12.1 10 ^3/uL (1.6-8.6); Platelet Count (auto) 196 10^3/uL (140-450); Red Blood Cells 4.17 10^6/uL (4.5-5.90); Red Cell Distribution Width 14.3 % (11.8-14.3)
[2024-12-28 06:46] LABS: Chloride 103 mmol/L (98-107); Sodium 136 mmol/L (136-145)
[2024-12-28 06:47] LABS: Anion Gap 10 (5-15); Calcium 8.7 mg/dL (8.7-10.4); Carbon Dioxide 23 mmol/L (20-31)
[2024-12-28 06:49] LABS: Potassium 3.2 mmol/L (3.5-5.1)
[2024-12-28 06:52] LABS: Blood Urea Nitrogen 22 mg/dL (9-23)
[2024-12-28 07:10] LABS: Glucose 218 mg/dL (74-106)
--- NOTE | 2024-12-28 12:21 | DVHPN2 ---
Subjective Edema and erythema is getting better slowly Potassium is 3.2 Changes from previous H/P or p: Changes Eyes: No Pain, No Vision change, No Conjunctivae inflammation, No Eyelid inflammation, No Other, No Redness ENT: No Ear pain, No Ear discharge, No Nose pain, No Nose discharge, No Nose congestion, No Mouth pain, No Mouth swelling, No Throat pain, No Throat swelling, No Other Cardiovascular: No Chest Pain, No Palpitations, No Orthopnea, No Paroxysmal Noc. Dyspnea, No Edema, No Lt Headedness, No Other Respiratory: No Cough, No Dry, No Shortness of breath, No SOB with excertion, No Wheezing, No Hemoptysis, No Pleuritic Pain, No Sputum, No Other Gastrointestinal: No Nausea, No Vomiting, No Abdominal Pain, No Diarrhea, No Constipation, No Melena, No Hematochezia, No Other Genitourinary: No Dysuria, No Frequency, No Incontinence, No Hematuria, No Retention, No Other Musculoskeletal: other (Lower extremity swelling); No neck pain, No shoulder pain, No arm pain, No back pain, No hand pain; leg pain; No foot pain Skin: No Rash, No Lesions, No Jaundice, No Bruising; Other (Lower extremity redness) Objective Vitals Vital Signs Date Time Temp Pulse Resp B/P (MAP) Pulse Ox O2 Delivery O2 Flow Rate FiO2 12/28/24 09:44 131 18 127/76 12/28/24 09:00 97.7 93 97.7 12/28/24 08:00 Room Air* 0 21 Intake/Output Intake and Output 12/28/24 07:00 Intake Total 1750 ml Output Total 1650 ml Balance 100 ml Intake Oral 1000 ml IV Total 750 ml Output Urine Total 1650 ml General Appearance: Alert, Oriented X3, Cooperative Lungs: Clear to auscultation Cardiovascular: Normal S1, Other (Irregularly irregular) Abdomen: Normal bowel sounds, Soft, No tenderness Extremities: Other (2+ edema BLE R>L) Medications Current Medications Medications Dose Ordered Sig/Florinda Route Start Time Stop Time Status Last Admin Dose Admin Vancomycin HCl 0 ml @ 0 mls/hr UD IV 12/24/24 17:15 Apixaban 5 mg BID PO 12/25/24 10:00 12/28/24 09:13 5 MG Ondansetron HCl 4 mg Q4HP PRN IV 12/25/24 00:15 Hold 12/26/24 00:43 4 MG Docusate Sodium 100 mg BIDPRN PRN PO 12/25/24 00:15 12/25/24 22:17 100 MG Acetaminophen 650 mg Q6HP PRN PO 12/25/24 00:15 12/25/24 20:54 650 MG Atorvastatin Calcium 20 mg HS PO 12/25/24 22:00 12/27/24 23:07 20 MG Piperacillin Sod/ Tazobactam Sod 100 ml @ 25 mls/hr Q8H IV 12/25/24 03:00 12/28/24 11:28 25 MLS/HR Nitroglycerin 0.4 mg Q5MINP PRN SL 12/25/24 01:45 Morphine Sulfate 2 mg Q30M PRN IV 12/25/24 01:45 Diagnostic Test (Pha) 1 strip ACHS 12/25/24 17:00 12/28/24 06:25 1 STRIP Insulin Human Regular HS SC 12/25/24 22:00 12/27/24 22:52 3 UNITS Insulin Human Regular AC SC 12/25/24 17:00 12/28/24 06:25 6 UNITS Dextrose 50 ml UD PRN IV 12/25/24 13:15 Prochlorperazine Edisylate 10 mg Q4HPRN PRN IV 12/26/24 01:30 12/26/24 01:56 10 MG Metoprolol Succinate 25 mg DAILY PO 12/26/24 10:45 12/28/24 09:13 25 MG Amiodarone HCl 200 mg Q12HR PO 12/26/24 22:00 12/28/24 09:13 200 MG Acetaminophen/ Hydrocodone Bitart 1 tab Q6HP PRN PO 12/26/24 10:45 12/28/24 06:20 1 TAB Morphine Sulfate 4 mg Q4HPRN PRN IV 12/26/24 10:45 12/28/24 09:14 4 MG Vancomycin HCl 125 mg QID PO 12/26/24 12:00 12/28/24 06:20 125 MG Furosemide 40 mg BID IV 12/27/24 10:00 12/28/24 09:12 40 MG Vancomycin HCl 250 ml @ 200 mls/hr Q8H IV 12/27/24 17:00 12/28/24 09:12 200 MLS/HR Laboratory Results Laboratory Tests 12/28/24 04:08 Chemistry Test 12/28/24 04:08 Calcium Level 8.7 mg/dL (8.7-10.4) Urinalysis Test 12/26/24 12:13 Urine Color Yellow (Yellow) Urine Clarity Hazy (Clear) H Urine pH 5.5 (5.0-9.0) Urine Specific [place] 1.033 (1.001-1.035) Urine Protein 1+ (Negative) H Urine Ketones 1+ (Negative) H Urine Blood 1+ /uL (Negative) H Urine Nitrite Negative (Negative) Urine Bilirubin Negative (Negative) Urine Urobilinogen Normal mg/dL (Negative) Urine Leukocyte Esterase Negative /uL (Negative) Urine RBC 1 /hpf (0 - 3) Urine Microscopic WBC 5 /HPF (0-3) H Urine Squamous Epithelial Cells Few /hpf (<5) Urine Bacteria Few /hpf (None Seen) H Urine Glucose 4+ mg/dL (Normal) H Microbiology Microbiology Date/Time Source Procedure Growth Status 12/26/24 12:13 Voided Urine Urine Culture - Final Complete 12/25/24 14:02 Blood Blood Culture - Preliminary NO GROWTH AFTER 48 HOURS OF INCUBATION. Resulted Assessment/Plan Assessment/Plan Cellulitis RLE Cellulitis Left hand Sepsis Afib RVR Morbid obesity Recurrent C. 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 Thrombocytopenia due to sepsis HTN DM2 Mixed hyperlipidemia Bacteremia PLAN: Continue IV antibiotics: Zosyn &Vanco Resume po Vanco Lasix Pain management Eliquis Metoprolol po amiodarone Junior 12/27/2024: Left hand cellulitis rule out abscess: Get CT scan of the left hand no contrast Bilateral lower extremity edema: Increase Lasix to twice a day Right lower extremity cellulitis: Continue IV antibiotics with Zosyn and vancomycin Atrial fibrillation: Continue Eliquis and metoprolol and amiodarone Bacteremia with Gram-negative rods and Gram-positive cocci: Continue IV antibiotics Recent C diff colitis: Continue vancomycin p.o. Hypokalemia: Replace p.o. Pain control with morphine and [place] p.r.n. Junior catheter Monitor closely 12/28/2024: Replace potassium Continue IV antibiotics Add [place] supplements twice a day Continue p.o. vancomycin Monitor closely Plan discussed with: Patient My Orders Orders - PEGGY OZUNA MD Procedure Category Date Status Time * Wound Consult CONS 12/27/24 Transmitted * Dietary Consult CONS 12/27/24 Transmitted 15:50 Apply Barrier Cream PRACHI 12/27/24 In Process 11:31 Date of Service: Dec 28, 2024 Billing Provider: PEGGY OZUNA MD Common Visit Codes: NOT BILLABLE PEGGY OZUNA MD Dec 28, 2024 12:21
[2024-12-28] MEDS: POTASSIUM CHL 20 Meq TABLET PO ONE (12:22)
[2024-12-28] MEDS: Juven Orange Powder PACKET 27.5gm PO ONE (12:22)
[2024-12-28] MEDS: Juven Orange Powder PACKET 27.5gm PO SCH (18:00)
--- NOTE | 2024-12-28 21:24 | DVHPN2 ---
Progress Note - Dictate Date Seen: Dec 28, 2024 Medical Necessity Reason Pt with a Central, PICC or Fol: No Subjective No new acute complaints noted at this time. Edema and erythema is getting better slowly. Potassium is 3.2 vital signs Vital Sign Date Time Temp Pulse Resp B/P (MAP) Pulse Ox O2 Delivery O2 Flow Rate FiO2 12/28/24 20:20 119 16 Room Air* 0 21 12/28/24 20:12 121/70 12/28/24 13:00 97.6 95 97.6 Total Intake and Output 12/27/24 12/27/24 12/28/24 15:00 23:00 07:00 Intake Total 250 ml 250 ml 1250 ml Output Total 1650 ml Balance 250 ml 250 ml -400 ml medications Current Medications Medications Dose Ordered Sig/Florinda Route Start Time Stop Time Status Last Admin Dose Admin Vancomycin HCl 0 ml @ 0 mls/hr UD IV 12/24/24 17:15 Apixaban 5 mg BID PO 12/25/24 10:00 12/28/24 09:13 5 MG Ondansetron HCl 4 mg Q4HP PRN IV 12/25/24 00:15 Hold 12/26/24 00:43 4 MG Docusate Sodium 100 mg BIDPRN PRN PO 12/25/24 00:15 12/25/24 22:17 100 MG Acetaminophen 650 mg Q6HP PRN PO 12/25/24 00:15 12/25/24 20:54 650 MG Atorvastatin Calcium 20 mg HS PO 12/25/24 22:00 12/27/24 23:07 20 MG Piperacillin Sod/ Tazobactam Sod 100 ml @ 25 mls/hr Q8H IV 12/25/24 03:00 12/28/24 18:30 25 MLS/HR Nitroglycerin 0.4 mg Q5MINP PRN SL 12/25/24 01:45 Morphine Sulfate 2 mg Q30M PRN IV 12/25/24 01:45 Diagnostic Test (Pha) 1 strip ACHS 12/25/24 17:00 12/28/24 17:00 1 STRIP Insulin Human Regular HS SC 12/25/24 22:00 12/27/24 22:52 3 UNITS Insulin Human Regular AC SC 12/25/24 17:00 12/28/24 18:25 6 UNITS Dextrose 50 ml UD PRN IV 12/25/24 13:15 Prochlorperazine Edisylate 10 mg Q4HPRN PRN IV 12/26/24 01:30 12/26/24 01:56 10 MG Metoprolol Succinate 25 mg DAILY PO 12/26/24 10:45 12/28/24 09:13 25 MG Amiodarone HCl 200 mg Q12HR PO 12/26/24 22:00 12/28/24 09:13 200 MG Acetaminophen/ Hydrocodone Bitart 1 tab Q6HP PRN PO 12/26/24 10:45 12/28/24 12:54 1 TAB Morphine Sulfate 4 mg Q4HPRN PRN IV 12/26/24 10:45 12/28/24 20:12 4 MG Vancomycin HCl 125 mg QID PO 12/26/24 12:00 12/28/24 18:23 125 MG Furosemide 40 mg BID IV 12/27/24 10:00 12/28/24 09:12 40 MG Enteral Nutritional Formula 27.5 gm BIDWM PO 12/28/24 18:00 12/28/24 18:00 27.5 GM objective General Appearance: Alert, Oriented X3, Cooperative, No acute distress HEENT: Atraumatic, EOMI, Mucous membrane. moist/pink Respiratory: Crackles. Clear to auscultation, Normal air movement Cardiovascular: Regular rate, Normal S1, Normal S2, No murmurs Abdominal: Normal bowel sounds, Soft, No tenderness, No hepatospenomegaly, No masses Extremities: Other (Lower extremity tenderness/swelling). Right leg extremely swollen with redness and oozing intermittently from groin area to right foot. Left leg edema. Neuro: Normal speech, Normal tone, Sensation intact, Cranial nerves 3-12 NL, Other (Generalized weakness) Psych/Mental Status: Mental status NL, Mood NL laboratory and microbiology Laboratory Tests 12/28/24 04:08 Test 12/28/24 04:08 Range/Units Serum Glucose 218 H 74-106 mg/dL Assessment/Plan Patient is a 69-year-old male presents to the hospital with: Bacteremia due to Staphylococcus epidermidis Sepsis Tachycardia Cellulitis of right lower extremity Fluid overload Rule out congestive heart failure Generalized weakness Uncontrolled diabetes mellitus Diabetes mellitus with hyperglycemia Recommendations: Blood culture is likely a contaminant, 1/2 bottles positive Patient needs to be on strict I&O's with fluid restriction Cardiology is on board Continue Lasix Elevate legs Continue IV Vancomycin Discontinue IV Zosyn Antibiotic status: Vancomycin IV [Started on 12/24 - Ongoing] Zosyn IV [Started on 12/25 - Ongoing] 12/27, Vancomycin Trough is 9.8. Patient is afebrile 12/24, Blood culture showed Staphylococcus epidermidis 12/25, Blood culture showed no growth 12/26, Urine culture showed no growth 12/27, Hand CT showed Dorsal soft tissue swelling which may reflect cellulitis. No fluid collection. No CT evidence of acute osseous abnormality. Prognosis guarded Thank you for consult. Dietary Evaluation Review Comments: For promoting wound healin. Tight DM control, maintain serum Glucose WNL at all time. 2. Consider juvem BID supplementation, encouarge PO intake tomeet 75% of his needs. 3. If Po remain poor, consider protein supplementation via Clinimix amino acid infusion for added 42.5 g protein and 510 kcal if runs 24 hrs at 41ml/hr. Expected Outcomes/Goals: controlled DM, improved nutrition status, healed wounds, gradual wt loss Plan discussed with: Patient SILVANO FRYE MD Dec 28, 2024 21:24
[2024-12-29] VITALS (8 sets, daily range): BP systolic 105–128; BP diastolic 55–77; PULSE 108–138; RESP 17–20; TEMP 97.8–98.1; O2SAT 91–96
[2024-12-29 07:24] LABS: Chloride 102 mmol/L (98-107); Potassium 3.5 mmol/L (3.5-5.1); Sodium 138 mmol/L (136-145)
[2024-12-29 07:25] LABS: Anion Gap 10 (5-15); Carbon Dioxide 26 mmol/L (20-31)
[2024-12-29 07:30] LABS: BUN/Creatinine Ratio 27.2 (10.0-20.0); Blood Urea Nitrogen 22 mg/dL (9-23)
[2024-12-29 07:39] LABS: Glucose 169 mg/dL (74-106); Magnesium 1.6 mg/dL (1.6-2.6)
[2024-12-29 08:31] LABS: Basophils # (auto) 0 10 ^3/uL (0-0.2); Basophils % (auto) 0.3 % (0.0-2.0); Eosinophils # (auto) 0.1 10 ^3/uL (0-0.8); Eosinophils % (auto) 0.4 % (0.0-7.0); Hematocrit 40.3 % (41.0-53.0); Hemoglobin 13.7 g/dL (13.5-17.5); Lymphocytes # (auto) 1.3 10 ^3/uL (0.4-5.4); Lymphocytes % (auto) 8.1 % (10.0-50.0); Mean Corpuscular Hemoglobin 30.3 pg (28.0-32.0); Mean Corpuscular Volume 89.1 fL (80.0-100.0); Monocytes # (auto) 1.1 10 ^3/uL (0-1.3); Monocytes % (auto) 6.8 % (0.0-12.0); Neutrophils # (auto) 13.3 10 ^3/uL (1.6-8.6); Neutrophils % (auto) 84.4 % (37.0-80.0); Platelet Count (auto) 236 10^3/uL (140-450); Red Blood Cells 4.52 10^6/uL (4.5-5.90); White Blood Cell 15.8 10^3/uL (4.4-10.8)
--- NOTE | 2024-12-29 10:06 | DVHPN2 ---
Progress Note - Dictate Date Seen: Dec 29, 2024 Medical Necessity Reason Pt with a Central, PICC or Fol: No Subjective Edema and erythema is getting better slowly. Potassium is 3.5 Magnesium is 1.6 vital signs Vital Sign Date Time Temp Pulse Resp B/P (MAP) Pulse Ox O2 Delivery O2 Flow Rate FiO2 12/29/24 09:00 98.1 120 20 114/66 (82) 95 98.1 12/28/24 20:20 Room Air* 0 21 Total Intake and Output 12/28/24 12/28/24 12/29/24 15:00 23:00 07:00 Intake Total 100 ml 670 ml 720 ml Output Total 1201 ml 800 ml Balance 100 ml -531 ml -80 ml medications Current Medications Medications Dose Ordered Sig/Florinda Route Start Time Stop Time Status Last Admin Dose Admin Vancomycin HCl 0 ml @ 0 mls/hr UD IV 12/24/24 17:15 Apixaban 5 mg BID PO 12/25/24 10:00 12/28/24 21:43 5 MG Ondansetron HCl 4 mg Q4HP PRN IV 12/25/24 00:15 Hold 12/26/24 00:43 4 MG Docusate Sodium 100 mg BIDPRN PRN PO 12/25/24 00:15 12/25/24 22:17 100 MG Acetaminophen 650 mg Q6HP PRN PO 12/25/24 00:15 12/25/24 20:54 650 MG Atorvastatin Calcium 20 mg HS PO 12/25/24 22:00 12/28/24 21:43 20 MG Piperacillin Sod/ Tazobactam Sod 100 ml @ 25 mls/hr Q8H IV 12/25/24 03:00 12/29/24 02:40 25 MLS/HR Nitroglycerin 0.4 mg Q5MINP PRN SL 12/25/24 01:45 Morphine Sulfate 2 mg Q30M PRN IV 12/25/24 01:45 Diagnostic Test (Pha) 1 strip ACHS 12/25/24 17:00 12/29/24 06:06 1 STRIP Insulin Human Regular HS SC 12/25/24 22:00 12/28/24 21:47 4 UNITS Insulin Human Regular AC SC 12/25/24 17:00 12/29/24 06:29 3 UNITS Dextrose 50 ml UD PRN IV 12/25/24 13:15 Prochlorperazine Edisylate 10 mg Q4HPRN PRN IV 12/26/24 01:30 12/26/24 01:56 10 MG Metoprolol Succinate 25 mg DAILY PO 12/26/24 10:45 12/28/24 09:13 25 MG Amiodarone HCl 200 mg Q12HR PO 12/26/24 22:00 12/28/24 21:43 200 MG Acetaminophen/ Hydrocodone Bitart 1 tab Q6HP PRN PO 12/26/24 10:45 12/29/24 08:40 1 TAB Morphine Sulfate 4 mg Q4HPRN PRN IV 12/26/24 10:45 12/29/24 05:30 4 MG Vancomycin HCl 125 mg QID PO 12/26/24 12:00 12/29/24 06:05 125 MG Furosemide 40 mg BID IV 12/27/24 10:00 12/28/24 21:43 40 MG Enteral Nutritional Formula 27.5 gm BIDWM PO 12/28/24 18:00 12/29/24 08:36 27.5 GM Vancomycin HCl 150 ml @ 150 mls/hr Q8H IV 12/29/24 10:00 objective General Appearance: Alert, Oriented X3, Cooperative, No acute distress HEENT: Atraumatic, EOMI, Mucous membrane. moist/pink Respiratory: Crackles. Clear to auscultation, Normal air movement Cardiovascular: Regular rate, Normal S1, Normal S2, No murmurs Abdominal: Normal bowel sounds, Soft, No tenderness, No hepatospenomegaly, No masses Extremities: Other (Lower extremity tenderness/swelling). Right leg extremely swollen with redness and oozing intermittently from groin area to right foot. Left leg edema. Neuro: Normal speech, Normal tone, Sensation intact, Cranial nerves 3-12 NL, Other (Generalized weakness) Psych/Mental Status: Mental status NL, Mood NL laboratory and microbiology Laboratory Tests 12/29/24 05:55 Test 12/29/24 05:55 Range/Units Serum Glucose 169 H 74-106 mg/dL Assessment/Plan Patient is a 69-year-old male presents to the hospital with: Bacteremia due to Staphylococcus epidermidis Sepsis Tachycardia Cellulitis of right lower extremity Fluid overload Rule out congestive heart failure Generalized weakness Uncontrolled diabetes mellitus Diabetes mellitus with hyperglycemia Recommendations: Blood culture is likely a contaminant, 1/2 bottles positive Patient needs to be on strict I&O's with fluid restriction Cardiology is on board Continue Lasix Elevate legs Continue IV Vancomycin Discontinue IV Zosyn Antibiotic status: Vancomycin IV [Started on 12/24 - Ongoing] Zosyn IV [Started on 12/25 - Ongoing] 12/27, Vancomycin Trough is 9.8. Patient is afebrile 12/24, Blood culture showed Staphylococcus epidermidis 12/25, Blood culture showed no growth 12/26, Urine culture showed no growth 12/27, Hand CT showed Dorsal soft tissue swelling which may reflect cellulitis. No fluid collection. No CT evidence of acute osseous abnormality. Prognosis guarded Thank you for consult. Dietary Evaluation Review Comments: For promoting wound healin. Tight DM control, maintain serum Glucose WNL at all time. 2. Consider juvem BID supplementation, encouarge PO intake tomeet 75% of his needs. 3. If Po remain poor, consider protein supplementation via Clinimix amino acid infusion for added 42.5 g protein and 510 kcal if runs 24 hrs at 41ml/hr. Expected Outcomes/Goals: controlled DM, improved nutrition status, healed wounds, gradual wt loss Plan discussed with: SILVANO Robertson MD Dec 29, 2024 10:06
[2024-12-29] MEDS: VANCOMYCIN 750mg/150ml 150 ML IV SCH (10:41)
--- NOTE | 2024-12-29 14:09 | DVHPN2 ---
Subjective Edema and erythema is getting better slowly Potassium is 3.5 Magnesium is 1.6 Changes from previous H/P or p: Changes Eyes: No Pain, No Vision change, No Conjunctivae inflammation, No Eyelid inflammation, No Other, No Redness ENT: No Ear pain, No Ear discharge, No Nose pain, No Nose discharge, No Nose congestion, No Mouth pain, No Mouth swelling, No Throat pain, No Throat swelling, No Other Cardiovascular: No Chest Pain, No Palpitations, No Orthopnea, No Paroxysmal Noc. Dyspnea, No Edema, No Lt Headedness, No Other Respiratory: No Cough, No Dry, No Shortness of breath, No SOB with excertion, No Wheezing, No Hemoptysis, No Pleuritic Pain, No Sputum, No Other Gastrointestinal: No Nausea, No Vomiting, No Abdominal Pain, No Diarrhea, No Constipation, No Melena, No Hematochezia, No Other Genitourinary: No Dysuria, No Frequency, No Incontinence, No Hematuria, No Retention, No Other Musculoskeletal: other (Lower extremity swelling); No neck pain, No shoulder pain, No arm pain, No back pain, No hand pain; leg pain; No foot pain Skin: No Rash, No Lesions, No Jaundice, No Bruising; Other (Lower extremity redness) Objective Vitals Vital Signs Date Time Temp Pulse Resp B/P (MAP) Pulse Ox O2 Delivery O2 Flow Rate FiO2 12/29/24 12:57 97.8 120 18 118/73 (88) 95 97.8 12/29/24 08:00 Room Air* 0 21 Intake/Output Intake and Output 12/29/24 07:00 Intake Total 1490 ml Output Total 2001 ml Balance -511 ml Intake Oral 1020 ml IV Total 470 ml Output Urine Total 2000 ml Stool Total 1 ml General Appearance: Alert, Oriented X3, Cooperative Lungs: Clear to auscultation Cardiovascular: Normal S1, Other (Irregularly irregular) Abdomen: Normal bowel sounds, Soft, No tenderness Extremities: Other (2+ edema BLE R>L) Medications Current Medications Medications Dose Ordered Sig/Florinda Route Start Time Stop Time Status Last Admin Dose Admin Vancomycin HCl 0 ml @ 0 mls/hr UD IV 12/24/24 17:15 Apixaban 5 mg BID PO 12/25/24 10:00 12/29/24 10:27 5 MG Ondansetron HCl 4 mg Q4HP PRN IV 12/25/24 00:15 Hold 12/26/24 00:43 4 MG Docusate Sodium 100 mg BIDPRN PRN PO 12/25/24 00:15 12/25/24 22:17 100 MG Acetaminophen 650 mg Q6HP PRN PO 12/25/24 00:15 12/25/24 20:54 650 MG Atorvastatin Calcium 20 mg HS PO 12/25/24 22:00 12/28/24 21:43 20 MG Piperacillin Sod/ Tazobactam Sod 100 ml @ 25 mls/hr Q8H IV 12/25/24 03:00 12/29/24 11:55 25 MLS/HR Nitroglycerin 0.4 mg Q5MINP PRN SL 12/25/24 01:45 Morphine Sulfate 2 mg Q30M PRN IV 12/25/24 01:45 Diagnostic Test (Pha) 1 strip ACHS 12/25/24 17:00 12/29/24 11:22 1 STRIP Insulin Human Regular HS SC 12/25/24 22:00 12/28/24 21:47 4 UNITS Insulin Human Regular AC SC 12/25/24 17:00 12/29/24 12:01 3 UNITS Dextrose 50 ml UD PRN IV 12/25/24 13:15 Prochlorperazine Edisylate 10 mg Q4HPRN PRN IV 12/26/24 01:30 12/26/24 01:56 10 MG Metoprolol Succinate 25 mg DAILY PO 12/26/24 10:45 12/29/24 10:27 25 MG Amiodarone HCl 200 mg Q12HR PO 12/26/24 22:00 12/29/24 10:27 200 MG Acetaminophen/ Hydrocodone Bitart 1 tab Q6HP PRN PO 12/26/24 10:45 12/29/24 08:40 1 TAB Morphine Sulfate 4 mg Q4HPRN PRN IV 12/26/24 10:45 12/29/24 12:06 4 MG Vancomycin HCl 125 mg QID PO 12/26/24 12:00 12/29/24 06:05 125 MG Furosemide 40 mg BID IV 12/27/24 10:00 12/29/24 10:27 40 MG Enteral Nutritional Formula 27.5 gm BIDWM PO 12/28/24 18:00 12/29/24 08:36 27.5 GM Vancomycin HCl 150 ml @ 150 mls/hr Q8H IV 12/29/24 10:00 12/29/24 10:41 150 MLS/HR Laboratory Results Laboratory Tests 12/29/24 05:55 Chemistry Test 12/29/24 05:55 Calcium Level 9.0 mg/dL (8.7-10.4) Magnesium Level 1.6 mg/dL (1.6-2.6) Urinalysis Test 12/26/24 12:13 Urine Color Yellow (Yellow) Urine Clarity Hazy (Clear) H Urine pH 5.5 (5.0-9.0) Urine Specific [place] 1.033 (1.001-1.035) Urine Protein 1+ (Negative) H Urine Ketones 1+ (Negative) H Urine Blood 1+ /uL (Negative) H Urine Nitrite Negative (Negative) Urine Bilirubin Negative (Negative) Urine Urobilinogen Normal mg/dL (Negative) Urine Leukocyte Esterase Negative /uL (Negative) Urine RBC 1 /hpf (0 - 3) Urine Microscopic WBC 5 /HPF (0-3) H Urine Squamous Epithelial Cells Few /hpf (<5) Urine Bacteria Few /hpf (None Seen) H Urine Glucose 4+ mg/dL (Normal) H Microbiology Microbiology Date/Time Source Procedure Growth Status 12/26/24 12:13 Voided Urine Urine Culture - Final Complete 12/25/24 14:02 Blood Blood Culture - Preliminary NO GROWTH AFTER 72 HOURS OF INCUBATION. Resulted Assessment/Plan Assessment/Plan Cellulitis RLE Cellulitis Left hand Sepsis Afib RVR Morbid obesity Recurrent C. 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 Thrombocytopenia due to sepsis HTN DM2 Mixed hyperlipidemia Bacteremia PLAN: Continue IV antibiotics: Zosyn &Vanco Resume po Vanco Lasix Pain management Eliquis Metoprolol po amiodarone Junior 12/27/2024: Left hand cellulitis rule out abscess: Get CT scan of the left hand no contrast Bilateral lower extremity edema: Increase Lasix to twice a day Right lower extremity cellulitis: Continue IV antibiotics with Zosyn and vancomycin Atrial fibrillation: Continue Eliquis and metoprolol and amiodarone Bacteremia with Gram-negative rods and Gram-positive cocci: Continue IV antibiotics Recent C diff colitis: Continue vancomycin p.o. Hypokalemia: Replace p.o. Pain control with morphine and [place] p.r.n. Junior catheter Monitor closely 12/28/2024: Replace potassium Continue IV antibiotics Add Aguilar supplements twice a day Continue p.o. vancomycin Monitor closely 12/29/2024: Replace potassium and magnesium Start physical therapy Continue the IV antibiotics Plan discussed with: Patient Date of Service: Dec 29, 2024 Billing Provider: PEGGY OZUNA MD Common Visit Codes: NOT BILLABLE PEGGY OZUNA MD Dec 29, 2024 14:09
[2024-12-29] MEDS: POTASSIUM CHL 20 Meq TABLET PO ONE (14:47)
[2024-12-29] MEDS: PIPERACILLIN-TAZOB 3.375GM 100 ML IV SCH (16:02)
[2024-12-29] MEDS: MAGNESIUM SULFATE 1GM/100ML 100 ML IV SCH (16:39)
[2024-12-30] VITALS (8 sets, daily range): BP systolic 97–140; BP diastolic 59–75; PULSE 92–136; RESP 16–18; TEMP 97.7–98.3; O2SAT 88–95
[2024-12-30 07:24] LABS: Anion Gap 11 (5-15); Calcium 8.9 mg/dL (8.7-10.4); Carbon Dioxide 27 mmol/L (20-31)
[2024-12-30 07:26] LABS: Chloride 97 mmol/L (98-107); Potassium 3.3 mmol/L (3.5-5.1); Sodium 135 mmol/L (136-145)
[2024-12-30 07:29] LABS: BUN/Creatinine Ratio 27.5 (10.0-20.0); Basophils # (auto) 0.1 10 ^3/uL (0-0.2); Basophils % (auto) 0.3 % (0.0-2.0); Eosinophils # (auto) 0.1 10 ^3/uL (0-0.8); Eosinophils % (auto) 0.5 % (0.0-7.0); Hemoglobin 13.8 g/dL (13.5-17.5); Lymphocytes # (auto) 1.3 10 ^3/uL (0.4-5.4); Lymphocytes % (auto) 8.1 % (10.0-50.0); Mean Corpuscular Hemoglobin 29.8 pg (28.0-32.0); Mean Corpuscular Hgb Conc. 33.6 g/dL (32.0-36.0); Mean Corpuscular Volume 88.9 fL (80.0-100.0); Monocytes % (auto) 6.3 % (0.0-12.0); Neutrophils # (auto) 13.4 10 ^3/uL (1.6-8.6); Neutrophils % (auto) 84.8 % (37.0-80.0); Platelet Count (auto) 263 10^3/uL (140-450); Red Blood Cells 4.61 10^6/uL (4.5-5.90); Red Cell Distribution Width 14.1 % (11.8-14.3); White Blood Cell 15.9 10^3/uL (4.4-10.8)
[2024-12-30 07:30] LABS: Magnesium 1.7 mg/dL (1.6-2.6)
[2024-12-30 07:34] LABS: Blood Urea Nitrogen 25 mg/dL (9-23); Glucose 213 mg/dL (74-106)
--- NOTE | 2024-12-30 11:58 | DVHPN2 ---
Progress Note - Dictate Date Seen: Dec 30, 2024 Medical Necessity Reason Pt with a Central, PICC or Fol: No Subjective Patient reports that he has been feeling better. swelling of leg/ edema is improving slowly. vital signs Vital Sign Date Time Temp Pulse Resp B/P (MAP) Pulse Ox O2 Delivery O2 Flow Rate FiO2 12/30/24 09:08 117 18 118/73 12/30/24 08:50 97.7 93 97.7 12/29/24 20:00 Room Air* 0 21 Total Intake and Output 12/29/24 12/29/24 12/30/24 15:00 23:00 07:00 Intake Total 150 ml 1050 ml 1335 ml Output Total 2250 ml 1900 ml Balance 150 ml -1200 ml -565 ml medications Current Medications Medications Dose Ordered Sig/Florinda Route Start Time Stop Time Status Last Admin Dose Admin Vancomycin HCl 0 ml @ 0 mls/hr UD IV 12/24/24 17:15 Apixaban 5 mg BID PO 12/25/24 10:00 12/30/24 09:06 5 MG Ondansetron HCl 4 mg Q4HP PRN IV 12/25/24 00:15 Hold 12/26/24 00:43 4 MG Docusate Sodium 100 mg BIDPRN PRN PO 12/25/24 00:15 12/25/24 22:17 100 MG Acetaminophen 650 mg Q6HP PRN PO 12/25/24 00:15 12/25/24 20:54 650 MG Atorvastatin Calcium 20 mg HS PO 12/25/24 22:00 12/29/24 22:30 20 MG Nitroglycerin 0.4 mg Q5MINP PRN SL 12/25/24 01:45 Morphine Sulfate 2 mg Q30M PRN IV 12/25/24 01:45 Diagnostic Test (Pha) 1 strip ACHS 12/25/24 17:00 12/30/24 06:42 1 STRIP Insulin Human Regular HS SC 12/25/24 22:00 12/29/24 23:13 4 UNITS Insulin Human Regular AC SC 12/25/24 17:00 12/30/24 06:45 6 UNITS Dextrose 50 ml UD PRN IV 12/25/24 13:15 Prochlorperazine Edisylate 10 mg Q4HPRN PRN IV 12/26/24 01:30 12/26/24 01:56 10 MG Metoprolol Succinate 25 mg DAILY PO 12/26/24 10:45 12/30/24 09:07 25 MG Amiodarone HCl 200 mg Q12HR PO 12/26/24 22:00 12/30/24 09:06 200 MG Acetaminophen/ Hydrocodone Bitart 1 tab Q6HP PRN PO 12/26/24 10:45 12/30/24 06:07 1 TAB Morphine Sulfate 4 mg Q4HPRN PRN IV 12/26/24 10:45 12/30/24 09:08 4 MG Vancomycin HCl 125 mg QID PO 12/26/24 12:00 12/30/24 06:06 125 MG Furosemide 40 mg BID IV 12/27/24 10:00 12/30/24 09:05 40 MG Enteral Nutritional Formula 27.5 gm BIDWM PO 12/28/24 18:00 12/30/24 09:04 27.5 GM Vancomycin HCl 150 ml @ 150 mls/hr Q8H IV 12/29/24 10:00 12/30/24 02:01 150 MLS/HR Magnesium Sulfate/ Dextrose 100 ml @ 100 mls/hr Q1HR IV 12/30/24 12:00 12/30/24 13:59 UNV objective General Appearance: Alert, Oriented X3, Cooperative, No acute distress HEENT: Atraumatic, EOMI, Mucous membrane. moist/pink Respiratory: Crackles. Clear to auscultation, Normal air movement Cardiovascular: Regular rate, Normal S1, Normal S2, No murmurs Abdominal: Normal bowel sounds, Soft, No tenderness, No hepatospenomegaly, No masses Extremities: Other (Lower extremity tenderness/swelling). Right leg extremely swollen with redness and oozing intermittently from groin area to right foot. Left leg edema. Neuro: Normal speech, Normal tone, Sensation intact, Cranial nerves 3-12 NL, Other (Generalized weakness) Psych/Mental Status: Mental status NL, Mood NL laboratory and microbiology Laboratory Tests 12/30/24 05:43 Test 12/30/24 05:43 Range/Units Serum Glucose 213 H 74-106 mg/dL Assessment/Plan Patient is a 69-year-old male presents to the hospital with: Bacteremia due to Staphylococcus epidermidis Sepsis Tachycardia Cellulitis of right lower extremity Fluid overload Rule out congestive heart failure Generalized weakness Uncontrolled diabetes mellitus Diabetes mellitus with hyperglycemia h/o C diff Recommendations: Blood culture is likely a contaminant, 1/2 bottles positive Patient needs to be on strict I&O's with fluid restriction Cardiology is on board Continue Lasix Elevate legs Continue IV Vancomycin Discontinue IV Zosyn Antibiotic status: Vancomycin IV [Started on 12/24 - Ongoing] Zosyn IV [Started on 12/25 - Ongoing] 12/27, Vancomycin Trough is 9.8. Patient is afebrile 12/24, Blood culture showed Staphylococcus epidermidis 12/25, Blood culture showed no growth 12/26, Urine culture showed no growth 12/27, Hand CT showed Dorsal soft tissue swelling which may reflect cellulitis. No fluid collection. No CT evidence of acute osseous abnormality. Prognosis guarded Thank you for consult. Dietary Evaluation Review Comments: For promoting wound healin. Tight DM control, maintain serum Glucose WNL at all time. 2. Consider juvem BID supplementation, encouarge PO intake tomeet 75% of his needs. 3. If Po remain poor, consider protein supplementation via Clinimix amino acid infusion for added 42.5 g protein and 510 kcal if runs 24 hrs at 41ml/hr. Expected Outcomes/Goals: controlled DM, improved nutrition status, healed wounds, gradual wt loss Plan discussed with: Other SILVANO FRYE MD Dec 30, 2024 11:58
--- NOTE | 2024-12-30 13:09 | DVHPN2 ---
Subjective Better Changes from previous H/P or p: Changes Eyes: No Pain, No Vision change, No Conjunctivae inflammation, No Eyelid inflammation, No Other, No Redness ENT: No Ear pain, No Ear discharge, No Nose pain, No Nose discharge, No Nose congestion, No Mouth pain, No Mouth swelling, No Throat pain, No Throat swelling, No Other Cardiovascular: No Chest Pain, No Palpitations, No Orthopnea, No Paroxysmal Noc. Dyspnea, No Edema, No Lt Headedness, No Other Respiratory: No Cough, No Dry, No Shortness of breath, No SOB with excertion, No Wheezing, No Hemoptysis, No Pleuritic Pain, No Sputum, No Other Gastrointestinal: No Nausea, No Vomiting, No Abdominal Pain, No Diarrhea, No Constipation, No Melena, No Hematochezia, No Other Genitourinary: No Dysuria, No Frequency, No Incontinence, No Hematuria, No Retention, No Other Musculoskeletal: other (Lower extremity swelling); No neck pain, No shoulder pain, No arm pain, No back pain, No hand pain; leg pain; No foot pain Skin: No Rash, No Lesions, No Jaundice, No Bruising; Other (Lower extremity redness) Objective Vitals Vital Signs Date Time Temp Pulse Resp B/P (MAP) Pulse Ox O2 Delivery O2 Flow Rate FiO2 12/30/24 12:22 97.8 133 17 108/75 (86) 94 97.8 12/29/24 20:00 Room Air* 0 21 Intake/Output Intake and Output 12/30/24 07:00 Intake Total 2535 ml Output Total 4150 ml Balance -1615 ml Intake Oral 2385 ml IV Total 150 ml Output Urine Total 4150 ml # Bowel Movements 2 General Appearance: Alert, Oriented X3, Cooperative Lungs: Clear to auscultation Cardiovascular: Normal S1, Other (Irregularly irregular) Abdomen: Normal bowel sounds, Soft, No tenderness Extremities: Other (2+ edema BLE R>L) Medications Current Medications Medications Dose Ordered Sig/Florinda Route Start Time Stop Time Status Last Admin Dose Admin Vancomycin HCl 0 ml @ 0 mls/hr UD IV 12/24/24 17:15 Apixaban 5 mg BID PO 12/25/24 10:00 12/30/24 09:06 5 MG Ondansetron HCl 4 mg Q4HP PRN IV 12/25/24 00:15 Hold 12/26/24 00:43 4 MG Docusate Sodium 100 mg BIDPRN PRN PO 12/25/24 00:15 12/25/24 22:17 100 MG Acetaminophen 650 mg Q6HP PRN PO 12/25/24 00:15 12/25/24 20:54 650 MG Atorvastatin Calcium 20 mg HS PO 12/25/24 22:00 12/29/24 22:30 20 MG Nitroglycerin 0.4 mg Q5MINP PRN SL 12/25/24 01:45 Morphine Sulfate 2 mg Q30M PRN IV 12/25/24 01:45 Diagnostic Test (Pha) 1 strip ACHS 12/25/24 17:00 12/30/24 11:30 1 STRIP Insulin Human Regular HS SC 12/25/24 22:00 12/29/24 23:13 4 UNITS Insulin Human Regular AC SC 12/25/24 17:00 12/30/24 12:10 6 UNITS Dextrose 50 ml UD PRN IV 12/25/24 13:15 Prochlorperazine Edisylate 10 mg Q4HPRN PRN IV 12/26/24 01:30 12/26/24 01:56 10 MG Metoprolol Succinate 25 mg DAILY PO 12/26/24 10:45 12/30/24 09:07 25 MG Amiodarone HCl 200 mg Q12HR PO 12/26/24 22:00 12/30/24 09:06 200 MG Acetaminophen/ Hydrocodone Bitart 1 tab Q6HP PRN PO 12/26/24 10:45 12/30/24 06:07 1 TAB Morphine Sulfate 4 mg Q4HPRN PRN IV 12/26/24 10:45 12/30/24 09:08 4 MG Vancomycin HCl 125 mg QID PO 12/26/24 12:00 12/30/24 12:09 125 MG Furosemide 40 mg BID IV 12/27/24 10:00 12/30/24 09:05 40 MG Enteral Nutritional Formula 27.5 gm BIDWM PO 12/28/24 18:00 12/30/24 09:04 27.5 GM Vancomycin HCl 150 ml @ 150 mls/hr Q8H IV 12/29/24 10:00 12/30/24 02:01 150 MLS/HR Magnesium Sulfate/ Dextrose 100 ml @ 100 mls/hr Q1HR IV 12/30/24 12:00 12/30/24 13:59 Laboratory Results Laboratory Tests 12/30/24 05:43 Chemistry Test 12/30/24 05:43 Calcium Level 8.9 mg/dL (8.7-10.4) Magnesium Level 1.7 mg/dL (1.6-2.6) Urinalysis Test 12/26/24 12:13 Urine Color Yellow (Yellow) Urine Clarity Hazy (Clear) H Urine pH 5.5 (5.0-9.0) Urine Specific [place] 1.033 (1.001-1.035) Urine Protein 1+ (Negative) H Urine Ketones 1+ (Negative) H Urine Blood 1+ /uL (Negative) H Urine Nitrite Negative (Negative) Urine Bilirubin Negative (Negative) Urine Urobilinogen Normal mg/dL (Negative) Urine Leukocyte Esterase Negative /uL (Negative) Urine RBC 1 /hpf (0 - 3) Urine Microscopic WBC 5 /HPF (0-3) H Urine Squamous Epithelial Cells Few /hpf (<5) Urine Bacteria Few /hpf (None Seen) H Urine Glucose 4+ mg/dL (Normal) H Microbiology Microbiology Date/Time Source Procedure Growth Status 12/26/24 12:13 Voided Urine Urine Culture - Final Complete 12/25/24 14:02 Blood Blood Culture - Preliminary NO GROWTH AFTER 72 HOURS OF INCUBATION. Resulted Assessment/Plan Assessment/Plan Cellulitis RLE Cellulitis Left hand Sepsis Afib RVR Morbid obesity Recurrent C. 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 Thrombocytopenia due to sepsis HTN DM2 Mixed hyperlipidemia Bacteremia PLAN: Continue IV antibiotics: Zosyn &Vanco Resume po Vanco Lasix Pain management Eliquis Metoprolol po amiodarone Junior 12/27/2024: Left hand cellulitis rule out abscess: Get CT scan of the left hand no contrast Bilateral lower extremity edema: Increase Lasix to twice a day Right lower extremity cellulitis: Continue IV antibiotics with Zosyn and vancomycin Atrial fibrillation: Continue Eliquis and metoprolol and amiodarone Bacteremia with Gram-negative rods and Gram-positive cocci: Continue IV antibiotics Recent C diff colitis: Continue vancomycin p.o. Hypokalemia: Replace p.o. Pain control with morphine and [place] p.r.n. Junior catheter Monitor closely 12/28/2024: Replace potassium Continue IV antibiotics Add [place] supplements twice a day Continue p.o. vancomycin Monitor closely 12/29/2024: Replace potassium and magnesium Start physical therapy Continue the IV antibiotics 12/30/2024: Continue the IV antibiotics Start physical therapy Replace potassium and magnesium Monitor closely The rest of the management will depend on the hospital course Plan discussed with: Patient My Orders Orders - PEGGY OZUNA MD Procedure Category Date Status Time Pt Request For Service PT 12/29/24 Logged 14:07 Magnesium Sulfate PHA 12/30/24 In Process 1gm/100ml 12:00 Date of Service: Dec 30, 2024 Billing Provider: PEGGY OZUNA MD Common Visit Codes: NOT BILLABLE PEGGY OZUNA MD Dec 30, 2024 13:09
[2024-12-30] MEDS: POTASSIUM CHL 20 Meq TABLET PO ONE (14:09)
[2024-12-30] MEDS: MAGNESIUM SULFATE 1GM/100ML 100 ML IV SCH (14:09)
[2024-12-31] VITALS (8 sets, daily range): BP systolic 111–120; BP diastolic 55–78; PULSE 104–133; RESP 17–20; TEMP 97.5–98.7; O2SAT 88–96
[2024-12-31 05:46] LABS: Basophils # (auto) 0.1 10 ^3/uL (0-0.2); Basophils % (auto) 0.4 % (0.0-2.0); Eosinophils # (auto) 0.1 10 ^3/uL (0-0.8); Eosinophils % (auto) 0.5 % (0.0-7.0); Hematocrit 40.2 % (41.0-53.0); Hemoglobin 13.1 g/dL (13.5-17.5); Lymphocytes # (auto) 1.4 10 ^3/uL (0.4-5.4); Lymphocytes % (auto) 8.2 % (10.0-50.0); Mean Corpuscular Hemoglobin 29.2 pg (28.0-32.0); Mean Corpuscular Hgb Conc. 32.7 g/dL (32.0-36.0); Mean Corpuscular Volume 89.3 fL (80.0-100.0); Monocytes # (auto) 0.9 10 ^3/uL (0-1.3); Monocytes % (auto) 5.7 % (0.0-12.0); Neutrophils % (auto) 85.2 % (37.0-80.0); Nucleated Red Blood Cells % 0.1 %; Platelet Count (auto) 252 10^3/uL (140-450); Red Blood Cells 4.51 10^6/uL (4.5-5.90); Red Cell Distribution Width 14.2 % (11.8-14.3); White Blood Cell 16.4 10^3/uL (4.4-10.8)
[2024-12-31 05:52] LABS: Anion Gap 9 (5-15); Carbon Dioxide 29 mmol/L (20-31); Chloride 98 mmol/L (98-107)
[2024-12-31 05:53] LABS: Calcium 8.9 mg/dL (8.7-10.4)
[2024-12-31 05:58] LABS: BUN/Creatinine Ratio 24.7 (10.0-20.0); Blood Urea Nitrogen 23 mg/dL (9-23); Magnesium 1.8 mg/dL (1.6-2.6)
[2024-12-31 06:16] LABS: Glucose 160 mg/dL (74-106); Potassium 3.5 mmol/L (3.5-5.1); Sodium 136 mmol/L (136-145)
--- NOTE | 2024-12-31 11:28 | DVHPN2 ---
Subjective Better No new complaints Changes from previous H/P or p: Changes Eyes: No Pain, No Vision change, No Conjunctivae inflammation, No Eyelid inflammation, No Other, No Redness ENT: No Ear pain, No Ear discharge, No Nose pain, No Nose discharge, No Nose congestion, No Mouth pain, No Mouth swelling, No Throat pain, No Throat swelling, No Other Cardiovascular: No Chest Pain, No Palpitations, No Orthopnea, No Paroxysmal Noc. Dyspnea, No Edema, No Lt Headedness, No Other Respiratory: No Cough, No Dry, No Shortness of breath, No SOB with excertion, No Wheezing, No Hemoptysis, No Pleuritic Pain, No Sputum, No Other Gastrointestinal: No Nausea, No Vomiting, No Abdominal Pain, No Diarrhea, No Constipation, No Melena, No Hematochezia, No Other Genitourinary: No Dysuria, No Frequency, No Incontinence, No Hematuria, No Retention, No Other Musculoskeletal: other (Lower extremity swelling); No neck pain, No shoulder pain, No arm pain, No back pain, No hand pain; leg pain; No foot pain Skin: No Rash, No Lesions, No Jaundice, No Bruising; Other (Lower extremity redness) Objective Vitals Vital Signs Date Time Temp Pulse Resp B/P (MAP) Pulse Ox O2 Delivery O2 Flow Rate FiO2 12/31/24 09:00 97.5 122 20 116/72 (87) 93 97.5 12/30/24 20:00 Room Air* 0 21 Intake/Output Intake and Output 12/31/24 07:00 Intake Total 1050 ml Output Total 1550 ml Balance -500 ml Intake Oral 550 ml IV Total 500 ml Output Urine Total 1550 ml # Bowel Movements 1 General Appearance: Alert, Oriented X3, Cooperative Lungs: Clear to auscultation Cardiovascular: Normal S1, Other (Irregularly irregular) Abdomen: Normal bowel sounds, Soft, No tenderness Extremities: Other (2+ edema BLE R>L) Medications Current Medications Medications Dose Ordered Sig/Florinda Route Start Time Stop Time Status Last Admin Dose Admin Vancomycin HCl 0 ml @ 0 mls/hr UD IV 12/24/24 17:15 Apixaban 5 mg BID PO 12/25/24 10:00 12/31/24 08:30 5 MG Ondansetron HCl 4 mg Q4HP PRN IV 12/25/24 00:15 Hold 12/26/24 00:43 4 MG Docusate Sodium 100 mg BIDPRN PRN PO 12/25/24 00:15 12/25/24 22:17 100 MG Acetaminophen 650 mg Q6HP PRN PO 12/25/24 00:15 12/25/24 20:54 650 MG Atorvastatin Calcium 20 mg HS PO 12/25/24 22:00 12/30/24 22:21 20 MG Nitroglycerin 0.4 mg Q5MINP PRN SL 12/25/24 01:45 Morphine Sulfate 2 mg Q30M PRN IV 12/25/24 01:45 Diagnostic Test (Pha) 1 strip ACHS 12/25/24 17:00 12/31/24 06:58 1 STRIP Insulin Human Regular HS SC 12/25/24 22:00 12/30/24 22:17 3 UNITS Insulin Human Regular AC SC 12/25/24 17:00 12/31/24 06:52 2 UNITS Dextrose 50 ml UD PRN IV 12/25/24 13:15 Prochlorperazine Edisylate 10 mg Q4HPRN PRN IV 12/26/24 01:30 12/26/24 01:56 10 MG Metoprolol Succinate 25 mg DAILY PO 12/26/24 10:45 12/31/24 08:31 25 MG Amiodarone HCl 200 mg Q12HR PO 12/26/24 22:00 12/31/24 08:30 200 MG Acetaminophen/ Hydrocodone Bitart 1 tab Q6HP PRN PO 12/26/24 10:45 12/31/24 05:23 1 TAB Morphine Sulfate 4 mg Q4HPRN PRN IV 12/26/24 10:45 12/30/24 17:35 4 MG Vancomycin HCl 125 mg QID PO 12/26/24 12:00 12/31/24 05:35 125 MG Furosemide 40 mg BID IV 12/27/24 10:00 12/31/24 08:30 40 MG Enteral Nutritional Formula 27.5 gm BIDWM PO 12/28/24 18:00 12/31/24 08:29 27.5 GM Vancomycin HCl 150 ml @ 150 mls/hr Q8H IV 12/29/24 10:00 12/31/24 08:30 150 MLS/HR Magnesium Sulfate/ Dextrose 100 ml @ 100 mls/hr Q1HR IV 12/31/24 11:00 12/31/24 12:59 Laboratory Results Laboratory Tests 12/31/24 05:00 Chemistry Test 12/31/24 05:00 Calcium Level 8.9 mg/dL (8.7-10.4) Magnesium Level 1.8 mg/dL (1.6-2.6) Urinalysis Test 12/26/24 12:13 Urine Color Yellow (Yellow) Urine Clarity Hazy (Clear) H Urine pH 5.5 (5.0-9.0) Urine Specific [place] 1.033 (1.001-1.035) Urine Protein 1+ (Negative) H Urine Ketones 1+ (Negative) H Urine Blood 1+ /uL (Negative) H Urine Nitrite Negative (Negative) Urine Bilirubin Negative (Negative) Urine Urobilinogen Normal mg/dL (Negative) Urine Leukocyte Esterase Negative /uL (Negative) Urine RBC 1 /hpf (0 - 3) Urine Microscopic WBC 5 /HPF (0-3) H Urine Squamous Epithelial Cells Few /hpf (<5) Urine Bacteria Few /hpf (None Seen) H Urine Glucose 4+ mg/dL (Normal) H Microbiology Microbiology Date/Time Source Procedure Growth Status 12/26/24 12:13 Voided Urine Urine Culture - Final Complete 12/25/24 14:02 Blood Blood Culture - Final NO GROWTH AFTER 5 DAYS OF INCUBATION. Complete Assessment/Plan Assessment/Plan Cellulitis RLE Cellulitis Left hand Sepsis Afib RVR Morbid obesity Recurrent C. 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 Thrombocytopenia due to sepsis HTN DM2 Mixed hyperlipidemia Bacteremia PLAN: Continue IV antibiotics: Zosyn &Vanco Resume po Vanco Lasix Pain management Eliquis Metoprolol po amiodarone Junior 12/27/2024: Left hand cellulitis rule out abscess: Get CT scan of the left hand no contrast Bilateral lower extremity edema: Increase Lasix to twice a day Right lower extremity cellulitis: Continue IV antibiotics with Zosyn and vancomycin Atrial fibrillation: Continue Eliquis and metoprolol and amiodarone Bacteremia with Gram-negative rods and Gram-positive cocci: Continue IV antibiotics Recent C diff colitis: Continue vancomycin p.o. Hypokalemia: Replace p.o. Pain control with morphine and [place] p.r.n. Junior catheter Monitor closely 12/28/2024: Replace potassium Continue IV antibiotics Add Aguilar supplements twice a day Continue p.o. vancomycin Monitor closely 12/29/2024: Replace potassium and magnesium Start physical therapy Continue the IV antibiotics 12/30/2024: Continue the IV antibiotics Start physical therapy Replace potassium and magnesium Monitor closely The rest of the management will depend on the hospital course 12/31/2024: Continue the current management with IV antibiotics and p.o. vancomycin Replace magnesium and potassium Continue physical therapy Out of bed as tolerated Plan discussed with: Patient My Orders Orders - PEGGY OZUNA MD Procedure Category Date Status Time Magnesium Sulfate PHA 12/31/24 In Process 1gm/100ml 11:00 Date of Service: Dec 31, 2024 Billing Provider: PEGGY OZUNA MD Common Visit Codes: NOT BILLABLE PEGGY OZUNA MD Dec 31, 2024 11:28
[2024-12-31] MEDS: MAGNESIUM SULFATE 1GM/100ML 100 ML IV SCH (13:03)
[2024-12-31] MEDS: POTASSIUM CHL 20 Meq TABLET PO ONE (13:03)
[2025-01-01] VITALS (8 sets, daily range): BP systolic 102–118; BP diastolic 58–79; PULSE 73–130; RESP 16–18; TEMP 97.1–98.7; O2SAT 92–98
--- NOTE | 2025-01-01 07:37 | DVHPN2 ---
Progress Note - Dictate Date Seen: Jan 01, 2025 Medical Necessity Reason Pt with a Central, PICC or Fol: No Subjective Patient reports right knee swelling and pain. He states that he is not able to ambulate because of the pain and swelling. vital signs Vital Sign Date Time Temp Pulse Resp B/P (MAP) Pulse Ox O2 Delivery O2 Flow Rate FiO2 01/01/25 06:04 86 18 128/60 01/01/25 05:00 98.1 98 98.1 12/31/24 20:00 Room Air* 0 21 Total Intake and Output 12/31/24 12/31/24 01/01/25 15:00 23:00 07:00 Intake Total 100 ml 1300 ml 400 ml Output Total 1350 ml 2400 ml Balance 100 ml -50 ml -2000 ml medications Current Medications Medications Dose Ordered Sig/Florinda Route Start Time Stop Time Status Last Admin Dose Admin Vancomycin HCl 0 ml @ 0 mls/hr UD IV 12/24/24 17:15 Apixaban 5 mg BID PO 12/25/24 10:00 12/31/24 22:52 5 MG Docusate Sodium 100 mg BIDPRN PRN PO 12/25/24 00:15 12/25/24 22:17 100 MG Acetaminophen 650 mg Q6HP PRN PO 12/25/24 00:15 12/25/24 20:54 650 MG Atorvastatin Calcium 20 mg HS PO 12/25/24 22:00 12/31/24 22:52 20 MG Nitroglycerin 0.4 mg Q5MINP PRN SL 12/25/24 01:45 Morphine Sulfate 2 mg Q30M PRN IV 12/25/24 01:45 Diagnostic Test (Pha) 1 strip ACHS 12/25/24 17:00 01/01/25 06:13 1 STRIP Insulin Human Regular HS SC 12/25/24 22:00 12/31/24 23:07 4 UNITS Insulin Human Regular AC SC 12/25/24 17:00 01/01/25 06:15 6 UNITS Dextrose 50 ml UD PRN IV 12/25/24 13:15 Prochlorperazine Edisylate 10 mg Q4HPRN PRN IV 12/26/24 01:30 12/26/24 01:56 10 MG Metoprolol Succinate 25 mg DAILY PO 12/26/24 10:45 12/31/24 08:31 25 MG Amiodarone HCl 200 mg Q12HR PO 12/26/24 22:00 12/31/24 22:53 200 MG Acetaminophen/ Hydrocodone Bitart 1 tab Q6HP PRN PO 12/26/24 10:45 12/31/24 13:04 1 TAB Morphine Sulfate 4 mg Q4HPRN PRN IV 12/26/24 10:45 01/01/25 05:34 4 MG Vancomycin HCl 125 mg QID PO 12/26/24 12:00 01/01/25 05:29 125 MG Furosemide 40 mg BID IV 12/27/24 10:00 12/31/24 22:52 40 MG Enteral Nutritional Formula 27.5 gm BIDWM PO 12/28/24 18:00 12/31/24 18:28 27.5 GM objective General Appearance: Alert, Oriented X3, Cooperative, No acute distress HEENT: Atraumatic, EOMI, Mucous membrane. moist/pink Respiratory: Crackles. Clear to auscultation, Normal air movement Cardiovascular: Regular rate, Normal S1, Normal S2, No murmurs Abdominal: Normal bowel sounds, Soft, No tenderness, No hepatospenomegaly, No masses Extremities: Other (Lower extremity tenderness/swelling). Right leg extremely swollen with redness and oozing intermittently from groin area to right foot. Left leg edema. Neuro: Normal speech, Normal tone, Sensation intact, Cranial nerves 3-12 NL, Other (Generalized weakness) Psych/Mental Status: Mental status NL, Mood NL laboratory and microbiology Laboratory Tests 12/31/24 05:00 Test 12/31/24 05:00 Range/Units Serum Glucose 160 H 74-106 mg/dL Assessment/Plan Patient is a 69-year-old male presents to the hospital with: Bacteremia due to Staphylococcus epidermidis bacteremia gram Positive manasa 1/2 bottles Sepsis Tachycardia Cellulitis of right lower extremity Fluid overload Rule out congestive heart failure Generalized weakness Uncontrolled diabetes mellitus Diabetes mellitus with hyperglycemia Recommendations: Blood culture is likely a contaminant, 1/2 bottles positive the other bottle is also likely contaminated: GPB consider US of right knee Patient needs to be on strict I&O's with fluid restriction Cardiology is on board Continue Lasix Elevate legs Continue IV Vancomycin Discontinue IV Zosyn Antibiotic status: Vancomycin IV [Started on 12/24 - Ongoing] Zosyn IV [Started on 12/25 - Ongoing] 12/27, Vancomycin Trough is 9.8. Patient is afebrile 12/24, Blood culture showed Staphylococcus epidermidis 12/25, Blood culture showed no growth 12/26, Urine culture showed no growth 12/27, Hand CT showed Dorsal soft tissue swelling which may reflect cellulitis. No fluid collection. No CT evidence of acute osseous abnormality. Prognosis guarded Thank you for consult. Dietary Evaluation Review Comments: For promoting wound healin. Tight DM control, maintain serum Glucose WNL at all time. 2. Consider juvem BID supplementation, encouarge PO intake tomeet 75% of his needs. 3. If Po remain poor, consider protein supplementation via Clinimix amino acid infusion for added 42.5 g protein and 510 kcal if runs 24 hrs at 41ml/hr. Expected Outcomes/Goals: controlled DM, improved nutrition status, healed wounds, gradual wt loss Plan discussed with: SILVANO Robertson MD Jan 01, 2025 07:36
[2025-01-01 08:17] LABS: Basophils # (auto) 0.1 10 ^3/uL (0-0.2); Basophils % (auto) 0.4 % (0.0-2.0); Eosinophils # (auto) 0.1 10 ^3/uL (0-0.8); Eosinophils % (auto) 0.4 % (0.0-7.0); Hemoglobin 13.4 g/dL (13.5-17.5); Lymphocytes # (auto) 1.1 10 ^3/uL (0.4-5.4); Lymphocytes % (auto) 6.8 % (10.0-50.0); Mean Corpuscular Hemoglobin 30.4 pg (28.0-32.0); Mean Corpuscular Hgb Conc. 34.4 g/dL (32.0-36.0); Mean Corpuscular Volume 88.5 fL (80.0-100.0); Monocytes # (auto) 0.8 10 ^3/uL (0-1.3); Monocytes % (auto) 5.1 % (0.0-12.0); Neutrophils # (auto) 14.2 10 ^3/uL (1.6-8.6); Neutrophils % (auto) 87.3 % (37.0-80.0); Platelet Count (auto) 258 10^3/uL (140-450); Red Cell Distribution Width 13.7 % (11.8-14.3); White Blood Cell 16.2 10^3/uL (4.4-10.8)
[2025-01-01 08:41] LABS: Alanine Aminotransferase 12 U/L (7-40); Anion Gap 10 (5-15); BUN/Creatinine Ratio 22.1 (10.0-20.0); Blood Urea Nitrogen 21 mg/dL (9-23); Carbon Dioxide 28 mmol/L (20-31); Magnesium 1.9 mg/dL (1.6-2.6); Potassium 3.8 mmol/L (3.5-5.1)
[2025-01-01 08:42] LABS: Total Protein 6.6 g/dL (5.7-8.2)
[2025-01-01 08:43] LABS: Albumin 3.3 g/dL (3.2-4.8); Aspartate Aminotransferase 14 U/L (13-40); Bilirubin, Total 0.6 mg/dL (0.2-1.0)
[2025-01-01 08:44] LABS: Alkaline Phosphatase 166 U/L (46-116); Chloride 96 mmol/L (98-107); Glucose 234 mg/dL (74-106); Sodium 134 mmol/L (136-145)
--- NOTE | 2025-01-01 12:33 | DVHPN2 ---
Subjective Complains of right knee swelling and pain He states the pain is more than usual since he was admitted and he is not able to ambulate because of that Changes from previous H/P or p: Changes Eyes: No Pain, No Vision change, No Conjunctivae inflammation, No Eyelid inflammation, No Other, No Redness ENT: No Ear pain, No Ear discharge, No Nose pain, No Nose discharge, No Nose congestion, No Mouth pain, No Mouth swelling, No Throat pain, No Throat swelling, No Other Cardiovascular: No Chest Pain, No Palpitations, No Orthopnea, No Paroxysmal Noc. Dyspnea, No Edema, No Lt Headedness, No Other Respiratory: No Cough, No Dry, No Shortness of breath, No SOB with excertion, No Wheezing, No Hemoptysis, No Pleuritic Pain, No Sputum, No Other Gastrointestinal: No Nausea, No Vomiting, No Abdominal Pain, No Diarrhea, No Constipation, No Melena, No Hematochezia, No Other Genitourinary: No Dysuria, No Frequency, No Incontinence, No Hematuria, No Retention, No Other Musculoskeletal: other (Lower extremity swelling); No neck pain, No shoulder pain, No arm pain, No back pain, No hand pain; leg pain; No foot pain Skin: No Rash, No Lesions, No Jaundice, No Bruising; Other (Lower extremity redness) Objective Vitals Vital Signs Date Time Temp Pulse Resp B/P (MAP) Pulse Ox O2 Delivery O2 Flow Rate FiO2 01/01/25 11:05 106/79 01/01/25 11:05 12 01/01/25 09:00 97.8 17 92 97.8 01/01/25 08:00 Room Air* 0 21 Intake/Output Intake and Output 01/01/25 07:00 Intake Total 1800 ml Output Total 3750 ml Balance -1950 ml Intake Oral 1600 ml IV Total 200 ml Output Urine Total 3750 ml # Bowel Movements 3 General Appearance: Alert, Oriented X3, Cooperative Lungs: Clear to auscultation Cardiovascular: Normal S1, Other (Irregularly irregular) Abdomen: Normal bowel sounds, Soft, No tenderness Extremities: Other (2+ edema BLE R>L) Medications Current Medications Medications Dose Ordered Sig/Florinda Route Start Time Stop Time Status Last Admin Dose Admin Vancomycin HCl 0 ml @ 0 mls/hr UD IV 12/24/24 17:15 Apixaban 5 mg BID PO 12/25/24 10:00 01/01/25 11:05 5 MG Docusate Sodium 100 mg BIDPRN PRN PO 12/25/24 00:15 12/25/24 22:17 100 MG Acetaminophen 650 mg Q6HP PRN PO 12/25/24 00:15 12/25/24 20:54 650 MG Atorvastatin Calcium 20 mg HS PO 12/25/24 22:00 12/31/24 22:52 20 MG Nitroglycerin 0.4 mg Q5MINP PRN SL 12/25/24 01:45 Morphine Sulfate 2 mg Q30M PRN IV 12/25/24 01:45 Diagnostic Test (Pha) 1 strip ACHS 12/25/24 17:00 01/01/25 11:30 1 STRIP Insulin Human Regular HS SC 12/25/24 22:00 12/31/24 23:07 4 UNITS Insulin Human Regular AC SC 12/25/24 17:00 01/01/25 12:12 6 UNITS Dextrose 50 ml UD PRN IV 12/25/24 13:15 Prochlorperazine Edisylate 10 mg Q4HPRN PRN IV 12/26/24 01:30 12/26/24 01:56 10 MG Metoprolol Succinate 25 mg DAILY PO 12/26/24 10:45 01/01/25 11:05 25 MG Amiodarone HCl 200 mg Q12HR PO 12/26/24 22:00 01/01/25 11:06 200 MG Acetaminophen/ Hydrocodone Bitart 1 tab Q6HP PRN PO 12/26/24 10:45 01/01/25 11:10 1 TAB Morphine Sulfate 4 mg Q4HPRN PRN IV 12/26/24 10:45 01/01/25 05:34 4 MG Vancomycin HCl 125 mg QID PO 12/26/24 12:00 01/01/25 12:14 125 MG Furosemide 40 mg BID IV 12/27/24 10:00 01/01/25 11:05 40 MG Enteral Nutritional Formula 27.5 gm BIDWM PO 12/28/24 18:00 01/01/25 11:05 27.5 GM Laboratory Results Laboratory Tests 01/01/25 06:14 Chemistry Test 01/01/25 06:14 Albumin 3.3 g/dL (3.2-4.8) Calcium Level 9.0 mg/dL (8.7-10.4) Magnesium Level 1.9 mg/dL (1.6-2.6) Total Protein 6.6 g/dL (5.7-8.2) LFT Test 01/01/25 06:14 Alanine Aminotransferase (ALT) 12 U/L (7-40) Alkaline Phosphatase 166 U/L (46-116) H Aspartate Amino Transferase (AST) 14 U/L (13-40) Total Bilirubin 0.6 mg/dL (0.2-1.0) Urinalysis Test 12/26/24 12:13 Urine Color Yellow (Yellow) Urine Clarity Hazy (Clear) H Urine pH 5.5 (5.0-9.0) Urine Specific [place] 1.033 (1.001-1.035) Urine Protein 1+ (Negative) H Urine Ketones 1+ (Negative) H Urine Blood 1+ /uL (Negative) H Urine Nitrite Negative (Negative) Urine Bilirubin Negative (Negative) Urine Urobilinogen Normal mg/dL (Negative) Urine Leukocyte Esterase Negative /uL (Negative) Urine RBC 1 /hpf (0 - 3) Urine Microscopic WBC 5 /HPF (0-3) H Urine Squamous Epithelial Cells Few /hpf (<5) Urine Bacteria Few /hpf (None Seen) H Urine Glucose 4+ mg/dL (Normal) H Microbiology Microbiology Date/Time Source Procedure Growth Status 12/26/24 12:13 Voided Urine Urine Culture - Final Complete 12/25/24 14:02 Blood Blood Culture - Final NO GROWTH AFTER 5 DAYS OF INCUBATION. Complete Assessment/Plan Assessment/Plan Cellulitis RLE Cellulitis Left hand Sepsis Afib RVR Morbid obesity Recurrent C. 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 Thrombocytopenia due to sepsis HTN DM2 Mixed hyperlipidemia Bacteremia PLAN: Continue IV antibiotics: Zosyn &Vanco Resume po Vanco Lasix Pain management Eliquis Metoprolol po amiodarone Junior 12/27/2024: Left hand cellulitis rule out abscess: Get CT scan of the left hand no contrast Bilateral lower extremity edema: Increase Lasix to twice a day Right lower extremity cellulitis: Continue IV antibiotics with Zosyn and vancomycin Atrial fibrillation: Continue Eliquis and metoprolol and amiodarone Bacteremia with Gram-negative rods and Gram-positive cocci: Continue IV antibiotics Recent C diff colitis: Continue vancomycin p.o. Hypokalemia: Replace p.o. Pain control with morphine and [place] p.r.n. Junior catheter Monitor closely 12/28/2024: Replace potassium Continue IV antibiotics Add Aguilar supplements twice a day Continue p.o. vancomycin Monitor closely 12/29/2024: Replace potassium and magnesium Start physical therapy Continue the IV antibiotics 12/30/2024: Continue the IV antibiotics Start physical therapy Replace potassium and magnesium Monitor closely The rest of the management will depend on the hospital course 12/31/2024: Continue the current management with IV antibiotics and p.o. vancomycin Replace magnesium and potassium Continue physical therapy Out of bed as tolerated 01/01/2025: Get CT scan of the right knee and right tibia and fibula Continue IV antibiotics Continue p.o. vancomycin Continue physical therapy Plan discussed with: Patient Date of Service: Jan 01, 2025 Billing Provider: PEGGY OZUNA MD Common Visit Codes: NOT BILLABLE PEGGY OZUNA MD Jan 01, 2025 12:33
--- NOTE | 2025-01-01 14:12 | DVH ---
EXAM: CT CT R TIB FIB WO CONTRAST INDICATION: swelling EXAM DATE: 01/01/2025 01:33 PM COMPARISON: None TECHNIQUE: Multiple axial CT images of the right tibia and fibula were obtained using bone algorithm. Axial and coronal reformatting was done. Bone and soft tissue windows were reviewed. Radiation Dose Information: CT Dose: CTDI volume is 10.74 mGy. Dose-length product is 679.91 mGy*cm Findings/Impression: There is no evidence of an acute fracture, dislocation, blastic, or lytic lesions. Right total knee arthroplasty. Moderate atherosclerosis. Small to moderate joint effusion. Mild diffuse soft tissue edema with skin thickening. Soft tissue ca lcifications along the distal lower extremity, nonspecific.
[2025-01-02] VITALS (8 sets, daily range): BP systolic 90–119; BP diastolic 53–72; PULSE 91–116; RESP 16–18; TEMP 97.6–98.5; O2SAT 92–95
[2025-01-02 07:01] LABS: Basophils # (auto) 0 10 ^3/uL (0-0.2); Basophils % (auto) 0.2 % (0.0-2.0); Eosinophils # (auto) 0.1 10 ^3/uL (0-0.8); Eosinophils % (auto) 0.7 % (0.0-7.0); Hematocrit 39.1 % (41.0-53.0); Hemoglobin 12.9 g/dL (13.5-17.5); Lymphocytes # (auto) 1.4 10 ^3/uL (0.4-5.4); Lymphocytes % (auto) 9.8 % (10.0-50.0); Mean Corpuscular Hemoglobin 29.4 pg (28.0-32.0); Mean Corpuscular Hgb Conc. 33.1 g/dL (32.0-36.0); Mean Corpuscular Volume 88.8 fL (80.0-100.0); Monocytes # (auto) 0.8 10 ^3/uL (0-1.3); Neutrophils # (auto) 11.7 10 ^3/uL (1.6-8.6); Neutrophils % (auto) 83.3 % (37.0-80.0); Platelet Count (auto) 281 10^3/uL (140-450); Red Blood Cells 4.41 10^6/uL (4.5-5.90); Red Cell Distribution Width 13.7 % (11.8-14.3)
[2025-01-02 07:18] LABS: Alanine Aminotransferase 15 U/L (7-40); Anion Gap 8 (5-15); Aspartate Aminotransferase 17 U/L (13-40); Calcium 8.7 mg/dL (8.7-10.4); Carbon Dioxide 30 mmol/L (20-31); Magnesium 1.8 mg/dL (1.6-2.6); Total Protein 5.8 g/dL (5.7-8.2)
[2025-01-02 07:19] LABS: Bilirubin, Total 0.6 mg/dL (0.2-1.0)
[2025-01-02 07:29] LABS: Albumin 2.9 g/dL (3.2-4.8); Alkaline Phosphatase 144 U/L (46-116); Blood Urea Nitrogen 26 mg/dL (9-23); Chloride 98 mmol/L (98-107); Glucose 207 mg/dL (74-106); Sodium 136 mmol/L (136-145)
--- NOTE | 2025-01-02 11:26 | DVHPN2 ---
Subjective He is still complaining of right knee pain He is not able to ambulate because of the pain CT scan of the right knee shows small to moderate joint effusion Changes from previous H/P or p: Changes Eyes: No Pain, No Vision change, No Conjunctivae inflammation, No Eyelid inflammation, No Other, No Redness ENT: No Ear pain, No Ear discharge, No Nose pain, No Nose discharge, No Nose congestion, No Mouth pain, No Mouth swelling, No Throat pain, No Throat swelling, No Other Cardiovascular: No Chest Pain, No Palpitations, No Orthopnea, No Paroxysmal Noc. Dyspnea, No Edema, No Lt Headedness, No Other Respiratory: No Cough, No Dry, No Shortness of breath, No SOB with excertion, No Wheezing, No Hemoptysis, No Pleuritic Pain, No Sputum, No Other Gastrointestinal: No Nausea, No Vomiting, No Abdominal Pain, No Diarrhea, No Constipation, No Melena, No Hematochezia, No Other Genitourinary: No Dysuria, No Frequency, No Incontinence, No Hematuria, No Retention, No Other Musculoskeletal: other (Lower extremity swelling); No neck pain, No shoulder pain, No arm pain, No back pain, No hand pain; leg pain; No foot pain Skin: No Rash, No Lesions, No Jaundice, No Bruising; Other (Lower extremity redness) Objective Vitals Vital Signs Date Time Temp Pulse Resp B/P (MAP) Pulse Ox O2 Delivery O2 Flow Rate FiO2 01/02/25 09:40 95 111/72 01/02/25 09:00 97.9 17 95 97.9 01/01/25 20:00 Room Air* 0 21 Intake/Output Intake and Output 01/02/25 07:00 Intake Total 1330 ml Output Total 1100 ml Balance 230 ml Intake Oral 1330 ml Output Urine Total 1100 ml # Bowel Movements 2 General Appearance: Alert, Oriented X3, Cooperative Lungs: Clear to auscultation Cardiovascular: Normal S1, Other (Irregularly irregular) Abdomen: Normal bowel sounds, Soft, No tenderness Extremities: Other (2+ edema BLE R>L) Medications Current Medications Medications Dose Ordered Sig/Florinda Route Start Time Stop Time Status Last Admin Dose Admin Vancomycin HCl 0 ml @ 0 mls/hr UD IV 12/24/24 17:15 Apixaban 5 mg BID PO 12/25/24 10:00 01/02/25 09:39 5 MG Docusate Sodium 100 mg BIDPRN PRN PO 12/25/24 00:15 12/25/24 22:17 100 MG Acetaminophen 650 mg Q6HP PRN PO 12/25/24 00:15 12/25/24 20:54 650 MG Atorvastatin Calcium 20 mg HS PO 12/25/24 22:00 01/01/25 21:59 20 MG Nitroglycerin 0.4 mg Q5MINP PRN SL 12/25/24 01:45 Morphine Sulfate 2 mg Q30M PRN IV 12/25/24 01:45 Diagnostic Test (Pha) 1 strip ACHS 12/25/24 17:00 01/02/25 05:42 1 STRIP Insulin Human Regular HS SC 12/25/24 22:00 01/01/25 22:04 3 UNITS Insulin Human Regular AC SC 12/25/24 17:00 01/02/25 05:42 6 UNITS Dextrose 50 ml UD PRN IV 12/25/24 13:15 Prochlorperazine Edisylate 10 mg Q4HPRN PRN IV 12/26/24 01:30 12/26/24 01:56 10 MG Metoprolol Succinate 25 mg DAILY PO 12/26/24 10:45 01/02/25 09:40 25 MG Amiodarone HCl 200 mg Q12HR PO 12/26/24 22:00 01/02/25 09:39 200 MG Acetaminophen/ Hydrocodone Bitart 1 tab Q6HP PRN PO 12/26/24 10:45 01/02/25 04:10 1 TAB Morphine Sulfate 4 mg Q4HPRN PRN IV 12/26/24 10:45 01/01/25 05:34 4 MG Vancomycin HCl 125 mg QID PO 12/26/24 12:00 01/02/25 05:54 125 MG Furosemide 40 mg BID IV 12/27/24 10:00 01/02/25 09:39 40 MG Enteral Nutritional Formula 27.5 gm BIDWM PO 12/28/24 18:00 01/02/25 08:00 27.5 GM Laboratory Results Laboratory Tests 01/02/25 06:22 Chemistry Test 01/02/25 06:22 Albumin 2.9 g/dL (3.2-4.8) L Calcium Level 8.7 mg/dL (8.7-10.4) Magnesium Level 1.8 mg/dL (1.6-2.6) Total Protein 5.8 g/dL (5.7-8.2) LFT Test 01/02/25 06:22 Alanine Aminotransferase (ALT) 15 U/L (7-40) Alkaline Phosphatase 144 U/L (46-116) H Aspartate Amino Transferase (AST) 17 U/L (13-40) Total Bilirubin 0.6 mg/dL (0.2-1.0) Urinalysis Test 12/26/24 12:13 Urine Color Yellow (Yellow) Urine Clarity Hazy (Clear) H Urine pH 5.5 (5.0-9.0) Urine Specific [place] 1.033 (1.001-1.035) Urine Protein 1+ (Negative) H Urine Ketones 1+ (Negative) H Urine Blood 1+ /uL (Negative) H Urine Nitrite Negative (Negative) Urine Bilirubin Negative (Negative) Urine Urobilinogen Normal mg/dL (Negative) Urine Leukocyte Esterase Negative /uL (Negative) Urine RBC 1 /hpf (0 - 3) Urine Microscopic WBC 5 /HPF (0-3) H Urine Squamous Epithelial Cells Few /hpf (<5) Urine Bacteria Few /hpf (None Seen) H Urine Glucose 4+ mg/dL (Normal) H Microbiology Microbiology Date/Time Source Procedure Growth Status 12/26/24 12:13 Voided Urine Urine Culture - Final Complete 12/25/24 14:02 Blood Blood Culture - Final NO GROWTH AFTER 5 DAYS OF INCUBATION. Complete Assessment/Plan Assessment/Plan Cellulitis RLE Cellulitis Left hand Sepsis Afib RVR Morbid obesity Recurrent C. 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 Thrombocytopenia due to sepsis HTN DM2 Mixed hyperlipidemia Bacteremia PLAN: Continue IV antibiotics: Zosyn &Vanco Resume po Vanco Lasix Pain management Eliquis Metoprolol po amiodarone Junior 12/27/2024: Left hand cellulitis rule out abscess: Get CT scan of the left hand no contrast Bilateral lower extremity edema: Increase Lasix to twice a day Right lower extremity cellulitis: Continue IV antibiotics with Zosyn and vancomycin Atrial fibrillation: Continue Eliquis and metoprolol and amiodarone Bacteremia with Gram-negative rods and Gram-positive cocci: Continue IV antibiotics Recent C diff colitis: Continue vancomycin p.o. Hypokalemia: Replace p.o. Pain control with morphine and [place] p.r.n. Junior catheter Monitor closely 12/28/2024: Replace potassium Continue IV antibiotics Add Aguilar supplements twice a day Continue p.o. vancomycin Monitor closely 12/29/2024: Replace potassium and magnesium Start physical therapy Continue the IV antibiotics 12/30/2024: Continue the IV antibiotics Start physical therapy Replace potassium and magnesium Monitor closely The rest of the management will depend on the hospital course 12/31/2024: Continue the current management with IV antibiotics and p.o. vancomycin Replace magnesium and potassium Continue physical therapy Out of bed as tolerated 01/01/2025: Get CT scan of the right knee and right tibia and fibula Continue IV antibiotics Continue p.o. vancomycin Continue physical therapy 01/02/2025: Right knee pain and effusion, rule out septic arthritis, consult IR to do arthrocentesis for fluid analysis Right lower extremity cellulitis: Improving, continue IV antibiotics Left hand cellulitis: Improving, continue IV antibiotics Continue physical therapy Plan discussed with: Patient My Orders Orders - PEGGY OZUNA MD Procedure Category Date Status Time Ct R Tib Fib Wo CT 01/01/25 Resulted Contrast 12:31 Oxycodone W/ Acet PHA 01/02/25 Logged 5/325mg Tab (Percocet 11:15 * Radiologist Consult CONS 01/02/25 Transmitted 11:16 Date of Service: Jan 02, 2025 Billing Provider: PEGGY OZUNA MD Common Visit Codes: NOT BILLABLE PEGGY OZUNA MD Jan 02, 2025 11:26
[2025-01-02] MEDS: OXYCODONE W/ ACETAMINOPHEN 5/325MG TABLET PO PRN (12:43)
[2025-01-02] MEDS: VANCOMYCIN 750mg/150ml 150 ML IV SCH (17:32)
[2025-01-03] VITALS (8 sets, daily range): BP systolic 96–115; BP diastolic 57–66; PULSE 74–121; RESP 16–20; TEMP 98.1–98.6; O2SAT 91–95
--- NOTE | 2025-01-03 10:34 | DVH ---
US RIGHT LOWER EXTREMITY ULTRASOU, HISTORY: POSSIBLE RIGHT KNEE FLUID DRAINAGE TECHNICAL DATA: Transverse and longitudinal sonographic images were obtained of the right knee. COMPARISON: US RIGHT LOWER EXTREMITY ULTRASOU on DOS: 08/22/23 FINDINGS: IMPRESSION: Complex appearing right knee fluid collection.
--- NOTE | 2025-01-03 11:52 | DVHPN2 ---
Progress Note - Dictate Date Seen: Jan 03, 2025 Medical Necessity Reason Pt with a Central, PICC or Fol: No Subjective S/P right knee drainage, 85 cc pus was drained and sent to lab. Patient had 2 episodes of chest pain which has been resolved now. vital signs Vital Sign Date Time Temp Pulse Resp B/P (MAP) Pulse Ox O2 Delivery O2 Flow Rate FiO2 01/03/25 09:34 121 103/52 01/03/25 08:54 98.1 20 95 98.1 01/02/25 20:00 Room Air* 0 21 Total Intake and Output 01/02/25 01/02/25 01/03/25 15:00 23:00 07:00 Intake Total 1750 ml 150 ml Output Total 1800 ml 200 ml Balance -50 ml -50 ml medications Current Medications Medications Dose Ordered Sig/Florinda Route Start Time Stop Time Status Last Admin Dose Admin Vancomycin HCl 0 ml @ 0 mls/hr UD IV 12/24/24 17:15 Apixaban 5 mg BID PO 12/25/24 10:00 01/02/25 22:09 5 MG Docusate Sodium 100 mg BIDPRN PRN PO 12/25/24 00:15 12/25/24 22:17 100 MG Acetaminophen 650 mg Q6HP PRN PO 12/25/24 00:15 12/25/24 20:54 650 MG Atorvastatin Calcium 20 mg HS PO 12/25/24 22:00 01/02/25 22:08 20 MG Nitroglycerin 0.4 mg Q5MINP PRN SL 12/25/24 01:45 Morphine Sulfate 2 mg Q30M PRN IV 12/25/24 01:45 Diagnostic Test (Pha) 1 strip ACHS 12/25/24 17:00 01/03/25 05:55 1 STRIP Insulin Human Regular HS SC 12/25/24 22:00 01/02/25 22:10 4 UNITS Insulin Human Regular AC SC 12/25/24 17:00 01/02/25 17:12 3 UNITS Dextrose 50 ml UD PRN IV 12/25/24 13:15 Prochlorperazine Edisylate 10 mg Q4HPRN PRN IV 12/26/24 01:30 12/26/24 01:56 10 MG Metoprolol Succinate 25 mg DAILY PO 12/26/24 10:45 01/03/25 09:34 25 MG Amiodarone HCl 200 mg Q12HR PO 12/26/24 22:00 01/03/25 09:34 200 MG Morphine Sulfate 4 mg Q4HPRN PRN IV 12/26/24 10:45 01/01/25 05:34 4 MG Vancomycin HCl 125 mg QID PO 12/26/24 12:00 01/03/25 09:40 125 MG Furosemide 40 mg BID IV 12/27/24 10:00 01/03/25 09:33 40 MG Enteral Nutritional Formula 27.5 gm BIDWM PO 12/28/24 18:00 01/03/25 08:00 27.5 GM Oxycodone/ Acetaminophen 1 tab Q4HP PRN PO 01/02/25 11:15 01/03/25 05:55 1 TAB Vancomycin HCl 150 ml @ 150 mls/hr Q12H IV 01/02/25 16:00 01/03/25 04:41 150 MLS/HR objective General Appearance: Alert, Oriented X3, Cooperative, No acute distress HEENT: Atraumatic, EOMI, Mucous membrane. moist/pink Respiratory: Crackles. Clear to auscultation, Normal air movement Cardiovascular: Regular rate, Normal S1, Normal S2, No murmurs Abdominal: Normal bowel sounds, Soft, No tenderness, No hepatospenomegaly, No masses Extremities: Other (Lower extremity tenderness/swelling). Right leg extremely swollen with redness and oozing intermittently from groin area to right foot. Left leg edema. Neuro: Normal speech, Normal tone, Sensation intact, Cranial nerves 3-12 NL, Other (Generalized weakness) Psych/Mental Status: Mental status NL, Mood NL laboratory and microbiology Laboratory Tests 01/02/25 06:22 Test 01/02/25 06:22 Range/Units Serum Glucose 207 H 74-106 mg/dL Assessment/Plan Patient is a 69-year-old male presents to the hospital with: prosthetic joint infection of Knee Bacteremia due to Staphylococcus epidermidis Sepsis Tachycardia Cellulitis of right lower extremity Fluid overload Rule out congestive heart failure Generalized weakness Uncontrolled diabetes mellitus Diabetes mellitus with hyperglycemia Recommendations: Blood culture is likely a contaminant, 1/2 bottles positive Patient needs to be on strict I&O's with fluid restriction Cardiology is on board Continue Lasix Elevate legs Continue IV Vancomycin, Meropenem Ortho consult placed Discontinued IV Zosyn on 12/29 s/p IR aspiration of pus from prosthetic joint Antibiotic status: Vancomycin IV [Started on 12/24 - Ongoing] Meropenem IV [Started on 01/03 - Ongoing] Zosyn IV [Started on 12/25 - 12/29] Patient is afebrile 01/03, Knee x-ray showed No obvious radiographic evidence of osteomyelitis. 12/24, Blood culture showed Staphylococcus epidermidis 12/25, Blood culture showed no growth 12/26, Urine culture showed no growth 12/27, Hand CT showed Dorsal soft tissue swelling which may reflect cellulitis. No fluid collection. No CT evidence of acute osseous abnormality. Prognosis guarded Thank you for consult. Dietary Evaluation Review Comments: For promoting wound healin. Tight DM control, maintain serum Glucose WNL at all time. 2. Consider juvem BID supplementation, encouarge PO intake tomeet 75% of his needs. 3. If Po remain poor, consider protein supplementation via Clinimix amino acid infusion for added 42.5 g protein and 510 kcal if runs 24 hrs at 41ml/hr. Expected Outcomes/Goals: controlled DM, improved nutrition status, healed wounds, gradual wt loss Plan discussed with: Other SILVANO FRYE MD Jan 03, 2025 11:52
--- NOTE | 2025-01-03 12:39 | DVH ---
US US GUIDANCE FOR NEEDLE PLACEME, HISTORY: RT KNEE DRAINAGE PROCEDURE: An informed consent was obtained. The patient was placed supine on the bed. The right kne e fluid collection was localized with ultrasound and the overlying skin prepped with chlorhexidine wh ich was allowed to dry and draped in the usual sterile fashion. Time out was performed and infiltrate d with 1% Xylocaine. With US guidance, 19-gauge centesis needle catheter was advanced into the fluid. Approximately 85 cc of purulent fluid was aspirated. The needle was withdrawn. No immediate complica tion was identified. FINDINGS: Limited US scan of through the right knee demonstrates fluid in the right knee. Collection appears complex. . IMPRESSION: US guided right knee arthrocentesis with 85 mL removed.
--- NOTE | 2025-01-03 13:24 | DVHPN2 ---
Subjective S/P right knee drainage, 85 cc pus was drained and sent to lab He had an episode of chest pain this am, pressure like x 2 in L side, resolved now Changes from previous H/P or p: Changes Eyes: No Pain, No Vision change, No Conjunctivae inflammation, No Eyelid inflammation, No Other, No Redness ENT: No Ear pain, No Ear discharge, No Nose pain, No Nose discharge, No Nose congestion, No Mouth pain, No Mouth swelling, No Throat pain, No Throat swelling, No Other Cardiovascular: No Chest Pain, No Palpitations, No Orthopnea, No Paroxysmal Noc. Dyspnea, No Edema, No Lt Headedness, No Other Respiratory: No Cough, No Dry, No Shortness of breath, No SOB with excertion, No Wheezing, No Hemoptysis, No Pleuritic Pain, No Sputum, No Other Gastrointestinal: No Nausea, No Vomiting, No Abdominal Pain, No Diarrhea, No Constipation, No Melena, No Hematochezia, No Other Genitourinary: No Dysuria, No Frequency, No Incontinence, No Hematuria, No Retention, No Other Musculoskeletal: other (Lower extremity swelling); No neck pain, No shoulder pain, No arm pain, No back pain, No hand pain; leg pain; No foot pain Skin: No Rash, No Lesions, No Jaundice, No Bruising; Other (Lower extremity redness) Objective Vitals Vital Signs Date Time Temp Pulse Resp B/P (MAP) Pulse Ox O2 Delivery O2 Flow Rate FiO2 01/03/25 12:57 98.2 74 20 115/58 (77) 95 98.2 01/02/25 20:00 Room Air* 0 21 Intake/Output Intake and Output 01/03/25 07:00 Intake Total 1900 ml Output Total 2000 ml Balance -100 ml Intake Oral 1600 ml IV Total 300 ml Output Urine Total 2000 ml General Appearance: Alert, Oriented X3, Cooperative Lungs: Clear to auscultation Cardiovascular: Normal S1, Other (Irregularly irregular) Abdomen: Normal bowel sounds, Soft, No tenderness Extremities: Other (2+ edema BLE R>L) Medications Current Medications Medications Dose Ordered Sig/Florinda Route Start Time Stop Time Status Last Admin Dose Admin Vancomycin HCl 0 ml @ 0 mls/hr UD IV 12/24/24 17:15 Apixaban 5 mg BID PO 12/25/24 10:00 01/02/25 22:09 5 MG Docusate Sodium 100 mg BIDPRN PRN PO 12/25/24 00:15 12/25/24 22:17 100 MG Acetaminophen 650 mg Q6HP PRN PO 12/25/24 00:15 12/25/24 20:54 650 MG Atorvastatin Calcium 20 mg HS PO 12/25/24 22:00 01/02/25 22:08 20 MG Nitroglycerin 0.4 mg Q5MINP PRN SL 12/25/24 01:45 Morphine Sulfate 2 mg Q30M PRN IV 12/25/24 01:45 Diagnostic Test (Pha) 1 strip ACHS 12/25/24 17:00 01/03/25 11:30 1 STRIP Insulin Human Regular HS SC 12/25/24 22:00 01/02/25 22:10 4 UNITS Insulin Human Regular AC SC 12/25/24 17:00 01/03/25 12:09 3 UNITS Dextrose 50 ml UD PRN IV 12/25/24 13:15 Prochlorperazine Edisylate 10 mg Q4HPRN PRN IV 12/26/24 01:30 12/26/24 01:56 10 MG Metoprolol Succinate 25 mg DAILY PO 12/26/24 10:45 01/03/25 09:34 25 MG Amiodarone HCl 200 mg Q12HR PO 12/26/24 22:00 01/03/25 09:34 200 MG Morphine Sulfate 4 mg Q4HPRN PRN IV 12/26/24 10:45 01/01/25 05:34 4 MG Vancomycin HCl 125 mg QID PO 12/26/24 12:00 01/03/25 09:40 125 MG Furosemide 40 mg BID IV 12/27/24 10:00 01/03/25 09:33 40 MG Enteral Nutritional Formula 27.5 gm BIDWM PO 12/28/24 18:00 01/03/25 08:00 27.5 GM Oxycodone/ Acetaminophen 1 tab Q4HP PRN PO 01/02/25 11:15 01/03/25 12:09 1 TAB Vancomycin HCl 150 ml @ 150 mls/hr Q12H IV 01/02/25 16:00 01/03/25 04:41 150 MLS/HR Meropenem 50 ml @ 17 mls/hr Q8HR IV 01/03/25 14:00 UNV Laboratory Results Laboratory Tests 01/02/25 06:22 Urinalysis Test 12/26/24 12:13 Urine Color Yellow (Yellow) Urine Clarity Hazy (Clear) H Urine pH 5.5 (5.0-9.0) Urine Specific [place] 1.033 (1.001-1.035) Urine Protein 1+ (Negative) H Urine Ketones 1+ (Negative) H Urine Blood 1+ /uL (Negative) H Urine Nitrite Negative (Negative) Urine Bilirubin Negative (Negative) Urine Urobilinogen Normal mg/dL (Negative) Urine Leukocyte Esterase Negative /uL (Negative) Urine RBC 1 /hpf (0 - 3) Urine Microscopic WBC 5 /HPF (0-3) H Urine Squamous Epithelial Cells Few /hpf (<5) Urine Bacteria Few /hpf (None Seen) H Urine Glucose 4+ mg/dL (Normal) H Microbiology Microbiology Date/Time Source Procedure Growth Status 12/26/24 12:13 Voided Urine Urine Culture - Final Complete 12/25/24 14:02 Blood Blood Culture - Final NO GROWTH AFTER 5 DAYS OF INCUBATION. Complete Assessment/Plan Assessment/Plan Cellulitis RLE Cellulitis Left hand Sepsis Afib RVR Morbid obesity Recurrent C. 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 Thrombocytopenia due to sepsis HTN DM2 Mixed hyperlipidemia Bacteremia PLAN: Continue IV antibiotics: Zosyn &Vanco Resume po Vanco Lasix Pain management Eliquis Metoprolol po amiodarone Junior 12/27/2024: Left hand cellulitis rule out abscess: Get CT scan of the left hand no contrast Bilateral lower extremity edema: Increase Lasix to twice a day Right lower extremity cellulitis: Continue IV antibiotics with Zosyn and vancomycin Atrial fibrillation: Continue Eliquis and metoprolol and amiodarone Bacteremia with Gram-negative rods and Gram-positive cocci: Continue IV antibiotics Recent C diff colitis: Continue vancomycin p.o. Hypokalemia: Replace p.o. Pain control with morphine and [place] p.r.n. Junior catheter Monitor closely 12/28/2024: Replace potassium Continue IV antibiotics Add Aguilar supplements twice a day Continue p.o. vancomycin Monitor closely 12/29/2024: Replace potassium and magnesium Start physical therapy Continue the IV antibiotics 12/30/2024: Continue the IV antibiotics Start physical therapy Replace potassium and magnesium Monitor closely The rest of the management will depend on the hospital course 12/31/2024: Continue the current management with IV antibiotics and p.o. vancomycin Replace magnesium and potassium Continue physical therapy Out of bed as tolerated 01/01/2025: Get CT scan of the right knee and right tibia and fibula Continue IV antibiotics Continue p.o. vancomycin Continue physical therapy 01/02/2025: Right knee pain and effusion, rule out septic arthritis, consult IR to do arthrocentesis for fluid analysis Right lower extremity cellulitis: Improving, continue IV antibiotics Left hand cellulitis: Improving, continue IV antibiotics Continue physical therapy 01/03/25: Chest pain: EKG neg, consult cardiology, check troponins Afib: Eliquis, Amiodarone, Metoprolol R knee septic arthritis: Start Meropenem, con Vanco IV, consult Ortho Recent C. Diff colitis: PO Vanco L hand cellulitis: Improving RLE cellulitis: Improving Sepsis / Leukocytosis due to cellulitis and septic arthritis Bacteremia w Staph epi HTN DM2 Mixed hyperlipidemia Bacteremia Morbid obesity Pain: Morphine & Percocet prn BLE edema, ? diastolic HF?: IV Lasix Plan discussed with: Patient My Orders Orders - PEGGY OZUNA MD Procedure Category Date Status Time Electrocardigram EKG 01/03/25 Logged 11:05 Meropenem 1gm Ivpb PHA 01/03/25 Logged (Merrem 1gm/ Ns) 13:00 Meropenem 1gm Ivpb PHA 01/03/25 Logged (Merrem 1gm/ Ns) 14:00 * Orthopedic Consult CONS 01/03/25 Transmitted 12:55 Date of Service: Jan 03, 2025 Billing Provider: PEGGY OZUNA MD Common Visit Codes: NOT BILLABLE PEGGY OZUNA MD Jan 03, 2025 13:24
--- NOTE | 2025-01-03 14:39 | ECG ---
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
--- NOTE | 2025-01-03 15:57 | DVHPN2 ---
Consult Progress Note Date Seen: Jan 03, 2025 Subjective Review of Systems: CVS:Abnormal, RESPIRATORY:Normal, NEURO:Normal Other Systems: C/o two intermittent episoded of chest pain today Objective vital signs Vital Sign Date Time Temp Pulse Resp B/P (MAP) Pulse Ox O2 Delivery O2 Flow Rate FiO2 01/03/25 12:57 98.2 74 20 115/58 (77) 95 98.2 01/02/25 20:00 Room Air* 0 21 Total Intake and Output 01/02/25 01/02/25 01/03/25 15:00 23:00 07:00 Intake Total 1750 ml 150 ml Output Total 1800 ml 200 ml Balance -50 ml -50 ml medications Current Medications Medications Dose Ordered Sig/Florinda Route Start Time Stop Time Status Last Admin Dose Admin Vancomycin HCl 0 ml @ 0 mls/hr UD IV 12/24/24 17:15 Apixaban 5 mg BID PO 12/25/24 10:00 01/02/25 22:09 5 MG Docusate Sodium 100 mg BIDPRN PRN PO 12/25/24 00:15 12/25/24 22:17 100 MG Acetaminophen 650 mg Q6HP PRN PO 12/25/24 00:15 12/25/24 20:54 650 MG Atorvastatin Calcium 20 mg HS PO 12/25/24 22:00 01/02/25 22:08 20 MG Nitroglycerin 0.4 mg Q5MINP PRN SL 12/25/24 01:45 Morphine Sulfate 2 mg Q30M PRN IV 12/25/24 01:45 Diagnostic Test (Pha) 1 strip ACHS 12/25/24 17:00 01/03/25 11:30 1 STRIP Insulin Human Regular HS SC 12/25/24 22:00 01/02/25 22:10 4 UNITS Insulin Human Regular AC SC 12/25/24 17:00 01/03/25 12:09 3 UNITS Dextrose 50 ml UD PRN IV 12/25/24 13:15 Prochlorperazine Edisylate 10 mg Q4HPRN PRN IV 12/26/24 01:30 12/26/24 01:56 10 MG Metoprolol Succinate 25 mg DAILY PO 12/26/24 10:45 01/03/25 09:34 25 MG Amiodarone HCl 200 mg Q12HR PO 12/26/24 22:00 01/03/25 09:34 200 MG Morphine Sulfate 4 mg Q4HPRN PRN IV 12/26/24 10:45 01/01/25 05:34 4 MG Vancomycin HCl 125 mg QID PO 12/26/24 12:00 01/03/25 09:40 125 MG Furosemide 40 mg BID IV 12/27/24 10:00 01/03/25 09:33 40 MG Enteral Nutritional Formula 27.5 gm BIDWM PO 12/28/24 18:00 01/03/25 08:00 27.5 GM Oxycodone/ Acetaminophen 1 tab Q4HP PRN PO 01/02/25 11:15 01/03/25 12:09 1 TAB Vancomycin HCl 150 ml @ 150 mls/hr Q12H IV 01/02/25 16:00 01/03/25 04:41 150 MLS/HR Meropenem 50 ml @ 17 mls/hr Q8HR IV 01/03/25 22:00 Examination: GENERAL:Abnormal (Obese), LUNGS:Normal, CVS:Normal (ECG completed. A-flutter, controlled rate, no ST changes present), MSK:Abnormal (BLE edema/erythema/flaky skin), SKIN:Abnormal (BLE erythem), NEURO:Normal laboratory and microbiology Laboratory Tests 01/02/25 06:22 Test 01/02/25 06:22 Range/Units Serum Glucose 207 H 74-106 mg/dL Problem List/Assessment/Plan Problem List/Assessment/Plan Atrial flutter/Atrial fibrillation, controlled rate (on Eliquis) Sepsis with bilateral lower extremity cellulitis Hypertension Dyslipidemia Type 2 diabetes mellitus Morbid obesity Plan/Recommendation (Dr. Peoples) * Transthoracic echocardiogram revealed LVEF 55% * Cardiolite stress test rule out coronary ischemia * Antiarrhythmic agent, amiodarone * NOAC therapy, Eliquis * [id number] VASc score: 3 points * Rate control, beta-salud * Replete electrolytes as needed, K>4 and Mg>2 * Close Cardiac surveillance * Chest pain protocol Thank you for allowing us to care for this patient. Please call with any questions or concerns. This medical document was created using an electronic medical record system with voice recognition software and computerized dictation system. Although this document has been carefully reviewed, there might still be some phonetic and typographical errors. Occasional wrong-word or ``sound-alike substitutions may have occurred due to the inherent limitations of voice recognition software. These areas are purely typographical due to imperfections of the software programs and do not reflect any compromise in the patient's medical care. Please read the chart carefully and recognize, using context, where these substitutions have occurred Plan discussed with: Patient, Other Dietary Evaluation Review Comments: For promoting wound healin. Tight DM control, maintain serum Glucose WNL at all time. 2. Consider juvem BID supplementation, encouarge PO intake tomeet 75% of his needs. 3. If Po remain poor, consider protein supplementation via Clinimix amino acid infusion for added 42.5 g protein and 510 kcal if runs 24 hrs at 41ml/hr. Expected Outcomes/Goals: controlled DM, improved nutrition status, healed wounds, gradual wt loss Date of Service: Jan 03, 2025 Billing Provider: YOJANA RHOADES Cardiology Common Codes: [id number] HOSP CARE(High YOJANA RHOADES Jan 03, 2025 15:57
[2025-01-03 16:04] LABS: Body Fluid Polymorphonuclear 83 % (0-25)
--- NOTE | 2025-01-03 16:44 | DVH ---
EXAM: XR Right Knee, 3 Views CLINICAL INDICATION: septic arthritis TECHNIQUE: Three views of the right knee. COMPARISON: XY R KNEE 2V XRAY on DOS: 08/29/23, XY R KNEE 3V XRAY on DOS: 08/21/23 FINDINGS: BONES/JOINTS: No obvious radiographic evidence of osteomyelitis. However, if clinical suspicion rem ains high, further evaluation with 3 phase bone scan or MRI is recommended. Total knee replacement. Intact hardware. Anatomic position. No acute fracture. No dislocation. No erosive changes to the osseous structures. SOFT TISSUES: Soft tissue swelling. OTHER FINDINGS: . . IMPRESSION: No obvious radiographic evidence of osteomyelitis. However, if clinical suspicion remains high, furt her evaluation with 3 phase bone scan or MRI is recommended.
[2025-01-03] MEDS: MEROPENEM 1GM IVPB 50 ML IV ONE (16:59)
--- NOTE | 2025-01-03 20:55 | DVHINCON2 ---
Consult Note Consult Consult Note Reason for consultation: Evaluation of right knee pain and swelling in the patient with prior total knee arthroplasty and revision TKA concern for jeronimo prosthetic knee infection History of present illness Hospital admission 1 week ago for sepsis workup, patient with history of right TKA 4 years ago revision 3 years ago. Two week history of worsening knee pain and swelling. Patient was seen in ER proximally 1 week ago admitted for further evaluation recently IR aspirated his right knee with finding of WBC 251, 727, PMN 83% consistent with periprosthetic joint infection, peripheral WBC of 14 trending down with IV antibiotics started by medicine team. Current treatment IV antibiotics to include imipenem/ vanc by medicine team. Patient denies any fever chills shortness of breath chest pain nausea or vomiting changes in appetite. During interview patient was alert and oriented. Patient reports no worsening of pain denies any numbness , tingling lower extremity, no other joint pain or concerns reported by patient today. Vitals reviewed X-ray completed reviewed implant intact with no loosening fracture or osteomyelitis evidence Physical exam right knee: Painful with limited range of motion, no open skin lesion, ecchymosis, erythema of the knee however swelling of the right knee noted, lower leg bilaterally severe stasis dermatitis, BMI approximately 40. 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 byrd who recommended following Recommended arthroscopic debridement, washout with suppressant antibiotic implant retention at this time Recommendation for medicine team NPO midnight Obtain consent Optimize patient for surgery for tomorrow Plan discussed with: Patient Visit Coding Surgery Date of Service if different f: Jan 03, 2025 Billing Provider: JUDY OWUSU Surgery Visit Codes: 22312 - INP CONSULT <55 MIN Outpatient Surgery Codes: [id number] - OP CONSULT MODERATE JUDY OWUSU Jan 03, 2025 20:55
[2025-01-03] MEDS: MEROPENEM 1GM IVPB 50 ML IV SCH (22:17)
[2025-01-04] VITALS (10 sets, daily range): BP systolic 99–113; BP diastolic 54–70; PULSE 100–132; RESP 13–20; TEMP 97.4–98.3; O2SAT 93–100
[2025-01-04 07:58] LABS: Basophils # (auto) 0.1 10 ^3/uL (0-0.2); Basophils % (auto) 0.4 % (0.0-2.0); Eosinophils # (auto) 0.1 10 ^3/uL (0-0.8); Eosinophils % (auto) 0.6 % (0.0-7.0); Hematocrit 38.9 % (41.0-53.0); Hemoglobin 12.9 g/dL (13.5-17.5); Lymphocytes # (auto) 1.6 10 ^3/uL (0.4-5.4); Lymphocytes % (auto) 11.4 % (10.0-50.0); Mean Corpuscular Hemoglobin 29.4 pg (28.0-32.0); Mean Corpuscular Hgb Conc. 33.2 g/dL (32.0-36.0); Mean Corpuscular Volume 88.5 fL (80.0-100.0); Monocytes # (auto) 0.9 10 ^3/uL (0-1.3); Monocytes % (auto) 6.4 % (0.0-12.0); Neutrophils # (auto) 11.2 10 ^3/uL (1.6-8.6); Neutrophils % (auto) 81.2 % (37.0-80.0); Nucleated Red Blood Cells % 0.1 %; Platelet Count (auto) 324 10^3/uL (140-450); Red Blood Cells 4.39 10^6/uL (4.5-5.90); Red Cell Distribution Width 13.6 % (11.8-14.3); White Blood Cell 13.8 10^3/uL (4.4-10.8)
[2025-01-04 08:11] LABS: Alanine Aminotransferase 15 U/L (7-40); Alkaline Phosphatase 111 U/L (46-116); Anion Gap 8 (5-15); Aspartate Aminotransferase 14 U/L (13-40); BUN/Creatinine Ratio 18.8 (10.0-20.0); Bilirubin, Total 0.7 mg/dL (0.2-1.0); Blood Urea Nitrogen 16 mg/dL (9-23); Calcium 8.8 mg/dL (8.7-10.4); Carbon Dioxide 28 mmol/L (20-31); Chloride 100 mmol/L (98-107); Potassium 3.5 mmol/L (3.5-5.1); Total Protein 6.6 g/dL (5.7-8.2)
[2025-01-04 08:16] LABS: Albumin 3.2 g/dL (3.2-4.8); Glucose 147 mg/dL (74-106); Sodium 136 mmol/L (136-145)
[2025-01-04] MEDS: REGADENOSON 0.4 MG/5 ML SYRG IV ONE ×2 (09:21→10:37)
--- NOTE | 2025-01-04 10:06 | DVHPN2 ---
Progress Note - Dictate Date Seen: Jan 04, 2025 Medical Necessity Reason Pt with a Central, PICC or Fol: No Subjective s/p I and D of prosthetic knee with wash out. on 01/04 multiples samples sent vital signs Vital Sign Date Time Temp Pulse Resp B/P (MAP) Pulse Ox O2 Delivery O2 Flow Rate FiO2 01/04/25 05:00 98.0 100 19 102/54 (70) 93 98.0 01/03/25 20:00 Room Air* 0 21 Total Intake and Output 01/03/25 01/03/25 01/04/25 15:00 23:00 07:00 Intake Total 450 ml 750 ml Output Total 1200 ml 900 ml Balance -750 ml -150 ml medications Current Medications Medications Dose Ordered Sig/Florinda Route Start Time Stop Time Status Last Admin Dose Admin Vancomycin HCl 0 ml @ 0 mls/hr UD IV 12/24/24 17:15 Apixaban 5 mg BID PO 12/25/24 10:00 01/03/25 22:17 5 MG Docusate Sodium 100 mg BIDPRN PRN PO 12/25/24 00:15 12/25/24 22:17 100 MG Acetaminophen 650 mg Q6HP PRN PO 12/25/24 00:15 12/25/24 20:54 650 MG Atorvastatin Calcium 20 mg HS PO 12/25/24 22:00 01/03/25 22:18 20 MG Nitroglycerin 0.4 mg Q5MINP PRN SL 12/25/24 01:45 Morphine Sulfate 2 mg Q30M PRN IV 12/25/24 01:45 Diagnostic Test (Pha) 1 strip ACHS 12/25/24 17:00 01/04/25 06:20 1 STRIP Insulin Human Regular HS SC 12/25/24 22:00 01/03/25 22:24 3 UNITS Insulin Human Regular AC SC 12/25/24 17:00 01/03/25 18:48 2 UNITS Dextrose 50 ml UD PRN IV 12/25/24 13:15 Prochlorperazine Edisylate 10 mg Q4HPRN PRN IV 12/26/24 01:30 12/26/24 01:56 10 MG Metoprolol Succinate 25 mg DAILY PO 12/26/24 10:45 01/03/25 09:34 25 MG Amiodarone HCl 200 mg Q12HR PO 12/26/24 22:00 01/03/25 22:17 200 MG Morphine Sulfate 4 mg Q4HPRN PRN IV 12/26/24 10:45 01/01/25 05:34 4 MG Vancomycin HCl 125 mg QID PO 12/26/24 12:00 01/03/25 22:17 125 MG Furosemide 40 mg BID IV 12/27/24 10:00 01/03/25 09:33 40 MG Enteral Nutritional Formula 27.5 gm BIDWM PO 12/28/24 18:00 01/03/25 18:00 27.5 GM Oxycodone/ Acetaminophen 1 tab Q4HP PRN PO 01/02/25 11:15 01/04/25 02:53 1 TAB Vancomycin HCl 150 ml @ 150 mls/hr Q12H IV 01/02/25 16:00 01/04/25 04:51 150 MLS/HR Meropenem 50 ml @ 17 mls/hr Q8HR IV 01/03/25 22:00 01/04/25 06:20 17 MLS/HR objective General Appearance: Alert, Oriented X3, Cooperative, No acute distress HEENT: Atraumatic, EOMI, Mucous membrane. moist/pink Respiratory: Crackles. Clear to auscultation, Normal air movement Cardiovascular: Regular rate, Normal S1, Normal S2, No murmurs Abdominal: Normal bowel sounds, Soft, No tenderness, No hepatospenomegaly, No masses Extremities: Other (Lower extremity tenderness/swelling). leg edema. s/p right knee I and D. Neuro: Normal speech, Normal tone, Sensation intact, Cranial nerves 3-12 NL, Other (Generalized weakness) Psych/Mental Status: Mental status NL, Mood NL laboratory and microbiology Laboratory Tests 01/04/25 07:18 Test 01/04/25 07:18 Range/Units Serum Glucose 147 H 74-106 mg/dL Assessment/Plan Patient is a 69-year-old male presents to the hospital with: Prosthetic knee joint infection Bacteremia due to Staphylococcus epidermidis Sepsis Tachycardia Cellulitis of right lower extremity Fluid overload Rule out congestive heart failure Generalized weakness Uncontrolled diabetes mellitus Diabetes mellitus with hyperglycemia Recommendations: s/p washout of prosthetic joint (Discussed with Dr John, He needs two step procedure i.e removal of prosthetic joint and later replacement however due to uncontrolled Hb1Ac, CHF and anesthesia wasnt ready for prolonged procedure) multiple cultures sent: follow OR cx He eventually needs removal of prosthetic joint followed by replacement as outpt fluid cx shows wbc but no growth continue broad spectrum for now Blood culture is likely a contaminant, 1/2 bottles positive cont strict I&O's with fluid restriction glycemic control Cardiology is on board Continue Lasix Elevate legs Continue IV Vancomycin, Meropenem Antibiotic status: Vancomycin IV [Started on 12/24 - Ongoing] Meropenem IV [Started on 01/03 - Ongoing] Zosyn IV [Started on 12/25 - 12/29] 01/04, Vancomycin Trough is 15.4. 01/03, Knee x-ray showed No obvious radiographic evidence of osteomyelitis. prosthetic joint + Prognosis guarded Thank you for consult. Dietary Evaluation Review Comments: For promoting wound healin. Tight DM control, maintain serum Glucose WNL at all time. 2. Consider juvem BID supplementation, encouarge PO intake tomeet 75% of his needs. 3. If Po remain poor, consider protein supplementation via Clinimix amino acid infusion for added 42.5 g protein and 510 kcal if runs 24 hrs at 41ml/hr. Expected Outcomes/Goals: controlled DM, improved nutrition status, healed wounds, gradual wt loss Plan discussed with: Other SILVANO FRYE MD Jan 04, 2025 10:06
[2025-01-04] MEDS ORDERED: KETAMINE 50mg/ML 1ml syringe ONE (12:41)
[2025-01-04] MEDS ORDERED: fentaNYL CITRATE 100 MCG/2 ML VL ONE (12:41)
[2025-01-04] MEDS ORDERED: PROPOFOL 10 MG/ML 20 ML IV ONE (12:42)
[2025-01-04] MEDS ORDERED: LIDOCAINE 1% INJ PF 5ML AMP ONE (12:42)
[2025-01-04] MEDS ORDERED: MIDAZOLAM HCL 2MG/2ML 2ml VIAL (1mg/ml) ONE (12:42)
[2025-01-04] MEDS: ceFAZolin 2 GM/D5W100ml 100 ML IV ONE (12:56)
--- NOTE | 2025-01-04 13:22 | DVHSR ---
APPROVED REPORT Exam: Nuclear Stress Test BMI: 0 Stress Test Details HR Max Heart Rate (APMHR): 150 bpm Target HR (85% APMHR): 128 bpm BP ECG Stress ECG Conclusion The quality of the study is fair. There is a mild perfusion defect seen in the inferior wall region on the stress images with no signif icant reversibility on the rest images. The remaining LV myocardium demonstrates homogeneous radiotracer uptake both on stress and rest SPECT images. There is no evidence of vasodilator induced myocardial ischemia. The left ventricular systolic function is preserved with a measured ejection fraction of 55%. NM EXAM: Myocardial Perfusion REST/STRESS Imaging Protocol: Rest Tc-99m/Stress Tc-99m 1 day Resting Data Rest SPECT myocardial perfusion imaging was performed in supine position 60 minutes following the int ravenous injection of 17 mCi of Tc-99m Sestamibi. Time of rest injection: 0810 Time of rest imagin Administration Route: IV Administration Site: Right Hand Pharmacologic Stress Pharmacologic stress test was performed by injecting Regadenoson 0.4 mg IV push followed by the intra venous injection of 35 mCi of Tc-99m Sestamibi. Time of stress injection: 1027 Time of stress imagin Administration Route: IV Administration Site: Right Hand Gated Stress SPECT was performed 60 minutes after stress injection. The images were gated to evaluate regional wall motion and calculate left ventricular ejection fracti on. Stress only was performed in the Supine position. Study Data Post stress, the left ventricular ejection was 55%.. Perfusion There is a small area of mildly reduced uptake in the segment of the inferior wall which is seen on the stress images as well as the resting images. Nuclear Conclusion Clinical Findings: negative for ischemia Nuclear Findings: negative for ischemia The quality of the study is fair. There is a mild perfusion defect seen in the inferior wall region on the stress images with no signif icant reversibility on the rest images. The remaining LV myocardium demonstrates homogeneous radiotracer uptake both on stress and rest SPECT images. There is no evidence of vasodilator induced myocardial ischemia. The left ventricular systolic function is preserved with a measured ejection fraction of 55%.
--- NOTE | 2025-01-04 13:34 | DVHPN2 ---
Subjective No more Chest pain Status post Cardiolite stress test was negative for ischemia Scheduled for right knee surgery wash out Complains of anxiety Changes from previous H/P or p: Changes Eyes: No Pain, No Vision change, No Conjunctivae inflammation, No Eyelid inflammation, No Other, No Redness ENT: No Ear pain, No Ear discharge, No Nose pain, No Nose discharge, No Nose congestion, No Mouth pain, No Mouth swelling, No Throat pain, No Throat swelling, No Other Cardiovascular: No Chest Pain, No Palpitations, No Orthopnea, No Paroxysmal Noc. Dyspnea, No Edema, No Lt Headedness, No Other Respiratory: No Cough, No Dry, No Shortness of breath, No SOB with excertion, No Wheezing, No Hemoptysis, No Pleuritic Pain, No Sputum, No Other Gastrointestinal: No Nausea, No Vomiting, No Abdominal Pain, No Diarrhea, No Constipation, No Melena, No Hematochezia, No Other Genitourinary: No Dysuria, No Frequency, No Incontinence, No Hematuria, No Retention, No Other Musculoskeletal: other (Lower extremity swelling); No neck pain, No shoulder pain, No arm pain, No back pain, No hand pain; leg pain; No foot pain Skin: No Rash, No Lesions, No Jaundice, No Bruising; Other (Lower extremity redness) Objective Vitals Vital Signs Date Time Temp Pulse Resp B/P (MAP) Pulse Ox O2 Delivery O2 Flow Rate FiO2 01/04/25 13:00 97.9 122 18 108/70 (83) 93 97.9 01/03/25 20:00 Room Air* 0 21 Intake/Output Intake and Output 01/04/25 06:59 Intake Total 1200 ml Output Total 2100 ml Balance -900 ml Intake Oral 1150 ml IV Total 50 ml Output Urine Total 2100 ml # Bowel Movements 1 General Appearance: Alert, Oriented X3, Cooperative Lungs: Clear to auscultation Cardiovascular: Normal S1, Other (Irregularly irregular) Abdomen: Normal bowel sounds, Soft, No tenderness Extremities: Other (2+ edema BLE R>L) Medications Current Medications Medications Dose Ordered Sig/Florinda Route Start Time Stop Time Status Last Admin Dose Admin Vancomycin HCl 0 ml @ 0 mls/hr UD IV 12/24/24 17:15 Apixaban 5 mg BID PO 12/25/24 10:00 01/03/25 22:17 5 MG Docusate Sodium 100 mg BIDPRN PRN PO 12/25/24 00:15 12/25/24 22:17 100 MG Acetaminophen 650 mg Q6HP PRN PO 12/25/24 00:15 12/25/24 20:54 650 MG Atorvastatin Calcium 20 mg HS PO 12/25/24 22:00 01/03/25 22:18 20 MG Nitroglycerin 0.4 mg Q5MINP PRN SL 12/25/24 01:45 Morphine Sulfate 2 mg Q30M PRN IV 12/25/24 01:45 Diagnostic Test (Pha) 1 strip ACHS 12/25/24 17:00 01/04/25 11:30 1 STRIP Insulin Human Regular HS SC 12/25/24 22:00 01/03/25 22:24 3 UNITS Insulin Human Regular AC SC 12/25/24 17:00 01/04/25 13:22 3 UNITS Dextrose 50 ml UD PRN IV 12/25/24 13:15 Prochlorperazine Edisylate 10 mg Q4HPRN PRN IV 12/26/24 01:30 12/26/24 01:56 10 MG Metoprolol Succinate 25 mg DAILY PO 12/26/24 10:45 01/03/25 09:34 25 MG Amiodarone HCl 200 mg Q12HR PO 12/26/24 22:00 01/04/25 11:01 200 MG Morphine Sulfate 4 mg Q4HPRN PRN IV 12/26/24 10:45 01/01/25 05:34 4 MG Vancomycin HCl 125 mg QID PO 12/26/24 12:00 01/04/25 13:21 125 MG Enteral Nutritional Formula 27.5 gm BIDWM PO 12/28/24 18:00 01/03/25 18:00 27.5 GM Oxycodone/ Acetaminophen 1 tab Q4HP PRN PO 01/02/25 11:15 01/04/25 11:06 1 TAB Vancomycin HCl 150 ml @ 150 mls/hr Q12H IV 01/02/25 16:00 01/04/25 04:51 150 MLS/HR Meropenem 50 ml @ 17 mls/hr Q8HR IV 01/03/25 22:00 01/04/25 13:21 17 MLS/HR Furosemide 40 mg DAILY PO 01/05/25 10:00 Laboratory Results Laboratory Tests 01/04/25 07:18 Chemistry Test 01/04/25 07:18 Albumin 3.2 g/dL (3.2-4.8) Calcium Level 8.8 mg/dL (8.7-10.4) Magnesium Level 2.0 mg/dL (1.6-2.6) Total Protein 6.6 g/dL (5.7-8.2) LFT Test 01/04/25 07:18 Alanine Aminotransferase (ALT) 15 U/L (7-40) Alkaline Phosphatase 111 U/L (46-116) Aspartate Amino Transferase (AST) 14 U/L (13-40) Total Bilirubin 0.7 mg/dL (0.2-1.0) Urinalysis Test 12/26/24 12:13 Urine Color Yellow (Yellow) Urine Clarity Hazy (Clear) H Urine pH 5.5 (5.0-9.0) Urine Specific [place] 1.033 (1.001-1.035) Urine Protein 1+ (Negative) H Urine Ketones 1+ (Negative) H Urine Blood 1+ /uL (Negative) H Urine Nitrite Negative (Negative) Urine Bilirubin Negative (Negative) Urine Urobilinogen Normal mg/dL (Negative) Urine Leukocyte Esterase Negative /uL (Negative) Urine RBC 1 /hpf (0 - 3) Urine Microscopic WBC 5 /HPF (0-3) H Urine Squamous Epithelial Cells Few /hpf (<5) Urine Bacteria Few /hpf (None Seen) H Urine Glucose 4+ mg/dL (Normal) H Microbiology Microbiology Date/Time Source Procedure Growth Status 12/26/24 12:13 Voided Urine Urine Culture - Final Complete 12/25/24 14:02 Blood Blood Culture - Final NO GROWTH AFTER 5 DAYS OF INCUBATION. Complete Assessment/Plan Assessment/Plan Cellulitis RLE Cellulitis Left hand Sepsis Afib RVR Morbid obesity Recurrent C. 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 Thrombocytopenia due to sepsis HTN DM2 Mixed hyperlipidemia Bacteremia PLAN: Continue IV antibiotics: Zosyn &Vanco Resume po Vanco Lasix Pain management Eliquis Metoprolol po amiodarone Junior 12/27/2024: Left hand cellulitis rule out abscess: Get CT scan of the left hand no contrast Bilateral lower extremity edema: Increase Lasix to twice a day Right lower extremity cellulitis: Continue IV antibiotics with Zosyn and vancomycin Atrial fibrillation: Continue Eliquis and metoprolol and amiodarone Bacteremia with Gram-negative rods and Gram-positive cocci: Continue IV antibiotics Recent C diff colitis: Continue vancomycin p.o. Hypokalemia: Replace p.o. Pain control with morphine and [place] p.r.n. Junior catheter Monitor closely 12/28/2024: Replace potassium Continue IV antibiotics Add Aguilar supplements twice a day Continue p.o. vancomycin Monitor closely 12/29/2024: Replace potassium and magnesium Start physical therapy Continue the IV antibiotics 12/30/2024: Continue the IV antibiotics Start physical therapy Replace potassium and magnesium Monitor closely The rest of the management will depend on the hospital course 12/31/2024: Continue the current management with IV antibiotics and p.o. vancomycin Replace magnesium and potassium Continue physical therapy Out of bed as tolerated 01/01/2025: Get CT scan of the right knee and right tibia and fibula Continue IV antibiotics Continue p.o. vancomycin Continue physical therapy 01/02/2025: Right knee pain and effusion, rule out septic arthritis, consult IR to do arthrocentesis for fluid analysis Right lower extremity cellulitis: Improving, continue IV antibiotics Left hand cellulitis: Improving, continue IV antibiotics Continue physical therapy 01/03/25: Chest pain: EKG neg, consult cardiology, check troponins Afib: Eliquis, Amiodarone, Metoprolol R knee septic arthritis: Start Meropenem, con Vanco IV, consult Ortho Recent C. Diff colitis: PO Vanco L hand cellulitis: Improving RLE cellulitis: Improving Sepsis / Leukocytosis due to cellulitis and septic arthritis Bacteremia w Staph epi HTN DM2 Mixed hyperlipidemia Bacteremia Morbid obesity Pain: Morphine & Percocet prn BLE edema, ? diastolic HF?: IV Lasix 01/04/2025: Chest pain: Stress test is negative Right knee septic arthritis: Continue IV antibiotics vancomycin and meropenem, Orthopedic surgery for today Anxiety: Start Xanax p.r.n. Atrial fibrillation on Eliquis and amiodarone and metoprolol C diff colitis: P.o. vancomycin Hypotension: Discontinue IV Lasix, changed to 40 mg p.o. daily Plan discussed with: Patient My Orders Orders - PEGGY OZUNA MD Procedure Category Date Status Time R Knee 3v Xray XY 01/03/25 Resulted 15:10 Furosemide Tablet PHA 01/05/25 In Process (Lasix Tablet) 10:00 Date of Service: Jan 04, 2025 Billing Provider: PEGGY OZUNA MD Common Visit Codes: NOT BILLABLE PEGGY OZUNA MD Jan 04, 2025 13:34
[2025-01-04] MEDS: METOCLOPRAMIDE HCL 5MG/ml INJ 2ml VIAL IV ONE (13:45)
[2025-01-04] MEDS ORDERED: HYDROmorphone HCL 2 MG/ML VL/or syr IV PRN (13:45)
[2025-01-04] MEDS ORDERED: ceFAZolin 1GM VL ONE (13:45)
[2025-01-04] MEDS ORDERED: MORPHINE SULFATE 4 MG/ML SYR/VIAL IV PRN (13:45)
[2025-01-04] MEDS ORDERED: ALPRAZolam 0.5 MG TAB PO PRN (13:45)
[2025-01-04] MEDS ORDERED: METOPROLOL TARTRATE 1MG/1ML-5ML VIAL IV ONE (13:52)
[2025-01-04] MEDS ORDERED: MORPHINE SULFATE INJ 2 MG/ml SYRG IV PRN (14:00)
--- NOTE | 2025-01-04 14:05 | DVHPN2 ---
Consult Progress Note Date Seen: Jan 04, 2025 Subjective Other Systems: The patient is currently undergoing a surgical intervention Objective vital signs Vital Sign Date Time Temp Pulse Resp B/P (MAP) Pulse Ox O2 Delivery O2 Flow Rate FiO2 01/04/25 13:00 97.9 122 18 108/70 (83) 93 97.9 01/03/25 20:00 Room Air* 0 21 Total Intake and Output 01/03/25 01/03/25 01/04/25 15:00 23:00 07:00 Intake Total 450 ml 750 ml Output Total 1200 ml 900 ml Balance -750 ml -150 ml medications Current Medications Medications Dose Ordered Sig/Florinda Route Start Time Stop Time Status Last Admin Dose Admin Vancomycin HCl 0 ml @ 0 mls/hr UD IV 12/24/24 17:15 Apixaban 5 mg BID PO 12/25/24 10:00 01/03/25 22:17 5 MG Docusate Sodium 100 mg BIDPRN PRN PO 12/25/24 00:15 12/25/24 22:17 100 MG Acetaminophen 650 mg Q6HP PRN PO 12/25/24 00:15 12/25/24 20:54 650 MG Atorvastatin Calcium 20 mg HS PO 12/25/24 22:00 01/03/25 22:18 20 MG Nitroglycerin 0.4 mg Q5MINP PRN SL 12/25/24 01:45 Morphine Sulfate 2 mg Q30M PRN IV 12/25/24 01:45 Diagnostic Test (Pha) 1 strip ACHS 12/25/24 17:00 01/04/25 11:30 1 STRIP Insulin Human Regular HS SC 12/25/24 22:00 01/03/25 22:24 3 UNITS Insulin Human Regular AC SC 12/25/24 17:00 01/04/25 13:22 3 UNITS Dextrose 50 ml UD PRN IV 12/25/24 13:15 Prochlorperazine Edisylate 10 mg Q4HPRN PRN IV 12/26/24 01:30 12/26/24 01:56 10 MG Metoprolol Succinate 25 mg DAILY PO 12/26/24 10:45 01/03/25 09:34 25 MG Amiodarone HCl 200 mg Q12HR PO 12/26/24 22:00 01/04/25 11:01 200 MG Morphine Sulfate 4 mg Q4HPRN PRN IV 12/26/24 10:45 01/01/25 05:34 4 MG Vancomycin HCl 125 mg QID PO 12/26/24 12:00 01/04/25 13:21 125 MG Enteral Nutritional Formula 27.5 gm BIDWM PO 12/28/24 18:00 01/03/25 18:00 27.5 GM Oxycodone/ Acetaminophen 1 tab Q4HP PRN PO 01/02/25 11:15 01/04/25 11:06 1 TAB Vancomycin HCl 150 ml @ 150 mls/hr Q12H IV 01/02/25 16:00 01/04/25 04:51 150 MLS/HR Meropenem 50 ml @ 17 mls/hr Q8HR IV 01/03/25 22:00 01/04/25 13:21 17 MLS/HR Furosemide 40 mg DAILY PO 01/05/25 10:00 Alprazolam 0.5 mg Q8HPRN PRN PO 01/04/25 13:45 Hydromorphone HCl 0.5 mg Q10M PRN IV 01/04/25 13:45 01/04/25 14:26 Morphine Sulfate 2 mg Q4H PRN IV 01/04/25 13:45 01/04/25 17:46 Hydromorphone HCl 0.25 mg Q10M PRN IV 01/04/25 13:45 01/04/25 14:16 Morphine Sulfate 1 mg Q30M PRN IV 01/04/25 14:00 01/04/25 16:01 laboratory and microbiology Laboratory Tests 01/04/25 07:18 Test 01/04/25 07:18 Range/Units Serum Glucose 147 H 74-106 mg/dL Problem List/Assessment/Plan Problem List/Assessment/Plan Acute episodes of chest pain Atrial flutter/Atrial fibrillation, controlled rate (on Eliquis) Sepsis with bilateral lower extremity cellulitis Hypertension Dyslipidemia Type 2 diabetes mellitus Morbid obesity Plan/Recommendation (Dr. Peoples) * Transthoracic echocardiogram revealed LVEF 55% * Cardiolite stress test rule out coronary ischemia * Negative for ischemia. There is no evidence of vasodilator induced myocardial ischemia * Antiarrhythmic agent, amiodarone * NOAC therapy, Eliquis * [id number] VASc score: 3 points * Rate control, beta-salud * Replete electrolytes as needed, K>4 and Mg>2 There is no further cardiac work-up indicated at this time. Kindly call if in need to re-consult. Thank you for allowing us to care for this patient. This medical document was created using an electronic medical record system with voice recognition software and computerized dictation system. Although this document has been carefully reviewed, there might still be some phonetic and typographical errors. Occasional wrong-word or ``sound-alike substitutions may have occurred due to the inherent limitations of voice recognition software. These areas are purely typographical due to imperfections of the software programs and do not reflect any compromise in the patient's medical care. Please read the chart carefully and recognize, using context, where these substitutions have occurred Plan discussed with: Other Dietary Evaluation Review Comments: For promoting wound healin. Tight DM control, maintain serum Glucose WNL at all time. 2. Consider juvem BID supplementation, encouarge PO intake tomeet 75% of his needs. 3. If Po remain poor, consider protein supplementation via Clinimix amino acid infusion for added 42.5 g protein and 510 kcal if runs 24 hrs at 41ml/hr. Expected Outcomes/Goals: controlled DM, improved nutrition status, healed wounds, gradual wt loss Date of Service: Jan 04, 2025 Billing Provider: YOJANA RHOADES Cardiology Common Codes: [id number] HOSP CARE(High YOJANA RHOADES Jan 04, 2025 14:05
[2025-01-04] MEDS: HYDROmorphone HCL 2 MG/ML VL/or syr IV PRN (15:39)
--- NOTE | 2025-01-04 20:26 | DVHOP2 ---
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 These include but are not limited to complications of anesthesia, postoperative infection, incomplete relief of symptoms, recurrence of symptoms, damage to blood vessels, nerves and tendons, deep venous thrombosis, pulmonary embolism and possible need for repeat surgery in the future. Complications: None Estimated Blood Loss: 10 mL Indications for Surgery: The patient is a 69-year-old male who presented to the emergency department and later admitted for various medical issues. Orthopedics was consulted for right knee pain and swelling. Clinical and radiological evaluation was suggestive of infection status post total knee arthroplasty. This was done at an outside hospital. Various options were considered including two-stage revision. However the patient is very sick medically and has multiple medical issues and not optimized for a major revision surgery. Also his diabetes is not under control. Anesthesia and Cardiology both deemed his risks high for any surgery. After thorough conversation with multiple team members including anesthesia, we decided to do a washout for palliative purposes only. Arthroscopic irrigation and debridement was discussed with the patient. It was mentioned that he needs to be optimized medically before doing two stage revision knee arthroplasty, explantation with antibiotic spacer as the 1st stage and revision arthroplasty as the 2nd. He decided to proceed with surgery Name of Procedure Performed Right knee arthroscopy with irrigation and debridement Procedure Details Procedure Details: The patient was identified in the preoperative holding area and the surgical site was marked. The consent was verified. The patient was brought into the operating room and placed supine on the operating table. General anesthesia was administered. A tourniquet was applied over the proximal thigh. All the bony prominences were appropriately padded. The knee was positioned appropriately. The extremity was now prepped and draped in the usual sterile manner. A timeout was called out to confirm the identity of the patient, the nature of surgery, the site of surgery, the availability of implants and x-rays and allergies to medications. A superolateral portal was established. A trocar and cannula were introduced. Pus was noted. Culture were sent. The 30 degree scope was introduced. A superomedial portal was made as well. A shaver was introduced. Significant scar tissue was noted. The prosthesis was visualized. Care was taken to carefully remove some of the scar tissue and synovium was debrided as well. Almost 8 L of normal saline irrigation was given. Ancef antibiotics was injected into the 1st bag. After irrigation, the skin incisions were closed with 3-0 nylon. Sterile dressing was applied. Condition Fair Disposition Still a Patient RAYMOND JOHN MD Jan 04, 2025 20:26
[2025-01-04] MEDS ORDERED: ENOXAPARIN SOD 100 MG/1 ML SYRINGE SC SCH (22:00)
[2025-01-04] MEDS: APIXABAN 5 MG TAB PO SCH (22:52)
[2025-01-05] VITALS (9 sets, daily range): BP systolic 87–124; BP diastolic 58–80; PULSE 86–121; RESP 16–19; TEMP 97.6–98.1; O2SAT 92–100
[2025-01-05 08:25] LABS: Basophils # (auto) 0.1 10 ^3/uL (0-0.2); Basophils % (auto) 0.8 % (0.0-2.0); Eosinophils # (auto) 0.1 10 ^3/uL (0-0.8); Eosinophils % (auto) 0.9 % (0.0-7.0); Hematocrit 36.7 % (41.0-53.0); Hemoglobin 12.4 g/dL (13.5-17.5); Lymphocytes # (auto) 1.1 10 ^3/uL (0.4-5.4); Lymphocytes % (auto) 7.9 % (10.0-50.0); Mean Corpuscular Hemoglobin 29.8 pg (28.0-32.0); Mean Corpuscular Hgb Conc. 33.7 g/dL (32.0-36.0); Mean Corpuscular Volume 88.3 fL (80.0-100.0); Monocytes # (auto) 0.8 10 ^3/uL (0-1.3); Monocytes % (auto) 6.2 % (0.0-12.0); Neutrophils # (auto) 11.3 10 ^3/uL (1.6-8.6); Neutrophils % (auto) 84.2 % (37.0-80.0); Nucleated Red Blood Cells % 0.1 %; Platelet Count (auto) 353 10^3/uL (140-450); Red Blood Cells 4.16 10^6/uL (4.5-5.90); Red Cell Distribution Width 13.5 % (11.8-14.3); White Blood Cell 13.4 10^3/uL (4.4-10.8)
[2025-01-05 08:42] LABS: Alanine Aminotransferase 11 U/L (7-40); Alkaline Phosphatase 99 U/L (46-116); Anion Gap 6 (5-15); Aspartate Aminotransferase 12 U/L (13-40); Bilirubin, Total 0.7 mg/dL (0.2-1.0); Blood Urea Nitrogen 16 mg/dL (9-23); Calcium 8.6 mg/dL (8.7-10.4); Carbon Dioxide 29 mmol/L (20-31); Chloride 102 mmol/L (98-107); Glucose 139 mg/dL (74-106); Magnesium 2.1 mg/dL (1.6-2.6); Potassium 3.9 mmol/L (3.5-5.1); Sodium 137 mmol/L (136-145); Total Protein 6.4 g/dL (5.7-8.2)
[2025-01-05] MEDS: FUROSEMIDE 20 MG TAB PO SCH (10:49)
--- NOTE | 2025-01-05 11:49 | DVHPN2 ---
Subjective Status post orthoscopic surgery for the right knee yesterday Changes from previous H/P or p: Changes Eyes: No Pain, No Vision change, No Conjunctivae inflammation, No Eyelid inflammation, No Other, No Redness ENT: No Ear pain, No Ear discharge, No Nose pain, No Nose discharge, No Nose congestion, No Mouth pain, No Mouth swelling, No Throat pain, No Throat swelling, No Other Cardiovascular: No Chest Pain, No Palpitations, No Orthopnea, No Paroxysmal Noc. Dyspnea, No Edema, No Lt Headedness, No Other Respiratory: No Cough, No Dry, No Shortness of breath, No SOB with excertion, No Wheezing, No Hemoptysis, No Pleuritic Pain, No Sputum, No Other Gastrointestinal: No Nausea, No Vomiting, No Abdominal Pain, No Diarrhea, No Constipation, No Melena, No Hematochezia, No Other Genitourinary: No Dysuria, No Frequency, No Incontinence, No Hematuria, No Retention, No Other Musculoskeletal: other (Lower extremity swelling); No neck pain, No shoulder pain, No arm pain, No back pain, No hand pain; leg pain; No foot pain Skin: No Rash, No Lesions, No Jaundice, No Bruising; Other (Lower extremity redness) Objective Vitals Vital Signs Date Time Temp Pulse Resp B/P (MAP) Pulse Ox O2 Delivery O2 Flow Rate FiO2 01/05/25 10:52 102 104/66 01/05/25 06:02 16 01/05/25 05:00 97.6 97 97.6 01/04/25 20:00 Room Air* 0 21 Intake/Output Intake and Output 01/05/25 07:00 Intake Total 1975 ml Output Total 500 ml Balance 1475 ml Intake Oral 1400 ml IV Total 575 ml Output Urine Total 500 ml General Appearance: Alert, Oriented X3, Cooperative Lungs: Clear to auscultation Cardiovascular: Normal S1, Other (Irregularly irregular) Abdomen: Normal bowel sounds, Soft, No tenderness Extremities: Other (2+ edema BLE R>L) Medications Current Medications Medications Dose Ordered Sig/Florinda Route Start Time Stop Time Status Last Admin Dose Admin Vancomycin HCl 0 ml @ 0 mls/hr UD IV 12/24/24 17:15 Docusate Sodium 100 mg BIDPRN PRN PO 12/25/24 00:15 12/25/24 22:17 100 MG Acetaminophen 650 mg Q6HP PRN PO 12/25/24 00:15 12/25/24 20:54 650 MG Atorvastatin Calcium 20 mg HS PO 12/25/24 22:00 01/04/25 22:51 20 MG Nitroglycerin 0.4 mg Q5MINP PRN SL 12/25/24 01:45 Morphine Sulfate 2 mg Q30M PRN IV 12/25/24 01:45 Diagnostic Test (Pha) 1 strip ACHS 12/25/24 17:00 01/05/25 07:00 1 STRIP Insulin Human Regular HS SC 12/25/24 22:00 01/04/25 23:00 2 UNITS Insulin Human Regular AC SC 12/25/24 17:00 01/04/25 18:11 2 UNITS Dextrose 50 ml UD PRN IV 12/25/24 13:15 Prochlorperazine Edisylate 10 mg Q4HPRN PRN IV 12/26/24 01:30 12/26/24 01:56 10 MG Metoprolol Succinate 25 mg DAILY PO 12/26/24 10:45 01/05/25 10:52 25 MG Amiodarone HCl 200 mg Q12HR PO 12/26/24 22:00 01/05/25 10:53 200 MG Morphine Sulfate 4 mg Q4HPRN PRN IV 12/26/24 10:45 01/05/25 06:02 4 MG Vancomycin HCl 125 mg QID PO 12/26/24 12:00 01/05/25 05:51 125 MG Enteral Nutritional Formula 27.5 gm BIDWM PO 12/28/24 18:00 01/04/25 18:11 27.5 GM Oxycodone/ Acetaminophen 1 tab Q4HP PRN PO 01/02/25 11:15 01/05/25 10:50 1 TAB Vancomycin HCl 150 ml @ 150 mls/hr Q12H IV 01/02/25 16:00 01/05/25 03:32 150 MLS/HR Meropenem 50 ml @ 17 mls/hr Q8HR IV 01/03/25 22:00 01/05/25 05:50 17 MLS/HR Furosemide 40 mg DAILY PO 01/05/25 10:00 01/05/25 10:49 40 MG Alprazolam 0.5 mg Q8HPRN PRN PO 01/04/25 13:45 Apixaban 5 mg BID PO 01/04/25 22:00 01/05/25 10:49 5 MG Laboratory Results Laboratory Tests 01/05/25 08:02 Chemistry Test 01/05/25 08:02 Albumin 3.0 g/dL (3.2-4.8) L Calcium Level 8.6 mg/dL (8.7-10.4) L Magnesium Level 2.1 mg/dL (1.6-2.6) Total Protein 6.4 g/dL (5.7-8.2) LFT Test 01/05/25 08:02 Alanine Aminotransferase (ALT) 11 U/L (7-40) Alkaline Phosphatase 99 U/L (46-116) Aspartate Amino Transferase (AST) 12 U/L (13-40) L Total Bilirubin 0.7 mg/dL (0.2-1.0) Urinalysis Test 12/26/24 12:13 Urine Color Yellow (Yellow) Urine Clarity Hazy (Clear) H Urine pH 5.5 (5.0-9.0) Urine Specific [place] 1.033 (1.001-1.035) Urine Protein 1+ (Negative) H Urine Ketones 1+ (Negative) H Urine Blood 1+ /uL (Negative) H Urine Nitrite Negative (Negative) Urine Bilirubin Negative (Negative) Urine Urobilinogen Normal mg/dL (Negative) Urine Leukocyte Esterase Negative /uL (Negative) Urine RBC 1 /hpf (0 - 3) Urine Microscopic WBC 5 /HPF (0-3) H Urine Squamous Epithelial Cells Few /hpf (<5) Urine Bacteria Few /hpf (None Seen) H Urine Glucose 4+ mg/dL (Normal) H Microbiology Microbiology Date/Time Source Procedure Growth Status 01/03/25 11:55 Aspirate Gram Stain - Final Resulted 01/03/25 11:55 Aspirate Body Fluid Culture - Preliminary Resulted 12/26/24 12:13 Voided Urine Urine Culture - Final Complete 12/25/24 14:02 Blood Blood Culture - Final NO GROWTH AFTER 5 DAYS OF INCUBATION. Complete Assessment/Plan Assessment/Plan Cellulitis RLE Cellulitis Left hand Sepsis Afib RVR Morbid obesity Recurrent C. 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 Thrombocytopenia due to sepsis HTN DM2 Mixed hyperlipidemia Bacteremia PLAN: Continue IV antibiotics: Zosyn &Vanco Resume po Vanco Lasix Pain management Eliquis Metoprolol po amiodarone Junior 12/27/2024: Left hand cellulitis rule out abscess: Get CT scan of the left hand no contrast Bilateral lower extremity edema: Increase Lasix to twice a day Right lower extremity cellulitis: Continue IV antibiotics with Zosyn and vancomycin Atrial fibrillation: Continue Eliquis and metoprolol and amiodarone Bacteremia with Gram-negative rods and Gram-positive cocci: Continue IV antibiotics Recent C diff colitis: Continue vancomycin p.o. Hypokalemia: Replace p.o. Pain control with morphine and [place] p.r.n. Junior catheter Monitor closely 12/28/2024: Replace potassium Continue IV antibiotics Add [place] supplements twice a day Continue p.o. vancomycin Monitor closely 12/29/2024: Replace potassium and magnesium Start physical therapy Continue the IV antibiotics 12/30/2024: Continue the IV antibiotics Start physical therapy Replace potassium and magnesium Monitor closely The rest of the management will depend on the hospital course 12/31/2024: Continue the current management with IV antibiotics and p.o. vancomycin Replace magnesium and potassium Continue physical therapy Out of bed as tolerated 01/01/2025: Get CT scan of the right knee and right tibia and fibula Continue IV antibiotics Continue p.o. vancomycin Continue physical therapy 01/02/2025: Right knee pain and effusion, rule out septic arthritis, consult IR to do arthrocentesis for fluid analysis Right lower extremity cellulitis: Improving, continue IV antibiotics Left hand cellulitis: Improving, continue IV antibiotics Continue physical therapy 01/03/25: Chest pain: EKG neg, consult cardiology, check troponins Afib: Eliquis, Amiodarone, Metoprolol R knee septic arthritis: Start Meropenem, con Vanco IV, consult Ortho Recent C. Diff colitis: PO Vanco L hand cellulitis: Improving RLE cellulitis: Improving Sepsis / Leukocytosis due to cellulitis and septic arthritis Bacteremia w Staph epi HTN DM2 Mixed hyperlipidemia Bacteremia Morbid obesity Pain: Morphine & Percocet prn BLE edema, ? diastolic HF?: IV Lasix 01/04/2025: Chest pain: Stress test is negative Right knee septic arthritis: Continue IV antibiotics vancomycin and meropenem, Orthopedic surgery for today Anxiety: Start Xanax p.r.n. Atrial fibrillation on Eliquis and amiodarone and metoprolol C diff colitis: P.o. vancomycin Hypotension: Discontinue IV Lasix, changed to 40 mg p.o. daily 01/05/2025: Continue IV antibiotics The patient will need more surgical definitive treatment for his right knee prosthetic infection I recommended to the patient to be transferred to higher level of care, he will think about it and let us know Plan discussed with: Patient My Orders Orders - PEGGY OZUNA MD Procedure Category Date Status Time Alprazolam Tablet PHA 01/04/25 In Process (Xanax Tablet) 13:45 Date of Service: Jan 05, 2025 Billing Provider: PEGGY OZUNA MD Common Visit Codes: NOT BILLABLE PEGGY OZUNA MD Jan 05, 2025 11:49
[2025-01-05] MEDS: ACCU-CHEK COMFORT CURVE STRIP VI ONE (12:40)
--- NOTE | 2025-01-05 19:33 | DVHPN2 ---
Progress Note Progress Note Patient Name: Endy Haney Unit Number: [id number] Date of : 1955 Patient Status: Admitted Inpatient Attending Doctor: Kel Dawkins MD Surgery: Progress note for follow-up for right knee arthroscopic debridement washout with suppressant antibiotic and with implant retention Subjective: Patient reports pain well controlled 4 to 5/10 today. Reports no acute events overnight. Denies any numbness tingling. Denies chest pain, shortness of breath, palpitation. Denies any fever chills. Objective: Patient resting comfortably in bed. Examination of right knee reveals surgical dressing CDI. Patient able to dorsiflex plantar flex toes and ankle (gastroc, anterior tibialis, peroneals ). SILT over serial saphenous, tibial, deep and superficial peroneal nerve, medial and lateral plantar nerve distribution patterns. 2+ DP, bcr, you thermic. limited range of motion, no open skin lesion, ecchymosis, erythema of the knee however lower leg bilaterally severe stasis dermatitis, Grossly neurovascularly intact A/P: S/p right knee arthroscopic debridement washout with suppressant antibiotic and with implant retention. The patient is doing well. -Ambulation: WBAT RLE VS WHEELCHAIR , Maintain ROM right knee as much as possible -DVT proph: per medicine team -Antibiotics: Per medicine team -Pain Management: Per medicine team ONCE MEDICALLY STABLE WILL NEED 2 STAGE REVISION Plan discussed with: Patient Visit Coding Surgery Date of Service if different f: Jan 05, 2025 Billing Provider: JUDY OWUSU Surgery Visit Codes: [id number] INP/OBS CARE(MOD) JUDY OWUSU Jan 05, 2025 19:33
--- NOTE | 2025-01-05 21:08 | DVHPN2 ---
Progress Note - Dictate Date Seen: Jan 05, 2025 Medical Necessity Reason Pt with a Central, PICC or Fol: No Subjective S/P I and D of prosthetic knee with wash out on 01/04. Multiples samples sent yesterday [results are still pending] Patient reports pain well controlled 4 to 02/26 today. vital signs Vital Sign Date Time Temp Pulse Resp B/P (MAP) Pulse Ox O2 Delivery O2 Flow Rate FiO2 01/05/25 17:00 97.6 102 17 100/63 (75) 94 97.6 01/05/25 08:00 Room Air* 0 21 Total Intake and Output 01/04/25 01/04/25 01/05/25 15:00 23:00 07:00 Intake Total 25 ml 1350 ml 600 ml Output Total 500 ml Balance 25 ml 1350 ml 100 ml medications Current Medications Medications Dose Ordered Sig/Florinda Route Start Time Stop Time Status Last Admin Dose Admin Vancomycin HCl 0 ml @ 0 mls/hr UD IV 12/24/24 17:15 Docusate Sodium 100 mg BIDPRN PRN PO 12/25/24 00:15 12/25/24 22:17 100 MG Acetaminophen 650 mg Q6HP PRN PO 12/25/24 00:15 12/25/24 20:54 650 MG Atorvastatin Calcium 20 mg HS PO 12/25/24 22:00 01/04/25 22:51 20 MG Nitroglycerin 0.4 mg Q5MINP PRN SL 12/25/24 01:45 Morphine Sulfate 2 mg Q30M PRN IV 12/25/24 01:45 Diagnostic Test (Pha) 1 strip ACHS 12/25/24 17:00 01/05/25 19:03 1 STRIP Insulin Human Regular HS SC 12/25/24 22:00 01/04/25 23:00 2 UNITS Insulin Human Regular AC SC 12/25/24 17:00 01/05/25 19:10 6 UNITS Dextrose 50 ml UD PRN IV 12/25/24 13:15 Prochlorperazine Edisylate 10 mg Q4HPRN PRN IV 12/26/24 01:30 12/26/24 01:56 10 MG Metoprolol Succinate 25 mg DAILY PO 12/26/24 10:45 01/05/25 10:52 25 MG Amiodarone HCl 200 mg Q12HR PO 12/26/24 22:00 01/05/25 10:53 200 MG Morphine Sulfate 4 mg Q4HPRN PRN IV 12/26/24 10:45 01/05/25 06:02 4 MG Vancomycin HCl 125 mg QID PO 12/26/24 12:00 01/05/25 19:07 125 MG Enteral Nutritional Formula 27.5 gm BIDWM PO 12/28/24 18:00 01/05/25 19:03 27.5 GM Oxycodone/ Acetaminophen 1 tab Q4HP PRN PO 01/02/25 11:15 01/05/25 19:07 1 TAB Vancomycin HCl 150 ml @ 150 mls/hr Q12H IV 01/02/25 16:00 01/05/25 16:40 150 MLS/HR Meropenem 50 ml @ 17 mls/hr Q8HR IV 01/03/25 22:00 01/05/25 14:44 17 MLS/HR Furosemide 40 mg DAILY PO 01/05/25 10:00 01/05/25 10:49 40 MG Alprazolam 0.5 mg Q8HPRN PRN PO 01/04/25 13:45 Apixaban 5 mg BID PO 01/04/25 22:00 01/05/25 10:49 5 MG objective General Appearance: Alert, Oriented X3, Cooperative, No acute distress HEENT: Atraumatic, EOMI, Mucous membrane. moist/pink Respiratory: Crackles. Clear to auscultation, Normal air movement Cardiovascular: Regular rate, Normal S1, Normal S2, No murmurs Abdominal: Normal bowel sounds, Soft, No tenderness, No hepatospenomegaly, No masses Extremities: Other (Lower extremity tenderness/swelling). leg edema. s/p right knee I and D. Neuro: Normal speech, Normal tone, Sensation intact, Cranial nerves 3-12 NL, Other (Generalized weakness) Psych/Mental Status: Mental status NL, Mood NL laboratory and microbiology Laboratory Tests 01/05/25 15:35 01/05/25 08:02 Test 01/05/25 08:02 Range/Units Serum Glucose 139 H 74-106 mg/dL Assessment/Plan Patient is a 69-year-old male presents to the hospital with: Prosthetic knee joint infection fluid culture rare Gram negative rods Bacteremia due to Staphylococcus epidermidis Sepsis Tachycardia Cellulitis of right lower extremity Fluid overload Rule out congestive heart failure Generalized weakness Uncontrolled diabetes mellitus Non complaince Recommendations: s/p washout of prosthetic joint on 01/04 (Discussed with Dr John, He needs two step procedure i.e removal of prosthetic joint and later replacement however due to uncontrolled Hb1Ac, CHF and anesthesia wasn't ready for prolonged procedure) multiple cultures sent: follow OR cx He eventually needs removal of prosthetic joint followed by replacement as outpt fluid cx shows rare gram negative rods continue broad spectrum for now, He will need prolonged course of IV antibiotics at the time of discharge Continue IV Vancomycin, Meropenem; will taper eventually Blood culture is likely a contaminant, 1/2 bottles positive strict glycemic control Cardiology is on board Antibiotic status: Vancomycin IV [Started on 12/24 - Ongoing] Meropenem IV [Started on 01/03 - Ongoing] Zosyn IV [Started on 12/25 - 12/29] 01/04, Vancomycin Trough is 15.4. 01/03, Knee x-ray showed No obvious radiographic evidence of osteomyelitis. prosthetic joint + Prognosis guarded of knee, he has baseline poor health with uncontrolled DM and non compliance Thank you for consult. Dietary Evaluation Review Comments: For promoting wound healin. Tight DM control, maintain serum Glucose WNL at all time. 2. Consider juvem BID supplementation, encouarge PO intake tomeet 75% of his needs. 3. If Po remain poor, consider protein supplementation via Clinimix amino acid infusion for added 42.5 g protein and 510 kcal if runs 24 hrs at 41ml/hr. Expected Outcomes/Goals: controlled DM, improved nutrition status, healed wounds, gradual wt loss Plan discussed with: SILVANO Robertson MD Jan 05, 2025 21:08
[2025-01-06] VITALS (9 sets, daily range): BP systolic 85–103; BP diastolic 46–64; PULSE 85–98; RESP 17–19; TEMP 97.8–98.2; O2SAT 93–96
[2025-01-06 05:07] LABS: Basophils # (auto) 0.1 10 ^3/uL (0-0.2); Basophils % (auto) 0.6 % (0.0-2.0); Eosinophils # (auto) 0.2 10 ^3/uL (0-0.8); Eosinophils % (auto) 1.5 % (0.0-7.0); Hematocrit 37.2 % (41.0-53.0); Hemoglobin 12.5 g/dL (13.5-17.5); Lymphocytes # (auto) 1.2 10 ^3/uL (0.4-5.4); Lymphocytes % (auto) 11.3 % (10.0-50.0); Mean Corpuscular Hemoglobin 29.3 pg (28.0-32.0); Mean Corpuscular Hgb Conc. 33.5 g/dL (32.0-36.0); Mean Corpuscular Volume 87.7 fL (80.0-100.0); Monocytes # (auto) 0.7 10 ^3/uL (0-1.3); Neutrophils # (auto) 8.5 10 ^3/uL (1.6-8.6); Neutrophils % (auto) 79.6 % (37.0-80.0); Nucleated Red Blood Cells % 0.1 %; Platelet Count (auto) 382 10^3/uL (140-450); Red Blood Cells 4.24 10^6/uL (4.5-5.90); Red Cell Distribution Width 13.6 % (11.8-14.3); White Blood Cell 10.6 10^3/uL (4.4-10.8)
--- NOTE | 2025-01-06 09:57 | DVHPN2 ---
Progress Note - Dictate Date Seen: Jan 06, 2025 Medical Necessity Reason Pt with a Central, PICC or Fol: No Subjective S/P orthoscopic surgery for the right knee on 01/05. Patient reports that he has been feeling better. Swelling of leg/edema is improving slowly. vital signs Vital Sign Date Time Temp Pulse Resp B/P (MAP) Pulse Ox O2 Delivery O2 Flow Rate FiO2 01/06/25 08:37 97.8 95 17 102/62 (75) 94 97.8 01/05/25 20:00 Room Air* 0 21 Total Intake and Output 01/05/25 01/05/25 01/06/25 15:00 23:00 07:00 Intake Total 675 ml 600 ml Output Total 650 ml 650 ml Balance 25 ml -50 ml medications Current Medications Medications Dose Ordered Sig/Florinda Route Start Time Stop Time Status Last Admin Dose Admin Vancomycin HCl 0 ml @ 0 mls/hr UD IV 12/24/24 17:15 Docusate Sodium 100 mg BIDPRN PRN PO 12/25/24 00:15 12/25/24 22:17 100 MG Acetaminophen 650 mg Q6HP PRN PO 12/25/24 00:15 12/25/24 20:54 650 MG Atorvastatin Calcium 20 mg HS PO 12/25/24 22:00 01/05/25 21:39 20 MG Nitroglycerin 0.4 mg Q5MINP PRN SL 12/25/24 01:45 Morphine Sulfate 2 mg Q30M PRN IV 12/25/24 01:45 Diagnostic Test (Pha) 1 strip ACHS 12/25/24 17:00 01/06/25 06:27 1 STRIP Insulin Human Regular HS SC 12/25/24 22:00 01/05/25 21:48 3 UNITS Insulin Human Regular AC SC 12/25/24 17:00 01/06/25 06:30 2 UNITS Dextrose 50 ml UD PRN IV 12/25/24 13:15 Prochlorperazine Edisylate 10 mg Q4HPRN PRN IV 12/26/24 01:30 12/26/24 01:56 10 MG Metoprolol Succinate 25 mg DAILY PO 12/26/24 10:45 01/05/25 10:52 25 MG Amiodarone HCl 200 mg Q12HR PO 12/26/24 22:00 01/05/25 21:39 200 MG Morphine Sulfate 4 mg Q4HPRN PRN IV 12/26/24 10:45 01/05/25 06:02 4 MG Vancomycin HCl 125 mg QID PO 12/26/24 12:00 01/06/25 06:25 125 MG Enteral Nutritional Formula 27.5 gm BIDWM PO 12/28/24 18:00 01/05/25 19:03 27.5 GM Oxycodone/ Acetaminophen 1 tab Q4HP PRN PO 01/02/25 11:15 01/06/25 06:33 1 TAB Vancomycin HCl 150 ml @ 150 mls/hr Q12H IV 01/02/25 16:00 01/06/25 06:22 150 MLS/HR Meropenem 50 ml @ 17 mls/hr Q8HR IV 01/03/25 22:00 01/06/25 07:06 17 MLS/HR Furosemide 40 mg DAILY PO 01/05/25 10:00 01/05/25 10:49 40 MG Alprazolam 0.5 mg Q8HPRN PRN PO 01/04/25 13:45 Apixaban 5 mg BID PO 01/04/25 22:00 01/05/25 21:39 5 MG objective General Appearance: Alert, Oriented X3, Cooperative, No acute distress HEENT: Atraumatic, EOMI, Mucous membrane. moist/pink Respiratory: Crackles. Clear to auscultation, Normal air movement Cardiovascular: Regular rate, Normal S1, Normal S2, No murmurs Abdominal: Normal bowel sounds, Soft, No tenderness, No hepatospenomegaly, No masses Extremities: Other (Lower extremity tenderness/swelling). leg edema. s/p right knee I and D. Neuro: Normal speech, Normal tone, Sensation intact, Cranial nerves 3-12 NL, Other (Generalized weakness) Psych/Mental Status: Mental status NL, Mood NL laboratory and microbiology Laboratory Tests 01/06/25 04:10 01/05/25 08:02 Test 01/05/25 08:02 Range/Units Serum Glucose 139 H 74-106 mg/dL Assessment/Plan Patient is a 69-year-old male presents to the hospital with: Bacteremia due to Staphylococcus epidermidis bacteremia gram Positive manasa 1/2 bottles Sepsis Tachycardia Cellulitis of right lower extremity Fluid overload Rule out congestive heart failure Generalized weakness Uncontrolled diabetes mellitus Diabetes mellitus with hyperglycemia Recommendations: Blood culture is likely a contaminant, 1/2 bottles positive the other bottle is also likely contaminated: GPB consider US of right knee Patient needs to be on strict I&O's with fluid restriction Cardiology is on board Continue Lasix Elevate legs Continue IV Vancomycin Discontinued IV Zosyn Antibiotic status: Meropenem IV [Started on 01/03 - Ongoing] Vancomycin IV [Started on 12/24 - Ongoing] Zosyn IV [Started on 12/25 - 12/29] 01/05, Vancomycin Trough is 14.1 Patient is afebrile 12/24, Blood culture showed Staphylococcus epidermidis 12/25, Blood culture showed no growth 12/26, Urine culture showed no growth 12/27, Hand CT showed Dorsal soft tissue swelling which may reflect cellulitis. No fluid collection. No CT evidence of acute osseous abnormality. Prognosis guarded Thank you for consult. Dietary Evaluation Review Comments: For promoting wound healin. Tight DM control, maintain serum Glucose WNL at all time. 2. Consider juvem BID supplementation, encouarge PO intake tomeet 75% of his needs. 3. If Po remain poor, consider protein supplementation via Clinimix amino acid infusion for added 42.5 g protein and 510 kcal if runs 24 hrs at 41ml/hr. Expected Outcomes/Goals: controlled DM, improved nutrition status, healed wounds, gradual wt loss SILVANO FRYE MD Jan 06, 2025 09:57
--- NOTE | 2025-01-06 12:57 | DVHPN2 ---
Subjective Day #2 s/p orthoscopic surgery for the right knee yesterday Feels better Changes from previous H/P or p: Changes Eyes: No Pain, No Vision change, No Conjunctivae inflammation, No Eyelid inflammation, No Other, No Redness ENT: No Ear pain, No Ear discharge, No Nose pain, No Nose discharge, No Nose congestion, No Mouth pain, No Mouth swelling, No Throat pain, No Throat swelling, No Other Cardiovascular: No Chest Pain, No Palpitations, No Orthopnea, No Paroxysmal Noc. Dyspnea, No Edema, No Lt Headedness, No Other Respiratory: No Cough, No Dry, No Shortness of breath, No SOB with excertion, No Wheezing, No Hemoptysis, No Pleuritic Pain, No Sputum, No Other Gastrointestinal: No Nausea, No Vomiting, No Abdominal Pain, No Diarrhea, No Constipation, No Melena, No Hematochezia, No Other Genitourinary: No Dysuria, No Frequency, No Incontinence, No Hematuria, No Retention, No Other Musculoskeletal: other (Lower extremity swelling); No neck pain, No shoulder pain, No arm pain, No back pain, No hand pain; leg pain; No foot pain Skin: No Rash, No Lesions, No Jaundice, No Bruising; Other (Lower extremity redness) Objective Vitals Vital Signs Date Time Temp Pulse Resp B/P (MAP) Pulse Ox O2 Delivery O2 Flow Rate FiO2 01/06/25 10:12 102/62 01/06/25 10:12 95 01/06/25 08:37 97.8 17 94 97.8 01/06/25 08:00 Room Air* 0 21 Intake/Output Intake and Output 01/06/25 07:00 Intake Total 1275 ml Output Total 1300 ml Balance -25 ml Intake Oral 1125 ml IV Total 150 ml Output Urine Total 1300 ml # Bowel Movements 1 General Appearance: Alert, Oriented X3, Cooperative Lungs: Clear to auscultation Cardiovascular: Normal S1, Other (Irregularly irregular) Abdomen: Normal bowel sounds, Soft, No tenderness Extremities: Other (2+ edema BLE R>L) Medications Current Medications Medications Dose Ordered Sig/Florinda Route Start Time Stop Time Status Last Admin Dose Admin Vancomycin HCl 0 ml @ 0 mls/hr UD IV 12/24/24 17:15 Docusate Sodium 100 mg BIDPRN PRN PO 12/25/24 00:15 12/25/24 22:17 100 MG Acetaminophen 650 mg Q6HP PRN PO 12/25/24 00:15 12/25/24 20:54 650 MG Atorvastatin Calcium 20 mg HS PO 12/25/24 22:00 01/05/25 21:39 20 MG Nitroglycerin 0.4 mg Q5MINP PRN SL 12/25/24 01:45 Morphine Sulfate 2 mg Q30M PRN IV 12/25/24 01:45 Diagnostic Test (Pha) 1 strip ACHS 12/25/24 17:00 01/06/25 12:21 1 STRIP Insulin Human Regular HS SC 12/25/24 22:00 01/05/25 21:48 3 UNITS Insulin Human Regular AC SC 12/25/24 17:00 01/06/25 12:22 3 UNITS Dextrose 50 ml UD PRN IV 12/25/24 13:15 Prochlorperazine Edisylate 10 mg Q4HPRN PRN IV 12/26/24 01:30 12/26/24 01:56 10 MG Metoprolol Succinate 25 mg DAILY PO 12/26/24 10:45 01/06/25 10:12 25 MG Amiodarone HCl 200 mg Q12HR PO 12/26/24 22:00 01/06/25 10:11 200 MG Morphine Sulfate 4 mg Q4HPRN PRN IV 12/26/24 10:45 01/05/25 06:02 4 MG Vancomycin HCl 125 mg QID PO 12/26/24 12:00 01/06/25 12:23 125 MG Enteral Nutritional Formula 27.5 gm BIDWM PO 12/28/24 18:00 01/05/25 19:03 27.5 GM Oxycodone/ Acetaminophen 1 tab Q4HP PRN PO 01/02/25 11:15 01/06/25 10:48 1 TAB Vancomycin HCl 150 ml @ 150 mls/hr Q12H IV 01/02/25 16:00 01/06/25 06:22 150 MLS/HR Meropenem 50 ml @ 17 mls/hr Q8HR IV 01/03/25 22:00 01/06/25 07:06 17 MLS/HR Furosemide 40 mg DAILY PO 01/05/25 10:00 01/06/25 10:12 40 MG Alprazolam 0.5 mg Q8HPRN PRN PO 01/04/25 13:45 Apixaban 5 mg BID PO 01/04/25 22:00 01/06/25 10:11 5 MG Laboratory Results Laboratory Tests 01/05/25 08:02 01/06/25 04:10 Urinalysis Test 12/26/24 12:13 Urine Color Yellow (Yellow) Urine Clarity Hazy (Clear) H Urine pH 5.5 (5.0-9.0) Urine Specific [place] 1.033 (1.001-1.035) Urine Protein 1+ (Negative) H Urine Ketones 1+ (Negative) H Urine Blood 1+ /uL (Negative) H Urine Nitrite Negative (Negative) Urine Bilirubin Negative (Negative) Urine Urobilinogen Normal mg/dL (Negative) Urine Leukocyte Esterase Negative /uL (Negative) Urine RBC 1 /hpf (0 - 3) Urine Microscopic WBC 5 /HPF (0-3) H Urine Squamous Epithelial Cells Few /hpf (<5) Urine Bacteria Few /hpf (None Seen) H Urine Glucose 4+ mg/dL (Normal) H Microbiology Microbiology Date/Time Source Procedure Growth Status 01/04/25 14:52 Knee Right Gram Stain - Final Resulted 01/04/25 14:52 Knee Right Anaerobic Culture Pending Resulted 01/04/25 14:52 Knee Right Aerobic Culture - Preliminary Resulted 01/03/25 11:55 Aspirate Gram Stain - Final Resulted 01/03/25 11:55 Aspirate Body Fluid Culture - Preliminary Resulted 12/26/24 12:13 Voided Urine Urine Culture - Final Complete 12/25/24 14:02 Blood Blood Culture - Final NO GROWTH AFTER 5 DAYS OF INCUBATION. Complete Assessment/Plan Assessment/Plan Cellulitis RLE Cellulitis Left hand Sepsis Afib RVR Morbid obesity Recurrent C. 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 Thrombocytopenia due to sepsis HTN DM2 Mixed hyperlipidemia Bacteremia PLAN: Continue IV antibiotics: Zosyn &Vanco Resume po Vanco Lasix Pain management Eliquis Metoprolol po amiodarone Junior 12/27/2024: Left hand cellulitis rule out abscess: Get CT scan of the left hand no contrast Bilateral lower extremity edema: Increase Lasix to twice a day Right lower extremity cellulitis: Continue IV antibiotics with Zosyn and vancomycin Atrial fibrillation: Continue Eliquis and metoprolol and amiodarone Bacteremia with Gram-negative rods and Gram-positive cocci: Continue IV antibiotics Recent C diff colitis: Continue vancomycin p.o. Hypokalemia: Replace p.o. Pain control with morphine and [place] p.r.n. Junior catheter Monitor closely 12/28/2024: Replace potassium Continue IV antibiotics Add Aguilar supplements twice a day Continue p.o. vancomycin Monitor closely 12/29/2024: Replace potassium and magnesium Start physical therapy Continue the IV antibiotics 12/30/2024: Continue the IV antibiotics Start physical therapy Replace potassium and magnesium Monitor closely The rest of the management will depend on the hospital course 12/31/2024: Continue the current management with IV antibiotics and p.o. vancomycin Replace magnesium and potassium Continue physical therapy Out of bed as tolerated 01/01/2025: Get CT scan of the right knee and right tibia and fibula Continue IV antibiotics Continue p.o. vancomycin Continue physical therapy 01/02/2025: Right knee pain and effusion, rule out septic arthritis, consult IR to do arthrocentesis for fluid analysis Right lower extremity cellulitis: Improving, continue IV antibiotics Left hand cellulitis: Improving, continue IV antibiotics Continue physical therapy 01/03/25: Chest pain: EKG neg, consult cardiology, check troponins Afib: Eliquis, Amiodarone, Metoprolol R knee septic arthritis: Start Meropenem, con Vanco IV, consult Ortho Recent C. Diff colitis: PO Vanco L hand cellulitis: Improving RLE cellulitis: Improving Sepsis / Leukocytosis due to cellulitis and septic arthritis Bacteremia w Staph epi HTN DM2 Mixed hyperlipidemia Bacteremia Morbid obesity Pain: Morphine & Percocet prn BLE edema, ? diastolic HF?: IV Lasix 01/04/2025: Chest pain: Stress test is negative Right knee septic arthritis: Continue IV antibiotics vancomycin and meropenem, Orthopedic surgery for today Anxiety: Start Xanax p.r.n. Atrial fibrillation on Eliquis and amiodarone and metoprolol C diff colitis: P.o. vancomycin Hypotension: Discontinue IV Lasix, changed to 40 mg p.o. daily 01/05/2025: Continue IV antibiotics The patient will need more surgical definitive treatment for his right knee prosthetic infection I recommended to the patient to be transferred to higher level of care, he will think about it and let us know 01/06/25: IV Meropenem and Vancomycin PO Vanco for C. 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
[2025-01-06] MEDS: FLORASTOR (S. BOULARDII) 250 MG CAP PO ONE (13:52)
[2025-01-06] MEDS: FLORASTOR (S. BOULARDII) 250 MG CAP PO SCH (21:21)
[2025-01-07] VITALS (7 sets, daily range): BP systolic 89–120; BP diastolic 55–72; PULSE 85–104; RESP 15–18; TEMP 97.8–98; O2SAT 93–97
[2025-01-07 07:23] LABS: Anion Gap 6 (5-15); Carbon Dioxide 29 mmol/L (20-31); Chloride 103 mmol/L (98-107); Potassium 3.6 mmol/L (3.5-5.1); Sodium 138 mmol/L (136-145)
[2025-01-07 07:25] LABS: Calcium 8.6 mg/dL (8.7-10.4)
[2025-01-07 07:29] LABS: BUN/Creatinine Ratio 18.3 (10.0-20.0); Blood Urea Nitrogen 15 mg/dL (9-23)
[2025-01-07 07:34] LABS: Glucose 155 mg/dL (74-106)
--- NOTE | 2025-01-07 11:28 | DVHPN2 ---
Subjective Feels better He is able to put partial weight on his right leg now with physical therapy Changes from previous H/P or p: Changes Eyes: No Pain, No Vision change, No Conjunctivae inflammation, No Eyelid inflammation, No Other, No Redness ENT: No Ear pain, No Ear discharge, No Nose pain, No Nose discharge, No Nose congestion, No Mouth pain, No Mouth swelling, No Throat pain, No Throat swelling, No Other Cardiovascular: No Chest Pain, No Palpitations, No Orthopnea, No Paroxysmal Noc. Dyspnea, No Edema, No Lt Headedness, No Other Respiratory: No Cough, No Dry, No Shortness of breath, No SOB with excertion, No Wheezing, No Hemoptysis, No Pleuritic Pain, No Sputum, No Other Gastrointestinal: No Nausea, No Vomiting, No Abdominal Pain, No Diarrhea, No Constipation, No Melena, No Hematochezia, No Other Genitourinary: No Dysuria, No Frequency, No Incontinence, No Hematuria, No Retention, No Other Musculoskeletal: other (Lower extremity swelling); No neck pain, No shoulder pain, No arm pain, No back pain, No hand pain; leg pain; No foot pain Skin: No Rash, No Lesions, No Jaundice, No Bruising; Other (Lower extremity redness) Objective Vitals Vital Signs Date Time Temp Pulse Resp B/P (MAP) Pulse Ox O2 Delivery O2 Flow Rate FiO2 01/07/25 10:05 101/62 01/07/25 10:03 98 01/07/25 08:30 97.9 15 94 97.9 01/07/25 08:00 Room Air* 0 21 Intake/Output Intake and Output 01/07/25 07:00 Intake Total 2050 ml Output Total 1350 ml Balance 700 ml Intake Oral 1450 ml IV Total 600 ml Output Urine Total 1350 ml General Appearance: Alert, Oriented X3, Cooperative Lungs: Clear to auscultation Cardiovascular: Normal S1, Other (Irregularly irregular) Abdomen: Normal bowel sounds, Soft, No tenderness Extremities: Other (2+ edema BLE R>L) Medications Current Medications Medications Dose Ordered Sig/Florinda Route Start Time Stop Time Status Last Admin Dose Admin Vancomycin HCl 0 ml @ 0 mls/hr UD IV 12/24/24 17:15 Docusate Sodium 100 mg BIDPRN PRN PO 12/25/24 00:15 12/25/24 22:17 100 MG Acetaminophen 650 mg Q6HP PRN PO 12/25/24 00:15 12/25/24 20:54 650 MG Atorvastatin Calcium 20 mg HS PO 12/25/24 22:00 01/06/25 21:20 20 MG Nitroglycerin 0.4 mg Q5MINP PRN SL 12/25/24 01:45 Morphine Sulfate 2 mg Q30M PRN IV 12/25/24 01:45 Diagnostic Test (Pha) 1 strip ACHS 12/25/24 17:00 01/07/25 06:17 1 STRIP Insulin Human Regular HS SC 12/25/24 22:00 01/06/25 21:31 2 UNITS Insulin Human Regular AC SC 12/25/24 17:00 01/07/25 06:16 3 UNITS Dextrose 50 ml UD PRN IV 12/25/24 13:15 Prochlorperazine Edisylate 10 mg Q4HPRN PRN IV 12/26/24 01:30 12/26/24 01:56 10 MG Metoprolol Succinate 25 mg DAILY PO 12/26/24 10:45 01/07/25 10:03 25 MG Amiodarone HCl 200 mg Q12HR PO 12/26/24 22:00 01/07/25 10:02 200 MG Morphine Sulfate 4 mg Q4HPRN PRN IV 12/26/24 10:45 01/07/25 04:11 4 MG Vancomycin HCl 125 mg QID PO 12/26/24 12:00 01/07/25 05:24 125 MG Enteral Nutritional Formula 27.5 gm BIDWM PO 12/28/24 18:00 01/07/25 08:23 27.5 GM Oxycodone/ Acetaminophen 1 tab Q4HP PRN PO 01/02/25 11:15 01/07/25 10:08 1 TAB Vancomycin HCl 150 ml @ 150 mls/hr Q12H IV 01/02/25 16:00 01/07/25 04:10 150 MLS/HR Meropenem 50 ml @ 17 mls/hr Q8HR IV 01/03/25 22:00 01/07/25 05:24 17 MLS/HR Furosemide 40 mg DAILY PO 01/05/25 10:00 01/07/25 10:05 40 MG Alprazolam 0.5 mg Q8HPRN PRN PO 01/04/25 13:45 Apixaban 5 mg BID PO 01/04/25 22:00 01/07/25 10:02 5 MG Saccharomyces Boulardii 250 mg BID PO 01/06/25 22:00 01/07/25 10:04 250 MG Laboratory Results Laboratory Tests 01/06/25 04:10 01/07/25 06:42 Chemistry Test 01/07/25 06:42 Calcium Level 8.6 mg/dL (8.7-10.4) L Urinalysis Test 12/26/24 12:13 Urine Color Yellow (Yellow) Urine Clarity Hazy (Clear) H Urine pH 5.5 (5.0-9.0) Urine Specific [place] 1.033 (1.001-1.035) Urine Protein 1+ (Negative) H Urine Ketones 1+ (Negative) H Urine Blood 1+ /uL (Negative) H Urine Nitrite Negative (Negative) Urine Bilirubin Negative (Negative) Urine Urobilinogen Normal mg/dL (Negative) Urine Leukocyte Esterase Negative /uL (Negative) Urine RBC 1 /hpf (0 - 3) Urine Microscopic WBC 5 /HPF (0-3) H Urine Squamous Epithelial Cells Few /hpf (<5) Urine Bacteria Few /hpf (None Seen) H Urine Glucose 4+ mg/dL (Normal) H Microbiology Microbiology Date/Time Source Procedure Growth Status 01/04/25 14:52 Knee Right Gram Stain - Final Resulted 01/04/25 14:52 Knee Right Anaerobic Culture Pending Resulted 01/04/25 14:52 Knee Right Aerobic Culture - Preliminary Resulted 01/03/25 11:55 Aspirate Gram Stain - Final Resulted 01/03/25 11:55 Aspirate Body Fluid Culture - Preliminary Resulted 12/26/24 12:13 Voided Urine Urine Culture - Final Complete 12/25/24 14:02 Blood Blood Culture - Final NO GROWTH AFTER 5 DAYS OF INCUBATION. Complete Assessment/Plan Assessment/Plan Cellulitis RLE Cellulitis Left hand Sepsis Afib RVR Morbid obesity Recurrent C. 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 Thrombocytopenia due to sepsis HTN DM2 Mixed hyperlipidemia Bacteremia PLAN: Continue IV antibiotics: Zosyn &Vanco Resume po Vanco Lasix Pain management Eliquis Metoprolol po amiodarone Junior 12/27/2024: Left hand cellulitis rule out abscess: Get CT scan of the left hand no contrast Bilateral lower extremity edema: Increase Lasix to twice a day Right lower extremity cellulitis: Continue IV antibiotics with Zosyn and vancomycin Atrial fibrillation: Continue Eliquis and metoprolol and amiodarone Bacteremia with Gram-negative rods and Gram-positive cocci: Continue IV antibiotics Recent C diff colitis: Continue vancomycin p.o. Hypokalemia: Replace p.o. Pain control with morphine and [place] p.r.n. Junior catheter Monitor closely 12/28/2024: Replace potassium Continue IV antibiotics Add Aguilar supplements twice a day Continue p.o. vancomycin Monitor closely 12/29/2024: Replace potassium and magnesium Start physical therapy Continue the IV antibiotics 12/30/2024: Continue the IV antibiotics Start physical therapy Replace potassium and magnesium Monitor closely The rest of the management will depend on the hospital course 12/31/2024: Continue the current management with IV antibiotics and p.o. vancomycin Replace magnesium and potassium Continue physical therapy Out of bed as tolerated 01/01/2025: Get CT scan of the right knee and right tibia and fibula Continue IV antibiotics Continue p.o. vancomycin Continue physical therapy 01/02/2025: Right knee pain and effusion, rule out septic arthritis, consult IR to do arthrocentesis for fluid analysis Right lower extremity cellulitis: Improving, continue IV antibiotics Left hand cellulitis: Improving, continue IV antibiotics Continue physical therapy 01/03/25: Chest pain: EKG neg, consult cardiology, check troponins Afib: Eliquis, Amiodarone, Metoprolol R knee septic arthritis: Start Meropenem, con Vanco IV, consult Ortho Recent C. Diff colitis: PO Vanco L hand cellulitis: Improving RLE cellulitis: Improving Sepsis / Leukocytosis due to cellulitis and septic arthritis Bacteremia w Staph epi HTN DM2 Mixed hyperlipidemia Bacteremia Morbid obesity Pain: Morphine & Percocet prn BLE edema, ? diastolic HF?: IV Lasix 01/04/2025: Chest pain: Stress test is negative Right knee septic arthritis: Continue IV antibiotics vancomycin and meropenem, Orthopedic surgery for today Anxiety: Start Xanax p.r.n. Atrial fibrillation on Eliquis and amiodarone and metoprolol C diff colitis: P.o. vancomycin Hypotension: Discontinue IV Lasix, changed to 40 mg p.o. daily 01/05/2025: Continue IV antibiotics The patient will need more surgical definitive treatment for his right knee prosthetic infection I recommended to the patient to be transferred to higher level of care, he will think about it and let us know 01/06/25: IV Meropenem and Vancomycin PO Vanco for C. 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 PHA 01/06/25 In Process [place]) (Florastor) 22:00 Date of Service: Jan 07, 2025 Billing Provider: PEGGY OZUNA MD Common Visit Codes: NOT BILLABLE PEGGY OZUNA MD Jan 07, 2025 11:28
--- NOTE | 2025-01-07 18:39 | DVHPN2 ---
Progress Note - Dictate Date Seen: Jan 07, 2025 Medical Necessity Reason Pt with a Central, PICC or Fol: No Subjective S/P orthoscopic surgery for the right knee on 01/05. Patient reports that he has been feeling better. Swelling of leg/edema is improving slowly. He is able to put partial weight on his right leg now with physical therapy vital signs Vital Sign Date Time Temp Pulse Resp B/P (MAP) Pulse Ox O2 Delivery O2 Flow Rate FiO2 01/07/25 18:36 85 18 120/72 01/07/25 16:05 97.9 97 97.9 01/07/25 08:00 Room Air* 0 21 Total Intake and Output 01/06/25 01/06/25 01/07/25 15:00 23:00 07:00 Intake Total 200 ml 850 ml 1000 ml Output Total 750 ml 600 ml Balance 200 ml 100 ml 400 ml medications Current Medications Medications Dose Ordered Sig/Florinda Route Start Time Stop Time Status Last Admin Dose Admin Vancomycin HCl 0 ml @ 0 mls/hr UD IV 12/24/24 17:15 Docusate Sodium 100 mg BIDPRN PRN PO 12/25/24 00:15 12/25/24 22:17 100 MG Acetaminophen 650 mg Q6HP PRN PO 12/25/24 00:15 12/25/24 20:54 650 MG Atorvastatin Calcium 20 mg HS PO 12/25/24 22:00 01/06/25 21:20 20 MG Nitroglycerin 0.4 mg Q5MINP PRN SL 12/25/24 01:45 Morphine Sulfate 2 mg Q30M PRN IV 12/25/24 01:45 Diagnostic Test (Pha) 1 strip ACHS 12/25/24 17:00 01/07/25 17:08 1 STRIP Insulin Human Regular HS SC 12/25/24 22:00 01/06/25 21:31 2 UNITS Insulin Human Regular AC SC 12/25/24 17:00 01/07/25 17:09 3 UNITS Dextrose 50 ml UD PRN IV 12/25/24 13:15 Prochlorperazine Edisylate 10 mg Q4HPRN PRN IV 12/26/24 01:30 12/26/24 01:56 10 MG Metoprolol Succinate 25 mg DAILY PO 12/26/24 10:45 01/07/25 10:03 25 MG Amiodarone HCl 200 mg Q12HR PO 12/26/24 22:00 01/07/25 10:02 200 MG Morphine Sulfate 4 mg Q4HPRN PRN IV 12/26/24 10:45 01/07/25 18:36 4 MG Vancomycin HCl 125 mg QID PO 12/26/24 12:00 01/07/25 17:50 125 MG Enteral Nutritional Formula 27.5 gm BIDWM PO 12/28/24 18:00 01/07/25 17:50 27.5 GM Oxycodone/ Acetaminophen 1 tab Q4HP PRN PO 01/02/25 11:15 01/07/25 15:16 1 TAB Vancomycin HCl 150 ml @ 150 mls/hr Q12H IV 01/02/25 16:00 01/07/25 17:11 150 MLS/HR Meropenem 50 ml @ 17 mls/hr Q8HR IV 01/03/25 22:00 01/07/25 13:22 17 MLS/HR Furosemide 40 mg DAILY PO 01/05/25 10:00 01/07/25 10:05 40 MG Alprazolam 0.5 mg Q8HPRN PRN PO 01/04/25 13:45 Apixaban 5 mg BID PO 01/04/25 22:00 01/07/25 10:02 5 MG Saccharomyces Boulardii 250 mg BID PO 01/06/25 22:00 01/07/25 10:04 250 MG objective General Appearance: Alert, Oriented X3, Cooperative, No acute distress HEENT: Atraumatic, EOMI, Mucous membrane. moist/pink Respiratory: Crackles. Clear to auscultation, Normal air movement Cardiovascular: Regular rate, Normal S1, Normal S2, No murmurs Abdominal: Normal bowel sounds, Soft, No tenderness, No hepatospenomegaly, No masses Extremities: Other (Lower extremity tenderness/swelling). leg edema. s/p right knee I and D. Neuro: Normal speech, Normal tone, Sensation intact, Cranial nerves 3-12 NL, Other (Generalized weakness) Psych/Mental Status: Mental status NL, Mood NL laboratory and microbiology Laboratory Tests 01/07/25 06:42 01/06/25 04:10 Test 01/07/25 06:42 Range/Units Serum Glucose 155 H 74-106 mg/dL Assessment/Plan Patient is a 69-year-old male presents to the hospital with: Bacteremia due to Staphylococcus epidermidis bacteremia gram Positive manasa 1/2 bottles Sepsis Tachycardia Cellulitis of right lower extremity Fluid overload Rule out congestive heart failure Generalized weakness Uncontrolled diabetes mellitus Diabetes mellitus with hyperglycemia Recommendations: Blood culture is likely a contaminant, 1/2 bottles positive the other bottle is also likely contaminated: GPB consider US of right knee Patient needs to be on strict I&O's with fluid restriction Cardiology is on board Continue Lasix Elevate legs Continue IV Vancomycin Discontinued IV Zosyn on 12/29 Antibiotic status: Meropenem IV [Started on 01/03 - Ongoing] Vancomycin IV [Started on 12/24 - Ongoing] Zosyn IV [Started on 12/25 - 12/29] 01/07, Vancomycin Trough is 15.7 Patient is afebrile 12/24, Blood culture showed Staphylococcus epidermidis 12/25, Blood culture showed no growth 12/26, Urine culture showed no growth 12/27, Hand CT showed Dorsal soft tissue swelling which may reflect cellulitis. No fluid collection. No CT evidence of acute osseous abnormality. Prognosis guarded Thank you for consult. Dietary Evaluation Review Comments: For promoting wound healin. Tight DM control, maintain serum Glucose WNL at all time. 2. Consider juvem BID supplementation, encouarge PO intake tomeet 75% of his needs. 3. If Po remain poor, consider protein supplementation via Clinimix amino acid infusion for added 42.5 g protein and 510 kcal if runs 24 hrs at 41ml/hr. Expected Outcomes/Goals: controlled DM, improved nutrition status, healed wounds, gradual wt loss SILVANO FRYE MD Jan 07, 2025 18:39
--- NOTE | 2025-01-08 14:09 | DVHDS2 ---
Discharge Summary Date of Admission Dec 25, 2024 at 01:38 Date of Discharge: Jan 07, 2025 Labs/Diagnostic Data: Laboratory Results Test 01/07/25 16:57 01/07/25 14:43 01/07/25 06:42 01/06/25 04:10 POC Glucose 180 mg/dl (70-106) Vancomycin Level Trough 15.7 ug/mL (5-10) Sodium Level 138 mmol/L (136-145) Potassium Level 3.6 mmol/L (3.5-5.1) Chloride Level 103 mmol/L (98-107) Carbon Dioxide Level 29 mmol/L (20-31) Anion Gap 6 (5-15) Blood Urea Nitrogen 15 mg/dL (9-23) Creatinine 0.82 mg/dL (0.700-1.30) Glomerular Filtration Rate Calc 95 mL/min (>90) BUN/Creatinine Ratio 18.3 (10.0-20.0) Serum Glucose 155 mg/dL (74-106) Calcium Level 8.6 mg/dL (8.7-10.4) White Blood Count 10.6 10^3/uL (4.4-10.8) Red Blood Count 4.24 10^6/uL (4.5-5.90) Hemoglobin 12.5 g/dL (13.5-17.5) Hematocrit 37.2 % (41.0-53.0) Mean Corpuscular Volume 87.7 fL (80.0-100.0) Mean Corpuscular Hemoglobin 29.3 pg (28.0-32.0) Mean Corpuscular Hemoglobin Concent 33.5 g/dL (32.0-36.0) Red Cell Distribution Width 13.6 % (11.8-14.3) Platelet Count 382 10^3/uL (140-450) Mean Platelet Volume 8.8 fL (6.9-10.8) Neutrophils (%) (Auto) 79.6 % (37.0-80.0) Lymphocytes (%) (Auto) 11.3 % (10.0-50.0) Monocytes (%) (Auto) 7.0 % (0.0-12.0) Eosinophils (%) (Auto) 1.5 % (0.0-7.0) Basophils (%) (Auto) 0.6 % (0.0-2.0) Neutrophils # (Auto) 8.5 10 ^3/uL (1.6-8.6) Lymphocytes # (Auto) 1.2 10 ^3/uL (0.4-5.4) Monocytes # (Auto) 0.7 10 ^3/uL (0-1.3) Eosinophils # (Auto) 0.2 10 ^3/uL (0-0.8) Basophils # (Auto) 0.1 10 ^3/uL (0-0.2) Nucleated Red Blood Cells 0.1 % Test 01/05/25 08:02 01/04/25 17:15 01/04/25 07:18 01/03/25 11:55 Magnesium Level 2.1 mg/dL (1.6-2.6) Total Bilirubin 0.7 mg/dL (0.2-1.0) Aspartate Amino Transferase (AST) 12 U/L (13-40) Alanine Aminotransferase (ALT) 11 U/L (7-40) Alkaline Phosphatase 99 U/L (46-116) Total Protein 6.4 g/dL (5.7-8.2) Albumin 3.0 g/dL (3.2-4.8) Miscellaneous Referred Test (Rm Tmp Sent to [facility] Troponin I High Sensitivity 4 ng/L (</=54) Body Fluid Source Joint fluid/ascities Body Fluid pH 7.0 Body Fluid WBC (Manual) 741184 CUMM (0-200) Body Fluid RBC (Manual) 303118 CUMM (0-2000) Body Fluid Mononuclear Cells 17 % Body Fluid Polymorphonuclear Cells 83 % (0-25) Test 01/02/25 06:22 12/26/24 12:13 12/26/24 05:12 12/25/24 11:43 Random Vancomycin Level 5.1 ug/mL (5-10) Urine Color Yellow (Yellow) Urine Clarity Hazy (Clear) Urine pH 5.5 (5.0-9.0) Urine Specific [place] 1.033 (1.001-1.035) Urine Protein 1+ (Negative) Urine Ketones 1+ (Negative) Urine Blood 1+ /uL (Negative) Urine Nitrite Negative (Negative) Urine Bilirubin Negative (Negative) Urine Urobilinogen Normal mg/dL (Negative) Urine Leukocyte Esterase Negative /uL (Negative) Urine RBC 1 /hpf (0 - 3) Urine Microscopic WBC 5 /HPF (0-3) Urine Squamous Epithelial Cells Few /hpf (<5) Urine Bacteria Few /hpf (None Seen) Urine Glucose 4+ mg/dL (Normal) Triglycerides Level 80 mg/dL (< 150) Cholesterol Level 80 mg/dL (< 200) LDL Cholesterol 51 mg/dL (< 100) HDL Cholesterol 17 mg/dL (40-59) Thyroid Stimulating Hormone (TSH) 0.67 uIU/mL (0.55-4.78) Lactic Acid Level 2.4 mmol/L (0.4-2.0) Test 12/25/24 00:59 12/24/24 18:26 B-Type Natriuretic Peptide 172.63 pg/mL (0-100) Differential Total Cells Counted 100.0 (100) Neutrophils % (Manual) 85 (37.0-80.0) Band Neutrophils % (Manual) 8 Lymphocytes % (Manual) 5 (10.0-50.0) Monocytes % (Manual) 1 (0-12) Eosinophils % (Manual) 1 (0-7) Basophils % (Manual) 0 (0.0-2.0) Metamyelocytes % (manual) 0 Myelocytes % (Manual) 0 Promyelocytes % (Manual) 0 Blast Cells % (Manual) 0 Reactive Lymphocytes 0 Platelet Estimate Decreased Prothrombin Time 11.4 sec (9.3-11.8) Prothrombin Time INR 1.08 (0.9-1.15) Activated Partial Thromboplast Time 36.7 SEC (24.5-34.5) Other Laboratory Tests 01/07/25 06:42 01/06/25 04:10 Brief Hx & Hospital Course: Diagnoses: Chest pain: EKG neg, consult cardiology, negative stress test Afib: Eliquis, Amiodarone, Metoprolol R knee septic arthritis: Status post surgical washout Recent C. Diff colitis: L hand cellulitis: Resolved RLE cellulitis: Improved Sepsis / Leukocytosis due to cellulitis and septic arthritis Bacteremia w Staph epi HTN DM2 Mixed hyperlipidemia Bacteremia Morbid obesity 69-year-old male with a history of atrial fibrillation, diabetes, morbid obesity, history of recurrent C diff infection came with swelling and pain and redness in his right leg that was from the knee down to the ankle He was diagnosed with cellulitis of the right lower extremity He also had cellulitis of the left hand and therefore he was given IV antibiotics for few days which improved the cellulitis significantly in the left hand and right leg however after the cellulitis in her leg improved he started saying that his right knee hurts more He tried to ambulate but he could not ambulate on his right leg even though the cellulitis was getting better and therefore we did a CT scan of the right knee which showed effusion and therefore because the patient has a history of a prosthetic knee and infection in that knee we suspected septic arthritis and therefore we consulted Interventional Radiology to tap the right knee which showed pus Orthopedic surgery was consulted therefore and they recommended a washout surgery which was done Due to the patient's medical history including in his atrial fibrillation, he was having rapid ventricular response which was controlled with medications He was given Lasix which improved his edema He was continued on p.o. vancomycin for his C diff colitis that he had recently as an outpatient before he came here Surgery recommended for him to have a definitive surgery with removal of the hardware and IV antibiotics which could not be done here and therefore we transfer the patient to higher level of care, he was accepted at [facility] and therefore he was transferred there successfully in a stable condition Condition at Discharge: Stable Final Diagnosis/Problems List Chest pain: EKG neg, consult cardiology, check troponins Afib: Eliquis, Amiodarone, Metoprolol R knee septic arthritis: Start Meropenem, con Vanco IV, consult Ortho Recent C. Diff colitis: PO Vanco L hand cellulitis: Improving RLE cellulitis: Improving Sepsis / Leukocytosis due to cellulitis and septic arthritis Bacteremia w Staph epi HTN DM2 Mixed hyperlipidemia Bacteremia Morbid obesity Pain: Morphine & Percocet prn BLE edema, ? diastolic HF?: IV Lasix Discharge Disposition: Acute Care Facility Discharge Instruct/Medications Diet: Consistent carbohydrate Activity: No Restrictions, As Tolerated Discharge Statement: "Patient was advised to return to the ER or call 911 if any headaches, dizziness, shortness of breath, chest pain, abdominal pain, bleeding, fevers, or worsening of medical condition. Patient was counseled about treatment plan, medications, possible side effects, patientverbalized understanding. All questions were answered to the best of my ability. This discharge took greater then 30 minutes in planning, reviewing documentation, counseling the patient, and discussing with other team members." ASSESSMENT ASSESSMENT Assessment Right knee infection status post total knee arthroplasty Date of Service: Jan 07, 2025 Billing Provider: PEGGY OZUNA MD Common Visit Codes: NOT BILLABLE PEGGY OZUNA MD Jan 08, 2025 14:09
== END 2025-01-07 19:00 | disposition short-term general hospital (02) | DRG 485 ==
LOC: EDBD 16:10 → ER 16:10 → OVERFLOW 12-25 01:38 → TELE-CENTR 12-25 03:11
PROVIDERS: ADMIT Internal Medicine Geriatric Medicine; ATTEND Internal Medicine Geriatric Medicine
PROC: 0S9C3ZZ Drainage of Right Knee Joint, Percutaneous Approach (ICD-10-PCS; 2025-01-03)
PROC: 0SBC4ZZ Excision of Right Knee Joint, Percutaneous Endoscopic Approach (ICD-10-PCS; principal; 2025-01-04 14:18)
DX: T84.53XA Infection and inflammatory reaction due to internal right knee prosthesis, initial encounter (principal); A41.1 Sepsis due to other specified staphylococcus; I47.19 Other supraventricular tachycardia; I48.92 Unspecified atrial flutter; L03.114 Cellulitis of left upper limb; L03.115 Cellulitis of right lower limb; L03.116 Cellulitis of left lower limb; I50.30 Unspecified diastolic (congestive) heart failure; D69.59 Other secondary thrombocytopenia; E11.65 Type 2 diabetes mellitus with hyperglycemia; E66.01 Morbid (severe) obesity due to excess calories; E78.2 Mixed hyperlipidemia; I48.91 Unspecified atrial fibrillation; I45.10 Unspecified right bundle-branch block; Z96.653 Presence of artificial knee joint, bilateral; I11.0 Hypertensive heart disease with heart failure; Y83.1 Surgical operation with implant of artificial internal device as the cause of abnormal reaction of the patient, or of later complication, without mention of misadventure at the time of the procedure; I87.2 Venous insufficiency (chronic) (peripheral); Z79.01 Long term (current) use of anticoagulants; Z79.899 Other long term (current) drug therapy; Z79.891 Long term (current) use of opiate analgesic; Z79.1 Long term (current) use of non-steroidal anti-inflammatories (NSAID); Z79.4 Long term (current) use of insulin; Z83.3 Family history of diabetes mellitus; Z80.0 Family history of malignant neoplasm of digestive organs; Z80.42 Family history of malignant neoplasm of prostate; Z68.39 Body mass index [BMI] 39.0-39.9, adult; Y92.89 Other specified places as the place of occurrence of the external cause
CPT/HCPCS: 20611; 36415; 71045; 73200; 73562; 73700; 76881; 76942; 78452; 80048; 80053; 80061; 80202; 81001; 82565; 82962; 83605; 83735; 83880; 83986; 84443; 84484; 85007; 85025; 85027; 85610; 85730; 87040; 87070; 87075; 87077; 87086; 87186; 87205; 89051; 93005; 93017; 93306; 93970; 96361; 96365; 96367; 96375; 97110; 97116; 97163; 97530; 99291; C1729; G0378; J0690; J1815; J2185; J2250; J2405; J2543; J2704; P9047